=== PATIENT | male | born 1955 ===

== ENCOUNTER 2025-02-13 14:26 | Outpatient (REF) | payer MEDICARE, SELFPAY ==
--- OUTSIDE RECORDS SUMMARY | 2024-03-18 05:30 | XMS_ITS ---
Author Organization [facility] Address [address] [facility] [address] [place] [address] Care Team Providers Care Plug Stitcher Name Role Phone Lobo Mills MD Primary Care Provider Unavaila Sriram Garcia Unavailable [phone] Allergies Allergen (clinical drug ingredient) Drug/Non Drug [...] Active Encounters Encounter Location Date Provider Diagnosis [facility] [address] [place] [address] 03/18/2024 Sriram Shirley Plan Of Treatment Next Appt Details Provider Name:Sriram Shirley, 02/28/2025 10:00:00 AM, [address] [place] [address], [phone], Progress Notes * Richard FARIASOB:1955 (69 yo M)Acc No.[id number]:03/18/2024 Ostomy Follow-Up Visit Patient: Jose GASTELUM Provider: Raisa Shirley MD, MSc, CWSP :1955 A ge:69 Y S ex:Male Date:03/18/2024 Address:[address] [place], [place] [id number] Pcp:Lobo Mills MD Subjective: * Chief Complaints: [...] Electronic signature of Zulema Shirley MD on 02/13/2025 at 06:19 PM EDT Sign off status: Pending * Provider: Raisa Shriley MD, MSc, CWSP Date: 05/18/2023 Generated for Zoya melendez/Monika/Reva on: 06:19 PM EDT
--- OUTSIDE RECORDS SUMMARY | 2025-01-21 06:00 | XMS_ITS ---
Author Organization [facility] Address [address] [facility] [address] [place] [address] Care Team Providers Care Leather Stripping Machine Operator Name Role Phone Gene ROSAS, Lobo Primary Care Provider UnavailSriram Singh Unavailable [phone] REASON FOR VISIT 1 month f/u, hospitalized at [facility] Encounters Encounter Location Date Provider Diagnosis [facility] [address] [place] [address] 01/21/2025 Sriram Shirley Plan Of Treatment Next Appt Details Provider Name:Sriram Shirley, 02/28/2025 10:00:00 AM, [address] [place], [address], Progress Notes * Richard FARIASOB:1955 (69 yo M)Acc No.[id number]:01/21/2025 Ostomy Follow-Up Visit Patient: Coy CAITY Jose Provider: Raisa Shirley MD, MSc, CWSP :1955 A ge:69 Y S ex:Male Date:01/21/2025 Address: [address] [phone] Pcp:Lobo Mills MD Subjective: * Chief Complaints: * 1 . 1 month f/u, hospitalized at [facility]. * Medical History: Objective: * Vitals: Assessment: Plan: * Treatment: * Billing Information: * Visit Code: * Procedure Codes: * Electronic signature of Zulema Shirley MD on 02/13/2025 at 06:19 PM EDT Sign off status: Pending * Provider: Raisa Shirley MD, MSc, CWSP Date: 0 01/21/2025 Generated for Zoya melendez/Monika/Reva on: 1 06:19 PM EDT
--- OUTSIDE RECORDS SUMMARY | 2025-02-12 14:09 | XMS_ITS | Encounter Summary ---
Author Organization [facility] Address [address] [place] [address] Phone Care Team Providers Care Simulation Developer Name Role Phone Lobo Mills MD Primary Care Provider Referring, Not Required Unavailable Unavaila Sanchez Montanez MD Unavailable Amrita Soni MD Unavailable [phone] Encounter Details Date Type Department Care Team (Latest Contact Info) Description 02/12/2025 2:09 PM EDT - 02/12/2025 11:59 PM EDT Hospital Encounter Central Pathology, [facility] [place] [address] [place] [address] Discharge Disposition: Home or Self Care Social History Tobacco Use Types Packs/Day Years Used Date Smoking Tobacco: Never Assessed Education Answer Date Recorded Are you interested in more education? Not on princess e 01/31/2025 Are you concerned about learning? Not on file 01/31/2025 No 01/31/2025 No 01/31/2025 Digital Access Answer Date Recorded No 01/31/2025 No 01/31/2025 Reliable internet access at home? Not on file 01/31/2025 Device with a working camera? Not on file Sex and Gender Information Value Date Recorded Sex Assigned at Male 01/31/2025 11:31 AM EDT Legal Sex Male 11:30 AM EDT Gender Identity Male 01/31/2025 11:31 AM EDT Sexual Orientation Straight 01/31/2025 11 :31 AM EDT documented as of this encounter Plan of Treatment Upcoming Encounters Date Type Department Care Team (Latest Contact Info) Description 02/26/2025 12:15 PM EDT Administrative Encounter Central Registration, [facility] [address] [facility] [address] [place] [address] Amrita Soni MD [address] [place] [address] [address] [place] [address] [email or web address] 02/26/2025 1:00 PM EDT Office Visit [facility], [facility] [address] [address] Amrita Soni MD [address] [place] [address] [address] [place] [address] [email or web address] documented as of this encounter Visit Diagnoses Diagnosis Primary appendiceal adenocarcinoma Malignant neoplasm of appendix documented in this encounter Care Teams Simulation Developer Relationship Specialty Start Date End Date Lobo Mills MD [address] [place] [address] PCP - General Internal Medicine 01/31/25 Referring, Not Required Referring Physician 01/31/25 Sanchez Virgen MD [address] [place] [address] [email or web address] Medical Oncology 02/06/25 Amrita Soni MD [address] [place] [address] [address] [place] [address] [email or web address] Medical Oncology 02/06/25 documented as of this encounter Additional Source Comments The information contained in this document represents components of the legal health record. It is not the complete legal health record.[facility]
[2025-02-13 14:32] LABS: MANUAL DIFF FLAG NO
[2025-02-13 14:39] LABS: Hematocrit 26.9 % (42.0-52.0); Hemoglobin 9.1 g/dl (14.0-18.0); Imm Gran Abs Auto 0.06 X10*3/uL (0.00-0.03); Imm Gran Pct Auto 0.6 % (0.0-0.4); Lymphocytes Absolute Auto 0.5 X10*3/uL (1.2-4.9); Mean Corpuscular HGB Conc 33.8 g/dl (31.0-36.0); Mean Corpuscular Hemoglobin 31.7 pg (27.0-33.0); Mean Corpuscular Volume 93.7 fL (80.0-98.0); NRBC Abs Auto 0.000 X10*3/uL (0.0-0.012); NRBC Pct Auto 0.0 /100WBC (0.0-0.2); Platelet Count 408 X10*3/uL (160-400); Red Blood Count 2.87 X10*6/uL (4.60-5.80); White Blood Count 10.5 X10*3/uL (4.8-10.8)
[2025-02-13 15:25] LABS: Alanine Aminotransferase 17 U/L (0-40); Albumin Level 3.0 g/dL (3.5-5.0); Alkaline Phosphatase 82 U/L (39-117); Anion Gap 9 (12-20); Aspartate Amino Transferase 20 U/L (5-37); Blood Urea Nitrogen 42 mg/dL (9-16); Calcium 7.7 mg/dL (8.4-10.2); Carbon Dioxide 19 mmol/L (22-29); Chloride 119 mmol/L (96-108); Estimated Glomerular Filt Rate 58; Potassium 3.9 mmol/L (3.3-5.1); Sodium 143 mmol/L (135-145); Total Protein 4.7 g/dL (6.5-8.0)
--- OUTSIDE RECORDS SUMMARY | 2025-02-13 18:19 | XMS_ITS ---
Author Organization [facility] Care Team Providers Care Public Health Dentist Name Role Phone Liat Smith Unavailable Unavailable Joie Larkin Unavailable Unavailable Pema Whyte Unavailable Unavailable Marlene Dove Unavailable Unavailable Allergies and adverse reactions Code CodeSystem Substance Reaction Severity StartDate Concern Status Contrast Dye Unknown 06/20/2023 active 10776 RXNORM Iron Unknown 06/20/2023 active Zosyn Unknown 06/20/2023 active Care Team Name Role Address Phone Organization Dates Joie Larkin PCP [address], [place], [address], [place] (Office): [facility] 06/20/2023 - 06/28/2023 Liat Smith [address], [place], [address], [place] (Office): [facility] 06/20/2023 - 06/28/2023 Pema Whyte [address], [place], [address], [place] (Office): [facility] 06/20/2023 - 06/28/2023 Marlene Dove [address] [place] [address], [address], [place] (Office): [facility] 06/20/2023 - 06/28/2023 Immunizations Immunization Status Vaccine Details Vaccine Code CodeSystem Date Notes Influenza completed Influenza, split virus, trivalent, injectable, contains preservative 141 CVX created date: 06/20/2023 administere d date: 02/17/2023 Hepatitis B completed hepatitis B vaccine, adult dosage 43 CVX created date: 06/20/2023 administere d date: 05/23/2007 Pneumococcal Conjugate Vaccine (PCV13) completed pneumococcal conjugate vaccine, 13 valent 133 CVX created date: 06/20/2023 administere d date: 01/28/2014 Pneumococcal Polysaccharide Vaccine (PPSV23) completed pneumococcal polysaccharide vaccine, 23 valent 33 CVX created date: 06/20/2023 administere d date: 02/13/2020 TDAP( Tetanus/Diptheria/ Perutssis) completed tetanus toxoid, reduced diphtheria toxoid, and acellular pertussis vaccine, adsorbed 115 CVX created date: 06/20/2023 administere d date: 01/19/2016 SARS-COV-2 (COVID-19) completed SARS-COV-2 (COVID-19) vaccine, mRNA, spike protein, LNP, preservative free, 30 mcg/0.3mL dose Step 2 of Multi-step with next step required 208 CVX created date: 06/20/2023 administere d date: 09/08/2020 SARS-COV-2 (COVID-19) completed SARS-COV-2 (COVID-19) vaccine, mRNA, spike protein, LNP, preservative free, 30 mcg/0.3mL dose Step 1 of Multi-step with next step required 208 CVX created date: 06/20/2023 administere d date: 08/18/2020 Shingrix completed zoster vaccine recombinant 187 CVX created date: 06/20/2023 administere d date: 07/03/2021 SARS-COV-2 (COVID-19 BOOSTER) completed SARS-COV-2 (COVID-19) vaccine, mRNA, spike protein, LNP, preservative free, dary-sucrose, 30 mcg/0.3 mL dose 309 CVX created date: 06/20/2023 administere d date: 03/15/2022 SARS-COV-2 (COVID-19 BOOSTER) completed SARS-COV-2 (COVID-19) vaccine, mRNA, spike protein, LNP, preservative free, dary-sucrose, 30 mcg/0.3 mL dose 309 CVX created date: 06/20/2023 administere d date: 09/23/2021 SARS-COV-2 (COVID-19 BOOSTER) completed SARS-COV-2 (COVID-19) vaccine, mRNA, spike protein, LNP, preservative free, dary-sucrose, 30 mcg/0.3 mL dose 309 CVX created date: 06/20/2023 administere d date: 03/22/2021 SARS-COV-2 (COVID-19 BOOSTER) completed SARS-COV-2 (COVID-19) vaccine, mRNA, spike protein, LNP, preservative free, dary-sucrose, 30 mcg/0.3 mL dose 309 CVX created date: 06/20/2023 administere d date: 09/08/2020 Mental Status Section Date Assessment Total Score Description 06/28/2023 CAM 0 No delirium ind icated 06/25/2023 BIMS 14 cognitively int act CAM 0 No delirium ind icated PHQ-9 00 Insurance Providers Problems Problem # Description Date of onset Resolved Date Code CodeSystem Concern Status 1 ACUTE KIDNEY FAILURE, UNSPECIFIED 06/20/[address] active 2 BACTEREMIA 06/20/[address] active 3 CALCULUS OF KIDNEY 06/20/[address] active 4 ENCEPHALOPATHY, UNSPECIFIED 06/20/[address] active 5 HYPOTENSION, UNSPECIFIED 06/20/[address] active 6 MALIGNANT NEOPLASM OF PROSTATE 06/20/[address] active 7 OBSTRUCTIVE AND REFLUX UROPATHY, UNSPECIFIED 06/20/[address] active 8 RESPIRATORY FAILURE, UNSPECIFIED, UNSPECIFIED WHETHER WITH HYPOXIA OR HYPERCAPNIA 06/20/[address] active 9 SECONDARY MALIGNANT NEOPLASM OF RETROPERITONEUM AND PERITONEUM 06/20/19 C78.6 ICD-10-CM active 10 SEPSIS, UNSPECIFIED ORGANISM 06/20/[address] active 11 UNSPECIFIED HYDRONEPHROSIS 06/20/[address] active 12 URINARY TRACT INFECTION, SITE NOT SPECIFIED 06/20/[address] active 13 ALCOHOL ABUSE, UNCOMPLICATED 06/19/[address] active 14 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 06/19/[address] active 15 CHRONIC KIDNEY DISEASE, STAGE 3 UNSPECIFIED 06/19/[address] active 16 DIFFICULTY IN WALKING, NOT ELSEWHERE CLASSIFIED 06/19/[address] active 17 ESSENTIAL (PRIMARY) HYPERTENSION 06/19/[address] active 18 EXTENDED SPECTRUM BETA LACTAMASE (ESBL) RESISTANCE 06/19/[address] active 19 GASTRO-ESOPHAGEAL REFLUX DISEASE WITHOUT ESOPHAGITIS 06/19/[address] active 20 ILEOSTOMY STATUS 06/19/[address] active 21 MUSCLE WEAKNESS (GENERALIZED) 06/19/[address] active 22 OTHER ARTIFICIAL OPENINGS OF URINARY TRACT STATUS 06/19/[address] active 23 OTHER IDIOPATHIC PERIPHERAL AUTONOMIC NEUROPATHY 06/19/[address] active 24 POISONING BY UNSPECIFIED NARCOTICS, ACCIDENTAL (UNINTENTIONAL), SUBSEQUENT ENCOUNTER 06/19/[address] active 25 UNSPECIFIED ESCHERICHIA COLI [E. COLI] THE CAUSE OF DISEASES CLASSIFIED ELSEWHERE 06/19/[address] active 26 UNSTEADINESS ON FEET 06/19/[address] active Reason for Referral No Reasons for Referral Entered Social History Social History Observation Description Start Date End Date Code Code System Current Smoking Status Tobacco smoking consumption unknown 205322684 SNOMED CT Sex Assigned At Male 1955 15366-4 [facility] Gender Identity Sexual Orientation Vital Signs Code Code System Vitals Name Values and Units Timing Information 11458-2 LOINC Pain Level Value=2.0 06/28/2023 9279-1 LOINC Respiratory Rate Value=20.0 Units=/m in 06/28/2023 8462-4 LOINC Blood Pressure-Diastolic Value=74 Un its=mmHg 06/28/2023 8480-6 LOINC Blood Pressure-Systolic Snulz=273 Un its=mmHg 06/28/2023 8310-5 LOINC Body Temperature Value=97.7 Units= F 06/28/2023 8867-4 [facility] Heart rate Value=85.0 Units=/min 21817-4 [facility] O2 % BldC Oximetry Value=98.0 Units= % 06/28/2023 95618-6 [facility] Weight Jzrat=561.21 Units=Lbs 06/25/2023 8302-2 [facility] Height Value=64.9 Units=Inches 06/20/2023
--- OUTSIDE RECORDS SUMMARY | 2025-02-13 18:19 | XMS_ITS | Clinical Summary ---
Author Organization [facility] Address [address] [facility] [address] [place] [address] Phone Care Team Providers Care Veneer Manufacturer Name Role Phone Lobo Mills MD Primary Care Provider Referring, Not Required Unavailable Unavaila Sanchez Montanez MD Unavailable Amrita Soni MD Unavailable [phone] Encounters Date Type Department Care Team Description 02/12/2025 2:09 PM EDT - 02/12/2025 11:59 PM EDT Hospital Encounter Central Pathology, [address] [address] Discharge Disposition: Home or Self Care 02/06/2025 Orders Only [facility], [facility] [place] [address] [facility] [place] [address] Amrita Soni MD 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 Orders Only [facility], [facility] [place] [address] [facility] [place] [address] Neetu Garcia MD 02/04/2025 Orders Only [facility], [facility] [place] [address] [facility] [place] [address] Amrita Soni MD from Last 3 Months Social History Tobacco Use Types Packs/Day Years [...] Orientation Straight 01/31/2025 11 :31 AM EDT Plan of Treatment Upcoming Encounters Date Type Department Care Team (Latest Contact Info) Description 02/26/2025 12:15 PM EDT Administrative Encounter Central Registration, [facility] at [address] [address] Amrita Soni MD [address] [place] [address] [address] [place] [address] [email or web address] 02/26/2025 1:00 PM EDT Office Visit [facility], [facility] at [address] [address] Amrita Soni MD [address] [place] [address] [address] [place] [address] [email or web address] Health Maintenance Due Date Last Done Comments Adult Td,Tdap Booster 1955 DEPRESSION SCREENING 1969 SMOKING Hx and SMOKELESS TOBACCO SCREENING 1970 HEPATITIS C SCREENING 1975 COLOGUARD 2002 COLONOSCOPY 2002 COLORECTAL CANCER SCREENING 2002 FIT TEST 2002 FOBT 2002 SIGMOIDOSCOPY 2002 VIRTUAL COLONOSCOPY 2002 LIPID PANEL 02/11/2007 02/11/2002 PNEUMOCOCCAL VACCINES (50+ years) (2 of 2 - PCV) 02/12/2021 02/13/2020 ZOSTER VACCINES (2 of 2) 08/28/2021 07/03/2021 INFLUENZA VACCINE (#1) 2024 , 02/17/2023, 03/15/2022, Additional history exists COVID-19 VACCINE ( season) 2024 03/12/2024, 09/23/2021, 03/22/2021, Additional history exists RSV VACCINE (1 - 1-dose 75+ series) 2032 HEPATITIS A VACCINES Aged Out No long er eligible based on patient's age to complete this topic HIB VACCINES Aged Out No longer eligi ble based on patient's age to complete this topic MENINGOCOCCAL VACCINES (ACWY) Aged Out No longer eligible based on patient's age to complete this topic MENINGOCOCCAL VACCINES (B) Aged Out N o longer eligible based on patient's age to complete this topic Medical Devices Not on file Procedures Procedure Name Priority Date/Time Associated Diagnosis Comments OUTSIDE PROCEDURE 01/28/2025 OUTSIDE IMAGING 01/27/2025 OUTSIDE LAB 12/13/2024 from Last 3 Months Results * Outside Procedure (01/28/2025) us Scanning Interface Provider PROCEDURE/MINOR SURG ICAL PERFORMABLES Final Result * Outside Imaging Report Only (01/27/2025) us Scanning Interface Provider IMG XR CHEST Gabbie l Result * Outside Lab (12/13/2024) us Scanning Interface Provider LAB BLOOD ORDERABLES Final Result from Last 3 Months Insurance MEDICARE PART [place] MEDICARE PART A [place] [id number] MEDICARE PART A & B [facility] [place] [id number] MEDIC[place] [phone] Advance Directives For more information, please contact: [phone] (9AM - 5PM [place], Monday-Monday) Documents on File Type Date Recorded Patient Business Systems Analyst Expl anation Serious Illness Care 02/06/2025 6:00 PM Serious Illness Care 02/06/2025 6:00 PM Serious Illness Care 02/06/2025 6:00 PM Serious Illness Care 02/06/2025 6:00 PM Serious Illness Care 02/06/2025 6:00 PM Serious Illness Care 02/06/2025 3:04 PM Care Teams Veneer Manufacturer Relationship Specialty Start Date End Date Lobo Mills MD [address] [place] [address] PCP - General Internal Medicine 01/31/25 Referring, Not Required Referring Physician 01/31/25 Sanchez Virgen MD [address] [place] [address] [email or web address] Medical Oncology 02/06/25 Amrita Soni MD [address] [place] [address] [facility] [address] [place] [address] [email or web address] Medical Oncology 02/06/25 Additional Source Comments The information contained in this document represents components of the legal health record. It is not the complete legal health record.[facility]
--- OUTSIDE RECORDS SUMMARY | 2025-02-13 18:19 | XMS_ITS | Encounter Summary ---
Author Organization [facility] Address [address] [facility] [address] [place] [address] Phone Care Team Providers Care Ed Transporter Name Role Phone Lobo Mills MD Primary Care Provider Referring, Not Required Unavailable Unavaila Sanchez Montanez MD Unavailable Amrita Soni MD Unavailable [phone] Encounter Details Date Type Department Care Team (Late st Contact Info) Description 02/06/2025 Orders Only [facility], [facility] [place] [address] [facility] 10[address] [place] [address] Neetu Garcia MD [address] [facility] [place] [address] [email or web address] Social History Tobacco Use Types Packs/Day Years [...] 12:15 PM EDT Administrative Encounter Central Registration, [facility] [place] [address] [facility] [address] [place] [address] Amrita Soni MD [address] [place] [address] [address] [place] [address] [email or web address] 02/26/2025 1:00 PM EDT Office Visit [facility], [facility] [place] [address] [facility] [address] [place] [address] Amrita Soni MD [address] [place] [address] [address] [place] [address] [email or web address] documented as of this encounter Visit Diagnoses Not on filedocumented in this encounter Care Teams Ed Transporter Relationship Specialty Start Date End Date Lobo Mills MD [address] [place] [address] PCP - General Internal Medicine 01/31/25 Referring, Not Required Referring Physician 01/31/25 Sanchez Virgen MD [address] [place] [address] [email or web address] Medical Oncology 02/06/25 Amrita Soni MD [address] [place] [address] Center [address] [place] [address] [email or web address] Medical Oncology 02/06/25 documented as of this encounter Additional Source Comments The information contained in this document represents components of the legal health record. It is not the complete legal health record.[facility]
--- OUTSIDE RECORDS SUMMARY | 2025-02-13 18:19 | XMS_ITS | Encounter Summary ---
Author Organization [facility] Address [address] [facility] [address] [place] [address] Phone Care Team Providers Care It Applications Analyst Name Role Phone Lobo Milsl MD Primary Care Provider Referring, Not Required Unavailable Unavaila Sanchez Montanez MD Unavailable Amrita Soni MD Unavailable [phone] Encounter Details Date Type Department Care Team (Late st Contact Info) Description 02/04/2025 Orders Only [facility], [facility] [place] [address] [facility] 10[address] [place] [address] Amrita Soni MD [address] [facility] [address] [place] [address] [email or web address] Social History Tobacco Use Types Packs/Day Years [...] 12:15 PM EDT Administrative Encounter Central Registration, [facility] [address] [facility] [address] [place] [address] Amrita Soni MD [address] [place] [address] [address] [place] [address] [email or web address] 02/26/2025 1:00 PM EDT Office Visit [facility], [facility] [address] [facility] [address] [place] [address] Amrita Soni MD [address] [place] [address] [address] [place] [address] [email or web address] documented as of this encounter Visit Diagnoses Not on filedocumented in this encounter Care Teams It Applications Analyst Relationship Specialty Start Date End Date Lobo Mills MD [address] [place] [address] PCP - General Internal Medicine 01/31/25 Referring, Not Required Referring Physician 01/31/25 Sanchez Virgen MD [address] [place] [address] [email or web address] Medical Oncology 02/06/25 Amrita Soni MD [address] [facility] [address] [place] [address] [email or web address] Medical Oncology 02/06/25 documented as of this encounter Additional Source Comments The information contained in this document represents components of the legal health record. It is not the complete legal health record.[facility]
--- OUTSIDE RECORDS SUMMARY | 2025-02-13 18:19 | XMS_ITS | Patient Health Record ---
Author Organization [facility] Address [address] [facility] [address] [place] [address] Care Team Providers Care [place] Operator Name Role Phone Lobo Mills MD Primary Care Provider Sriram Aguirre Unavailable [phone] Allergies Allergen (clinical drug ingredient) Drug/Non Drug Allergy documented on EMR Reaction Allergy Type Onset Date Status ferrous sulfate Iron Unknown Drug Allergy A ctive piperacillin / tazobactam Zosyn Unknown Drug Allergy Active cefepime Cefepime Unknown Drug Allergy Active Iodinated contrast media (substance) Iodinated Diagnostic Agents Unknown Drug Allergy Active Reason For Referral No Information Medications Medication SIG (Take, Route, Frequency, Duration) Notes Start Date End Date Status Ondansetron 4 MG 1 tablet on the tongue and allow to dissolve Orally every 8 hours as needed; Duration: 30 day(s) Active Loperamide HCl 2 MG 1 capsule as needed Orally Four times a day Active oxyCODONE HCl 10 MG 1 tablet as needed Orally every 6 hrs Active Bicalutamide 50 MG 1 tablet Orally Once a day; Duration: 30 day(s) Active Pantoprazole Sodium 20 MG 1 tablet Orally Once a day; Duration: 30 day(s) Active Simethicone 80 MG 1 tablet after meals and at bedtime Orally Four times a day; Duration: 30 day(s) Not-Taking Baclofen 5 MG 1 tablet as needed Orally 4x/day; Duration: 30 day(s) Active Acetaminophen 500 MG 1 capsule as needed Orally every 6 hrs Active Multivitamin - 1 tablet Orally Once a day; Duration: 30 day(s) Not-Taking Colestipol HCl Activ e Mucinex 600 MG 2 tablets as needed Orally once daily For rectal mucus Not-Taking Diphenoxylate-Atropin e 2.5-0.025 MG 1 tablet as needed Orally Four times a day Active Aspir-Low 81 MG 1 tablet Orally Once a day; Duration: 30 day(s) Not-Taking Gabapentin 600 MG 2 tablet Orally three times a day; Duration: 30 day(s) Active Sodium Chloride 0.9 % as directed Intravenous Not-Taking Problems Problem Type SNOMED Code ICD Code Onset Dates Problem Status W/U Status Risk Notes Problem Malignant neoplasm of prostate (146988387) Malignant neoplasm of prostate (C61) Active confirmed Problem Malignant neoplasm of abdomen (000399785) 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) Active confirmed Problem 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 Problem Alcohol abuse (76823775) Alcohol abuse, uncomplicated (F10.10) Active confirmed Problem Chronic obstructive pulmonary disease (14884222) Chronic obstructive pulmonary disease, unspecified (J44.9) Active confirmed Problem Urinary tract obstruction (8720513) Obstructive and reflux uropathy, unspecified (N13.9) Active confirmed Problem Attention to ileostomy (368938238) Encounter for attention to ileostomy (Z43.2) Active confirmed Problem History of malignant neoplasm of colon (431175715) Personal history of other malignant neoplasm of large intestine (Z85.038) Active confirmed Problem History of malignant neoplasm of prostate (541419152) Personal history of malignant neoplasm of prostate (Z85.46) Active confirmed Problem History of malignant neoplasm (896917092) Personal history of malignant neoplasm of other organs and systems (Z85.89) Active confirmed Problem Spleen absent (761007099) 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 Problem Ileostomy present (043390817) Ileostomy status (Z93.2) Active confirmed Problem Chronic kidney disease stage 3 (disorder) (479391842) CKD (chronic kidney disease), stage III (N18.30) Active confirmed Vital Signs Heart Rate 68 /min 12/17/2024 Temperature 97.7 degrees Fahrenheit 12/17/2024 Respiratory Rate 20 /min 12/17/2024 Blood pressure diastolic 68 mm Hg 12/17/2024 Oximetry 98 % 12/17/2024 Height-cm 162.56 cm 12/17/2024 Weight-kg 53.52 kg 12/17/2024 Height 64 in 12/17/2024 Blood pressure systolic 98 mm Hg 12/17/2024 Weight 118 lbs 12/17/2024 BMI 20.25 kg/m2 12/17/2024 Encounters Encounter Location Date Provider Diagnosis [facility] [address] [facility] [address] [place] [id number] 11/19/2024 Sriram Shirley Malignant neoplasm o f abdomen C76.2 ; Chronic obstructive pulmonary disease, unspecified J44.9 ; Encounter for attention to ileostomy Z43.2 ; Personal history of other malignant neoplasm of large intestine Z85.038 ; Personal history of malignant neoplasm of prostate Z85.46 ; Ileostomy status Z93.2 ; Secondary malignant neoplasm of retroperitoneum and peritoneum C78.6 ; Alcohol abuse, uncomplicated F10.10 ; Obstructive and reflux uropathy, unspecified N13.9 and Personal history of malignant neoplasm of other organs and systems Z85.[address] [place] [phone] 12/17/2024 Sriram Shirley Malignant neoplasm o f abdomen C76.2 ; Chronic obstructive pulmonary disease, unspecified J44.9 ; Encounter for attention to ileostomy Z43.2 ; Personal history of other malignant neoplasm of large intestine Z85.038 ; Personal history of malignant neoplasm of prostate Z85.46 ; Ileostomy status Z93.2 ; Secondary malignant neoplasm of retroperitoneum and peritoneum C78.6 ; Alcohol abuse, uncomplicated F10.10 ; Obstructive and reflux uropathy, unspecified N13.9 and Personal history of malignant neoplasm of other organs and systems Z85.89 [facility] [address] [phone] 02/20/2024 rSiram Shirley [facility] [address] [address] 03/01/2024 Sriram Shirley Assessments Encounter Date Diagnosis (ICD Code) Assessment Notes Treatment Notes Treatment Clinical Notes Section Notes 11/19/2024 Malignant neoplasm of abdomen (ICD-10 - C76.2) 12/17/2024 Malignant neoplasm of abdomen (ICD-10 - C76.2) 12/17/2024 Chronic obstructive pulmonary disease, unspecified (ICD-10 - J44.9) 11/19/2024 Chronic obstructive pulmonary disease, unspecified (ICD-10 - J44.9) 11/19/2024 Encounter for attention to ileostomy (ICD-10 - Z43.2) 12/17/2024 Encounter for attention to ileostomy (ICD-10 - Z43.2) 12/17/2024 Personal history of other malignant neoplasm of large intestine (ICD-10 - Z85.038) 11/19/2024 Personal history of other malignant neoplasm of large intestine (ICD-10 - Z85.038) 11/19/2024 Personal history of malignant neoplasm of prostate (ICD-10 - Z85.46) 12/17/2024 Personal history of malignant neoplasm of prostate (ICD-10 - Z85.46) 11/19/2024 Ileostomy status (ICD-10 - Z93.2) 12/17/2024 Ileostomy status (ICD-10 - Z93.2) 11/19/2024 Secondary malignant neoplasm of retroperitoneum and peritoneum (ICD-10 - C78.6) 12/17/2024 Secondary malignant neoplasm of retroperitoneum and peritoneum (ICD-10 - C78.6) 12/17/2024 Alcohol abuse, uncomplicated (ICD-10 - F10.10) 11/19/2024 Alcohol abuse, uncomplicated (ICD-10 - F10.10) 11/19/2024 Obstructive and reflux uropathy, unspecified (ICD-10 - N13.9) 12/17/2024 Obstructive and reflux uropathy, unspecified (ICD-10 - N13.9) 12/17/2024 Personal history of malignant neoplasm of other organs and systems (ICD-10 - Z85.89) 11/19/2024 Personal history of malignant neoplasm of other organs and systems (ICD-10 - Z85.89) 11/19/2024 Gricelda Garcia presented to the office follow up ostomy visit for granuloma management. He has a permanent Ileostomy, due to personal history of appendix and peritoneal carcinomatosis. He reports he currently is utilizing stoma powder with skin barrier in the crusting procdure, Brava moldable barrier ring, 1 piece Coloplast Sensura Ventura convex appliance, and C shaped elastic barrier strips. Pt reports he had significant weight loss r/t reoccurrence of his cancer with multiple tumors in his abdomen.He had a recent hospitalization in early October 2024 for small bowel obstruction. He reports he has had issues with leakage due to the activity of stoma and abdominal contour changes. OMS eval complete: Stoma appears healthy, red, beefy, moist, remains with multiple granulomas present, periwound clean dry and intact. Treatment of silver nitrate was applied to 3 distinct areas with larger sized granulomas present. Recs to continue with crusting procedure prn , and current Coloplast convex 1 PC cut to fit 7/8 (22 mm) appliance, brava barrier ring and elastic barrier strips x2, followed by 2 prong appliance belt. Education provided regarding current recs, appliance removal, cleansing, and appliance application. Diet, contour changes, leakage management, and the possible use of an EZ-Vent clip for gas management. Pt verbalizes understanding of the education provided. All of Jose's questions and concerns were addressed. He was instructed to call with any further questions or concerns and follow up in 1-month for granuloma management at the [place] location. Fern Davis was available for any questions or concerns that I may have had, Nery Almendarez BSN OMS and Briseida Marino LPN OMS. Silver nitrate was applied to 3 distinct areas. Jose tolerated the procedure well. I, Sriram Shirley MD confirm that Nery Almendarez RN OMS, adheres to the guidelines of the established clinical protocols in the office. I confirm the above care provided was rendered under my general supervision as initially planned and subsequently discussed and supervised by me. 12/17/2024 Other Jose presented to the office follow up ostomy visit for granuloma management. He has a permanent Ileostomy, due to personal history of appendix and peritoneal carcinomatosis. He reports he currently is utilizing stoma powder with skin barrier in the crusting procdure, Brava moldable barrier ring, 1 piece Coloplast Sensura Ventura convex appliance, and C shaped elastic barrier strips. Pt reports he had significant weight loss r/t reoccurrence of his cancer with multiple tumors in his abdomen.He had a hospitalization in early October 2024 for small bowel obstruction. He reports he has had diarrhea with leakage due to the activity of stoma and abdominal contour changes. Follow-up ostomy assessment for ileostomy management. Pt reports he had significant weight loss r/t reoccurrence of his cancer with multiple tumors in his abdomen. He reports he has had issues with leakage due to the activity of stoma and contour changes.He also is having severe diarrhea in which he is having to get IV fluids for dehydration sometimes 2 times per week. OMS eval complete: Stoma appears healthy, red, beefy, moist, remains with multiple granulomas present, periwound clean dry and intact. Treatment of silver nitrate was applied to 3 distinct areas with larger sized granulomas present. Recs to continue with skin barrier and current Coloplast, convex,1 PC appliance, cut to fit 7/8 (22 mm) appliance, crusting method as needed, brava barrier ring and elastic barrier strips 1 x2, followed by 2 prong appliance belt. Jose education provided regarding current recs, appliance removal, cleansing, and appliance application. Diet, contour changes, leakage management. Pt verbalizes understanding of the education provided. Follow up scheduled in 1-month for granuloma management at the [place] location. All of Jose's questions and concerns were addressed. He was instructed to call with any further questions or concerns and follow up in 1-month for granuloma management at the [place] location. Fern Davis was available for any questions or concerns that I may have had, Nery Almendarez BSN OMS and Briseida Marino LPN OMS. Silver nitrate was applied to 3 distinct areas. Jose tolerated the procedure well. I, Sriram Shirley MD confirm that Nery Almendarez RN OMS, adheres to the guidelines of the established clinical protocols in the office. I confirm the above care provided was rendered under my general supervision as initially planned and subsequently discussed and supervised by me. Plan Of Treatment Next Appt Details Provider Name:Sriram Shirley, 02/28/2025 10:00:00 AM, [address] [place], [address], Insurance Providers Payer Name Payer Address Payer Phone Subscriber Number Group Number Insured Name Patient Relationship to Insured Coverage Start Date Coverage End Date Medicare [address] [place], [place] [id number] Jose Hirsch Self - patient is the insured [facility] (Medicaid) [address] [place], [place] [id number] [phone] [id number] Jose Hirsch Self - patient is the insured Medical (General) History Medical History History ICD Code 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 Right bundle branch block 426.4 Postprocedural hypertension I97.3 Hypertension I10 Osteoarthritis of knee, unsp ecified laterality, unspecified osteoarthritis type M17.9 Neuropathy G62.9 Chronic obstructive pulmonary disease, u nspecified J44.9 Personal history of malignant neoplasm o f prostate Z85.46 Malignant neoplasm of abdomen C76.2 Encounter for attention to ileostomy Z43 .2 Ileostomy status Z93.2 Personal history of other malignant neop lasm of large intestine Z85.038 Myalgia, other site M79.18 Nephrolithiasis N20.0 Obstructive and reflux uropathy, unspeci fied N13.9 Secondary malignant neoplasm of retroper itoneum and peritoneum C78.6 Acquired absence of spleen Z90.81 Personal history of malignant neoplasm o f other organs and systems Z85.89 Alcohol abuse, uncomplicated F10.10 SBO (small bowel obstruction) K56.609 Secondary malignant neoplasm of retroper itoneum and peritoneum C78.6 Malignant neoplasm of prostate C61 CKD (chronic kidney disease), stage III N18.30 Surgical History Surgery Date(Month/Year) EGD Debulking intraabdominal neoplasm appendectomy total colectomy, with Ileostomy creation Bilateral nephrostomy Splenectomy Cholecystectomy Eye lid surgery
--- OUTSIDE RECORDS SUMMARY | 2025-02-13 18:19 | XMS_ITS | Clinical Summary ---
Author Organization [facility] Address [address] [facility] [address] [place] [address] Care Team Providers Care Water Use Inspector Name Role Phone Lobo Mills MD Primary Care Provider [phone] Allergies Active Allergy Reactions Criticality Noted Date Comments Cefepime 08/10/2021 Iodinated Contrast Media 08/10/2021 Iron 08/10/2021 Medications baclofen (Lioresal) 5 mg tablet Take 5 mg by mouth in the morning, at noon, in the evening, and at bedtime. Active oxyCODONE (Roxicodone) 30 mg immediate release tablet Take 10 mg by mouth every 6 (six) hours if needed for pain score 7-10. Active bicalutamide (Casodex) 50 mg chemo tablet Take 50 mg by mouth in the morning Take at the same time every day. Active pantoprazole (ProtoNix) 40 mg EC tablet Take 40 mg by mouth 1 (one) time each day. Do not crush, chew, or split. Active gabapentin (Neurontin) 300 mg capsuleIndicati ons:Neuropathic pain Take 2 capsules (600 mg) by mouth in the morning, at noon, in the evening, and at bedtime. 240 capsule 11 08/12/2021 Active Active Problems Problem Noted Date Diagnosed Date Small bowel obstruction 08/10/2021 Social History Tobacco Use Types Packs/Day Years Used Date Smoking Tobacco: Never Smokeless Tobacco: Never Comments:denies smoking Alcohol Use Standard Drinks/Week Comments Not Currently 0 (1 standard drink = 0.6 oz pur e alcohol) pt. states its been years Sex and Gender Information Value Date Recorded Sex Assigned at Not on file Legal Sex Male 7:17 AM EST Gender Identity Not on file Sexual Orientation Not on file Last Filed Vital Signs Vital Sign Reading Time Taken Comments Blood Pressure 116/47 08/12/2021 1:05 PM EDT Pulse 57 08/12/2021 1:05 PM EDT Temperature 36.6 C (97.9 F) 08/12/2021 1:05 PM EDT Respiratory Rate 18 08/12/2021 1:05 PM EDT Oxygen Saturation 97% 08/12/2021 1:05 PM EDT Inhaled Oxygen Concentration - - Weight 75.9 kg (167 lb 5.3 oz) 08/11/2021 9:00 P M EDT Height 162.6 cm (5' 4 ) 09/18/2020 11:00 AM EDT Body Mass Index 28.72 09/18/2020 11:00 AM EDT Plan of Treatment Health Maintenance Due Date Last Done Comments CT Colonography 1957 Colonoscopy 1957 Colorectal Cancer Screening 1955 FIT-DNA 1957 FIT 1957 FOBT 1957 Lipid Panel 1957 Sigmoidoscopy 1955 Hepatitis B Vaccines (2 of 3 - 19+ 3-dose series) 06/20/2007 05/23/2007 Zoster Vaccines (2 of 2) 08/28/2021 07/03/2021 Depression Screening 05/01/2024 COVID-19 Vaccine (2024- season) 2024 09/23/2021, 03/22/2021, 09/08/2020, Additional history exists Influenza Vaccine (#1) 2024 , 02/17/2023, 03/15/2022, Additional history exists DTaP/Tdap/Td Vaccines (2 - Td or Tdap) 01/18/2026 01/19/2016, 05/23/2007 HIB Vaccines Aged Out 05/30/2007 No longer eligi ble based on patient's age to complete this topic Meningococcal Vaccine Aged Out 03/11/2013, 008 No longer eligible based on patient's age to complete this topic Pneumococcal Vaccine: 50+ Years Completed 02/13/2020, 01/28/2014, 01/11/2013, Additional history exists Pneumococcal Vaccine: Pediatrics (0 to 5 Years) and At-Risk Patients (6 to 49 Years) Discontinued 02/13/2020, 01/28/2014, 01/11/2013, Additional history exists HPV Vaccines Aged Out No longer eligi ble based on patient's age to complete this topic Hepatitis A Vaccines Aged Out No long er eligible based on patient's age to complete this topic IPV Vaccines Aged Out No longer eligi ble based on patient's age to complete this topic Meningococcal B Vaccine Aged Out No l onger eligible based on patient's age to complete this topic Rotavirus Vaccines Aged Out No longer eligible based on patient's age to complete this topic Insurance MEDICARE PART A AND B Advance Directives Documents on File Type Date Recorded 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 [employer] Expl anation Health Care Proxy 06/07/2019 9:42 PM Conver jigar - External Healthcare Pro[facility] DNR (Do Not Resuscitate)/DNI (Do Not Intubate) 06/07/2019 9:41 PM Conversion - DNR Ord er ([facility] DM) Health Care Proxy 05/27/2019 11:56 AM Conv ersion - External Healthcare Proxy ([facility]) * Full Code (Latest Code Status on File) Date Activated Date Inactivated Comments 08/10/2021 3:59 PM 08/12/2021 8:27 PM Care Teams Water Use Inspector Relationship Specialty Start Date End Date Lobo Mills MD [address] [place] [address] PCP - General 06/04/21
--- OUTSIDE RECORDS SUMMARY | 2025-02-13 18:19 | XMS_ITS | Clinical Summary ---
Author Organization [facility] Address [address] [address] Phone Care Team Providers Care Security Rep Name Role Phone Lobo Mills MD Primary Care Provider [phone] Allergies Active Allergy Reactions Criticality Noted Date Comments Cefepime 03/20/2024 Iron 07/11/2022 Piperacillin-Tazobactam In Dex 03/20 Medications acetaminophen (TYLENOL) 500 MG tablet Take by mouth every 6 (six) hours if needed for mild pain Active Baclofen 5 MG pack Take by mouth Active loperamide (IMODIUM) 2 MG capsule Take 2 mg by mouth 4 (four) times a day if needed for diarrhea Active Multiple Vitamins-Minera ls (multivitamin with minerals) tablet Take 1 tablet by mouth 1 (one) time each day Active oxyCODONE (ROXICODONE) 5 MG immediate release tablet Take 5 mg by mouth every 4 (four) hours if needed for moderate pain Active pantoprazole (PROTONIX) 40 MG EC tablet Take 40 mg by mouth 1 (one) time each day before breakfast Do not crush, chew, or split. Active simethicone (MYLICON) 80 MG chewable tablet Chew 80 mg every 6 (six) hours if needed for flatulence Active sodium chloride (OCEAN) 0.65 % nasal spray Administer 1 spray into each nostril if needed for congestion Active tamsulosin (FLOMAX) 0.4 MG 24 hr capsule Take 0.4 mg by mouth 1 (one) time each day Active diphenoxylate-a tropine (LOMOTIL) 2.5-0.025 MG per tablet Take 1 tablet by mouth 4 (four) times a day if needed for diarrhea Active bicalutamide (CASODEX) 50 MG chemo tablet Take 50 mg by mouth 1 (one) time each day Take at the same time . Take with or without food. Active gabapentin (NEURONTIN) 400 MG capsule Take 400 mg by mouth in the morning and 400 mg at noon and 400 mg in the evening and 400 mg before bedtime. Active OxyCONTIN 20 MG 12 hr abuse-deterrent tablet Take 20 mg by mouth every 12 (twelve) hours Active colestipol (COLESTID) 1 g tablet Take 1 g by mouth in the morning and 1 g in the evening. Active Active Problems Problem Noted Date Diagnosed Date Chronic metabolic acidosis 01/29/2025 Anemia in chronic kidney disease 10/14/2024 Hypotension 07/12/2023 Acute encephalopathy, not otherwise specified Bacteremia 07/12/2023 Obstructive uropathy 07/12/2023 Accidental overdose of opiate 07/12/2023 Carcinomatosis of peritoneal cavity 07/12/2023 Carcinoma of prostate 07/12/2023 Respiratory failure 07/12/2023 Sepsis 07/12/2023 Urinary tract infection 07/12/2023 Stage 3 chronic kidney disease 07/11/2022 Proteinuria 07/11/2022 Nephrolithiasis Acute nontraumatic kidney injury Encounters Date Type Department Care Team Description 01/14/2025 10:30 AM EDT Office Visit [facility] [address] [facility] [address] [place] [address] Briseida Clarke ARNP Stage 3a chronic kidney disease (HCC) (Primary Dx); Anemia in chronic kidney disease; Chronic metabolic acidosis 12/30/2024 Orders Only [facility] [address] [place] [address] [address] [place] [address] Briseida Clarke ARNP Acute nontraumatic kidney injury, not otherwise specified (HCC); Stage 3a chronic kidney disease (HCC); Anemia in chronic kidney disease from Last 3 Months Family History Medical History Relation Comments Cancer Father Relation Status Comments Father Social History Tobacco Use Types Packs/Day Years Used Date Smoking Tobacco: Never Smokeless Tobacco: Never Tobacco Cessation:Counseling Given: No Alcohol Use Standard Drinks/Week Comments Not Currently 0 (1 standard drink = 0.6 oz pur e alcohol) Sex and Gender Information Value Date Recorded Sex Assigned at Not on file Legal Sex Male 1:27 PM EST Gender Identity Not on file Sexual Orientation Not on file Last Filed Vital Signs Vital Sign Reading Time Taken Comments Blood Pressure 110/78 01/14/2025 10:58 AM EDT Pulse 65 01/14/2025 10:58 AM EDT Temperature 36.6 C (97.9 F) 07/20/2018 12:00 PM EDT Respiratory Rate 12 07/20/2018 12:00 PM EDT Oxygen Saturation 100% 01/14/2025 10:58 AM EDT Inhaled Oxygen Concentration - - Weight 56.3 kg (124 lb 3.2 oz) 01/14/2025 10:58 AM EDT Height 162.6 cm (5' 4 ) 07/20/2018 12:00 PM EDT Body Mass Index 21.32 07/20/2018 12:00 PM EDT Plan of Treatment Upcoming Encounters Date Type Department Care Team (Late st Contact Info) Description 04/18/2025 11:15 AM EST Office Visit [facility] [address] [phone] Mike Andres MD [address] [address] Health Maintenance Due Date Last Done Comments Colorectal Cancer Screening: Annual FOBT 2006 Colorectal Cancer Screening: Colonoscopy 2006 Colorectal Cancer Screening: Sigmoidoscopy 2006 Influenza Vaccine (#1) 2024 2, 03/22/2021, 02/13/2020, Additional history exists Pneumococcal Vaccine: 50+ Years (4 of 4 - PCV20 or PCV21) 02/12/2025 02/13/2020, 01/28/2014, 01/11/2013, Additional history exists Hepatitis B Vaccine Aged Out 05/23/2007, 8 No longer eligible based on patient's age to complete this topic Pneumococcal Vaccine: Peds (0 to 5 Years) and At-Risk Patients (6 to 49 Years) Discontinued 02/13/2020, 01/28/2014, 01/11/2013, Additional history exists Procedures Procedure Name Priority Date/Time Associated Diagnosis Comments PTH, INTACT Routine 01/14/2025 12:32 PM EDT FERRITIN Routine 01/14/2025 12:32 PM EDT VITAMIN D 25 HYDROXY Routine 01/14/2025 12:32 PM EDT URINE ALBUMIN / CREATININE RATIO Routine 01/14/2025 12:32 PM EDT PROTEIN / CREATININE RATIO, URINE Routine 01/14/2025 12:32 PM EDT IMMUNOFIXATION ELECTROPHORESIS Routine 01/14/2025 12:32 PM EDT IRON PANEL (FE, TIBC, TSAT) Routine 01/14/2025 12:32 PM EDT CBC Routine 01/14/2025 12:32 PM EDT RENAL FUNCTION PANEL Routine 01/14/2025 12:32 PM EDT URINALYSIS Routine 01/14/2025 12:32 PM EDT from Last 3 Months Results * (ABNORMAL) Iron Panel (Fe, TIBC, TSAT) (01/14/2025 12:32 PM EDT) UIBC 188 111 - 343 ug/dL [facility] TIBC 220(L) 250 - 450 ug/dL [facility] Iron 32(L) 38 - 169 ug/dL [facility] Iron Saturation (TSat) 15 15 - 55 % [facility] 01/14/2025 12:3 2 PM EDT 01/14/2025 us Briseida [facility] LAB BLOOD ORDERABLES Final Result [facility] [address] [place] [address] * Vitamin D 25 Hydroxy (01/14/2025 12:32 PM EDT) [facility] Vitamin D, 25-OH, Total 42.1 30.0 - 100.0 ng/mL [facility] Comment: Vitamin D deficiency has been defined by the [place] of Medicine and an Endocrine Society practice guideline as a level of serum 25-OH vitamin D less than 20 ng/mL (1,2). The Endocrine Society went on to further define vitamin D insufficiency as a level between 21 and 29 ng/mL (2). 1. IOM ([place] of Medicine). 2010. Dietary reference intakes for calcium and D. [place]: The National Academies Press. 2. Red MF, Aimee WRIGHT, Greyson GUZMÁN, et al. Evaluation, treatment, and prevention of vitamin D deficiency: an Endocrine Society clinical practice guideline. JCEM. 2010; 96(7):1911-30. 01/14/2025 12:3 2 PM EDT 01/14/2025 Briseida Clarke [facility] LAB BLOOD ORDERABLES Final Result [facility] [address] [place] [address] * (ABNORMAL) CBC (01/14/2025 12:32 PM EDT) [facility] WBC 6.9 3.4 - 10.8 x10E3/uL [facility] RBC 3.00(L) 4.14 - 5.80 x10E6/uL [facility] Hemoglobin 9.7(L) 13.0 - 17.7 g/dL [facility] Hematocrit 29.3(L) 37.5 - 51.0 % [facility] MCV 98(H) 79 - 97 fL [facility] MCH 32.3 26.6 - 33.0 pg [facility] MCHC 33.1 31.5 - 35.7 g/dL [facility] RDW 13.8 11.6 - 15.4 % [facility] Platelets 336 150 - 450 x10E3/uL [facility] 01/14/2025 12:3 2 PM EDT 01/14/2025 Briseida [facility] LAB BLOOD ORDERABLES Final Result Performing Organization Address City/[facility]/ZIP Co de Phone Number [facility] [address] [place] [address] * Immunofixation electrophoresis (01/14/2025 12:32 PM EDT) IgG 908 603 - 1,613 mg/dL [facility] IgA 123 61 - 437 mg/dL [facility] IgM 48 20 - 172 mg/dL [facility] Immunofixation Result, Serum Comment [facility] Comment: The immunofixation pattern appears unremarkable. Evidence of monoclonal protein is not apparent. 01/14/2025 12:3 2 PM EDT 01/14/2025 Briseida [facility] LAB BLOOD ORDERABLES Final Result Performing Organization Address City/[facility]/ZIP Co de Phone Number [facility] [address] [place] [address] * PTH, Intact (01/14/2025 12:32 PM EDT) PTH 37 15 - 65 pg/mL [facility] 01/14/2025 12:3 2 PM EDT 01/14/2025 [facility] LAB BLOOD ORDERABLES Final Result Performing Organization Address City/[facility]/ZIP Co de Phone Number [facility] [address] [place] [address] * Ferritin (01/14/2025 12:32 PM EDT) Pathologist [facility] Ferritin 325 30 - 400 ng/mL [facility] 01/14/2025 12:3 2 PM EDT 01/14/2025 Briseida [facility] LAB BLOOD ORDERABLES Final Result Performing Organization Address [facility] de Phone Number [facility] [address] [place] [address] * (ABNORMAL) Renal Function Panel (01/14/2025 12:32 PM EDT) Pathologist [facility] Glucose 91 70 - 99 mg/dL [facility] BUN 23 8 - 27 mg/dL [facility] Creatinine 1.55(H) 0.76 - 1.27 mg/dL [facility] eGFR CKD-EPI CR 2020 49(L) >59 mL/min/1.7 3 [facility] BUN/Creatinine Ratio 15 10 - 24 [facility] Sodium 141 134 - 144 mmol/L [facility] Potassium 4.6 3.5 - 5.2 mmol/L [facility] Chloride 109(H) 96 - 106 mmol/L [facility] Bicarbonate (CO2) 17(L) 20 - 29 mmol/L [facility] Calcium 8.6 8.6 - 10.2 mg/dL [facility] Albumin 3.9 3.9 - 4.9 g/dL [facility] Phosphorus 3.1 2.8 - 4.1 mg/dL [facility] 01/14/2025 12:3 2 PM EDT 01/14/2025 Briseida [facility]CONP LAB BLOOD ORDERABLES Final Result [facility] [address] [place] [address] from Last 3 Months Insurance Medicare Medicaid [place] Care Teams Security Rep Relationship Specialty Start Date End Date Lobo Mills MD [address] [place] PCP - General 03/05/19
== END 2025-02-13 14:27 | disposition home or self-care (01) ==
LOC: HO.HVNA 14:26
PROVIDERS: PCP Internal Medicine; Visit Provider Internal Medicine Medical Oncology
DX: C78.6 Secondary malignant neoplasm of retroperitoneum and peritoneum (principal)
CPT/HCPCS: 36415; 80053; 85025

== ENCOUNTER 2025-02-20 14:18 | Outpatient (REF) | payer MEDICARE, SELFPAY ==
--- OUTSIDE RECORDS SUMMARY | 2024-03-18 05:30 | XMS_ITS ---
Author Organization [facility] Address [address] [facility] [address] [place] [address] Care Team Providers Care Market Development Analyst Name Role Phone Lobo Mills MD Primary Care Provider Unavaila Sriram Garcia Unavailable [phone] Allergies Allergen (clinical drug ingredient) Drug/Non Drug [...] Active Encounters Encounter Location Date Provider Diagnosis [facility] [address] [place] [address] 03/18/2024 Sriram Shirley Plan Of Treatment Next Appt Details Provider Name:Sriram Shirlye, 03/21/2025 10:00:00 AM, [address] [place] [address], [phone], Progress Notes * Richard FARIASOB:1955 (69 yo M)Acc No.[id number]:03/18/2024 Ostomy Follow-Up Visit Patient: Jose GASTELUM Provider: Raisa Shirley MD, MSc, CWSP :1955 A ge:69 Y S ex:Male Date:03/18/2024 Address:[address] [place], [place] [phone] Pcp:Lobo Mills MD Subjective: * Chief Complaints: [...] Electronic signature of Zulema Shirley MD on 02/20/2025 at 06:12 PM EDT Sign off status: Pending * Provider: Raisa Shirley MD, MSc, CWSP Date: 05/18/2023 Generated for Zoya melendez/Monika/Reva on: 06:12 PM EDT
--- OUTSIDE RECORDS SUMMARY | 2025-01-21 06:00 | XMS_ITS ---
Author Organization [facility] Address [address] [facility] [address] [place] [address] Care Team Providers Care Php Developer Name Role Phone Gene ROSAS, Lobo Primary Care Provider UnavailSriram Singh Unavailable [phone] REASON FOR VISIT 1 month f/u, hospitalized at [facility] Encounters Encounter Location Date Provider Diagnosis [facility] [address] [place] [address] 01/21/2025 Sriram Shirley Plan Of Treatment Next Appt Details Provider Name:Sriram Shirley, 03/21/2025 10:00:00 AM, [address] [place], [address], Progress Notes * Richard FARIASOB:1955 (69 yo M)Acc No.[id number]:01/21/2025 Ostomy Follow-Up Visit Patient: Coy CAITY Jose Provider: Raisa Shirley MD, MSc, CWSP :1955 A ge:69 Y S ex:Male Date:01/21/2025 Address: [address] [phone] Pcp:Lobo Mills MD Subjective: * Chief Complaints: * 1 . 1 month f/u, hospitalized at [facility]. * Medical History: Objective: * Vitals: Assessment: Plan: * Treatment: * Billing Information: * Visit Code: * Procedure Codes: * Electronic signature of Zulema Shirley MD on 02/20/2025 at 06:09 PM EDT Sign off status: Pending * Provider: Raisa Shirley MD, MSc, CWSP Date: 0 01/21/2025 Generated for Zoya melendez/Monika/Reva on: 1 06:09 PM EDT
[2025-02-20 14:28] LABS: MANUAL DIFF FLAG NO
[2025-02-20 14:41] LABS: White Blood Count 10.4 X10*3/uL (4.8-10.8)
[2025-02-20 14:42] LABS: Hematocrit 23.7 % (42.0-52.0); Hemoglobin 8.0 g/dl (14.0-18.0); Imm Gran Abs Auto 0.06 X10*3/uL (0.00-0.03); Imm Gran Pct Auto 0.6 % (0.0-0.4); Lymphocytes Absolute Auto 1.3 X10*3/uL (1.2-4.9); Mean Corpuscular HGB Conc 33.8 g/dl (31.0-36.0); Mean Corpuscular Hemoglobin 32.1 pg (27.0-33.0); Mean Corpuscular Volume 95.2 fL (80.0-98.0); NRBC Abs Auto 0.000 X10*3/uL (0.0-0.012); NRBC Pct Auto 0.0 /100WBC (0.0-0.2); Platelet Count 369 X10*3/uL (160-400); Red Blood Count 2.49 X10*6/uL (4.60-5.80)
[2025-02-20 15:13] LABS: Alanine Aminotransferase 10 U/L (0-40); Albumin Level 3.1 g/dL (3.5-5.0); Alkaline Phosphatase 54 U/L (39-117); Anion Gap 9 (12-20); Aspartate Amino Transferase 17 U/L (5-37); Blood Urea Nitrogen 21 mg/dL (9-16); Calcium 7.5 mg/dL (8.4-10.2); Carbon Dioxide 18 mmol/L (22-29); Chloride 121 mmol/L (96-108); Estimated Glomerular Filt Rate > 60; Potassium 3.2 mmol/L (3.3-5.1); Sodium 145 mmol/L (135-145); Total Protein 4.9 g/dL (6.5-8.0)
--- OUTSIDE RECORDS SUMMARY | 2025-02-20 18:09 | XMS_ITS ---
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 Generalized abdominal pain 01/27/2025 Moderate malnutrition ([facility] V24) 01/24/2025 Acute pancreatitis 01/20/2025 Small bowel obstruction ([facility] V24, [facility] V2 8) 12/26/2024 Bowel obstruction ([facility] V24, [facility] V28) 03/2025 Acquired ptosis of eyelid 02/06/2024 Anemia 02/06/2024 Bundle branch block, right 02/06/2024 Chronic neck pain 02/06/2024 COVID-19 02/06/2024 Elevated PSA 02/06/2024 GERD (gastroesophageal reflux disease) HTN (hypertension) 02/06/2024 Nephrolithiasis 02/06/2024 Obstructive lung disease (ge neralized) ([facility] V24, [facility] V28) 02/06/2024 Peripheral neuropathy 02/06/2024 Prediabetes 02/06/2024 Prostate cancer ([facility] V24, [facility] V28) 02/05 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 Past Treatment and Therapy Plans No past plan information found. Lifetime Dose Tracking * Chemical Lifetime Dose Automatic Entry Manual Entr y Fluoro Time 1.7 minutes 0 minutes 1.7 minutes Air Kerma 13 mGy 0 mGy 13 mGy
--- OUTSIDE RECORDS SUMMARY | 2025-02-20 18:09 | XMS_ITS | Patient Health Record ---
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) 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 Problem Alcohol abuse (73431475) Alcohol abuse, uncomplicated (F10.10) Active confirmed Problem Chronic obstructive pulmonary disease (90154661) Chronic obstructive pulmonary disease, unspecified (J44.9) Active confirmed Problem Urinary tract obstruction (8341326) Obstructive and reflux uropathy, unspecified (N13.9) Active confirmed Problem Attention to ileostomy (815379231) Encounter for attention to ileostomy (Z43.2) Active confirmed Problem History of malignant neoplasm of colon (399319361) Personal history of other malignant neoplasm of large intestine (Z85.038) Active confirmed Problem History of malignant neoplasm of prostate (412849433) Personal history of malignant neoplasm of prostate (Z85.46) Active confirmed Problem History of malignant neoplasm (748923204) Personal history of malignant neoplasm of other organs and systems (Z85.89) Active confirmed Problem 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 Problem Ileostomy present (742742833) Ileostomy status (Z93.2) Active confirmed Problem Chronic kidney disease stage 3 (disorder) (019700238) CKD (chronic kidney disease), stage III (N18.30) [...] 12/17/2024 Encounters Encounter Location Date Provider Diagnosis [facility] [address] [facility] [address] [place] [phone] 11/19/2024 Sriram Shirley Malignant neoplasm o f [...] neoplasm of other organs and systems Z85.89 [facility] [address] [facility] [address] [place] [address] 12/17/2024 Sriram Shirley Malignant neoplasm o f [...] neoplasm of other organs and systems Z85.89 [facility] [address] [address] 03/01/2024 Sriram Shirley Assessments Encounter Date Diagnosis [...] moldable barrier ring, 1 piece [employer] Sensura [place] convex appliance, and C shaped elastic barrier [...] in 1-month for granuloma management at the [place] location. Fern Davis was available for any [...] moldable barrier ring, 1 piece [employer] Sensura [place] convex appliance, and C shaped elastic barrier [...] in 1-month for granuloma management at the [place] location. All of Jose's questions and concerns were addressed. He was instructed to call with any further questions or concerns and follow up in 1-month for granuloma management at the [place] location. Fern Davis was available for any [...] Details Provider Name:Sriram Shirley, 03/21/2025 10:00:00 AM, [address] [place] [address], [phone], Insurance Providers Payer Name Payer Address Payer Phone Subscriber Number Group Number Insured Name Patient Relationship to Insured Coverage Start Date Coverage End Date Medicare [address] [place], [place] [id number] Jose Hirsch Self - [facility] the [facility] [address] [place], [place] [id number] Jose Hirsch Self - patient is the [...]
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
--- OUTSIDE RECORDS SUMMARY | 2025-02-20 18:09 | XMS_ITS | Clinical Summary ---
Author Organization [facility] Address [address] [address] Phone Care Team Providers Care Senior Water Resources Engineer Name Role Phone Lobo Mills MD Primary Care Provider Allergies Active Allergy Reactions Criticality Noted Date [...] Office Visit [facility] [address] [facility] [address] [place] [address] Briseida Clarke ARNP Stage 3a chronic kidney disease (HCC) (Primary Dx); Anemia in chronic kidney disease; Chronic metabolic acidosis 12/30/2024 Orders Only [facility] [address] [place] [address] [address] [place] [address] Briseida Clarke ARNP Acute nontraumatic kidney injury, [...] Office Visit [facility] [address] [phone] Mike Andres MD [address] [address] Health Maintenance Due Date Last Done Comments [...] UIBC 188 111 - 343 ug/dL [facility] TIBC 220(L) 250 - 450 ug/dL [facility] Iron 32(L) 38 - 169 ug/dL [facility] Iron Saturation (TSat) 15 15 - 55 % [facility] 01/14/2025 12:3 2 PM EDT 01/14/2025 us Briseida [facility] LAB BLOOD ORDERABLES Final Result [facility] [address] [place] [address] * Vitamin D 25 Hydroxy (01/14/2025 12:32 PM EDT) [facility] Vitamin D, 25-OH, Total 42.1 30.0 - 100.0 ng/mL [facility] Comment: Vitamin D deficiency has been defined by the [place] of Medicine and an Endocrine Society practice guideline as a level of serum 25-OH vitamin D less than 20 ng/mL (1,2). The Endocrine Society went on to further define vitamin D insufficiency as a level between 21 and 29 ng/mL (2). 1. IOM ([place] of Medicine). 2010. Dietary reference intakes for calcium and D. [place]: The National Academies Press. 2. Red MF, Aimee WRIGHT, Greyson GUZMÁN, et al. Evaluation, treatment, and prevention of vitamin D deficiency: an Endocrine Society clinical practice guideline. JCEM. 2010; 96(7):1911-30. 01/14/2025 12:3 2 PM EDT 01/14/2025 Briseida Clarke [facility] LAB BLOOD ORDERABLES Final Result [facility] [address] [place] [address] * (ABNORMAL) CBC (01/14/2025 12:32 PM EDT) [facility] WBC 6.9 3.4 - 10.8 x10E3/uL [facility] RBC 3.00(L) 4.14 - 5.80 x10E6/uL [facility] Hemoglobin 9.7(L) 13.0 - 17.7 g/dL [facility] Hematocrit 29.3(L) 37.5 - 51.0 % [facility] MCV 98(H) 79 - 97 fL [facility] MCH 32.3 26.6 - 33.0 pg [facility] MCHC 33.1 31.5 - 35.7 g/dL [facility] RDW 13.8 11.6 - 15.4 % [facility] Platelets 336 150 - 450 x10E3/uL [facility] 01/14/2025 12:3 2 PM EDT 01/14/2025 Briseida [facility] LAB BLOOD ORDERABLES Final Result Performing Organization Address City/[facility]/ZIP Co de Phone Number [facility] [address] [place] [address] * Immunofixation electrophoresis (01/14/2025 12:32 PM EDT) IgG 908 603 - 1,613 mg/dL [facility] IgA 123 61 - 437 mg/dL [facility] IgM 48 20 - 172 mg/dL [facility] Immunofixation Result, Serum Comment [facility] Comment: The immunofixation pattern appears unremarkable. Evidence of monoclonal protein is not apparent. 01/14/2025 12:3 2 PM EDT 01/14/2025 Briseida [facility] LAB BLOOD ORDERABLES Final Result Performing Organization Address City/[facility]/ZIP Co de Phone Number [facility] [address] [place] [address] * PTH, Intact (01/14/2025 12:32 PM EDT) PTH 37 15 - 65 pg/mL [facility] 01/14/2025 12:3 2 PM EDT 01/14/2025 [facility] LAB BLOOD ORDERABLES Final Result Performing Organization Address City/[facility]/ZIP Co de Phone Number [facility] [address] [place] [address] * Ferritin (01/14/2025 12:32 PM EDT) Pathologist [facility] Ferritin 325 30 - 400 ng/mL [facility] 01/14/2025 12:3 2 PM EDT 01/14/2025 Briseida [facility] LAB BLOOD ORDERABLES Final Result Performing Organization Address [facility] de Phone Number [facility] [address] [place] [address] * (ABNORMAL) Renal Function Panel (01/14/2025 12:32 PM EDT) Pathologist [facility] Glucose 91 70 - 99 mg/dL [facility] BUN 23 8 - 27 mg/dL [facility] Creatinine 1.55(H) 0.76 - 1.27 mg/dL [facility] eGFR CKD-EPI CR 2020 49(L) >59 mL/min/1.7 3 [facility] BUN/Creatinine Ratio 15 10 - 24 [facility] Sodium 141 134 - 144 mmol/L [facility] Potassium 4.6 3.5 - 5.2 mmol/L [facility] Chloride 109(H) 96 - 106 mmol/L [facility] Bicarbonate (CO2) 17(L) 20 - 29 mmol/L [facility] Calcium 8.6 8.6 - 10.2 mg/dL [facility] Albumin 3.9 3.9 - 4.9 g/dL [facility] Phosphorus 3.1 2.8 - 4.1 mg/dL [facility] 01/14/2025 12:3 2 PM EDT 01/14/2025 Briseida ALARCONP LAB BLOOD ORDERABLES Final Result [facility] [address] [place] [address] from Last 3 Months Insurance Medicare Medicaid [place] Medicare Medicaid [place] Care Teams Senior Water Resources Engineer Relationship Specialty Start Date End Date Lobo Mills MD [address] [place] PCP - General 03/05/19
--- OUTSIDE RECORDS SUMMARY | 2025-02-20 18:09 | XMS_ITS | Encounter Summary ---
Author Organization [facility] Address [address] [facility] [address] [place] [address] Phone Care Team Providers Care Automatic Corn Grinder Operator Name Role Phone Lobo Mills MD Primary Care Provider [phone] Referring, Not Required Unavailable Unavaila Sanchez Montanez MD Unavailable Amrita Soni MD Unavailable [phone] Encounter Details Date Type Department Care Team (Late st Contact Info) Description 02/18/2025 Ancillary Orders DF IMG OUTSIDE IMG [address] [place] [address] Amrita Soni MD 450 [facility] Cancer [facility] [address] [place] [address] [email or web address] Social History Tobacco Use Types Packs/Day [...] 12:15 PM EDT Administrative Encounter Central Registration, [facility] 300 [facility] [address] [place] [address] Amrita Soni MD 450 [facility] [address] [place] [address] [email or web address] 02/26/2025 1:00 PM EDT Office Visit [facility], [facility] 300 [facility] [address] [place] [address] Amrita Soni MD 450 [facility] [address] [place] [address] [email or web address] documented as of this encounter Results * XR Abdomen Outside (No Interpretation) (12/26/2024 12:00 AM EDT) Other Narrative JON - 02/18/2025 9:04 AM EDT This study is for PACS storage only and not for interpretation. us Amrita Soni MD IMG OUTSIDE IMAGING W/O UT INTERPRETATION Final Result [facility] documented in this encounter Visit Diagnoses Not on filedocumented in this encounter Care Teams Automatic Corn Grinder Operator Relationship Specialty Start Date End Date Lobo Mills MD [address] [place] [address] PCP - General Internal Medicine 01/31/25 Referring, Not Required Referring Physician 01/31/25 Sanchez Virgen MD [address] [place] [address] [email or web address] Medical Oncology 02/06/25 Amrita Soni MD [address] [place] [address] Cancer [facility] [address] [place] [address] [email or web address] Medical Oncology 02/06/25 documented as of this encounter Additional Source Comments The information contained in this document represents components of the legal health record. It is not the complete legal health record.[facility]
--- OUTSIDE RECORDS SUMMARY | 2025-02-20 18:09 | XMS_ITS | Encounter Summary ---
Author Organization [facility] Address [address] [facility] [address] [place] [address] Phone Care Team Providers Care Supervisor Lathing Name Role Phone Lobo Mills MD Primary Care Provider Referring, Not Required Unavailable Unavaila Sanchez Montanez MD Unavailable Amrita Soni MD Unavailable [phone] Encounter Details Date Type Department Care Team (Late st Contact Info) Description 02/04/2025 Orders Only [facility], [facility] [place] 450 [facility], 10th [place] [address] Amrita Soni MD 450 [facility] Cancer [facility] [address] [place] [address] [email or web address] Social History Tobacco Use Types Packs/Day Years [...] 12:15 PM EDT Administrative Encounter Central Registration, [facility] 300 [facility] [address]rd [place] [address] Amrita Soni MD [address] [place] [address] [address] [place] [address] [email or web address] 02/26/2025 1:00 PM EDT Office Visit [facility], [facility] 300 [facility] [address] [place] [address] Amrita Soni MD [address] [place] [address] [address] [place] [address] [email or web address] documented as of this encounter Visit Diagnoses Not on filedocumented in this encounter Care Teams Supervisor Lathing Relationship Specialty Start Date End Date Lobo Mills MD [address] [place] [address] PCP - General Internal Medicine 01/31/25 Referring, Not Required Referring Physician 01/31/25 Sanchez Virgen MD [address] [place] [address] [email or web address] Medical Oncology 02/06/25 Amrita Soni MD 450 [facility] Cancer [facility] [address] [place] [address] [email or web address] Medical Oncology 02/06/25 documented as of this encounter Additional Source Comments The information contained in this document represents components of the legal health record. It is not the complete legal health record.[facility]
--- OUTSIDE RECORDS SUMMARY | 2025-02-20 18:09 | XMS_ITS | Encounter Summary ---
Author Organization [facility] Address [address] [facility] [address] [place] [address] Phone Care Team Providers Care Dust Puller Name Role Phone Lobo Mills MD Primary Care Provider Referring, Not Required Unavailable Unavaila Sanchez Montanez MD Unavailable Amrita Soni MD Unavailable [phone] Encounter Details Date Type Department Care Team (Late st Contact Info) Description 02/06/2025 Orders Only [facility], [facility] [place] [address] [facility], 10th [place] [address] Neetu Garcia MD 450 [facility] [place] [address] [email or web address] Social History Tobacco Use Types Packs/Day Years [...] 12:15 PM EDT Administrative Encounter Central Registration, [facility] 300 [facility] [address] [place] [address] Amrita Soni MD [address] [place] [address] [address] [place] [address] [email or web address] 02/26/2025 1:00 PM EDT Office Visit [facility], [facility] 300 [facility] [address] [place] [address] Amrita Soni MD [address] [place] [address] [address] [place] [address] [email or web address] documented as of this encounter Visit Diagnoses Not on filedocumented in this encounter Care Teams Dust Puller Relationship Specialty Start Date End Date Lobo Mills MD [address] [place] [address] PCP - General Internal Medicine 01/31/25 Referring, Not Required Referring Physician 01/31/25 Sanchez Virgen MD [address] [place] [address] [email or web address] rg Medical Oncology 02/06/25 Amrita Soni MD [address] [place] [address] Center [address] [place] [address] [email or web address] Medical Oncology 02/06/25 documented as of this encounter Additional Source Comments The information contained in this document represents components of the legal health record. It is not the complete legal health record.[facility]
--- OUTSIDE RECORDS SUMMARY | 2025-02-20 18:09 | XMS_ITS | Clinical Summary ---
Author Organization [facility] Address [address] [facility] [address] [place] [address] Care Team Providers Care Wafer Batter Mixer Name Role Phone Lobo Mills MD Primary Care Provider [phone] Allergies Active Allergy Reactions Criticality Noted Date [...] Documents on File Type Date Recorded Patient Light Industrial Supervisor Expl anation Health Care Proxy 06/07/2019 9:42 PM Conver jigar - External Healthcare [facility] DNR (Do Not Resuscitate)/DNI (Do Not Intubate) 06/07/2019 9:41 PM Conversion - DNR Ord er ([facility] Mitzi DM) Health Care Proxy 05/27/2019 11:56 AM Conv ersion - External Healthcare Proxy ([facility] * Full Code (Latest Code Status on File) Date Activated Date Inactivated Comments 08/10/2021 3:59 PM 08/12/2021 8:27 PM Care Teams Wafer Batter Mixer Relationship Specialty Start Date End Date Lobo Mills MD [address] [place] [address] PCP - General 06/04/21
--- OUTSIDE RECORDS SUMMARY | 2025-02-20 18:09 | XMS_ITS | Encounter Summary ---
Author Organization [facility] Address [address] [facility] [address] [place] [address] Phone Care Team Providers Care Game Designer Name Role Phone Lobo Mills MD Primary Care Provider Referring, Not Required Unavailable Unavaila Sanchez Montanez MD Unavailable Amrita Soni MD Unavailable [phone] Encounter Details Date Type Department Care Team (Late st Contact Info) Description 02/18/2025 Ancillary Orders DF IMG OUTSIDE IMG 450 [place] [address] Amrita Soni MD 450 [facility] Cancer [facility] [address] [place] [address] [email or web address] Social History Tobacco Use Types Packs/Day [...] 12:15 PM EDT Administrative Encounter Central Registration, [facility] 300 [facility] 3rd [place] [address] Amrita Soni MD 450 [facility] [address] [place] [address] [email or web address] 02/26/2025 1:00 PM EDT Office Visit [facility], [facility] 300 [facility] [address]th [place] [address] Amrita Soni MD 450 [facility] [address] [place] [address] [email or web address] documented as of this encounter Results * XR Abdomen Outside (No Interpretation) (11/08/2024 12:00 AM EDT) Other Narrative JON - 02/18/2025 9:07 AM EDT This study is for PACS storage only and not for interpretation. us Amrita Soni MD IMG OUTSIDE IMAGING W/O UT INTERPRETATION Final Result [facility] documented in this encounter Visit Diagnoses Not on filedocumented in this encounter Care Teams Game Designer Relationship Specialty Start Date End Date Lobo Mills MD [address] [place] [address] PCP - General Internal Medicine 01/31/25 Referring, Not Required Referring Physician 01/31/25 Sanchez Virgen MD [address] [place] [address] [email or web address] rg Medical Oncology 02/06/25 Amrita Soni MD [address] [place] [address] Cancer [facility] [address] [place] [address] [email or web address] Medical Oncology 02/06/25 documented as of this encounter Additional Source Comments The information contained in this document represents components of the legal health record. It is not the complete legal health record.[facility]
--- OUTSIDE RECORDS SUMMARY | 2025-02-20 18:09 | XMS_ITS | Encounter Summary ---
Author Organization [facility] Address [address] [facility] [address] [place] [address] Phone Care Team Providers Care Lab Clerk Name Role Phone Lobo Mills MD Primary Care Provider [phone] Referring, Not Required Unavailable Unavaila Sanchez Montanez MD Unavailable Amrita Soni MD Unavailable [phone] Encounter Details Date Type Department Care Team (Late st Contact Info) Description 02/18/2025 Ancillary Orders DF IMG OUTSIDE IMG 450 [place] [address] Amrita Soni MD 450 [facility] Cancer [facility] [address] [place] [address] [email or web address] Social History Tobacco Use Types Packs/Day [...] 12:15 PM EDT Administrative Encounter Central Registration, [facility] 300 [facility] [address]rd [place] [address] Amrita Soni MD 450 [facility] [address] [place] [address] [email or web address] 02/26/2025 1:00 PM EDT Office Visit [facility], [facility] 300 [facility] [address] [place] [address] Amrita Soni MD 450 [facility] [address] [place] [address] [email or web address] documented as of this encounter Results * XR Chest Outside (No Interpretation) (01/27/2025 12:00 AM EDT) Other Narrative JON - 02/18/2025 8:59 AM EDT This study is for PACS storage only and not for interpretation. us Amrita Soni MD IMG OUTSIDE IMAGING W/O UT INTERPRETATION Final Result [facility] documented in this encounter Visit Diagnoses Not on filedocumented in this encounter Care Teams Lab Clerk Relationship Specialty Start Date End Date Lobo Mills MD [address] [place] [address] PCP - General Internal Medicine 01/31/25 Referring, Not Required Referring Physician 01/31/25 Sanchez Virgen MD [address] [place] [address] [email or web address] Medical Oncology 02/06/25 Amrita Soni MD [address] [place] [address] Cancer [facility] [address] [place] [address] [email or web address] Medical Oncology 02/06/25 documented as of this encounter Additional Source Comments The information contained in this document represents components of the legal health record. It is not the complete legal health record.[facility]
--- OUTSIDE RECORDS SUMMARY | 2025-02-20 18:09 | XMS_ITS | Encounter Summary ---
Author Organization [facility] Address [address] [facility] [address] [place] [address] Phone Care Team Providers Care Senior Lead Software Engineer Name Role Phone Lobo Mills MD Primary Care Provider Referring, Not Required Unavailable Unavaila Sanchez Montanez MD Unavailable Amrita Soni MD Unavailable [phone] Encounter Details Date Type Department Care Team (Late st Contact Info) Description 02/18/2025 Ancillary Orders DF IMG OUTSIDE IMG 450 [place] [address] Amrita Soni MD 450 [facility] Cancer [facility] [address] [place] [address] [email or web address] Social History Tobacco Use Types Packs/Day Years [...] 12:15 PM EDT Administrative Encounter Central Registration, [facility] 300 [facility] [address] [place] [address] Amrita Soni MD 450 [facility] [address] [place] [address] [email or web address] 02/26/2025 1:00 PM EDT Office Visit [facility], [facility] 300 [facility] [address] [place] [address] Amrita Soni MD 450 [facility] [address] [place] [address] [email or web address] documented as of this encounter Results * CT Abdomen/Pelvis Outside (No Interpretation) (01/26/2025 12:00 AM EDT) Other Narrative [facility] - 02/18/2025 9:00 AM EDT This study is for PACS storage only and not for interpretation. us Amrita Soni MD IMG OUTSIDE IMAGING W/O UT INTERPRETATION Final Result [facility] documented in this encounter Visit Diagnoses Not on filedocumented in this encounter Care Teams Senior Lead Software Engineer Relationship Specialty Start Date End Date Lobo Mills MD [address] [place] [address] PCP - General Internal Medicine 01/31/25 Referring, Not Required Referring Physician 01/31/25 Sanchez Virgen MD [address] [place] [address] [email or web address] Medical Oncology 02/06/25 Amrita Soni MD [address] [place] [address] Cancer [facility] [address] [place] [address] [email or web address] Medical Oncology 02/06/25 documented as of this encounter Additional Source Comments The information contained in this document represents components of the legal health record. It is not the complete legal health record.[facility]
--- OUTSIDE RECORDS SUMMARY | 2025-02-20 18:09 | XMS_ITS | Encounter Summary ---
Author Organization [facility] Address [address] [facility] [address] [place] [phone] Phone Care Team Providers Care Scheduling Analyst Name Role Phone Lobo Mills MD Primary Care Provider Referring, Not Required Unavailable Unavaila Sanchez Montanez MD Unavailable Amrita Soni MD Unavailable [phone] Encounter Details Date Type Department Care Team (Late st Contact Info) Description 02/18/2025 Ancillary Orders DF IMG OUTSIDE IMG [address] [place] [address] Amrita Soni MD [address] [facility] [address] [facility] [address] [place] [address] [email or web address] Social History Tobacco Use Types Packs/Day Years [...] 12:15 PM EDT Administrative Encounter Central Registration, [facility] [address] [facility] [address] [place] [address] Amrita Soni MD [address] [facility] [address] [place] [address] [email or web address] 02/26/2025 1:00 PM EDT Office Visit [facility], [facility] [address] [facility] [address] [place] [address] Amrita Soni MD [address] [facility] [address] [place] [address] [email or web address] documented as of this encounter Results * CT Abdomen/Pelvis Outside (No Interpretation) (12/26/2024 12:05 AM EDT) Other Narrative PERCIPIO_DFCI - 02/18/2025 9:05 AM EDT This study is for PACS storage only and not for interpretation. us Amrita Soni MD IMG OUTSIDE IMAGING W/O UT INTERPRETATION Final Result PERC[facility]IO[facility]DFCI documented in this encounter Visit Diagnoses Not on filedocumented in this encounter Care Teams Scheduling Analyst Relationship Specialty Start Date End Date Lobo Mills MD [address] [place] [id number] PCP - General Internal Medicine 01/31/25 Referring, Not Required Referring Physician 01/31/25 Sanchez Virgen MD [address] [place] [phone] [email or web address] Medical Oncology 02/06/25 Amrita Soni MD [address] [place] [address] [facility] [address] [place] [address] [email or web address] Medical Oncology 02/06/25 documented as of this encounter Additional Source Comments The information contained in this document represents components of the legal health record. It is not the complete legal health record.[facility]
--- OUTSIDE RECORDS SUMMARY | 2025-02-20 18:09 | XMS_ITS | Encounter Summary ---
Author Organization [facility] Address [address] [place] [address] Care Team Providers Care Innersole Fitter Name Role Phone Lobo Mills MD Primary Care Provider [phone] Encounter Details Date Type Department Care Team (Late st Contact Info) Description 10/24/2024 Lab Requisition [facility] - Main Lab [address] [facility] [place] [address] Rich Cintron PA [address] [address] Calculus of kidney Social History Tobacco Use Types Packs/Day Years Used Date Smoking Tobacco: Never Assessed Sex and Gender Information Value Date Recorded Sex Assigned at Male 02/07/2025 7:39 AM EDT Legal Sex Male 8:01 AM EST Gender Identity Male 02/07/2025 7:39 AM EDT Sexual Orientation Straight 02/07/2025 7: 39 AM EDT documented as of this encounter Plan of Treatment Not on file documented as of this encounter Procedures Procedure Name Priority Date/Time Associated Diagnosis Comments COMPLETE BLOOD COUNT Routine 10/24/2024 11:48 AM EDT Calculus of kidney documented in this encounter Results * (ABNORMAL) Complete blood count (10/24/2024 11:48 AM EDT) [facility] WBC 9.1 4.8 - 10.8 K/mcL LAB HEMETOLOGY METHOD 10/24/2024 3:24 PM EDT [facility] RBC 3.30(L) 4.50 - 5.50 M/mcL LAB HEMETOLOGY METHOD 10/24/2024 3:24 PM EDT [facility] Hemoglobin 10.3(L) 13.5 - 17.5 g/dL LAB HEMETOLOGY METHOD 10/24/2024 3:24 PM [facility] Hematocrit 31.2(L) 42.0 - 54.0 % LAB HEMETOLOGY [facility] MCV 96.0 79.0 - 98.0 FL LAB HEMETOLOGY METHOD [facility]24 [facility] MCH 31.7 27.0 - 32.0 pcg LAB HEMETOLOGY METHOD 10/24/2024 3:24 PM [facility] MCHC 33.0 32.0 - 37.0 g/dL LAB HEMETOLOGY METHOD 10/24/2024 3:24 PM [facility] RDW 15.8(H) 11.0 - 15.0 % LAB HEMETOLOGY METHOD 10/24/2024 3:24 PM EDT [facility] Platelets 464(H) 130 - 400 K/mcL LAB HEMETOLOGY METHOD [facility] MPV 10.6 7.0 - 11.0 FL LAB HEMETOLOGY METHOD 10/24/2024 3:24 PM [facility] NRBC 0.0 <1.0 % LAB HEMETOLOGY METHOD [facility]/24[facility]24 [facility] NRBC Absolute 0.00 <0.10 K/mcL LAB HEMETOLOGY METHOD 10/24/2024 3:24 PM EDT [facility] Blood Venous blood specimen / Unknown 10/24/2024 11:48 AM EDT 10/24/2024 2:28 PM EDT us Rich ALMARAZ LAB BLOOD ORDERABLES Final Resul t [facility] [address] [place] [address], documented in this encounter Visit Diagnoses Diagnosis Calculus of kidney documented in this encounter Care Teams Innersole Fitter Relationship Specialty Start Date End Date Lobo Mills MD [address] [place], [place] PCP - General 12/14/23 documented as of this encounter
--- OUTSIDE RECORDS SUMMARY | 2025-02-20 18:09 | XMS_ITS | Data Portability ---
Author Organization [facility]FIN[facility] [address] Address [address] [place] [address] Assessment No assessment recorded. Plan of Treatment Reminders Order Date Submit Date Provider Last Modified By Organization Details Last Modified Time Details Appointments None recorded. Lab None recorded. Referral None recorded. Procedures None recorded. Surgeries None recorded. Imaging None recorded. Medication Orders cephalexin 500 mg capsule 2022 [address] [id number], [address] [place], [place], [id number], 12:02:04 Patient TargetsNo targets recorded. Patient Instructions Encounter Date Encounter Id Patient Instructions Last Modified By Organization Details Last Modified Time 11/21/2022 [id number] Cellulitis is a skin infection caused by bacteria, most often strep or staph. It often occurs after a break in the skin from a scrape, cut, bite, or puncture, or after a rash. Cellulitis may be treated without doing tests to find out what caused it. But your doctor may do tests, if needed, to look for a specific bacteria, like methicillin-resist ant Staphylococcus aureus (MRSA). The doctor has checked you carefully, but problems can develop later. If you notice any problems or new symptoms, get medical treatment right away. How can you care for yourself at home? Take your antibiotics as directed. Do not stop taking them just because you feel better. You need to take the full course of antibiotics. Prop up the infected area on pillows to reduce pain and swelling. Try to keep the area above the level of your heart as often as you can. If your doctor told you how to care for your infection, follow your doctor's instructions. If you did not get instructions, follow this general advice: Wash the area with clean water 2 times a day. Don't use hydrogen peroxide or alcohol, which can slow healing. You may cover the area with a thin layer of petroleum jelly, such as Vaseline, and a non-stick bandage. Apply more petroleum jelly and replace the bandage as needed. Be safe with medicines. Take pain medicines exactly as directed. If the doctor gave you a prescription medicine for pain, take it as prescribed. If you are not taking a prescription pain medicine, ask your doctor if you can take an [id number] medicine. Not available 11/21/2022 12:00:53 Reason for Referral None Reported. 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 Procedures Surgical History Date Name Laterality Status Provider Name and Address Organization Details Recorded Time 3 Wound Dressing completed Neal Trejo [facility] [address] [facility] [place], [address], [place] - [facility] 11/21/2022 12:01:52 3 Wound Care UC completed Neal Trejo NP [address] [place], [address], [place] - [facility] 11/21/2022 12:01:24 Appendectomy completed GENEVA JESUS PA - [facility] 11/21/2022 11:28:37 Imaging Results None recorded. Procedure Notes None recorded. Medical Equipment None Reported. Allergies Allergen ID Allergen Name Allergen Category Reaction Reaction Severity Criticality Documentation Date Start Date Code Code System Note Provider Name and Address Organization Details Recorded Time 954136 Iodinated contrast media (substanc e) medicatio n other Not available Not available 11/21/2022 56583 2003 SNOMED feel s like I'm on fire RUFINA Nino - [facility] 3 11:25:49 Medications Name Sig Start Date Stop Date Status Note LastModified by Organization Details LastModified Time bicalutamide 50 mg tablet TAKE 1 TABLET BY MOUTH EVERY DAY active Not Available Not Available No t Available gabapentin 600 mg tablet TAKE 1 TABLET (600 MG) BY ORAL ROUTE 3 TIMES PER DAY active Not Available Not Available No t Available loperamide 2 mg capsule TAKE 1 CAPSULE BY MOUTH EVERY 6 HOURS FOR 10 DAYS NEEDED FOR LOOSE STOOLS active Not Available Not Available No t Available cetirizine 10 mg tablet TAKE 1 TABLET BY MOUTH 12 HOURS BEFORE AND 2 HOURS BEFORE SCAN DIRECTED active Not Available Not Available Not Available ofloxacin 0.3 % eye drops INSTILL 1 DROP IN LEFT EYE FOUR TIMES DAILY active Not Available Not Available No t Available ketorolac 0.5 % eye drops INSTILL 1 DROP IN LEFT EYE FOUR TIMES DAILY active Not Available Not Available No t Available prednisolone acetate 1 % eye drops,suspen jigar SHAKE LIQUID AND INSTILL 1 DROP IN LEFT EYE FOUR TIMES DAILY active Not Available Not Available No t Available cephalexin 500 mg capsule TAKE 1 CAPSULE BY MOUTH EVERY 8 HOURS WITH MEALS FOR 7 DAYS active Not Available Not Available N ot Available pantoprazole 40 mg tablet,delay ed release TAKE 1 TABLET BY MOUTH DAILY active Not Available Not Available Not Available nitrofuranto in macrocrystal 100 mg capsule TAKE 1 CAPSULE BY MOUTH TWICE DAILY FOR 4 DAYS CONTRAINDIC ATED WHEN CRCL. LESS THAN 30 ML / MINUTES active Not Available Not Available No t Available oxybutynin chloride ER 5 mg tablet,exten ded release 24 hr TAKE 1 TABLET BY MOUTH DAILY active Not Available Not Available Not Available gabapentin 300 mg capsule TAKE 2 CAPSULES BY MOUTH FOUR TIMES DAILY active Not Available Not Available Not Available methylpredni solone 16 mg tablet TAKE 2 TABLETS BY MOUTH 12 HOURS AND 2 HOURS BEFORE SCAN DIRECTED active Not Available Not Available Not Available ondansetron 4 mg disintegrati ng tablet DISSOLVE 1 TABLET ON THE TONGUE EVERY 6 HOURS FOR 14 DAYS NEEDED FOR NAUSEA OR VOMITING active Not Available Not Available No t Available oxycodone 5 mg tablet TAKE 1 TABLET BY MOUTH EVERY 8 HOURS FOR 4 DAYS NEEDED FOR SEVERE PAIN active Not Available Not Available Not Available ertapenem 1 gram solution for injection active Not Available Not Available No t Available baclofen active Not Available Not Avai lable Not Available oxycodone 10 mg tablet TAKE 1 TABLET (10 MG) BY ORAL ROUTE EVERY 4-6 HOURS active Not Available Not Available No t Available baclofen 5 mg tablet TAKE 1 TABLET BY MOUTH FOUR TIMES DAILY active Not Available Not Available Not Available aspirin 81 mg capsule TAKE 1 CAPSULE (81 MG) BY ORAL ROUTE ONCE DAILY active Not Available Not Available No t Available Vitals Date Recorded Body height Body mass index (BMI) Body weight Pain severity - 0-10 verbal numeric rating [Score] - Reported Respiratory rate Oxygen saturation Oxygen saturation in Arterial blood by Pulse oximetry Heart rate Body temperature Systolic And Diastolic Provider Name and Address Organization Details Last Updated DateTime 162.56 cm 27.3 kg/m2 76147.1 9 g 5 17 /min 98 % 98 % 96 /min 98.5 [degF] 129/94 mm[Hg] GENEVA ALMARAZ [employer] 11:29:31 Social History Question Answer Notes LastModified by [email or web address] Details LastModified Time Tobacco Smoking Status Never Smoker GENEVA schmitz Krikle 11/21/2022 11:27:59 Have You Recently Traveled Abroad? No Information not available 11/21/2022 Sex: Unknown Functional Status Question Answer Note LastModified by [email or web address] Details LastModified Time Do you use any illicit or recreational drugs? No [email or web address] Information not available 11/21/2022 Do you or have you ever used any other forms of tobacco or nicotine? No [email or web address] Information not available 11/21/2022 What is your level of alcohol consumption? Occasional [email or web address] Information not available 11/21/2022 Mental Status None recorded. Family History Relationship Description Onset Age of this Age Resolved Age Notes LastModified by Organization Details LastModified Time Father No current problems or disability [email or web address] Not available 11/21 11:27:52 Mother No current problems or disability [email or web address] Not available 11/21 11:27:52 Medical History No medical history recorded. Past Encounters Encounter ID Performer Location Encounter Start Date Encounter Closed Date Diagnosis/Indication Diagnosis SNOMED-CT Code Diagnosis ICD10 Code Diagnosis IMO Codes Diagnosis Note [id number] [address] [place] [address] 06/18/2017 13:20:47 06/18/2017 14:49:02 [id number] Neal Trejo NP [address] [place] [address] 11/21/2022 11:08:48 11/21/2022 12:06:21 Cellulitis of toe of left foot 5593487253 4280361 L03.032 Health Concerns Section Related Observation LastModified by Organization Detai ls LastModified Time None Recorded Concern Status LastModified by Organization Details LastModified Time None Recorded Advance Directives Directive None Recorded Payers Insurance Date Sequence Insurance Name Policy Number Policy Snyder Covered Member ID Snyder Member ID Guarantor Name 11/21/2022 1 [place]: [employer] Jose Garcia Teal [id number] Jose Teal 06/07/2023 2 [place] Jose Teal [id number] Jose Teal 11/21/2022 [place] - SPECIALITY CLAIMS ([facility] A) Jose C Teal [id number] Jose Teal Notes Date Note Type Note Provider Name and Address Organization Details Recorded Time 11/21/2022 text/html ToesReported by PatientHPIFor associated symptoms, patient reportsswelling,redness , anddrainagebut reportsno weakness,no numbness,no tingling,no warmth,no ecchymosis,no catching/locking,no popping/clicking,no buckling,no grinding,no instability,no fever, andno chills. For source of patient information, patient reportsinformation obtained from patientandpatient arrived at urgent care ambulatory(got blister left middle toe .thinks it might be friction blister.). For location, patient reportsleft,anterior,enriquez perficial, anddorsal. For quality, patient reportsaching,superfici al,constant, andworsening. For severity, patient reportsmild. For duration, patient reports2 days. For timing, patient reportsacute. For context, patient reportsatraumatic. For alleviating factors, patient reportsnothing helps. For aggravating factors, patient reportscannot identify. For previous surgery, patient reportsnone. For prior imaging, patient reportsnone. For previous injections, patient reportsnone. For previous pt, patient reportsnone. Neal Trejo NP [address] [place], [address], [place] - [facility] 11/21/2022 12:02:23
--- OUTSIDE RECORDS SUMMARY | 2025-02-20 18:09 | XMS_ITS | Clinical Summary ---
Author Organization [facility] Address [address] [place] [address] Phone Care Team Providers Care Barrel Finisher Name Role Phone Lobo Mills MD Primary Care Provider [phone] Allergies Active Allergy Reactions Criticality Noted Date Comments Cefepime 02/06/2024 Macular rash Iodinated Contrast Media 02/06/2024 Iron 02/06/2024 Piperacillin-Tazobactam 02/06/2024 Medications gabapentin (NEURONTIN) 300 mg capsule Take 1 capsule (300 mg total) by mouth 4 (four) times a day. Active naloxone (NARCAN) 4 mg/0.1 mL nasal spray by Nasal route. Active tamsulosin (FLOMAX) 0.4 mg 24 hr capsule Take 1 capsule (0.4 mg total) by mouth 1 (one) time each day. Active ondansetron (ZOFRAN) 8 mg tablet Take 1 tablet (8 mg total) by mouth every 8 (eight) hours if needed for nausea. Active acetaminophen (TYLENOL) 500 mg tablet Take 1 tablet (500 mg total) by mouth every 6 hours as needed for mild pain. Active simethicone (MYLICON,GAS-X) 180 mg capsule Take 1 capsule (180 mg total) by mouth every 6 (six) hours if needed for flatulence. Active pantoprazole (PROTONIX) 40 mg EC tablet Take 1 tablet (40 mg total) by mouth 2 (two) times a day. 120 each 01/25/20 25 Active OxyCONTIN 20 mg 12 hr abuse-deterrent tablet Take 1 tablet (20 mg total) by mouth at bedtime. Discontinued(St op Taking at Discharge) baclofen (LIORESAL) 5 mg tablet Take 1 tablet (5 mg total) by mouth 4 (four) times a day. Discontinued(St op Taking at Discharge) bicalutamide (CASODEX) 50 mg tablet Take 1 tablet (50 mg total) by mouth 1 (one) time each day 08/09/19 Discontinued(St op Taking at Discharge) diphenoxylate-at ropine (LOMOTIL) 2.5-0.025 mg per tablet Take 1 tablet by mouth 4 (four) times a day if needed for diarrhea. 08/04/19 Discontinued(St op Taking at Discharge) pantoprazole (PROTONIX) 40 mg EC tablet Take 1 tablet (40 mg total) by mouth 1 (one) time each day before breakfast. 02/01/20 24 Discontinued loperamide (IMODIUM) 2 mg capsule Take 1 capsule (2 mg total) by mouth 4 (four) times a day if needed for diarrhea. Discontinued(St op Taking at Discharge) colestipoL (COLESTID) 1 gram tablet Take 1 tablet (1 g total) by mouth 2 (two) times a day. 09/25/19 Discontinued(St op Taking at Discharge) oxyCODONE (ROXICODONE) 10 mg immediate release tablet Take 1 tablet (10 mg total) by mouth every 4 (four) hours if needed for severe pain. Discontinued(St op Taking at Discharge) fentaNYL (DURAGESIC) 25 mcg/hrIndication s:Pseudomyxoma peritonei (CMS/HCC V24, CMS/HCC V28) Place 1 patch on the skin every 3rd (third) day for 7 days. Max Daily Amount: 1 patch 3 patch 10/02/20 25 10/09/2 025 morphine 100 mg/5 mL (20 mg/mL) concentrated solutionIndicati ons: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, [facility] V28) Take 0.5 mL (10 mg total) by mouth every 4 (four) hours if needed for severe pain for up to 7 days. Max Daily Amount: 60 mg 20 mL 01/31/20 25 025 predniSONE (DELTASONE) 20 mg tablet Take 2 tablets (40 mg total) by mouth 1 (one) time each day for 5 days. See instruction s. 10 tablet 02/08/20 025 Active Problems Problem Noted Date Diagnosed Date Primary chronic pseudo-obstruction of small inte lisette 01/27/2025 Generalized abdominal pain 01/27/2025 Moderate malnutrition ([facility] V24) 01/24/2025 Acute pancreatitis 01/20/2025 Small bowel obstruction ([facility] V24, [facility] V2 8) 12/26/2024 Bowel obstruction ([facility] V24, [facility] V28) 03/2025 Acquired ptosis of eyelid 02/06/2024 Anemia 02/06/2024 Bundle branch block, right 02/06/2024 Chronic neck pain 02/06/2024 COVID-19 02/06/2024 Elevated PSA 02/06/2024 GERD (gastroesophageal reflux disease) HTN (hypertension) 02/06/2024 Nephrolithiasis 02/06/2024 Obstructive lung disease (ge neralized) ([facility] V24, [facility] V28) 02/06/2024 Peripheral neuropathy 02/06/2024 Prediabetes 02/06/2024 Prostate cancer ([facility] V24, [facility] V28) 02/05 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, [facility]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 Psoriasis of scalp 02/06/2024 Stage 3 chronic kidney disease ([facility] V24, [facility] V28) 02/06/2024 Encounters Date Type Department Care Team Description 02/07/2025 6:12 AM EDT - 02/07/2025 10:14 AM EDT Emergency [facility] [address] [place] [phone] Arthralgia of left hand (Primary Dx); Lead-induced acute gout of left hand, initial encounter Discharge Disposition: Home or Self Care 01/26/2025 9:17 PM EDT - 01/30/2025 5:00 PM EDT Hospital Encounter [facility] [address] [place] [phone] Shmuel Garber MD Jones, Christopher, MD Alam, Aroosa, MD Generalized abdominal pain (Primary Dx); Small bowel obstruction (CMS/HCC V24, CMS/HCC V28); Pseudomyxoma peritonei (CMS/HCC V24, CMS/HCC V28) Discharge Disposition: [place] [facility] [place] 01/20/2025 5:46 PM EDT - 01/24/2025 3:25 PM EDT Hospital Encounter [facility] [address] [place] [phone] Sachin Murrieta MD Jones, Christopher, MD Santoyo-Pacheco, Omar D, MD Intestinal obstruction, unspecified cause, unspecified whether partial or complete (CMS/HCC V24, CMS/HCC V28) (Primary Dx); Acute pancreatitis, unspecified complication status, unspecified pancreatitis type Discharge Disposition: Home or Self Care 12/26/2024 1:38 AM EDT - 12/27/2024 5:54 PM EDT Hospital Encounter [facility] [address] [place] [phone] Oh Khanna MD Muhoozi, Bannet, MD Flores, Carlos M, MD Mohani, Priya, MD Generalized abdominal pain (Primary Dx) Discharge Disposition: Home or Self Care from Last 3 Months Surgical History Surgery Date Site/Laterality Comments APPENDECTOMY CHOLECYSTECTOMY SPLENECTOMY, TOTAL OMENTECTOMY Medical History Medical History Date Comments Prostate cancer (CMS/HCC V24, CMS/HCC V28) Small bowel obstruction (CMS/HCC V24, CMS/HCC V2 8) Appendix carcinoma (CMS/HCC V24, CMS/HCC V28) Benign prostatic hyperplasia Chronic kidney disease (CKD) , stage III (moderate) (CMS/HCC V24, CMS/HCC V28) Family History Medical History Relation Name Comments Cancer Father Relation Name Status Comments Father Social History Tobacco Use Types Packs/Day Years Used Date Smoking Tobacco: Never Smokeless Tobacco: Never Alcohol Use Standard Drinks/Week Comments Not Currently 0 (1 standard drink = 0.6 oz pur e alcohol) Food Risk Answer Date Recorded Within the past 12 months we worried whether our food would run out before we got money to buy more. Never true 01/28/2025 Within the past 12 months th e food we bought just didn't last and we didn't have money to get more. Never true 01/28/2025 Interpersonal Safety Answer Date Record ed Physical Abuse Unrecognized value 01/27/2025 Verbal Abuse Unrecognized value 01/27/2025 Sex and Gender Information Value Date Recorded Sex Assigned at Male 02/07/2025 7:39 AM EDT Legal Sex Male 8:01 AM EST Gender Identity Male 02/07/2025 7:39 AM EDT Sexual Orientation Straight 02/07/2025 7: 39 AM EDT Obstetrics History Last Filed Vital Signs Vital Sign Reading Time Taken Comments Blood Pressure 132/75 02/07/2025 10:12 AM EDT Pulse 87 02/07/2025 10:12 AM EDT Temperature 37.4 C (99.3 F) 02/07/2025 10:12 AM EDT Respiratory Rate 17 02/07/2025 10:12 AM EDT Oxygen Saturation 100% 02/07/2025 10:12 AM EDT Inhaled Oxygen Concentration - - Weight 54.4 kg (120 lb) 02/07/2025 6:26 AM EDT Height 162.6 cm (5' 4 ) 02/07/2025 6:26 AM EDT Body Mass Index 20.6 02/07/2025 6:26 AM EDT Plan of Treatment Health Maintenance Due Date Last Done Comments Colorectal Cancer Screening: Colonoscopy 1957 Meningococcal B Vaccine (1 of 4 - Increased Risk) 1967 Hepatitis A Vaccines (1 of 2 - Risk 2-dose series) 1976 RSV Immunization Adult Patients (1 - Risk 50-74 years 1-dose series) 2007 Hepatitis B Vaccines (2 of 3 - 19+ 3-dose series) 06/20/2007 05/23/2007 Meningococcal ACWY Vaccine (3 - Risk 2-dose series) 03/11/2018 03/11/2013, 05/25/2007 Zoster Vaccines (2 of 2) 08/28/2021 07/03/2021 Cholesterol Screening (Lipid Panel) 04/03/2022 02/11/2002 Hepatitis C Screening 04/03/2022 Medicare Annual Wellness Visit 04/03/2022 Depression Screening 05/01/2024 COVID-19 Vaccine (7 - Pfizer risk season) 2024 03/12/2024, 03/15/2022, 09/23/2021, Additional history exists Influenza Vaccine (#1) 2024 , 02/17/2023, 03/15/2022, Additional history exists Pneumococcal Vaccine: 50+ Years (4 of 4 - PCV20 or PCV21) 02/12/2025 02/13/2020, 01/28/2014, 01/11/2013, Additional history exists DTaP,Tdap,and Td Vaccines (3 - Td or Tdap) 01/18/2026 01/19/2016, 05/23/2007 Social Influencers of Health Screening 01/28/2026 01/28/2025 Falls Risk Assessment 01/30/2026 01/30/2025 Hypertension/CHF/CAD Annual BMP Blood Test 01/30/2026 01/30/2025, 01/29/2025, 01/28/2025, Additional history exists HIB Vaccines Completed 05/30/2007 HPV Vaccines Aged Out No longer eligi ble based on patient's age to complete this topic IPV Vaccines Aged Out No longer eligi ble based on patient's age to complete this topic MMR Vaccines Aged Out No longer eligi ble based on patient's age to complete this topic RSV Immunization Patients Under 20 months Aged Out No longer eligible based on patient's age to complete this topic Varicella Vaccines Aged Out No longer eligible based on patient's age to complete this topic Procedures Procedure Name Priority Date/Time Associated Diagnosis Comments XR HAND 3+ VIEWS LEFT STAT 02/07/2025 7:58 AM EDT CBC WITH AUTO DIFFERENTIAL Routine 01/30/2025 5:43 AM EDT PHOSPHORUS Routine 01/30/2025 5:43 AM EDT CBC AND DIFFERENTIAL Routine 01/30/2025 5:43 AM EDT MAGNESIUM Timed 01/30/2025 5:43 AM EDT COMPREHENSIVE METABOLIC PANEL Timed 01/30/2025 5:43 AM EDT CBC WITH AUTO DIFFERENTIAL Routine 01/29/2025 5:59 AM EDT PHOSPHORUS Routine 01/29/2025 5:59 AM EDT CBC AND DIFFERENTIAL Routine 01/29/2025 5:59 AM EDT MAGNESIUM Timed 01/29/2025 5:59 AM EDT COMPREHENSIVE METABOLIC PANEL Timed 01/29/2025 5:59 AM EDT IR INSERT GASTRO TUBE PERC W FLUORO Routine 01/28/2025 5:20 PM EDT CBC WITH AUTO DIFFERENTIAL Routine 01/28/2025 5:57 AM EDT PHOSPHORUS Routine 01/28/2025 5:57 AM EDT CBC AND DIFFERENTIAL Routine 01/28/2025 5:57 AM EDT MAGNESIUM Timed 01/28/2025 5:57 AM EDT COMPREHENSIVE METABOLIC PANEL Timed 01/28/2025 5:57 AM EDT CBC WITH AUTO DIFFERENTIAL Routine 01/27/2025 6:03 AM EDT CBC AND DIFFERENTIAL Routine 01/27/2025 6:03 AM EDT BASIC METABOLIC PANEL Routine 01/27/2025 6:03 AM EDT XR CHEST 1 VIEW Routine 01/27/2025 2:[address] ABDOMEN PELVIS WO CONTRAST STAT 01/26/2025 11:30 PM EDT MANUAL DIFFERENTIAL - SYSMEX WAM STAT 01/26/2025 10:40 PM EDT CBC WITH AUTO DIFFERENTIAL STAT 01/26/2025 10:40 PM EDT CBC AND DIFFERENTIAL STAT 01/26/2025 10:40 PM EDT COMPREHENSIVE METABOLIC PANEL STAT 01/26/2025 10:40 PM EDT LACTATE, WITH REFLEX STAT 01/26/2025 10:40 PM EDT CBC WITH AUTO DIFFERENTIAL Routine 01/24/2025 5:51 AM EDT PHOSPHORUS Routine 01/24/2025 5:51 AM EDT MAGNESIUM Routine 01/24/2025 5:51 AM EDT CBC AND DIFFERENTIAL Routine 01/24/2025 5:51 AM EDT BASIC METABOLIC PANEL Routine 01/24/2025 5:51 AM EDT MANUAL DIFFERENTIAL - SYSMEX WAM Routine 01/23/2025 6:52 AM EDT CBC WITH AUTO DIFFERENTIAL Routine 01/23/2025 6:52 AM EDT PHOSPHORUS Routine 01/23/2025 6:52 AM EDT MAGNESIUM Routine 01/23/2025 6:52 AM EDT CBC AND DIFFERENTIAL Routine 01/23/2025 6:52 AM EDT BASIC METABOLIC PANEL Routine 01/23/2025 6:52 AM EDT TYPE AND SCREEN Routine 01/22/2025 7:56 PM EDT HEMOGLOBIN AND HEMATOCRIT STAT 01/22/2025 7:56 PM EDT XR ABDOMEN 1 VIEW STAT 01/22/2025 9:3 5 AM EDT CBC WITH AUTO DIFFERENTIAL Routine 01/22/2025 6:02 AM EDT PHOSPHORUS Routine 01/22/2025 6:02 AM EDT MAGNESIUM Routine 01/22/2025 6:02 AM EDT CBC AND DIFFERENTIAL Routine 01/22/2025 6:02 AM EDT BASIC METABOLIC PANEL Routine 01/22/2025 6:02 AM EDT LIPASE Add-On 01/21/2025 5:50 AM EDT CBC WITH AUTO DIFFERENTIAL Routine 01/21/2025 5:50 AM EDT CBC AND DIFFERENTIAL Routine 01/21/2025 5:50 AM EDT BASIC METABOLIC PANEL Routine 01/21/2025 5:50 AM EDT CBC WITH AUTO DIFFERENTIAL STAT 01/20/2025 10:08 PM EDT CBC AND DIFFERENTIAL STAT 01/20/2025 10:[address] ABDOMEN PELVIS WO CONTRAST STAT 01/20/2025 7:55 PM EDT LACTATE DEHYDROGENASE Add-On 01/20/2025 7:11 PM EDT TRIGLYCERIDES STAT Add-on 01/20/2025 7:11 PM EDT LIPASE STAT 01/20/2025 7:11 PM EDT COMPREHENSIVE METABOLIC PANEL STAT 01/20/2025 7:11 PM EDT LACTATE STAT 01/20/2025 7:11 PM EDT ECG ANNOTATED 12/30/2024 CBC WITH AUTO DIFFERENTIAL Routine 12/27/2024 5:08 AM EDT CBC AND DIFFERENTIAL Routine 12/27/2024 5:08 AM EDT MAGNESIUM Routine 12/27/2024 5:08 AM EDT BASIC METABOLIC PANEL Routine 12/27/2024 5:08 AM EDT MAGNESIUM Routine 12/26/2024 10:09 PM EDT BASIC METABOLIC PANEL Routine 12/26/2024 10:09 PM EDT XR ABDOMEN 1 VIEW STAT 12/26/2024 10: [address] ABDOMEN PELVIS WO CONTRAST STAT 12/26/2024 8:11 AM EDT ECG 12-LEAD Routine 12/26/2024 3:22 AM EDT CBC WITH AUTO DIFFERENTIAL STAT 12/26/2024 2:40 AM EDT COMPREHENSIVE METABOLIC PANEL STAT 12/26/2024 2:40 AM EDT LACTATE, WITH REFLEX STAT 12/26/2024 2:40 AM EDT LIPASE STAT 12/26/2024 2:40 AM EDT MAGNESIUM STAT 12/26/2024 2:40 AM EDT ACTIVATED PARTIAL THROMBOPLASTIN TIME STAT 12/26/2024 2:40 AM EDT PROTHROMBIN TIME WITH INR STAT 12/26/2024 2:40 AM EDT CBC AND DIFFERENTIAL STAT 12/26/2024 2:40 AM EDT ECG 12-LEAD STAT 12/26/2024 2:12 AM EDT LIPID PANEL Routine 02/11/2002 from Last 3 Months or Most Recently Relevant to Health Maintenance Results * XR Hand 3+ Views Left (02/07/2025 7:58 AM EDT) Anatomical Region Laterality Modality Upper Extremities, Hand [facility] 02/07/2025 9:28 AM EDT Impressions 02/07/2025 9:29 AM EDT No acute findings. Degenerative changes as detailed above. -------- FINAL REPORT -------- Dictated By: Pratik Christian Dictated Date: 02/07/2025 09:28 ET Assigned Physician: Pratik Christian Reviewed and Electronically Signed By: Pratik Christian Signed Date: 02/07/2025 09:29 ET Workstation ID: [id number] Transcribed By: Self Edit Transcribed Date: 02/07/2025 09:28 ET Narrative 02/07/2025 9:29 AM EDT PROCEDURE: Radiographs of the left hand. HISTORY: pain 1st digit no trauma. COMPARISON: None. FINDINGS: 4 views of the left hand. Bones appear diffusely demineralized. There are severe degenerative changes of the 1st carpometacarpal joint and mild degenerative changes of the triscaphe joint. No fracture or malalignment. No soft tissue abnormality. Procedure Note Pratik Christian MD - 02/07/2025 PROCEDURE: Radiographs of the left hand. HISTORY: pain 1st digit no trauma. COMPARISON: None. FINDINGS: 4 views of the left hand. Bones appear diffusely demineralized. Thereare severe degenerative changes of the 1st carpometacarpal joint and milddegenerative changes of the triscaphe joint. No fracture or malalignment.No soft tissue abnormality. IMPRESSION: No acute findings. Degenerative changes as detailed above. -------- FINAL REPORT -------- Dictated By: Pratik Christian Dictated Date: 02/07/2025 09:28 ET Assigned Physician: Pratik Christian Reviewed and Electronically Signed By: Pratik Christian Signed Date: 02/07/2025 09:29 ET Workstation ID: [id number] Transcribed By: Self Edit Transcribed Date: 02/07/2025 09:28 ET Briseida ALMARAZ IMG XR PROCEDURES Final Result * (ABNORMAL) CBC auto differential (01/30/2025 5:43 AM EDT) Only the most recent of12 resultswithin the time period is included. WBC 8.6 4.8 - 10.8 K/mcL LAB HEMETOLOGY METHOD 01/30/2025 7:04 AM [facility] RBC 2.90(L) 4.50 - 5.50 M/mcL LAB HEMETOLOGY METHOD 01/30/2025 7:04 AM [facility] Hemoglobin 9.2(L) 13.5 - 17.5 g/dL LAB HEMETOLOGY METHOD 01/30/2025 7:04 AM [facility] Hematocrit 27.2(L) 42.0 - 54.0 % LAB HEMETOLOGY METHOD 01/30/2025 7:04 AM [facility] MCV 93.5 79.0 - 98.0 FL LAB HEMETOLOGY METHOD 01/30/2025 7:04 AM [facility] MCH 31.6 27.0 - 32.0 pcg LAB HEMETOLOGY METHOD 01/30/2025 7:04 AM [facility] MCHC 33.8 32.0 - 37.0 g/dL LAB HEMETOLOGY METHOD 01/30/2025 7:04 AM [facility] RDW 14.3 11.0 - 15.0 % LAB HEMETOLOGY METHOD 01/30/2025 7:04 AM [facility] Platelets 288 130 - 400 K/mcL LAB HEMETOLOGY METHOD 01/30/2025 7:04 AM [facility] MPV 10.8 7.0 - 11.0 FL LAB HEMETOLOGY METHOD 01/30/2025 7:04 AM [facility] NRBC 0.0 <1.0 % LAB HEMETOLOGY METHOD 01/30/2025 7:04 AM [facility] NRBC Absolute 0.00 <0.10 K/mcL LAB HEMETOLOGY METHOD 01/30/2025 7:04 AM [facility] Neutrophils Relative 63.3 % LAB HEMETOLOGY METHOD 01/30/2025 7:04 AM [facility] Comment:This is an appended report. These results have been appended to a previously preliminary verified report. Lymphocytes Relative 17.0 % LAB HEMETOLOGY METHOD 01/30/2025 7:04 AM [facility] Comment:This is an appended report. These results have been appended to a previously preliminary verified report. Monocytes Relative 19.4 % LAB HEMETOLOGY METHOD 01/30/2025 7:04 AM [facility] Comment:This is an appended report. These results have been appended to a previously preliminary verified report. Eosinophils Relative 0.1 % LAB HEMETOLOGY METHOD 01/30/2025 7:04 AM [facility] Comment:This is an appended report. These results have been appended to a previously preliminary verified report. Basophils Relative 0.1 % LAB HEMETOLOGY METHOD 01/30/2025 7:04 AM [facility] Comment:This is an appended report. These results have been appended to a previously preliminary verified report. Immature Granulocytes Relative 0.1 % LAB HEMETOLOGY METHOD 01/30/2025 7:04 AM [facility] Comment:This is an appended report. These results have been appended to a previously preliminary verified report. Neutrophils Absolute 5.46 1.50 - 7.00 K/mcL LAB HEMETOLOGY METHOD 01/30/2025 7:04 AM [facility] Comment:This is an appended report. These results have been appended to a previously preliminary verified report. Lymphocytes Absolute 1.47 1.00 - 5.00 K/mcL LAB HEMETOLOGY METHOD 01/30/2025 7:04 AM [facility] Comment:This is an appended report. These results have been appended to a previously preliminary verified report. Monocytes Absolute 1.68(H) 0.20 - 1.00 K/mcL LAB HEMETOLOGY METHOD 01/30/2025 7:04 AM [facility] Comment:This is an appended report. These results have been appended to a previously preliminary verified report. Eosinophils Absolute 0.01 0.00 - 0.50 K/mcL LAB HEMETOLOGY METHOD 01/30/2025 7:04 AM [facility] Comment:This is an appended report. These results have been appended to a previously preliminary verified report. Basophils Absolute 0.01 0.00 - 0.20 K/mcL LAB HEMETOLOGY METHOD 01/30/2025 7:04 AM [facility] Comment:This is an appended report. These results have been appended to a previously preliminary verified report. Immature Granulocytes Absolute 0.01 0.00 - 0.03 K/mcL LAB HEMETOLOGY METHOD 01/30/2025 7:04 AM [facility] Comment:This is an appended report. These results have been appended to a previously preliminary verified report. Blood Venous blood specimen / Unknown Venipuncture / Unknown 01/30/2025 5:43 AM EDT 01/30/2025 6:19 AM EDT us Yazmin Holleyner PA LAB BLOOD ORDERABLES Final Result Performing Organization Address [facility] Co de Phone Number [facility] [address] [place] [address], [place] [phone] * Phosphorus (01/30/2025 5:43 AM EDT) Only the most recent of6 resultswithin the time period is included. Phosphorus 2.9 2.5 - 4.5 mg/dL LAB CHEMISTRY METHOD 01/30/2025 7:03 AM EDT [facility] Blood Venous blood specimen / Unknown Venipuncture / Unknown 01/30/2025 5:43 AM EDT 01/30/2025 6:19 AM EDT [facility] BLOOD ORDERABLES Final Result Performing Organization Address [facility] de Phone Number [facility] [address] [place] [address], [place] [phone] * Magnesium (01/30/2025 5:43 AM EDT) Only the most recent of9 resultswithin the time period is included. Magnesium 2.0 1.9 - 2.6 mg/dL LAB CHEMISTRY METHOD 01/30/2025 7:03 AM EDT [facility] Blood Venous blood specimen / Unknown Venipuncture / Unknown 01/30/2025 5:43 AM EDT 01/30/2025 6:19 AM EDT Yazmin A Kishanner CO LAB BLOOD ORDERABLES Final Result Performing Organization Address [facility] Co de Phone Number [facility] [address] [place] [address], [place] [phone] * (ABNORMAL) Comprehensive metabolic panel (01/30/2025 5:43 AM EDT) Only the most recent of6 resultswithin the time period is included. Sodium 135 133 - 145 mmol/L LAB CHEMISTRY METHOD 01/30/2025 7:03 AM [facility] Potassium 4.1 3.5 - 5.5 mmol/L LAB CHEMISTRY METHOD 01/30/2025 7:03 AM [facility] Chloride 99 96 - 110 mmol/L LAB CHEMISTRY METHOD 01/30/2025 7:03 AM [facility] CO2 30 21 - 32 mmol/L LAB CHEMISTRY METHOD 01/30/2025 7:03 AM [facility] Anion Gap 6 3 - 11 LAB CHEMISTRY METHOD 01/30/2025 7:03 AM [facility] Glucose 112(H) 70 - 100 mg/dL LAB CHEMISTRY METHOD 01/30/2025 7:03 AM [facility] BUN 26(H) 5 - 25 mg/dL LAB CHEMISTRY METHOD 01/30/2025 7:03 AM [facility] Creatinine 1.20 0.70 - 1.30 mg/dL LAB CHEMISTRY METHOD 01/30/2025 7:03 AM [facility] eGFR 66 >=60 mL/min/1. 73m2 LAB CHEMISTRY METHOD 01/30/2025 7:03 AM [facility] Comment:Calculation based on the Chronic Kidney Disease Epidemiology Collaboration (CKD-EPI) equation refit without adjustment for race. BUN/Creatinine Ratio 21.7 LAB CHEMISTRY METHOD 01/30/2025 7:03 AM [facility] Calcium 8.4(L) 8.5 - 10.5 mg/dL LAB CHEMISTRY METHOD 01/30/2025 7:03 AM [facility] AST (SGOT) 10 10 - 42 unit/L LAB CHEMISTRY METHOD 01/30/2025 7:03 AM [facility] ALT (SGPT) 24 10 - 60 unit/L LAB CHEMISTRY METHOD 01/30/2025 7:03 AM EDT [facility] Alkaline Phosphatase 149(H) 42 - 121 unit/L LAB CHEMISTRY METHOD 01/30/2025 7:03 AM EDT [facility] Total Protein 4.9(L) 6.0 - 8.0 g/dL LAB CHEMISTRY METHOD 01/30/2025 7:03 AM EDT [facility] Albumin 2.9(L) 3.2 - 5.0 g/dL LAB CHEMISTRY METHOD 01/30/2025 7:03 AM EDT [facility] Total Bilirubin 0.8 0.0 - 1.4 mg/dL LAB CHEMISTRY METHOD 01/30/2025 7:03 AM EDT [facility] Blood Venous blood specimen / Unknown Venipuncture / Unknown 01/30/2025 5:43 AM EDT 01/30/2025 6:19 AM EDT aYzmin ALMARAZ LAB BLOOD ORDERABLES Final Result [facility] [address] [place] [address], * IR Insert Gastro Tube Perc w Fluoro (01/28/2025 5:20 PM EDT) Anatomical Region Laterality Modality Body N/A Interventional R adiology 01/28/2025 5:16 PM EDT Narrative 01/28/2025 5:19 PM EDT History: Patient with inability to tolerate oral feeds Procedure performed: Ultrasound and fluoroscopic guided placement of a gastrostomy tube. Physician: Teo Styles MD Anesthesia: IV moderate sedation with intravenous Fentanyl and Versed was administered under my direct supervision with continuous physiologic monitoring for a total of 30 minutes. Local anesthesia was used with 1% Lidocaine and 0.5% Bupivicaine at the planned locations for the T tacks as well as the tube itself. Specimen: None Tube: 16-Swedish gastrostomy Estimated blood loss: Minimal Consultations: None Procedure in detail: Informed and written consent was obtained. Using ultrasound, the margins of the liver were marked on the patient's skin. We decided to place the tube laterally in the left abdomen because there is a mass in the anterior abdomen at the typical location where a gastric tube was placed, but we felt there was a safe window laterally. We extensively studied the abdomen with ultrasound and used a combination of ultrasound and fluoroscopic guidance for optimal tube location. We angled the c arm in a craniocaudal direction so that the anchors and the needle access for the gastrostomy tube itself could be advanced from a caudal to cranial direction in order to make placement safer. The patient was positioned supine on the angiography table. The abdomen was prepped and draped. The location for the two T-Tacks flanking the planned location of the gastrostomy tube was marked on the skin. 1% Lidocaine and 0.5% Bupivicaine was administered to the skin and subcutaneous tissues as well as the deep soft tissues at the location for the two T-Tacks as well as between the two T-Tacks at the planned location for the gastrostomy tube. With a number 11 blade, three small incisions were made in the skin corresponding to the location of the two T-Tacks and a third incision that was slightly larger at the planned location for the gastrostomy tube itself between the two T-Tacks. Under fluoroscopy at the outer two incisions, T-tacks were advanced directly into the stomach with a contrast injection performed into the stomach confirming the location. The T-tacks were fired into the lumen of the stomach and contrast was injected through the needle as it was withdrawn to ensure that we had not transgressed bowel otherwise. The T-tacks were secured at the abdomen with hemostats. A 19-gauge needle was advanced through the incision between the two T-Tacks directly into the stomach with contrast injected through the needle lumen to confirm our location within the stomach. An Amplatz wire was then advanced through the 19-gauge needle, which was removed. A progressive peel-away sheath was advanced over the wire through which we placed [id number] gastrostomy tube. The peel-away sheath was removed. 5 mL of sterile water was injected into the balloon and the wire was removed from the gastrostomy tube. The gastrostomy tube was secured after we first secured the two T-Tacks with their discs. Contrast was injected through the new gastrostomy tube confirming proper location of the tube within the stomach. We then flushed the gastrostomy tube lumen with saline. Summary: Successful ultrasound and fluoroscopic guided placement of a gastrostomy tube as described. The placement is more lateral than typical because there is a mass in the anterior abdomen midline that interfered with the standard location for gastrostomy tube, but we felt there was a safe window for percutaneous access laterally based upon his preprocedure CT. -------- FINAL REPORT -------- Dictated By: Nils Styles Dictated Date: 01/28/2025 17:16 ET Assigned Physician: Nils Styles Reviewed and Electronically Signed By: Nils Styles Signed Date: 01/28/2025 17:19 ET Workstation ID: [id number] Transcribed By: Self Edit Transcribed Date: 01/28/2025 17:16 ET Procedure Note Nils Styles MD - 01/28/2025 History: Patient with inability to tolerate oral feeds Procedure performed: Ultrasound and fluoroscopic guided placement of agastrostomy tube. Physician: Teo Styles MD Anesthesia: IV moderate sedation with intravenous Fentanyl and Versed wasadministered under my direct supervision with continuous physiologicmonitoring for a total of 30 minutes. Local anesthesia was used with 1%Lidocaine and 0.5% Bupivicaine at the planned locations for the T tacks aswell as the tube itself. Specimen: None Tube: 16-Swedish gastrostomy Estimated blood loss: Minimal Consultations: None Procedure in detail: Informed and written consent was obtained. Usingultrasound, the margins of the liver were marked on the patient's skin.We decided to place the tube laterally in the left abdomen because thereis a mass in the anterior abdomen at the typical location where a gastrictube was placed, but we felt there was a safe window laterally. Weextensively studied the abdomen with ultrasound and used a combination ofultrasound and fluoroscopic guidance for optimal tube location. We angledthe c arm in a craniocaudal direction so that the anchors and the needleaccess for the gastrostomy tube itself could be advanced from a caudal tocranial direction in order to make placement safer. The patient waspositioned supine on the angiography table. The abdomen was prepped and draped. The location for the two T-Tacksflanking the planned location of the gastrostomy tube was marked on theskin. 1% Lidocaine and 0.5% Bupivicaine was administered to the skin andsubcutaneous tissues as well as the deep soft tissues at the location forthe two T-Tacks as well as between the two T- Tacks at the planned locationfor the gastrostomy tube. With a number 11 blade, three small incisionswere made in the skin corresponding to the location of the two T-Tacks rosa third incision that was slightly larger at the planned location for thegastrostomy tube itself between the two T-Tacks. Under fluoroscopy at the outer two incisions, T-tacks were advanceddirectly into the stomach with a contrast injection performed into thestomach confirming the location. The T-tacks were fired into the lumen ofthe stomach and contrast was injected through the needle as it waswithdrawn to ensure that we had not transgressed bowel otherwise. TheT-tacks were secured at the abdomen with hemostats. A 19-gauge needle was advanced through the incision between the twoT-Tacks directly into the stomach with contrast injected through theneedle lumen to confirm our location within the stomach. An Amplatz wirewas then advanced through the 19- gauge needle, which was removed. A progressive peel-away sheath was advanced over the wire through which weplaced [id number] gastrostomy tube. The peel-away sheath was removed.5 mL of sterile water was injected into the balloon and the wire wasremoved from the gastrostomy tube. The gastrostomy tube was secured afterwe first secured the two T-Tacks with their discs. Contrast was injectedthrough the new gastrostomy tube confirming proper location of the tubewithin the stomach. We then flushed the gastrostomy tube lumen withsaline. Summary: Successful ultrasound and fluoroscopic guided placement of agastrostomy tube as described. The placement is more lateral than typicalbecause there is a mass in the anterior abdomen midline that interferedwith the standard location for gastrostomy tube, but we felt there was asafe window for percutaneous access laterally based upon his preprocedureCT. -------- FINAL REPORT -------- Dictated By: Nils Styles Dictated Date: 01/28/2025 17:16 ET Assigned Physician: Nils Styles Reviewed and Electronically Signed By: Nils Styles Signed Date: 01/28/2025 17:19 ET Workstation ID: [id number] Transcribed By: Self Edit Transcribed Date: 01/28/2025 17:16 ET us Patricia ALMARAZ IMG IR PROCEDURES Final Result * (ABNORMAL) Basic metabolic panel (01/27/2025 6:03 AM EDT) Only the most recent of7 resultswithin the time period is included. Sodium 138 133 - 145 mmol/L LAB CHEMISTRY METHOD 01/27/2025 6:55 AM [facility] Potassium 3.8 3.5 - 5.5 mmol/L LAB CHEMISTRY METHOD 01/27/2025 6:55 AM [facility] Chloride 103 96 - 110 mmol/L LAB CHEMISTRY METHOD 01/27/2025 6:55 AM [facility] CO2 33(H) 21 - 32 mmol/L LAB CHEMISTRY METHOD 01/27/2025 6:55 AM [facility] Anion Gap 2(L) 3 - 11 LAB CHEMISTRY METHOD 01/27/2025 6:55 AM [facility] Glucose 122(H) 70 - 100 mg/dL LAB CHEMISTRY METHOD 01/27/2025 6:55 AM [facility] BUN 21 5 - 25 mg/dL LAB CHEMISTRY METHOD 01/27/2025 6:55 AM [facility] Creatinine 1.18 0.70 - 1.30 mg/dL LAB CHEMISTRY METHOD 01/27/2025 6:55 AM [facility] eGFR 68 >=60 mL/min/1. 73m2 LAB CHEMISTRY METHOD 01/27/2025 6:55 AM [facility] Comment:Calculation based on the Chronic Kidney Disease Epidemiology Collaboration (CKD-EPI) equation refit without adjustment for race. BUN/Creatinine Ratio 17.8 LAB CHEMISTRY METHOD 01/27/2025 6:55 AM EDT [facility] Calcium 8.3(L) 8.5 - 10.5 mg/dL LAB CHEMISTRY METHOD 01/27/2025 6:55 AM EDT [facility] Blood Venous blood specimen / Unknown Venipuncture / Unknown 01/27/2025 6:03 AM EDT 01/27/2025 6:08 AM EDT us Rubén Majano MD LAB BLOOD ORDERABLES Final Result [facility] [address] [place] [address], * XR Chest 1 View (01/27/2025 2:35 AM EDT) Anatomical Region Laterality Modality Body Radiographic Carolina ging 01/27/2025 8:24 AM EDT Impressions 01/27/2025 8:25 AM EDT FINDINGS/IMPRESSION: Right chest wall Port-A-Cath terminates in the right atrium. Enteric tube terminates within the stomach on the final image. Small bilateral pleural effusions with adjacent atelectasis. No pneumothorax. Cardiac silhouette is normal in size. Degenerative changes seen throughout the bones. -------- FINAL REPORT -------- Dictated By: RODNEY CHENG Dictated Date: 01/27/2025 08:24 ET Assigned Physician: RODNEY CHENG Reviewed and Electronically Signed By: RODNEY CHENG Signed Date: 01/27/2025 08:25 ET Workstation ID: [id number] Transcribed By: Self Edit Transcribed Date: 01/27/2025 08:24 ET Narrative 01/27/2025 8:25 AM EDT XR CHEST 1 VIEW INDICATION: Nasogastric tube placement TECHNIQUE: XR CHEST 1 VIEW COMPARISON: No priors available. Procedure Note Rodney Cheng MD - 01/27/2025 XR CHEST 1 VIEW INDICATION: Nasogastric tube placement TECHNIQUE: XR CHEST 1 VIEW COMPARISON: No priors available. IMPRESSION: FINDINGS/IMPRESSION: Right chest wall Port-A-Cath terminates in the rightatrium. Enteric tube terminates within the stomach on the final image.Small bilateral pleural effusions with adjacent atelectasis. Nopneumothorax. Cardiac silhouette is normal in size. Degenerative changesseen throughout the bones. -------- FINAL REPORT -------- Dictated By: RODNEY CHENG Dictated Date: 01/27/2025 08:24 ET Assigned Physician: RODNEY CHENG Reviewed and Electronically Signed By: RODNEY CHENG Signed Date: 01/27/2025 08:25 ET Workstation ID: [id number] Transcribed By: Self Edit Transcribed Date: 01/27/2025 08:24 ET us Rubén Majano MD IMG XR PROCEDURES Final Res ult * CT Abdomen Pelvis wo Contrast (01/26/2025 11:30 PM EDT) Only the most recent of3 resultswithin the time period is included. Anatomical Region Laterality Modality Body Computed Tomogra phy 01/27/2025 12:0 1 AM EDT Addenda Addendum by Kimani Riddle MD on 01/27/2025 12:09 AM EDT ADDENDUM: This report was discussed with SHMUEL GARBER on Jan 27, 2025 00:08:00 EDT. This document has been electronically signed by: Cristal Rick on 01/27/2025 00:09:12 Impressions 01/27/2025 12:01 AM EDT 1. Limited examination related to diffuse edema/generalized 3rd spacing of fluid and the lack of IV contrast. There is dilation of small-bowel loops of the mid to upper abdomen, measuring up to 6.8 cm in maximum diameter at the duodenal sweep to the right of the midline, suggesting a small bowel obstruction. 2. Multi-cystic area redemonstrated along the anterior margin of the distal stomach with scattered superimposed calcification, possibly consistent with a mass. There is also asymmetric enlargement of the left anterior abdominal wall soft tissues which is nonspecific. An underlying tumor in this region is not excluded. 3. Borderline bladder wall thickening. This is nonspecific. If there is clinical concern for mild cystitis, recommend correlation with urinalysis results for further evaluation. 4. Nonvisualization of the gallbladder. The structures of the hepatic hilum are poorly visualized/evaluated on this examination. 5. Mild, patchy bibasilar airspace opacities which may represent sequela of pneumonia. There are minimal bilateral pleural effusions. Stable nonspecific right epicardial calcifications. This document has been electronically signed by: Kimani Riddle MD on 01/27/2025 00:01:46 Narrative 01/27/2025 12:01 AM EDT INDICATION: Bowel obstruction suspected CT abdomen and pelvis without contrast Comparison: CT - CT ABD PEL WO CONTRAST - 01/20/25 19:54 EDT Findings: Edema identified throughout the body wall soft tissues as well as throughout the intra-abdominal and intrapelvic compartments, limiting this examination. Mild, patchy bibasilar airspace opacities are present with minimal bilateral pleural effusions, slightly larger on the left. Minimal pericardial effusion present. Nonspecific calcifications are identified at the right epicardium. Grossly stable appearance of the hepatic hilum with ill-defined low-attenuation in this region. The gallbladder is not clearly visualized on this exam. Slightly increased low attenuation identified near the portal triads which may represent mild intrahepatic biliary dilation or periportal edema. Evaluation is limited without IV contrast. A normal spleen is not identified. The pancreas is poorly visualized/evaluated on this exam. The right adrenal gland is unremarkable in appearance. Minimal nonspecific nodularity of the left adrenal gland present.. Nonobstructing left renal calculus present. No hydronephrosis. There appears to be a multi-cystic area along the anterior margin of the distal stomach with scattered superimposed calcification, possibly consistent with a mass. A similar finding was present on the prior exam. There is dilation of small-bowel loops at the mid to upper abdomen, measuring up to 6.8 cm in maximum diameter at what appears to be the duodenal sweep to the right of the midline. There is irregularity of the left anterior abdominal wall soft tissues. Ostomy in place at the right anterior abdominal wall. No free intraperitoneal air appreciated. Scattered calcifications are identified within the prostate gland. Small, fat containing left inguinal hernia. The bladder may be displaced anteriorly. There is borderline bladder wall thickening. Nonvisualization of the appendix. No acute fracture visualized. Multilevel degenerative disc disease/vacuum disc phenomenon present at the thoracolumbar spine. There is grade 1 retrolisthesis of L2 on L3, of L3 on L4, and also of L4 on L5. Procedure Note Kimani Riddle MD - 01/27/2025 INDICATION: Bowel obstruction suspected CT abdomen and pelvis without contrast Comparison: CT - CT ABD PEL WO CONTRAST - 01/20/25 19:54 EDT Findings: Edema identified throughout the body wall soft tissues as well as throughout the intra-abdominal and intrapelvic compartments, limitingthis examination. Mild, patchy bibasilar airspace opacities are present with minimal bilateral pleural effusions, slightly larger on the left.Minimal pericardial effusion present. Nonspecific calcifications are identifiedat the right epicardium. Grossly stable appearance of the hepatic hilum with ill-defined low-attenuation in this region. The gallbladder is not clearlyvisualized on this exam. Slightly increased low attenuation identified near the portal triads which may represent mild intrahepatic biliary dilation or periportal edema. Evaluation is limited without IV contrast. A normal spleen is not identified. The pancreas is poorly visualized/evaluated on this exam. The right adrenal gland is unremarkable in appearance.Minimal nonspecific nodularity of the left adrenal gland present..Nonobstructing left renal calculus present. No hydronephrosis. There appears to be a multi-cystic area along the anterior margin of the distal stomach with scattered superimposed calcification, possibly consistent with a mass. A similar finding was present on the prior exam. There is dilation of small-bowel loops at the mid to upper abdomen, measuring up to 6.8 cm in maximum diameter at what appears to be the duodenal sweep to the right of the midline. There is irregularity of the left anterior abdominal wall soft tissues. Ostomy in place at the right anterior abdominal wall. No free intraperitoneal air appreciated. Scattered calcifications are identified within the prostate gland.Small, fat containing left inguinal hernia. The bladder may be displaced anteriorly. There is borderline bladder wall thickening.Nonvisualization of the appendix. No acute fracture visualized. Multilevel degenerative discdisease/vacuum disc phenomenon present at the thoracolumbar spine. There is grade 1 retrolisthesis of L2 on L3, of L3 on L4, and also of L4 on L5. IMPRESSION: 1. Limited examination related to diffuse edema/generalized 3rd spacingof fluid and the lack of IV contrast. There is dilation of small-bowelloops of the mid to upper abdomen, measuring up to 6.8 cm in maximum diameterat the duodenal sweep to the right of the midline, suggesting a small bowel obstruction. 2. Multi-cystic area redemonstrated along the anterior margin of the distal stomach with scattered superimposed calcification, possibly consistent with a mass. There is also asymmetric enlargement of the left anterior abdominal wall soft tissues which is nonspecific. An underlying tumor in this region is not excluded. 3. Borderline bladder wall thickening. This is nonspecific. If there is clinical concern for mild cystitis, recommend correlation withurinalysis results for further evaluation. 4. Nonvisualization of the gallbladder. The structures of the hepatic hilum are poorly visualized/evaluated on this examination. 5. Mild, patchy bibasilar airspace opacities which may represent sequela of pneumonia. There are minimal bilateral pleural effusions. Stable nonspecific right epicardial calcifications. This document has been electronically signed by: Kimani Riddle MD on 01/27/2025 00:01:46 Shmuel Garber MD IMG CT PROCEDURES Edited Result - Final * Lactate, with Reflex (01/26/2025 10:40 PM EDT) Only the most recent of2 resultswithin the time period is included. [facility] LACTIC ACID 1.2 0.4 - 2.0 mmol/L LAB CHEMISTRY METHOD 01/26/2025 11:15 PM EDT [facility] Blood Venous blood specimen / Unknown Venipuncture / Unknown 01/26/2025 10:40 PM EDT 01/26/2025 10:44 PM EDT Shmuel Garber MD LAB BLOOD ORDERABLES Gabbie l Result [facility] [address] [place] [address], [place] [phone] * (ABNORMAL) Manual differential (01/26/2025 10:40 PM EDT) Only the most recent of2 resultswithin the time period is included. Pathologist [facility] Neutrophils % 77.0 % LAB HEMETOLOGY METHOD 01/26/2025 11:27 PM [facility] Bands % 4.0 % LAB HEMETOLOGY METHOD 01/26/2025 11:27 PM [facility] Lymphocytes % 10.0 % LAB HEMETOLOGY METHOD 01/26/2025 11:27 PM [facility] Monocytes % 9.0 % LAB HEMETOLOGY METHOD 01/26/2025 11:27 PM [facility] Eosinophils % 1.0 % LAB HEMETOLOGY METHOD 01/26/2025 11:27 PM [facility] Basophils % 0.0 % LAB HEMETOLOGY METHOD 01/26/2025 11:27 PM [facility] Neutrophils Absolute Manual 8.47(H) 1.50 - 7.00 K/mcL LAB HEMETOLOGY METHOD 01/26/2025 11:27 PM [facility] Bands Absolute Manual 0.44(H) 0.00 - 0.00 K/mcL LAB HEMETOLOGY METHOD 01/26/2025 11:27 PM [facility] Lymphocytes Absolute 1.10 1.00 - 5.00 K/mcL LAB HEMETOLOGY METHOD 01/26/2025 11:27 PM [facility] Monocytes Absolute Manual 0.99 0.20 - 1.00 K/mcL LAB HEMETOLOGY METHOD 01/26/2025 11:27 PM [facility] Eosinophils Absolute Manual 0.11 0.00 - 0.50 K/mcL LAB HEMETOLOGY METHOD 01/26/2025 11:27 PM [facility] Basophils Absolute Manual 0.00 0.00 - 0.20 K/mcL LAB HEMETOLOGY METHOD 01/26/2025 11:27 PM [facility] Rbc Morphology Present( A) Consistent with indices, Normal for [place] LAB HEMETOLOGY METHOD 01/26/2025 11:27 PM EDT [facility] Comment:RBC: Morphology agre es with CBC Platelet Morphology - [facility] See Note(A) Normal LAB HEMETOLOGY METHOD 01/26/2025 11:27 PM EDT [facility] Comment:PLT: Normal Target Cells Present 5 - 10%(A) (none) LAB HEMETOLOGY METHOD 01/26/2025 11:27 PM EDT [facility] Blood Venous blood specimen / Unknown Venipuncture / Unknown 01/26/2025 10:40 PM EDT 01/26/2025 10:46 PM EDT Shmuel Garber MD LAB BLOOD ORDERABLES Gabbie l Result Performing Organization Address [facility]/ZIP Co de Phone Number [facility] [address] [place] [address], * (ABNORMAL) Hemoglobin and hematocrit (01/22/2025 7:56 PM EDT) Hemoglobin 10.4(L) 13.5 - 17.5 g/dL LAB HEMETOLOGY METHOD 01/22/2025 8:44 PM EDT [facility] Hematocrit 30.8(L) 42.0 - 54.0 % LAB HEMETOLOGY METHOD 01/22/2025 8:44 PM EDT [facility] Blood Venous blood specimen / Unknown Venipuncture / Unknown 01/22/2025 7:56 PM EDT 01/22/2025 8:26 PM EDT Ryan Otto MD LAB BLOOD ORDERABLES F inal Result [facility] [address] [place] [address], [place] [phone] * Type and screen (01/22/2025 7:56 PM EDT) ABO Group O 01/22/2025 9:37 PM EDT [facility] Rh Type Negative 01/22/2025 9:37 PM EDT [facility] Antibody Screen Negative 01/22/2025 9:37 PM EDT [facility] Blood Venous blood specimen / Unknown Venipuncture / Unknown 01/22/2025 7:56 PM EDT 01/22/2025 8:26 PM EDT Ryan Otto MD LAB BLOOD BANK TEST OR DERABLES Final Result [facility] [address] [place] [address], [place] [phone] * XR Abdomen 1 View (01/22/2025 9:35 AM EDT) Only the most recent of2 resultswithin the time period is included. Anatomical Region Laterality Modality Body Radiographic Carolina ging 01/22/2025 10:1 0 AM EDT Impressions 01/22/2025 10:11 AM EDT Tip of gastric tube within the upper abdomen to left of midline. -------- FINAL REPORT -------- Dictated By: Vince Gonzalez Dictated Date: 01/22/2025 10:10 ET Assigned Physician: Vince Gonzalez Reviewed and Electronically Signed By: Vince Gonzalez Signed Date: 01/22/2025 10:11 ET Workstation ID: [id number] Transcribed By: Self Edit Transcribed Date: 01/22/2025 10:10 ET Narrative 01/22/2025 10:11 AM EDT INDICATION: NG/OG tube placement. FINDINGS: Single view of the upper abdomen obtained portably. Compared to multiple prior studies most recent from December 26, 2024. NG/OG tube: Tube within the gastric lumen with the tip located upper abdomen just to left of midline at T11-T12 level. Side port located in the region of the distal esophagus. Recommend advancing tube 4 cm more optimal positioning of the side port. Procedure Note Vince Gonzalez MD - 01/22/2025 INDICATION: NG/OG tube placement. FINDINGS: Single view of the upper abdomen obtained portably. Compared tomultiple prior studies most recent from December 26, 2024. NG/OG tube: Tube within the gastric lumen with the tip located upperabdomen just to left of midline at T11-T12 level. Side port located in theregion of the distal esophagus. Recommend advancing tube 4 cm more optimalpositioning of the side port. IMPRESSION: Tip of gastric tube within the upper abdomen to left of midline. -------- FINAL REPORT -------- Dictated By: Vince Gonzalez Dictated Date: 01/22/2025 10:10 ET Assigned Physician: Vince Gonzalez Reviewed and Electronically Signed By: Vince Gonzalez Signed Date: 01/22/2025 10:11 ET Workstation ID: [id number] Transcribed By: Self Edit Transcribed Date: 01/22/2025 10:10 ET Cheri ALMARAZ IMG XR PROCEDURES Final Resu lt * (ABNORMAL) Lipase (01/21/2025 5:50 AM EDT) Only the most recent of3 resultswithin the time period is included. Lipase 262(H) 13 - 75 unit/L LAB CHEMISTRY METHOD 01/21/2025 10:09 AM EDT [facility] Blood Venous blood specimen / Unknown Venipuncture / Unknown 01/21/2025 5:50 AM EDT 01/21/2025 6:20 AM EDT Ryan Otto MD LAB BLOOD ORDERABLES F inal Result [facility] [address] [place] [address], [place] [phone] * Triglycerides (01/20/2025 7:11 PM EDT) Triglycerides 74 0 - 150 mg/dL LAB CHEMISTRY METHOD 01/20/2025 10:28 PM EDT [facility] Blood Venous blood specimen / Unknown Venipuncture / Unknown 01/20/2025 7:11 PM EDT 01/20/2025 7:17 PM EDT Rubén Majano MD LAB BLOOD ORDERABLES Final Result Performing Organization Address [facility]/ZIP Co de Phone Number [facility] [address] [place] [address], [place] [phone] * Lactate dehydrogenase (01/20/2025 7:11 PM EDT) [facility] LDH 207 120 - 246 unit/L LAB CHEMISTRY METHOD 01/20/2025 10:28 PM EDT [facility] Blood Venous blood specimen / Unknown Venipuncture / Unknown 01/20/2025 7:11 PM EDT 01/20/2025 7:17 PM EDT us Rubén Majano MD LAB BLOOD ORDERABLES Final Result Performing Organization Address [facility] Co de Phone Number [facility] [address] [place] [address], [place] [phone] * Lactate (01/20/2025 7:11 PM EDT) [facility] Lactate 1.2 0.4 - 2.0 mmol/L LAB CHEMISTRY METHOD 01/20/2025 7:54 PM EDT [facility] Blood Venous blood specimen / Unknown Venipuncture / Unknown 01/20/2025 7:11 PM EDT 01/20/2025 7:18 PM EDT us Sachin Murrieta MD LAB BLOOD ORDERABLES Fin al Result Performing Organization Address City/[facility]/ZIP Co de Phone Number [facility] [address] [place] [address], [place] [phone] * ECG-Annotated (12/30/2024) Provider Onbase MD ECG ORDERABLES Final Result * ECG 12 lead (12/26/2024 3:22 AM EDT) Only the most recent of2 resultswithin the time period is included. Ventricular Rate ECG 57 BPM GEMUSE Atrial Rate 57 BPM GEMUSE P-R Interval 142 ms GEMUSE QRS Duration 122 ms GEMUSE Q-T Interval 452 ms GEMUSE QTc 439 ms GEMUSE P Wave [place] 18 degrees GEMUSE R [place] 19 degrees GEMUSE T [place] 18 degrees GEMUSE ECG Interpretation Sinus bradycardia Right bundle branch block Abnormal ECG When compared with ECG of 26-DEC-2024 02:12, (unconfirmed) No significant change was found Confirmed by Olu MEEK YUFENG ([id number]) on 12/26/2024 8:18:56 PM GEMUSE 12/26/2024 3:22 AM EDT 12/26/2024 8:18 PM EDT Ladonna Galan SENIOR PHP SOFTWARE DEVELOPER ECG ORDERABLES Final Res ult GEMUSE * APTT (12/26/2024 2:40 AM EDT) aPTT 31.4 24.1 - 39.3 sec LAB COAGULATION METHOD 12/26/2024 3:12 AM EDT [facility] Blood Venous blood specimen / Unknown Venipuncture / Unknown 12/26/2024 2:40 AM EDT 12/26/2024 2:58 AM EDT Oh Khanna MD LAB BLOOD ORDERABLES Final R esult [facility] [address] [place] [address], [place] [phone] * (ABNORMAL) Protime-INR (12/26/2024 2:40 AM EDT) Protime 14.3(H) 10.6 - 13.9 sec LAB COAGULATION METHOD 12/26/2024 3:12 AM EDT [facility] INR 1.1 LAB COAGULATION METHOD 12/26/2024 3:12 AM EDT [facility] Blood Venous blood specimen / Unknown Venipuncture / Unknown 12/26/2024 2:40 AM EDT 12/26/2024 2:58 AM EDT Oh Khanna MD LAB BLOOD ORDERABLES Final R esult [facility] [address] [place] [address], * (ABNORMAL) Lipid panel (02/11/2002) [facility] LDL/HDL Ratio 4 1 - 5 Triglycerides 353(A) 10 - 160 mg/dL Cholesterol 163 10 - 240 mg/dL HDL 38 32 - 96 mg/dL LDL Cholesterol 54(A) 62 - 185 mg/dL Blood Venous blood specimen / Unknown Historical Provider LAB BLOOD ORDERABLES Gabbie l Result from Last 3 Months or Most Recently Relevant to Health Maintenance Insurance MEDICARE [place]ICA[place] - [place] Advance Directives Documents on File Type Date Recorded 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 Do not modify or discontinue any currently active code status orders. * No CPR/Do Not Intubate Date Activated Date Inactivated Comments 01/21/2025 5:34 AM 01/24/2025 5:[address] atus was ascertained in the following way: Code status discussion: discussion with patient To update the patient's code status, place a code status order. Do not modify or discontinue any currently active code status orders. * Full Code - Default Date Activated Date Inactivated Comments 01/20/2025 10:28 PM 01/21/2025 5:34 AM This is ord er is used when code status has not been discussed with the patient, or code status is otherwise unknown/unconfirmed To update the patient's code status, place a code status order. Do not modify or discontinue any currently active code status orders. * No CPR/Do Not Intubate Date Activated Date Inactivated Comments 12/26/2024 9:47 AM 12/27/2024 7:[address] atus was ascertained in the following way: Code status discussion: discussion with patient To update the patient's code status, place a code status order. Do not modify or discontinue any currently active code status orders. * No CPR/Do Not Intubate Date Activated Date Inactivated Comments 11/08/2024 5:46 PM 11/09/2024 2:[address] atus was ascertained in the following way: Code status discussion: discussion with patient To update the patient's code status, place a code status order. Do not modify or discontinue any currently active code status orders. Healthcare Agents on File Name Relationship Healthcare Agent [facility] p Communication [facility] Health Care Agent Nelida Minor Friend 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
--- OUTSIDE RECORDS SUMMARY | 2025-02-20 18:10 | XMS_ITS | Data Portability ---
Author Organization [place] [facility] Address [address] [place] [address] Care Team Providers Care Veterans Services Specialist Name Role Phone ARIES ROJAS Primary Care Provider [phone] [facility] OTHER Assessment Encounter Date Assessment Date Assessment LastModified by Organization Details LastModified Time 07/30/2018 07/30/2018 Overview/History : Pt is a 63yo M with PMH sig for Prostate and Appendix Ca. Pt just started a new round of chemo on Monday that last 36hours, he was sent home from the hospital with a pump. It was d/c on Monday. Pt took his post chemo decadron as ordered, last dose was on Monday. Pt states that he hasn't been eating or drink much d/t the pain. Pt states that his ileostomy is putting out liquid stool, he states he has taken the loperimide today without effect. Pt denies any change in the volume output of his nephrostomy tubes over the weekend. Pt denies GUZMÁN, lightheadedness, or dizziness. He states he did feel whoozy when he got up early to empty his ostomy bags in the toilet. Exam: Pt is A/Ox3, non-toxic appearing, VS pos for mild hypotension and tachycardia, pt is afebrile. Resp reg and unlabored on RA, lungs CTA bilat. HRR. Abd is soft, non-tender, non-distended, +BSx4. BMP shows mod dehydration with BUN of 46 DDx considered, but not limited to: Dehydration: likely given BUN and recent chemo with increase liquid stool output Uncontrol abd pain r/t ca: likely given pt has not been taking his oxycodone d/t misunderstanding of cause of his duodenal ulcer. Work up/Results: BUN: 46 Plan/Discussion: The details of this patient case and the plan of care were discussed with the Virtual Physician telephone clerk telegraph office for [facility], Dr. Horn. After discussion with Dr. Horn pt given 2L IVF d/t mod dehydration with BUN of 46. Pt given 4mg of IV decadron to help with abd pain as well. Discussed with pt that diclofanac was the most likely cause for his duodenal ulcer and pt did verbalize that they had still told him to take the oxycodone for pain he was just nervous. Pt took a dose of oral oxycodone during visit. pt states pain became more of a dull ach during visit and was becoming more bearable. Pt states the fluids help and he felt better from them as well. Pt advised that if pain returned and/or became severe to report to the ER for pain control at that time. Pt's BP improved after 2L of IVF. Time On Scene with Patient: 01:52:17 baldo Not available 07/30/2018 17:56:08 09/25/2021 09/25/2021 Overview/History : 66 YO M known to but new to provider He is being seen today for some redness around his ileostomy bag This started about 2 days ago, it is red, warm and itchy Of note he was seen in the ED 3 days ago because he was having issues putting on his ostomy bag and he required trained help . He reports he was there for a long time, he was eventually seen by ostomy nurse, and his bag was changed. 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 He only has a couple more remaining currently however. They did place new adhesive around his bag the other night when he left the ED (which he does admit he left AMA by the way as he reports many of the nurses and doctors were clueless when it came to his bag .) The redness didn't start until after that adhesive was on. Addn he denies any open wounds, no fever, chills, changes to his bowels, he has no pain, no weakness, no lethargy. No other reported concerns or sxs today. Exam: Vitals: VSS and afebrile, mild tachypnea but pt was just ambulating around home prior to visit and is very clearly not SOB or in resp distress during encounter Constitutional: 66 yo Well developed, well nourished, pleasant patient in no apparent distress. He is ambulating well around his home. He is sitting upright comfortably. He is nontoxic appearing. Eyes: No swelling, no discharge, sclera / conjunctiva clear ENT: no nasal discharge, no erythema/ exudate noted in oropharynx, moist mucous membranes CV: RRR, 2+ radial pulses bilaterally, no edema Pulm: Speaks in full sentences, no increased work of breathing. GI: IleOstomy bag w/ usual stool output, some small amt of soft brown stool is noted w/o blood or mucous, abd is Soft, non-tender to palpation. No masses, normal bowel sounds. MS: Self ambulatory patient, moves all limbs without deficit, no evidence of trauma Neuro: No focal deficits, A&O x4, gait is not ataxic Skin: Small amt of redness surrounding his ostomy bag, it does seem slightly warmer than other skin. No open areas noted. Of note deferred taking off patient ostomy bag during exam to visualize further d/t patient only having small amount of bags remaining and he has some coming in from asbestos cement sheet supervisor but we are in the middle of a long holiday weekend and I do not want patient to need to return to the ED for further bag changes if her is to run out of supplies. Psych: Calm, cooperative, non-manic. Pleasant. DDx considered, but not limited to: cellulitis - there is redness and warmth surrounding his ostomy bag, d/t will tx presumed cellulitis allergic dermatitis -this could be the cause of his redness as he may be allergic to the new adhesive they put around his ostomy bag when leaving the ED the other evening as redness started after this, it is itchy and benadryl is helping w/ the itching somewhat. He is to d those adhesives but will still tx for presumed cellulitis as it is warm to palpation it seems sepsis - VSS, afebrile, nontoxic, he is not septic Work up/Results: N/a Plan/Discussion: Cellulitis: -Tx for probable cellulitis given warmth and redness -I circled the erythema wiht a skin marker and dated it. Pt to f/u if redness spreads -Discussed w Dr Brian VD if there are any extra considerations for tx celulitis near ostomy bag and he states that doxycycline is his go to, it is usually mine as well for soft tissue infx so will tx w/ 10 days of doxy. First dose is given on scene, obs for 15 min afterward displays no evidence of rxn. -Educated to take w/ food and probiotic to avoid stomach upset zarina given GI hx - Of note deferred taking off patient ostomy bag during exam to visualize further d/t patient only having small amount of bags remaining and he has some coming in from asbestos cement sheet supervisor but we are in the middle of a long holiday weekend and I do not want patient to need to return to the ED for further bag changes if her is to run out of supplies. He rrpots there rare NO OPEN WOUNDS, EXUDATES, BLEEDING, OR OTHER ILEOSTOMY CONCERNS AT THIS TIME. HE WANTS TO KEEP SUPPLIES AND HE WILL F/U IF ANY FURTHER CONCERNS. He is educated at length that if his redness worsens and spreads or if her develops fever he will likely need ER for iV abx, he has needed them in remote past so he understands this and agrees that he will seek emergent care w/ the above -F/u emergency for spreading redness, fever, abd pain, ileostomy concerns, cp, sob, weakness, lethargy Pt is on agreement and verbalizes understanding with the above plans at this time. Pt has no other questions or concerns at this time. All questiosn are answered to the best of my ability. Pt thanks us for our visit today. In order to obtain further information and compare any laboratory results/values, I have accessed old patient records. This information was pertinent in my medical decision making today. [email or web address] Not available 09/25/2021 13:40:07 Plan of Treatment Reminders Order Date Submit Date Provider Last Modified By Organization Details Last Modified Time Details Appointments None recorded. Lab BMP + ionized calcium, serum or plasma 2018 019 baldo [facility], [address] [place] [address], [id number], 9 15:07:42 Referral None recorded. Procedures None recorded. Surgeries None recorded. Imaging None recorded. Medication Orders doxycycli ne hyclate 100 mg capsule 2021 022 [email or web address] Not available 12:59:39 doxycycli ne hyclate 100 mg capsule 2021 022 crumplik Not available 12:59:29 sodium chloride 0.9 % intraveno us solution 2018 019 [email or web address] Not available 12:44:28 dexametha sone sodium phosphate 10 mg/mL injection solution 2018 019 crumplik Not available 12:42:41 Patient TargetsNo targets recorded. Patient Instructions Encounter Date Encounter Id Patient Instructions Last Modified By Organization Details Last Modified Time 07/30/2018 [id number] Acute Nausea and Vomiting/Diarrhea BASIC INFORMATION Acute nausea and vomiting often start suddenly, worsen quickly, and last a few hours to 24 hours. Nausea and vomiting most often occur together, although they can occur alone. Cases of acute nausea and vomiting are often from gastrointestinal viruses such as norovirus, rotavirus and influenza. Less often it can be caused by toxins released from food that g oes bad as well as some types of bacteria and parasites. Diarrhea can also occur. Your nurse practitioner will conduct a careful history to help determine if you have one of the more serious causes. The cause of your nausea and vomiting may be unknown. INSTRUCTIONS Medicines: 1) Anti-nausea: You may have been given a prescription for an anti nausea medicine such as Zofran, Phenergan or Compazine. These can be used every 6-8 hours to help prevent nausea and vomiting. They can make you sleepy, so do not drive after taking them. Be sure to read all of the drug information from the pharmacy. 2) Tylenol: Low grade fever is common with acute nausea and vomiting. You may use Tylenol, per the recommended dosing on the label, to help control fever. If you have liver disease, do not use Tylenol. Ask your BUSINESS BANKING REPRESENTATIVE how to address fever if you are concerned about Tylenol use. 3) Anti-diarrheal medicines: These are available [id number], but in some cases are not recommended and can even worsen some cases of intestinal problems. Ask your BUSINESS BANKING REPRESENTATIVE if you should use them. In children under 12, the only anti-diarrheal that should be considered is Kaopectate. Diet: 1) For the next 12-24 hours, take clear liquids only. No dairy and no caffeinated beverages. After you have not vomited for a complete hour (either with or without the help of the anti-nausea medicine), begin by taking one tablespoon of clear liquid every 15 minutes for one hour. If you are able to tolerate this, you may increase the amount to 2 tablespoons every hour for the next 2 hours. 2) Clear liquids such as gatorade, pedialyte or broth are recommended because of the electrolytes and sugars that will help replenish the losses from vomiting and diarrhea. 3) If you are able to tolerate clear liquids as instructed above, you may begin to take a bland diet. Plain pasta/noodles or toast are suggestions. If you have had diarrhea, bananas, rice and applesauce are suggested as these can help make the stools more solid. Avoid greasy, fatty or fried foods FOLLOW UP You should make an appointment to see your primary care provider within 24 hours or sooner for worsening condition as described below. If you do not have a primary care doctor, you should follow up with one of the PCP suggestions from [facility]. SEEK CARE IMMEDIATELY IF: 1) You are still unable to tolerate any oral intake after 24 hours 2) You have blood in your vomit or stool 3) You develop severe abdominal pain that does not go away after an episode of vomiting or diarrhea 4) You have severe dizziness, heart palpitations or are passing out 5) You develop severe muscle cramps or weakness 6) You have not made urine in over 24 hours If you develop any new or worsening symptoms and need after hours care, please go to nearest ER and/or call 911. If you have additional concerns or develop a change in your condition between 8am-10pm, please call [facility] at [phone] to help navigate your care. Thank you for your visit with [facility] today. You were seen today for abdominal pain, nausea, vomiting and/or diarrhea. Medications may have been administered and lab tests may have been performed. At this time, we do not see evidence of a serious surgical or infectious cause of your symptoms. However, lab tests and an evaluation cannot always exclude appendicitis or other serious causes of abdominal pain. Please see a medical professional in 12-24 hours to be re-examined. Seek immediate medical attention for increased pain, vomiting or fever. If you develop any new or worsening symptoms and need after hours care, please go to nearest ER and/or call 911. If you have additional concerns or develop a change in your condition between 8am-10pm, please call [facility] at [phone] to help navigate your care. baldo Not available 07/30/2018 14:04:47 Reason for Referral None Reported. Results Created Date Observation Date Name Description Value Unit Range Abnormal Flag Note LastModifiedBy Organization Detail LastModifiedTime 07/31/19 19 07/30/2018 BMP + ioniz ed calci um, serum or plasm a Na 139 mmol/ L 136-14 5 Not Available [facility] [address] [place], [address], 07/30/2018 14:04:49 07/31/19 19 07/30/2018 BMP + ioniz ed calci um, serum or plasm a K 4.3 mmol/ L 3.5-5. 1 Not Available [facility] [address] [place], [address], 07/30/2018 14:04:49 07/31/1907/30/2018 BMP + ioniz ed calci um, serum or plasm a cL 109 mmol/ L 96-111 Not Available [facility] [address] [place], [address], 07/30/2018 14:04:49 07/31/1907/30/2018 BMP + ioniz ed calci um, serum or plasm a ica 1.20 mmol/ L 1.1-1. 4 Not Available [facility] [address] [place], [address], 07/30/2018 14:04:49 07/31/19 19 07/30/2018 BMP + ioniz ed calci um, serum or plasm a TCO2 19 mmol/ L 20-30 Not Available [facility] [address] [place], [address], 07/30/2018 14:04:49 07/31/19 07/30/2018 BMP + ioniz ed calci um, serum or plasm a glu 144 mg/dL 70-115 Not Available [facility] [address] [place], [address], 07/30/2018 14:04:49 07/31/19 19 07/30/2018 BMP + ioniz ed calci um, serum or plasm a BUN 46 mg/dL 6-24 Not Available [facility] [address] [place], [address], 07/30/2018 14:04:49 07/31/19 19 07/30/2018 BMP + ioniz ed calci um, serum or plasm a crea 1.3 mg/dL .65-1. 36 Not Available [facility] [address] [place], [address], 07/30/2018 14:04:49 07/31/1907/30/2018 BMP + ioniz ed calci um, serum or plasm a HCT 43 %_pcv 40.6-5 0.3 Not Available [facility] [address] [place], [address], 07/30/2018 14:04:49 07/31/1907/30/2018 BMP + ioniz ed calci um, serum or plasm a Hb 14.6 g/dL 13.9-1 7.4 Not Available [facility] [address] [place], [address], 07/30/2018 14:04:49 07/31/1907/30/2018 BMP + ioniz ed calci um, serum or plasm a angap 16 mmol/ L 6-18 Not Available [facility] [address] [place], [address], 07/30/2018 14:04:49 Result Notes None recorded. 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 Procedures Surgical History Date Name Laterality Status Provider Name and Address Organization Details Recorded Time 9 IV Start Procedure - DH completed DEBBI THOMSON NP [address], [place], [address], [place] [facility] 07/30/2018 15:49:59 Imaging Results None recorded. Procedure Notes None recorded. Medical Equipment None Reported. Allergies Allergen ID Allergen Name Allergen Category Reaction Reaction Severity Criticality Documentation Date Start Date Code Code System Note Provider Name and Address Organization Details Recorded Time 500776 cefepime medicatio n Not available Not available Not available 09/25/2021 08863 RxNorm RUFINA Duffy [address], [place], [address], [place] [facility] 2 12:56:11 [id number] Iodinated contrast media (substanc e) medicatio n Not available Not available Not available 09/25/2021 58713 2004 SNOMED RUFINA Duffy [address], [place], [address], [place] [facility] 2 12:56:18 30802 acetamino phen / oxycodone medicatio n Not available Not available Not available 07/30/2018 00768 3 RxNorm DEBBI THOMSON NP [address], [place], [address], [place] [facility] 9 13:57:00 Medications Name Sig Start Date Stop Date Status Note LastModified by Organization Details LastModified Time bicalutamid e 50 mg tablet TAKE 1 TABLET BY MOUTH DAILY DIRECTED active Not Available Not Available No t Available doxycycline hyclate 100 mg capsule TAKE 1 CAPSULE BY MOUTH TWICE DAILY FOR 10 DAYS DIRECTED active Not Available Not Available No t Available loperamide 2 mg capsule TAKE 1 CAPSULE BY MOUTH EVERY 6 HOURS FOR 10 DAYS NEEDED FOR LOOSE STOOLS active Not Available Not Available No t Available azithromyci n 250 mg tablet TAKE 1 TABLET BY MOUTH EVERY DAY FOR 27 DAYS 09/25 completed Not Available Not Available Not Available prochlorper azine maleate 5 mg tablet TAKE 1 TABLET BY MOUTH TWO TIMES A DAY NEEDED FOR NAUSEA AND VOMITING 09/25 completed Not Available Not Available Not Available ondansetron HCl 8 mg tablet 09/25 completed Not Available Not Available Not Available ondansetron HCl 4 mg tablet TAKE 1 TABLET BY MOUTH EVERY 8 HOURS NEEDED FOR NAUSEA OR VOMITING 09/25 completed Not Available Not Available Not Available prednisone 20 mg tablet TAKE 3 TABLETS BY MOUTH EVERY DAY 09/25 completed Not Available Not Available Not Available prochlorper azine maleate 10 mg tablet 09/25 completed Not Available Not Available Not Available triamcinolo ne acetonide 0.1 % topical cream 07/30 completed Not Available Not Available Not Available tamsulosin 0.4 mg capsule 09/25 completed Not Available Not Available Not Available baclofen 10 mg tablet TAKE 1/2 TABLET BY MOUTH FOUR TIMES DAILY 09/25 completed Not Available Not Available Not Available cephalexin 500 mg capsule 09/25 completed Not Available Not Available Not Available pantoprazol e 40 mg tablet,prakash yed release TAKE 1 TABLET BY MOUTH DAILY active Not Available Not Available No t Available nitrofurant oin macrocrysta l 100 mg capsule TAKE 1 CAPSULE BY MOUTH THREE TIMES DAILY FOR 5 DAYS 09/25 completed Not Available Not Available Not Available dexamethaso ne 4 mg tablet 07/30 completed Not Available Not Available Not Available diclofenac potassium 50 mg tablet 07/30 completed Not Available Not Available Not Available gabapentin 300 mg capsule TAKE 2 CAPSULES BY MOUTH THREE TIMES DAILY active Not Available Not Available No t Available diclofenac sodium 50 mg tablet,prakash yed release 07/30 completed Not Available Not Available Not Available furosemide 20 mg tablet TAKE 1 TABLET BY MOUTH EVERY 48 HOURS 09/25 completed Not Available Not Available Not Available sodium chloride 0.9 % intravenous solution 2 L administe red on scene. Time administe red:1415 09/25 completed Not Available Not Available Not Available metoprolol succinate ER 25 mg tablet,exte nded release 24 hr TAKE 1 TABLET BY MOUTH DAILY 09/25 completed Not Available Not Available Not Available doxycycline hyclate 20 mg tablet 07/30 completed Not Available Not Available Not Available ondansetron 4 mg disintegrat ing tablet 07/30 completed Not Available Not Available Not Available dexamethaso ne sodium phosphate 10 mg/mL injection solution 4 mg IV administe red on scene. Time administe red: 1420 09/25 completed Not Available Not Available Not Available losartan 100 mg tablet 09/25 completed Not Available Not Available Not Available betamethaso ne dipropionat e 0.05 % lotion APPLY TO AFFECTED AREAS TWICE DAILY FOR PSORIASIS 09/25 completed Not Available Not Available Not Available naproxen 500 mg tablet 07/30 completed Not Available Not Available Not Available atovaquone 750 mg/5 mL oral suspension TAKE 5 ML BY MOUTH TWO TIMES A DAY WITH MEALS FOR 27 DAYS 09/25 completed Not Available Not Available Not Available amoxicillin 875 mg-potassiu m clavulanate 125 mg tablet 09/25 completed Not Available Not Available Not Available Ventolin HFA 90 mcg/actuati on aerosol inhaler 07/30 completed Not Available Not Available Not Available simethicone 80 mg chewable tablet CHEW AND SWALLOW ONE TABLET BY MOUTH FOUR TIMES DAILY NEEDED FOR GAS active Not Available Not Available No t Available oxycodone 5 mg tablet TAKE 2 TABLETS BY MOUTH THREE TIMES DAILY FOR 21 DAYS NEEDED FOR PAIN REPLACES 10 MG DUE TO BACK ORDER 09/25 completed Not Available Not Available Not Available nitrofurant oin monohydrate /macrocryst als 100 mg capsule TAKE 1 CAPSULE BY MOUTH TWICE DAILY 09/25 completed Not Available Not Available Not Available losartan 100 mg-hydrochl orothiazide 12.5 mg tablet 07/30 completed Not Available Not Available Not Available aspirin active Not Available Not Avail able Not Available oxycodone 10 mg tablet TAKE 1 TABLET BY MOUTH EVERY 6 HOURS FOR 21 DAYS NEEDED FOR PAIN active Not Available Not Available No t Available Voltaren 1 % topical gel 07/30 completed Not Available Not Available Not Available baclofen 5 mg tablet TAKE 1 TABLET BY MOUTH FOUR TIMES DAILY active Not Available Not Available No t Available Vitals Date Recorded Respiratory rate Body temperature Oxygen saturation Oxygen saturation in Arterial blood by Pulse oximetry Heart rate Systolic And Diastolic Provider Name and Address Organization Details Last Updated DateTime 9 18 /min 98.7 [degF] 95 % 95 % 108 /min 108/54 mm[Hg] Not Available [facility] 9 14:03:10 Date Recorded Respiratory rate Body temperature Heart rate Oxygen saturation Oxygen saturation in Arterial blood by Pulse oximetry Systolic And Diastolic Provider Name and Address Organization Details Last Updated DateTime 2 22 /min 98.9 [degF] 96 /min 97 % 97 % 138/76 mm[Hg] Not Available [facility] 2 12:38:31 Social History Question Answer Notes LastModified by Organizat ion Details LastModified Time Tobacco Smoking Status Never Smoker DEBBI THOMSON, LUIS ALBERTO [address], [place], [address], [place] [facility] 07/30/2018 14:02:24 Do You Have An Advance Directive? Yes Information not available 07/30/2018 What Is Your Code Status? Full Code Information not available 07/30/2018 Drugs Abused None Information not available 07/30/2018 How Many Days In The Past Year Have You Had A Heavy Drinking Consumption (4+ Female, 5+ Male)? 0 Information not available 07/30/2018 Within The Past 12 Months, Has It Happened That The Food You Bought Just Didn't Last And You Didn't Have Money To Get More. Normal Information not available 07/30/2018 Within The Past 12 Months, Have You Worried That Your Food Would Run Out Before You Got Money To Buy More. Yes Information not available 07/30/2018 Fall Risk: Do You Feel Unsteady When Standing Or Walking? Yes Information not available 07/30/2018 Marital Status Single Informatio n not available 07/30/2018 What Was The Date Of Your Most Recent Tobacco Screening? 07/30/2018 Information not available 11/22/2018 Has Tobacco Cessation Counseling Been Provided? No Information not available 07/30/2018 Sex: Unknown Functional Status None recorded. Mental Status None recorded. Family History Relationship Description Onset Age of this Age Resolved Age Notes LastModified by Organization Details LastModified Time Mother Dementia [email or web address] Not availab le 07/30/2018 14:02:17 Medical History Condition Response Cancer Y COPD Y Hypertension Y Past Encounters Encounter ID Performer Location Encounter Start Date Encounter Closed Date Diagnosis/Indication Diagnosis SNOMED-CT Code Diagnosis ICD10 Code Diagnosis IMO Codes Diagnosis Note [id number] DEBBI THOMSONLUIS ALBERTO [facility] [address] [place] [address] 07/30/2018 13:54:27 08/01/2018 15:30:31 Diarrhea [id number] R19.7 [id number] RUFINA Walter [facility] [address] [place] [address] 09/25/2021 11:33:30 09/30/2021 09:40:37 Cellulitis 842823467 L03.90 Health Concerns Section Related Observation LastModified by Organization Detai ls LastModified Time None Recorded Concern Status LastModified by Organization Details LastModified Time None Recorded Advance Directives Directive Y: Payers Insurance Date Sequence Insurance Name Policy Number Policy Snyder Covered Member ID Snyder Member ID Guarantor Name 10/01/2021 2 [place] [facility] Jose Hirsch [id number] Jose Hirsch 07/30/2018 1 *SELF PAY* Jose Hirsch [id number] Jose Hirsch 07/30/2018 1 MEDICARE B-[place]: [facility] Jose Hirsch [id number] Jose Hirsch 09/25/2021 1 [place]: [employer] Jose Hirsch [id number] Jose Hirsch Notes Date Note Type Note Provider Name and Address Organization Details Recorded Time 07/30/2018 text/html Reports loose stool from his ileostomy, reports gas pain that is moving around. Pt had first round of chemo on monday and was sent home with a pump for 2 days and it stopped on monday. Pt has had nephrostomy tubes were just replaced, pt states that the nephrostomy tubes are working well and putting out urine, no decrease in volume from the nephrostomy tubes over the weekend. Stopped decadron on sat after chemo finished. Hasn't been eating over the weekend, reports feeling more tired and weak. States that he just doesn't have an appetite and the abd pain is preventing him from wanting to eat. Pt states that abd pain is coming every 20-30min and lasts about 15 min. States that apap took the edge off. He had been on oxycodone but he states he's afraid to take it because he was on that and diclofenac and got a bleeding ulcer. DEBBI THOMSON, LUIS ALBERTO [address], [place], [address], [place] [facility] 07/30/2018 17:56:13 09/25/2021 text/html 66 YO M known to but new to providerHe is being seen today for some redness around his ileostomy bagThis started about 2 days ago, it is red, warm and itchyOf note he was seen in the ED 3 days ago because he was having issues putting on his ostomy bag and he required trained help . He reports he was there for a long time, he was eventually seen by ostomy nurse, and his bag was changed. 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 He only has a couple more remaining currently however. They did place new adhesive around his bag the other night when he left the ED (which he does admit he left AMA by the way as he reports many of the nurses and doctors were clueless when it came to his bag .)The redness didn't start until after that adhesive was on.Addn he denies any open wounds, no fever, chills, changes to his bowels, he has no pain, no weakness, no lethargy. No other reported concerns or sxs today. RUFINA Graham [address], [place], [address], [place] [facility] 09/25/2021 13:40:14
--- OUTSIDE RECORDS SUMMARY | 2025-02-20 18:10 | XMS_ITS | Encounter Summary ---
Author Organization [facility] Address [address] [facility] [address] [place] [address] Phone Care Team Providers Care Medical Assistant Dermatology Name Role Phone Lobo Mills MD Primary Care Provider [phone] Referring, Not Required Unavailable Unavaila Sanchez Montanez MD Unavailable Amrita Soni MD Unavailable [phone] Encounter Details Date Type Department Care Team (Late st Contact Info) Description 02/18/2025 Ancillary Orders DF IMG OUTSIDE IMG [address] [place] [address] Amrita Soni MD 450 [facility] Cancer [facility] [address] [place] [address] [email or web address] Social History Tobacco Use Types Packs/Day [...] 12:15 PM EDT Administrative Encounter Central Registration, [facility] 300 [facility] [address] [place] [address] Amrita Soni MD 450 [facility] [address] [place] [address] [email or web address] 02/26/2025 1:00 PM EDT Office Visit [facility], [facility] 300 [facility] [address] [place] [address] Amrita Soni MD 450 [facility] [address] [place] [address] [email or web address] documented as of this encounter Results * XR Abdomen Outside (No Interpretation) (01/22/2025 12:00 AM EDT) Other Narrative JON - 02/18/2025 9:00 AM EDT This study is for PACS storage only and not for interpretation. us Amrita Soni MD IMG OUTSIDE IMAGING W/O UT INTERPRETATION Final Result [facility] documented in this encounter Visit Diagnoses Not on filedocumented in this encounter Care Teams Medical Assistant Dermatology Relationship Specialty Start Date End Date Lobo Mills MD [address] [place] [address] PCP - General Internal Medicine 01/31/25 Referring, Not Required Referring Physician 01/31/25 Sanchez Virgen MD [address] [place] [address] [email or web address] Medical Oncology 02/06/25 Amrita Soni MD [address] [place] [address] Cancer [facility] [address] [place] [address] [email or web address] Medical Oncology 02/06/25 documented as of this encounter Additional Source Comments The information contained in this document represents components of the legal health record. It is not the complete legal health record.[facility]
--- OUTSIDE RECORDS SUMMARY | 2025-02-20 18:10 | XMS_ITS | Encounter Summary ---
Author Organization [facility] Address [address] [facility] [address] [place] [address] Phone Care Team Providers Care Senior Regulatory Affairs Specialist Name Role Phone Lobo Mills MD Primary Care Provider [phone] Referring, Not Required Unavailable Unavaila Sanchez Montanez MD Unavailable Amrita Soni MD Unavailable [phone] Encounter Details Date Type Department Care Team (Late st Contact Info) Description 02/18/2025 Ancillary Orders DF IMG OUTSIDE IMG [address] [place] [address] Amrita Soni MD 450 [facility] Cancer [facility] [address] [place] [address] [email or web address] Social History Tobacco Use Types [...] 12:15 PM EDT Administrative Encounter Central Registration, [facility] 300 [facility] [address] [place] [address] Amrita Soni MD 450 [facility] [address] [place] [address] [email or web address] 02/26/2025 1:00 PM EDT Office Visit [facility] for [facility] Oncology, [facility] 300 [facility] [address] [place] [address] Amrita Soni MD 450 [facility] [address] [place] [address] [email or web address] documented as of this encounter Results * CT Abdomen/Pelvis Outside (No Interpretation) (01/20/2025 12:00 AM EDT) Other Narrative PERCIPIO_DFCI - 02/18/2025 9:01 AM EDT This study is for PACS storage only and not for interpretation. us Amrita Soni MD IMG OUTSIDE IMAGING W/O UT INTERPRETATION Final Result [facility]IPIO[facility] documented in this encounter Visit Diagnoses Not on filedocumented in this encounter Care Teams Senior Regulatory Affairs Specialist Relationship Specialty Start Date End Date Lobo Mills MD [address] [place] [address] PCP - General Internal Medicine 01/31/25 Referring, Not Required Referring Physician 01/31/25 Sanchez Virgen MD [address] [place] [address] [email or web address] Medical Oncology 02/06/25 Amrita Soni MD [address] [place] [address] Cancer [facility] [address] [place] [address] [email or web address] Medical Oncology 02/06/25 documented as of this encounter Additional Source Comments The information contained in this document represents components of the legal health record. It is not the complete legal health record.[facility]
--- OUTSIDE RECORDS SUMMARY | 2025-02-20 18:10 | XMS_ITS | Encounter Summary ---
Author Organization [facility] Address [address] [facility] [address] [place] [address] Phone Care Team Providers Care Steel Wool Machine Operator Name Role Phone Lobo Mills MD Primary Care Provider Referring, Not Required Unavailable Unavaila Sanchez Montanez MD Unavailable Amrita Soni MD Unavailable [phone] Encounter Details Date Type Department Care Team (Late st Contact Info) Description 02/18/2025 Ancillary Orders DF IMG OUTSIDE IMG 450 [place] [address] Amrita Soni MD 450 [facility] Cancer [facility] [address] [place] [address] [email or web address] Social History Tobacco Use Types Packs/Day [...] 12:15 PM EDT Administrative Encounter Central Registration, [facility] 300 [facility] [address] [place] [address] Amrita Soni MD 450 [facility] [address] [place] [address] [email or web address] 02/26/2025 1:00 PM EDT Office Visit [facility] for Gastrointestinal Oncology, [facility] 300 [facility] [address] [place] [address] Amrita Soni MD 450 [facility] [address] [place] [address] [email or web address] documented as of this encounter Results * XR Abdomen Outside (No Interpretation) (11/08/2024 12:05 AM EDT) Other Narrative JON - 02/18/2025 9:07 AM EDT This study is for PACS storage only and not for interpretation. us Amrita Soni MD IMG OUTSIDE IMAGING W/O UT INTERPRETATION Final Result [facility]NAVI_[facility] documented in this encounter Visit Diagnoses Not on filedocumented in this encounter Care Teams Steel Wool Machine Operator Relationship Specialty Start Date End Date Lobo Mills MD [address] [place] [address] PCP - General Internal Medicine 01/31/25 Referring, Not Required Referring Physician 01/31/25 Sanchez Virgen MD [address] [place] [address] [email or web address] Medical Oncology 02/06/25 Amrita Soni MD [address] [place] [address] Cancer [facility] [address] [place] [address] [email or web address] Medical Oncology 02/06/25 documented as of this encounter Additional Source Comments The information contained in this document represents components of the legal health record. It is not the complete legal health record.[facility]
--- OUTSIDE RECORDS SUMMARY | 2025-02-20 18:10 | XMS_ITS | Encounter Summary ---
Author Organization [facility] Address [address] [facility] [address] [place] [address] Phone Care Team Providers Care Sap Data Analyst Name Role Phone Lobo Mills MD Primary Care Provider Referring, Not Required Unavailable Unavaila Sanchez Montanez MD Unavailable Amrita Soni MD Unavailable [phone] Encounter Details Date Type Department Care Team (Late st Contact Info) Description 02/18/2025 Ancillary Orders DF IMG OUTSIDE IMG 450 [place] [address] Amrita Soni MD 450 [facility] Cancer [facility] [address] [place] [address] [email or web address] Social History Tobacco Use Types Packs/Day [...] 12:15 PM EDT Administrative Encounter Central Registration, [facility] [address] [facility] [address] [place] [address] Amrita Soni MD 450 [facility] [address] [place] [address] [email or web address] 02/26/2025 1:00 PM EDT Office Visit Center for Gastrointestinal Oncology, [facility] [address] [facility] [address] [place] [address] Amrita Soni MD 450 [facility] [address] [place] [address] [email or web address] documented as of this encounter Results * CT Abdomen/Pelvis Outside (No Interpretation) (11/08/2024 12:10 AM EDT) Other Narrative PERCIPIO_DFCI - 02/18/2025 9:07 AM EDT This study is for PACS storage only and not for interpretation. us Amrita Soni MD IMG OUTSIDE IMAGING W/O UT INTERPRETATION Final Result PER[facility]IPIO_DFC[facility] documented in this encounter Visit Diagnoses Not on filedocumented in this encounter Care Teams Sap Data Analyst Relationship Specialty Start Date End Date Lobo Mills MD [address] [place] [address] PCP - General Internal Medicine 01/31/25 Referring, Not Required Referring Physician 01/31/25 Sanchez Virgen MD [address] [place] [address] [email or web address] Medical Oncology 02/06/25 Amrita Soni MD [address] [place] [address] Cancer [facility] [address] [place] [address] [email or web address] Medical Oncology 02/06/25 documented as of this encounter Additional Source Comments The information contained in this document represents components of the legal health record. It is not the complete legal health record.[facility]
--- OUTSIDE RECORDS SUMMARY | 2025-02-20 18:12 | XMS_ITS | Encounter Summary ---
Author Organization [facility] Address [address] [facility] [address] [place] [address] Phone Care Team Providers Care Check Clerk Name Role Phone Lobo Mills MD Primary Care Provider Referring, Not Required Unavailable Unavaila Sanchez Montanez MD Unavailable Amrita Soni MD Unavailable [phone] Encounter Details Date Type Department Care Team (Late st Contact Info) Description 02/18/2025 Ancillary Orders DF IMG OUTSIDE IMG 450 [place] [address] Amrita Soni MD 450 [facility] Cancer [facility] [address] [place] [address] [email or web address] Social History Tobacco Use Types Packs/Day [...] 12:15 PM EDT Administrative Encounter Central Registration, [facility] 300 [facility] [address] [place] [address] Amrita Soni MD 450 [facility] [address] [place] [address] [email or web address] 02/26/2025 1:00 PM EDT Office Visit [facility] for Gastrointestinal [facility]cology, [facility] 300 [facility] [address] [place] [address] Amrita Soni MD 450 [facility] [address] [place] [address] [email or web address] documented as of this encounter Results * FL Abdomen Outside (No Interpretation) (01/28/2025 12:00 AM EDT) Other Narrative JON - 02/18/2025 8:58 AM EDT This study is for PACS storage only and not for interpretation. us Amrita Soni MD IMG OUTSIDE IMAGING W/O UT INTERPRETATION Final Result [facility] documented in this encounter Visit Diagnoses Not on filedocumented in this encounter Care Teams Check Clerk Relationship Specialty Start Date End Date Lobo Mills MD [address] [place] [address] PCP - General Internal Medicine 01/31/25 Referring, Not Required Referring Physician 01/31/25 Sanchez Virgen MD [address] [place] [address] [email or web address] Medical Oncology 02/06/25 Amrita Soni MD [address] [place] [address] Cancer [facility] [address] [place] [address] [email or web address] Medical Oncology 02/06/25 documented as of this encounter Additional Source Comments The information contained in this document represents components of the legal health record. It is not the complete legal health record.[facility]
== END 2025-02-20 14:19 | disposition home or self-care (01) ==
LOC: HO.HVNA 14:18
PROVIDERS: Visit Provider Internal Medicine Medical Oncology
DX: G89.3 Neoplasm related pain (acute) (chronic) (principal); N17.9 Acute kidney failure, unspecified
CPT/HCPCS: 36415; 80053; 85025

== ENCOUNTER 2025-02-24 18:44 | Outpatient (REF) | payer MEDICARE, SELFPAY ==
--- OUTSIDE RECORDS SUMMARY | 2024-03-18 05:30 | XMS_ITS ---
Author Organization [facility] Address [address] [facility] [address] [place] [address] Care Team Providers Care Die Casting Machine Maintainer Name Role Phone Lobo Mills MD Primary Care Provider Unavaila Sriram Garcia Unavailable [phone] Allergies Allergen (clinical drug ingredient) Drug/Non Drug [...] Active Encounters Encounter Location Date Provider Diagnosis [facility] [address] [place] [address] 03/18/2024 Sriram Shirley Plan Of Treatment Next Appt Details Provider Name:Sriram Shirley, 03/21/2025 10:00:00 AM, [address] [place] [address], [phone], Progress Notes * Richard FARIASOB:1955 (69 yo M)Acc No.[id number]:03/18/2024 Ostomy Follow-Up Visit Patient: Jose GASTELUM Provider: Raisa Shirley MD, MSc, CWSP :1955 A ge:69 Y S ex:Male Date:03/18/2024 Address:[address] [place], [place] [id number] Pcp:Lobo Milsl MD Subjective: * Chief Complaints: * 1 [...] Electronic signature of Zulema Shirley MD on 02/24/2025 at 07:32 PM EDT Sign off status: Pending * Provider: Raisa Shirley MD, MSc, CWSP Date: 05/18/2023 Generated for Zoya melendez/Monika/Reva on: 07:32 PM EDT
--- OUTSIDE RECORDS SUMMARY | 2025-01-21 06:00 | XMS_ITS ---
Author Organization [facility] Address [address] [facility] [address] [place] [address] Care Team Providers Care Paint Technician Name Role Phone Gene ROSAS, Lobo Primary Care Provider UnavailSriram Singh Unavailable [phone] REASON FOR VISIT 1 month f/u, hospitalized at [facility] Encounters Encounter Location Date Provider Diagnosis [facility] [address] [place] [address] 01/21/2025 Sriram Shirley Plan Of Treatment Next Appt Details Provider Name:Sriram Shirley, 03/21/2025 10:00:00 AM, [address] [place], [address], Progress Notes * Richard FARIASOB:1955 (69 yo M)Acc No.[id number]:01/21/2025 Ostomy Follow-Up Visit Patient: Coy CAITY Jose Provider: Raisa Shirley MD, MSc, CWSP :1955 A ge:69 Y S ex:Male Date:01/21/2025 Address: [address] [phone] Pcp:Lobo Mills MD Subjective: * Chief Complaints: * 1 . 1 month f/u, hospitalized at [facility]. * Medical History: Objective: * Vitals: Assessment: Plan: * Treatment: * Billing Information: * Visit Code: * Procedure Codes: * Electronic signature of Zulema Shirley MD on 02/24/2025 at 11:56 AM EDT Sign off status: Pending * Provider: Raisa Shirley MD, MSc, CWSP Date: 0 01/21/2025 Generated for Zoya melendez/Monika/Reva on: 1 11:56 AM EDT
[2025-02-24 19:15] LABS: MANUAL DIFF FLAG NO
[2025-02-24 19:17] LABS: Hematocrit 25.7 % (42.0-52.0); Hemoglobin 8.5 g/dl (14.0-18.0); Imm Gran Abs Auto 0.05 X10*3/uL (0.00-0.03); Imm Gran Pct Auto 0.4 % (0.0-0.4); Lymphocytes Absolute Auto 1.8 X10*3/uL (1.2-4.9); Mean Corpuscular HGB Conc 33.1 g/dl (31.0-36.0); Mean Corpuscular Hemoglobin 31.8 pg (27.0-33.0); Mean Corpuscular Volume 96.3 fL (80.0-98.0); NRBC Abs Auto 0.000 X10*3/uL (0.0-0.012); NRBC Pct Auto 0.0 /100WBC (0.0-0.2); Platelet Count 342 X10*3/uL (160-400); Red Blood Count 2.67 X10*6/uL (4.60-5.80); White Blood Count 12.4 X10*3/uL (4.8-10.8)
--- OUTSIDE RECORDS SUMMARY | 2025-02-24 19:32 | XMS_ITS | Encounter Summary ---
Author Organization [facility] Address [address] [place] [address] Care Team Providers Care Spray Machine Loader Name Role Phone Lobo Mills MD Primary Care Provider [phone] Encounter Details Date Type Department Care Team (Late st Contact Info) Description 10/24/2024 Lab Requisition [facility] - Main Lab 299 [facility] [place] [address] Rich Cintron PA [address] [phone] Calculus of kidney Social History [...] Complete blood count (10/24/2024 11:48 AM EDT) [facility] WBC 9.1 4.8 - 10.8 K/mcL LAB HEMETOLOGY METHOD 10/24/2024 3:24 PM EDT [facility] RBC 3.30(L) 4.50 - 5.50 M/mcL LAB HEMETOLOGY METHOD 10/24/2024 3:24 PM EDT [facility] Hemoglobin 10.3(L) 13.5 - 17.5 g/dL LAB HEMETOLOGY METHOD 10/24/2024 3:24 PM [facility] Hematocrit 31.2(L) 42.0 - 54.0 % LAB HEMETOLOGY METHOD 10/24[facility]2024 [facility] MCV 96.0 79.0 - 98.0 FL LAB HEMETOLOGY METHOD 10/24/2024 3[facility] MCH 31.7 27.0 - 32.0 pcg LAB HEMETOLOGY METHOD 10/24/2024 3:24 PM [facility] MCHC 33.0 32.0 - 37.0 g/dL LAB HEMETOLOGY METHOD 10/24/2024 3:24 PM [facility] RDW 15.8(H) 11.0 - 15.0 % LAB HEMETOLOGY METHOD 10/24/2024 3:24 PM EDT [facility] Platelets 464(H) 130 - 400 K/mcL LAB HEMETOLOGY METHOD 10/24/2024 3:[facility] MPV 10.6 7.0 - 11.0 FL LAB HEMETOLOGY METHOD 10/24/2024 3:24 PM [facility] NRBC 0.0 <1.0 % LAB HEMETOLOGY METHOD 10/24/2024 3:[facility] NRBC Absolute 0.00 <0.10 K/mcL LAB HEMETOLOGY METHOD 10/24/2024 3:24 PM EDT [facility] Blood Venous blood specimen / Unknown 10/24/2024 11:48 AM EDT 10/24/2024 2:28 PM EDT us Rich ALMARAZ LAB BLOOD ORDERABLES Final Resul t [facility] [address] [place] [address], documented in this encounter Visit Diagnoses Diagnosis Calculus of kidney documented in this encounter Care Teams Spray Machine Loader Relationship Specialty Start Date End Date Lobo Mills MD [address] [place], [place] PCP - General 12/14/23 documented as of this encounter
--- OUTSIDE RECORDS SUMMARY | 2025-02-24 19:32 | XMS_ITS | Clinical Summary ---
Author Organization [facility] Address [address] [address] Phone Care Team Providers Care Gas Line Repairer Name Role Phone Lobo Mills MD Primary Care Provider [phone] Allergies Active Allergy Reactions Criticality Noted Date [...] Office Visit [facility] [address] [facility] [address] [place] [address] Briseida Clarke ARNP Stage 3a chronic kidney disease (HCC) (Primary Dx); Anemia in chronic kidney disease; Chronic metabolic acidosis 12/30/2024 Orders Only [facility] [address] [place] [address] [address] [place] [address] Briseida Clarke ARNP Acute nontraumatic kidney injury, [...] Office Visit [facility] [address] [phone] Mike Andres MD [address] [address] Health Maintenance Due Date Last Done Comments [...] UIBC 188 111 - 343 ug/dL [facility] TIBC 220(L) 250 - 450 ug/dL [facility] Iron 32(L) 38 - 169 ug/dL [facility] Iron Saturation (TSat) 15 15 - 55 % [facility] 01/14/2025 12:3 2 PM EDT 01/14/2025 us Briseida ALARCONP LAB BLOOD ORDERABLES Final Result [facility] [address] [place] [address] * Vitamin D 25 Hydroxy (01/14/2025 12:32 PM EDT) [facility] Vitamin D, 25-OH, Total 42.1 30.0 - 100.0 ng/mL [facility] Comment: Vitamin D deficiency has been defined by the [place] of Medicine and an Endocrine Society practice guideline as a level of serum 25-OH vitamin D less than 20 ng/mL (1,2). The Endocrine Society went on to further define vitamin D insufficiency as a level between 21 and 29 ng/mL (2). 1. IOM ([place] of Medicine). 2010. Dietary reference intakes for calcium and D. [place]: The National Academies Press. 2. Red MF, Aimee WRIGHT, Greyson GUZMÁN, et al. Evaluation, treatment, and prevention of vitamin D deficiency: an Endocrine Society clinical practice guideline. JCEM. 2010; 96(7):1911-30. 01/14/2025 12:3 2 PM EDT 01/14/2025 Briseida Clarke [facility] LAB BLOOD ORDERABLES Final Result [facility] [address] [place] [address] * (ABNORMAL) CBC (01/14/2025 12:32 PM EDT) [facility] WBC 6.9 3.4 - 10.8 x10E3/uL [facility] RBC 3.00(L) 4.14 - 5.80 x10E6/uL [facility] Hemoglobin 9.7(L) 13.0 - 17.7 g/dL [facility] Hematocrit 29.3(L) 37.5 - 51.0 % [facility] MCV 98(H) 79 - 97 fL [facility] MCH 32.3 26.6 - 33.0 pg [facility] MCHC 33.1 31.5 - 35.7 g/dL [facility] RDW 13.8 11.6 - 15.4 % [facility] Platelets 336 150 - 450 x10E3/uL [facility] 01/14/2025 12:3 2 PM EDT 01/14/2025 Briseida [facility] LAB BLOOD ORDERABLES Final Result Performing Organization Address City/[facility]/ZIP Co de Phone Number [facility] [address] [place] [address] * Immunofixation electrophoresis (01/14/2025 12:32 PM EDT) IgG 908 603 - 1,613 mg/dL [facility] IgA 123 61 - 437 mg/dL [facility] IgM 48 20 - 172 mg/dL [facility] Immunofixation Result, Serum Comment [facility] Comment: The immunofixation pattern appears unremarkable. Evidence of monoclonal protein is not apparent. 01/14/2025 12:3 2 PM EDT 01/14/2025 Briseida [facility] LAB BLOOD ORDERABLES Final Result Performing Organization Address City/[facility]/ZIP Co de Phone Number [facility] [address] [place] [address] * PTH, Intact (01/14/2025 12:32 PM EDT) PTH 37 15 - 65 pg/mL [facility] 01/14/2025 12:3 2 PM EDT 01/14/2025 [facility] LAB BLOOD ORDERABLES Final Result Performing Organization Address City/[facility]/ZIP Co de Phone Number [facility] [address] [place] [address] * Ferritin (01/14/2025 12:32 PM EDT) Pathologist [facility] Ferritin 325 30 - 400 ng/mL [facility] 01/14/2025 12:3 2 PM EDT 01/14/2025 Briseida [facility] LAB BLOOD ORDERABLES Final Result Performing Organization Address [facility] de Phone Number [facility] [address] [place] [address] * (ABNORMAL) Renal Function Panel (01/14/2025 12:32 PM EDT) Pathologist [facility] Glucose 91 70 - 99 mg/dL [facility] BUN 23 8 - 27 mg/dL [facility] Creatinine 1.55(H) 0.76 - 1.27 mg/dL [facility] eGFR CKD-EPI CR 2020 49(L) >59 mL/min/1.7 3 [facility] BUN/Creatinine Ratio 15 10 - 24 [facility] Sodium 141 134 - 144 mmol/L [facility] Potassium 4.6 3.5 - 5.2 mmol/L [facility] Chloride 109(H) 96 - 106 mmol/L [facility] Bicarbonate (CO2) 17(L) 20 - 29 mmol/L [facility] Calcium 8.6 8.6 - 10.2 mg/dL [facility] Albumin 3.9 3.9 - 4.9 g/dL [facility] Phosphorus 3.1 2.8 - 4.1 mg/dL [facility] 01/14/2025 12:3 2 PM EDT 01/14/2025 Briseida ALARCONP LAB BLOOD ORDERABLES Final Result [facility] [address] [place] [address] from Last 3 Months Insurance Medicare Medicaid [place] Medicare Medicaid [place] Care Teams Gas Line Repairer Relationship Specialty Start Date End Date Lobo Mills MD [address] [place] PCP - General 03/05/19
--- OUTSIDE RECORDS SUMMARY | 2025-02-24 19:32 | XMS_ITS | Clinical Summary ---
Author Organization [address] [facility] Address [address] [place] [address] Phone Care Team Providers Care Early Childhood Coordinator Name Role Phone Lobo Mills MD Primary Care Provider [phone] Allergies Active Allergy Reactions Criticality Noted Date [...] 2 (two) times a day. 120 each 5 03/25/20 Active OxyCONTIN 20 mg 12 hr abuse-deterrent tablet Take 1 tablet (20 mg total) by mouth at bedtime. 01/31/20 Discontinue d(Stop Taking at Discharge) baclofen (LIORESAL) 5 mg tablet Take 1 tablet (5 mg total) by mouth 4 (four) times a day. 01/31/20 Discontinue d(Stop Taking at Discharge) bicalutamide (CASODEX) 50 mg tablet Take 1 tablet (50 mg total) by mouth 1 (one) time each day 3 01/31/20 Discontinue d(Stop Taking at Discharge) diphenoxylate-at ropine (LOMOTIL) 2.5-0.025 mg per tablet Take 1 tablet by mouth 4 (four) times a day if needed for diarrhea. 5 01/31/20 Discontinue d(Stop Taking at Discharge) loperamide (IMODIUM) 2 mg capsule Take 1 capsule (2 mg total) by mouth 4 (four) times a day if needed for diarrhea. 01/31/20 Discontinue d(Stop Taking at Discharge) colestipoL (COLESTID) 1 gram tablet Take 1 tablet (1 g total) by mouth 2 (two) times a day. 5 01/31/20 Discontinue d(Stop Taking at Discharge) oxyCODONE (ROXICODONE) 10 mg immediate release tablet Take 1 tablet (10 mg total) by mouth every 4 (four) hours if needed for severe pain. 01/31/20 Discontinue d(Stop Taking at Discharge) fentaNYL (DURAGESIC) 25 mcg/hrIndication s:Pseudomyxoma peritonei (CMS/[facility] V24, CMS/[facility] V28) Place 1 patch on the skin every 3rd (third) day for 7 days. Max Daily Amount: 1 patch 3 patch 5 02/07/20 morphine 100 mg/5 mL (20 mg/mL) concentrated solutionIndicati ons:Pseudomyxoma peritonei (CMS/HCC V24, CMS/HCC V28) Take 0.5 mL (10 mg total) by mouth every 4 (four) hours if needed for severe pain for up to 7 days. Max Daily Amount: 60 mg 20 mL 02/07/20 predniSONE (DELTASONE) 20 mg tablet Take 2 tablets (40 mg total) by mouth 1 (one) time each day for 5 days. See instruction s. 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/2025 Generalized abdominal pain 01/27/2025 Moderate malnutrition ([facility] V24) 01/24/2025 Acute pancreatitis 01/20/2025 Small bowel obstruction ([facility] V24, [facility] V2 8) 12/26/2024 Bowel obstruction ([facility] V24, [facility] V28) 03/2025 Acquired ptosis of eyelid 02/06/2024 Anemia 02/06/2024 Bundle branch block, right 02/06/2024 Chronic neck pain 02/06/2024 COVID-19 02/06/2024 Elevated PSA 02/06/2024 GERD (gastroesophageal reflux disease) HTN (hypertension) 02/06/2024 Nephrolithiasis 02/06/2024 Obstructive lung disease (ge neralized) ([facility] V24, [facility] V28) 02/06/2024 Peripheral neuropathy 02/06/2024 Prediabetes 02/06/2024 Prostate cancer ([facility] V24, [facility] V28) 02/05 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, [facility]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 Psoriasis of scalp 02/06/2024 Stage 3 chronic kidney disease ([facility] V24, [facility] V28) 02/06/2024 Encounters Date Type Department Care Team Description 02/07/2025 6:12 AM EDT - 02/07/2025 10:14 AM EDT Emergency [facility] Emergency [address] [place] [address] Arthralgia of left hand (Primary Dx); Lead-induced acute gout of left hand, initial encounter Discharge Disposition: Home or Self Care 01/26/2025 9:17 PM EDT - 01/30/2025 5:00 PM EDT Hospital Encounter [facility]rology Unit [address] [place] [phone] Shmuel Garber MD Jones, Christopher, MD Alam, Aroosa, MD Generalized abdominal pain (Primary Dx); Small bowel obstruction (CMS/HCC V24, CMS/HCC V28); Pseudomyxoma peritonei (CMS/HCC V24, CMS/HCC V28) Discharge Disposition: Home-Health Care [facility] 01/20/2025 5:46 PM EDT - 01/24/2025 3:25 PM EDT Hospital Encounter [facility] Surgical Unit [address] [place] [phone] Sachin Murrieta MD Jones, Christopher, MD Santoyo-Pacheco, Omar D, MD Intestinal obstruction, unspecified cause, unspecified whether partial or complete (CMS/HCC V24, CMS/HCC V28) (Primary Dx); Acute pancreatitis, unspecified complication status, unspecified pancreatitis type Discharge Disposition: Home or Self Care 12/26/2024 1:38 AM EDT - 12/27/2024 5:54 PM EDT Hospital Encounter [facility] [address] [place] [phone] Oh Khanna MD Muhoozi, Bannet, MD Flores, [...] Laterality Modality Upper Extremities, Hand Left [facility] 02/07/2025 9:28 AM EDT Impressions 02/07/2025 9:29 AM EDT No acute findings. Degenerative changes as detailed above. -------- FINAL REPORT -------- Dictated By: Pratik Christian Dictated Date: 02/07/2025 09:28 ET Assigned Physician: Pratik Christian Reviewed and Electronically Signed By: Pratik Christian Signed Date: 02/07/2025 09:29 ET Workstation ID: [id number] Transcribed By: Self Edit Transcribed Date: 02/07/2025 [...] Signed Date: 02/07/2025 09:29 ET Workstation ID: [id number] Transcribed By: Self Edit Transcribed Date: 02/07/2025 09:28 ET Briseida ALMARAZ IMG XR PROCEDURES Final Result * (ABNORMAL) CBC auto differential (01/30/2025 5:43 AM EDT) Only the most recent of12 resultswithin the time period is included. Pathologist [facility] WBC 8.6 4.8 - 10.8 K/mcL LAB HEMETOLOGY METHOD 01/30/2025 7:04 AM [facility] RBC 2.90(L) 4.50 - 5.50 M/mcL LAB HEMETOLOGY METHOD 01/30/2025 7:04 AM [facility] Hemoglobin 9.2(L) 13.5 - 17.5 g/dL LAB HEMETOLOGY METHOD 01/30/2025 7:04 AM [facility] Hematocrit 27.2(L) 42.0 - 54.0 % LAB HEMETOLOGY METHOD 01/30/2025 7:04 AM [facility] MCV 93.5 79.0 - 98.0 FL LAB HEMETOLOGY METHOD [facility] 7[facility] MCH 31.6 27.0 - 32.0 pcg LAB HEMETOLOGY METHOD 01/30/2025 7:04 AM [facility] MCHC 33.8 32.0 - 37.0 g/dL LAB HEMETOLOGY METHOD 01/30/2025 7:04 AM [facility] RDW 14.3 11.0 - 15.0 % LAB HEMETOLOGY METHOD 01/30/2025 7:04 AM [facility] Platelets 288 130 - 400 K/mcL LAB HEMETOLOGY METHOD 01/30/2025 7:04 AM [facility] MPV 10.8 7.0 - 11.0 FL LAB HEMETOLOGY METHOD 01/30/2025 7:04 AM [facility] NRBC 0.0 <1.0 % LAB HEMETOLOGY METHOD 01/30/2025 7:04 AM [facility] NRBC Absolute 0.00 <0.10 K/mcL LAB HEMETOLOGY METHOD 01/30/2025 7:04 AM [facility] Neutrophils Relative 63.3 % LAB HEMETOLOGY METHOD 01/30/2025 7:04 AM [facility] Comment:This is an appended report. These results have been appended to a previously preliminary verified report. Lymphocytes Relative 17.0 % LAB HEMETOLOGY METHOD 01/30/2025 7:04 AM [facility] Comment:This is an appended report. These results have been appended to a previously preliminary verified report. Monocytes Relative 19.4 % LAB HEMETOLOGY METHOD 01/30/2025 7:04 AM [facility] Comment:This is an appended report. These results have been appended to a previously preliminary verified report. Eosinophils Relative 0.1 % LAB HEMETOLOGY METHOD 01/30/2025 7:04 AM [facility] Comment:This is an appended report. These results have been appended to a previously preliminary verified report. Basophils Relative 0.1 % LAB HEMETOLOGY METHOD 01/30/2025 7:04 AM [facility] Comment:This is an appended report. These results have been appended to a previously preliminary verified report. Immature Granulocytes Relative 0.1 % LAB HEMETOLOGY METHOD 01/30/2025 7:04 AM [facility] Comment:This is an appended report. These results have been appended to a previously preliminary verified report. Neutrophils Absolute 5.46 1.50 - 7.00 K/mcL LAB HEMETOLOGY METHOD 01/30/2025 7:04 AM EDT [facility] Comment:This is an appended report. These results have been appended to a previously preliminary verified report. Lymphocytes Absolute 1.47 1.00 - 5.00 K/mcL LAB HEMETOLOGY METHOD 01/30/2025 7:04 AM EDT [facility] Comment:This is an appended report. These results have been appended to a previously preliminary verified report. Monocytes Absolute 1.68(H) 0.20 - 1.00 K/mcL LAB HEMETOLOGY METHOD 01/30/2025 7:04 AM EDT [facility] Comment:This is an appended report. These results have been appended to a previously preliminary verified report. Eosinophils Absolute 0.01 0.00 - 0.50 K/mcL LAB HEMETOLOGY METHOD 01/30/2025 7:04 AM EDT [facility] Comment:This is an appended report. These results have been appended to a previously preliminary verified report. Basophils Absolute 0.01 0.00 - 0.20 K/mcL LAB HEMETOLOGY METHOD 01/30/2025 7:04 AM EDT [facility] Comment:This is an appended report. These results have been appended to a previously preliminary verified report. Immature Granulocytes Absolute 0.01 0.00 - 0.03 K/mcL LAB HEMETOLOGY METHOD 01/30/2025 7:04 AM EDT [facility] Comment:This is an appended report. These results have been appended to a previously preliminary verified report. Blood Venous blood specimen / Unknown Venipuncture / Unknown 01/30/2025 5:43 AM EDT 01/30/2025 6:19 AM EDT us Yazmin ALMARAZ LAB BLOOD ORDERABLES Final Result [facility] [address] [place] [address], [place] [phone] * Phosphorus (01/30/2025 5:43 AM EDT) Only the most recent of6 resultswithin the time period is included. Phosphorus 2.9 2.5 - 4.5 mg/dL LAB CHEMISTRY METHOD 01/30/2025 7:03 AM EDT [facility] Blood Venous blood specimen / Unknown Venipuncture / Unknown 01/30/2025 5:43 AM EDT 01/30/2025 6:19 AM EDT Yazmin Degroot MT LAB BLOOD ORDERABLES Final Result Performing Organization Address [facility] Co de Phone Number [facility] [address] [place] [address], [place] [phone] * Magnesium (01/30/2025 5:43 AM EDT) Only the most recent of9 resultswithin the time period is included. Magnesium 2.0 1.9 - 2.6 mg/dL LAB CHEMISTRY METHOD 01/30/2025 7:03 AM EDT [facility] Blood Venous blood specimen / Unknown Venipuncture / Unknown 01/30/2025 5:43 AM EDT 01/30/2025 6:19 AM EDT Yazmin Degroot MT LAB BLOOD ORDERABLES Final Result Performing Organization Address City/[facility]/ZIP Co de Phone Number [facility] [address] [place] [address], [place] [phone] * (ABNORMAL) Comprehensive metabolic panel (01/30/2025 5:43 AM EDT) Only the most recent of6 resultswithin the time period is included. Sodium 135 133 - 145 mmol/L LAB CHEMISTRY METHOD 01/30/2025 7:03 AM EDT [facility] Potassium 4.1 3.5 - 5.5 mmol/L LAB CHEMISTRY METHOD 01/30/2025 7:03 AM [facility] Chloride 99 96 - 110 mmol/L LAB CHEMISTRY METHOD 01/30/2025 7:03 AM [facility] CO2 30 21 - 32 mmol/L LAB CHEMISTRY METHOD 01/30/2025 7:03 AM [facility] Anion Gap 6 3 - 11 LAB CHEMISTRY METHOD 01/30/2025 7:03 AM [facility] Glucose 112(H) 70 - 100 mg/dL LAB CHEMISTRY METHOD 01/30/2025 7:03 AM [facility] BUN 26(H) 5 - 25 mg/dL LAB CHEMISTRY METHOD 01/30/2025 7:03 AM [facility] Creatinine 1.20 0.70 - 1.30 mg/dL LAB CHEMISTRY METHOD 01/30/2025 7:03 AM [facility] eGFR 66 >=60 mL/min/1. 73m2 LAB CHEMISTRY METHOD 01/30/2025 7:03 AM [facility] Comment:Calculation based on the Chronic Kidney Disease Epidemiology Collaboration (CKD-EPI) equation refit without adjustment for race. BUN/Creatinine Ratio 21.7 LAB CHEMISTRY METHOD 01/30/2025 7:03 AM [facility] Calcium 8.4(L) 8.5 - 10.5 mg/dL LAB CHEMISTRY METHOD 01/30/2025 7:03 AM [facility] AST (SGOT) 10 10 - 42 unit/L LAB CHEMISTRY METHOD 01/30/2025 7:03 AM [facility] ALT (SGPT) 24 10 - 60 unit/L LAB CHEMISTRY METHOD 01/30/2025 7:03 AM [facility] Alkaline Phosphatase 149(H) 42 - 121 unit/L LAB CHEMISTRY METHOD 01/30/2025 7:03 AM EDT [facility] Total Protein 4.9(L) 6.0 - 8.0 g/dL LAB CHEMISTRY METHOD 01/30/2025 7:03 AM EDT [facility] Albumin 2.9(L) 3.2 - 5.0 g/dL LAB CHEMISTRY METHOD 01/30/2025 7:03 AM EDT [facility] Total Bilirubin 0.8 0.0 - 1.4 mg/dL LAB CHEMISTRY METHOD 01/30/2025 7:03 AM EDT [facility] Blood Venous blood specimen / Unknown Venipuncture / Unknown 01/30/2025 5:43 AM EDT 01/30/2025 6:19 AM EDT us Yazmin ALMARAZ LAB BLOOD ORDERABLES Final Result [facility] [address] [place] [address], * IR Insert Gastro Tube Perc w [...] as the tube itself. Specimen: None Tube: 16-[place] gastrostomy Estimated blood loss: Minimal Consultations: None [...] over the wire through which we placed [id number] gastrostomy tube. The peel-away sheath was removed. [...] Signed Date: 01/28/2025 17:19 ET Workstation ID: [id number] Transcribed By: Self Edit Transcribed Date: 01/28/2025 [...] as the tube itself. Specimen: None Tube: 16-[place] gastrostomy Estimated blood loss: Minimal Consultations: None [...] advanced over the wire through which weplaced [id number] gastrostomy tube. The peel-away sheath was removed.5 [...] Signed Date: 01/28/2025 17:19 ET Workstation ID: [id number] Transcribed By: Self Edit Transcribed Date: 01/28/2025 17:16 ET us Patricia ALMARAZ IMG IR PROCEDURES Final Result * (ABNORMAL) Basic metabolic panel (01/27/2025 6:03 AM EDT) Only the most recent of7 resultswithin the time period is included. Sodium 138 133 - 145 mmol/L LAB CHEMISTRY METHOD 01/27/2025 6:55 AM [facility] Potassium 3.8 3.5 - 5.5 mmol/L LAB CHEMISTRY METHOD 01/27/2025 6:55 AM [facility] Chloride 103 96 - 110 mmol/L LAB CHEMISTRY METHOD 01/27/2025 6:55 AM [facility] CO2 33(H) 21 - 32 mmol/L LAB CHEMISTRY METHOD 01/27/2025 6:55 AM [facility] Anion Gap 2(L) 3 - 11 LAB CHEMISTRY METHOD 01/27/2025 6:55 AM [facility] Glucose 122(H) 70 - 100 mg/dL LAB CHEMISTRY METHOD 01/27/2025 6:55 AM [facility] BUN 21 5 - 25 mg/dL LAB CHEMISTRY METHOD 01/27/2025 6:55 AM [facility] Creatinine 1.18 0.70 - 1.30 mg/dL LAB CHEMISTRY METHOD 01/27/2025 6:55 AM [facility] eGFR 68 >=60 mL/min/1. 73m2 LAB CHEMISTRY METHOD 01/27/2025 6:55 AM [facility] Comment:Calculation based on the Chronic Kidney Disease Epidemiology Collaboration (CKD-EPI) equation refit without adjustment for race. BUN/Creatinine Ratio 17.8 LAB CHEMISTRY METHOD 01/27/2025 6:55 AM [facility] Calcium 8.3(L) 8.5 - 10.5 mg/dL LAB CHEMISTRY METHOD 01/27/2025 6:55 AM EDT [facility] Blood Venous blood specimen / Unknown Venipuncture / Unknown 01/27/2025 6:03 AM EDT 01/27/2025 6:08 AM EDT Rubén Majano MD LAB BLOOD ORDERABLES Final Result [facility] [address] [place] [address], [place] [phone] * XR Chest 1 View (01/27/2025 2:35 [...] Signed Date: 01/27/2025 08:25 ET Workstation ID: [id number] Transcribed By: Self Edit Transcribed Date: 01/27/2025 [...] Signed Date: 01/27/2025 08:25 ET Workstation ID: [id number] Transcribed By: Self Edit Transcribed Date: 01/27/2025 [...] of2 resultswithin the time period is included. [facility] LACTIC ACID 1.2 0.4 - 2.0 mmol/L LAB CHEMISTRY METHOD 01/26/2025 11:15 PM EDT [facility] Blood Venous blood specimen / Unknown Venipuncture / Unknown 01/26/2025 10:40 PM EDT 01/26/2025 10:44 PM EDT Shmuel Garber MD LAB BLOOD ORDERABLES Gabbie l Result [facility] [address] [place] [address], [place] [phone] * (ABNORMAL) Manual differential (01/26/2025 10:40 PM EDT) Only the most recent of2 resultswithin the time period is included. Pathologist [facility] Neutrophils % 77.0 % LAB HEMETOLOGY METHOD 01/26/2025 11:27 PM EDT [facility] Bands % 4.0 % LAB HEMETOLOGY METHOD 01/26/2025 11:27 PM [facility] Lymphocytes % 10.0 % LAB HEMETOLOGY METHOD 01/26/2025 11:27 PM [facility] Monocytes % 9.0 % LAB HEMETOLOGY METHOD 01/26/2025 11:27 PM [facility] Eosinophils % 1.0 % LAB HEMETOLOGY METHOD 01/26/2025 11:27 PM [facility] Basophils % 0.0 % LAB HEMETOLOGY METHOD 01/26/2025 11:27 PM [facility] Neutrophils Absolute Manual 8.47(H) 1.50 - 7.00 K/mcL LAB HEMETOLOGY METHOD 01/26/2025 11:27 PM [facility] Bands Absolute Manual 0.44(H) 0.00 - 0.00 K/mcL LAB HEMETOLOGY METHOD 01/26/2025 11:27 PM [facility] Lymphocytes Absolute 1.10 1.00 - 5.00 K/mcL LAB HEMETOLOGY METHOD 01/26/2025 11:27 PM [facility] Monocytes Absolute Manual 0.99 0.20 - 1.00 K/mcL LAB HEMETOLOGY METHOD 01/26/2025 11:27 PM [facility] Eosinophils Absolute Manual 0.11 0.00 - 0.50 K/mcL LAB HEMETOLOGY METHOD 01/26/2025 11:27 PM [facility] Basophils Absolute Manual 0.00 0.00 - 0.20 K/mcL LAB HEMETOLOGY METHOD 01/26/2025 11:27 PM [facility] Rbc Morphology Present( A) Consistent with indices, Normal for [place] LAB HEMETOLOGY METHOD 01/26/2025 11:27 PM [facility] Comment:RBC: Morphology agre es with CBC Platelet Morphology - WAM See Note(A) Normal LAB HEMETOLOGY METHOD 01/26/2025 11:27 PM EDT [facility] Comment:PLT: Normal Target Cells Present 5 - 10%(A) (none) LAB HEMETOLOGY METHOD 01/26/2025 11:27 PM EDT [facility] Blood Venous blood specimen / Unknown Venipuncture / Unknown 01/26/2025 10:40 PM EDT 01/26/2025 10:46 PM EDT Shmuel Garber MD LAB BLOOD ORDERABLES Gabbie l Result [facility] [address] [place] [address], [place] [phone] * (ABNORMAL) Hemoglobin and hematocrit (01/22/2025 7:56 PM EDT) Hemoglobin 10.4(L) 13.5 - 17.5 g/dL LAB HEMETOLOGY METHOD 01/22/2025 8:44 PM EDT [facility] Hematocrit 30.8(L) 42.0 - 54.0 % LAB HEMETOLOGY METHOD 01/22/2025 8:44 PM EDT [facility] Blood Venous blood specimen / Unknown Venipuncture / Unknown 01/22/2025 7:56 PM EDT 01/22/2025 8:26 PM EDT Ryan Otto MD LAB BLOOD ORDERABLES F inal Result [facility] [address] [place] [address], [place] [phone] * Type and screen (01/22/2025 7:56 PM EDT) ABO Group O 01/22/2025 9:37 PM EDT [facility] Rh Type Negative 01/22/2025 9:37 PM EDT [facility] Antibody Screen Negative 01/22/2025 9:37 PM EDT [facility] Blood Venous blood specimen / Unknown Venipuncture / Unknown 01/22/2025 7:56 PM EDT 01/22/2025 8:26 PM EDT Ryan Otto MD LAB BLOOD BANK TEST OR DERABLES Final Result [facility] [address] [place] [address], * XR Abdomen 1 View (01/22/2025 9:35 AM EDT) Only the most recent of2 resultswithin the time period is included. Anatomical Region Laterality Modality Body Radiographic Caorlina ging 01/22/2025 10:1 0 AM EDT Impressions 01/22/2025 10:11 AM EDT Tip of gastric tube within the upper abdomen to left of midline. -------- FINAL REPORT -------- Dictated By: Vince Gonzalez Dictated Date: 01/22/2025 10:10 ET Assigned Physician: Vince Gonzalez Reviewed and Electronically Signed By: Vince Gonzalez Signed Date: 01/22/2025 10:11 ET Workstation ID: [id number] Transcribed By: Self Edit Transcribed Date: 01/22/2025 [...] Signed Date: 01/22/2025 10:11 ET Workstation ID: [id number] Transcribed By: Self Edit Transcribed Date: 01/22/2025 10:10 ET Cheri ALMARAZ IMG XR PROCEDURES Final Resu lt * (ABNORMAL) Lipase (01/21/2025 5:50 AM EDT) Only the most recent of3 resultswithin the time period is included. [facility] Lipase 262(H) 13 - 75 unit/L LAB CHEMISTRY METHOD 01/21/2025 10:09 AM EDT [facility] Blood Venous blood specimen / Unknown Venipuncture / Unknown 01/21/2025 5:50 AM EDT 01/21/2025 6:20 AM EDT us Ryan Otto MD LAB BLOOD ORDERABLES F inal Result [facility] [address] [place] [address], [place] [phone] * Triglycerides (01/20/2025 7:11 PM EDT) [facility] Triglycerides 74 0 - 150 mg/dL LAB CHEMISTRY METHOD 01/20/2025 10:28 PM EDT [facility] Blood Venous blood specimen / Unknown Venipuncture / Unknown 01/20/2025 7:11 PM EDT 01/20/2025 7:17 PM EDT Rubén Majano MD LAB BLOOD ORDERABLES Final Result Performing Organization Address [facility]/ZIP Co de Phone Number [facility] [address] [place] [address], [place] [phone] * Lactate dehydrogenase (01/20/2025 7:11 PM EDT) LDH 207 120 - 246 unit/L LAB CHEMISTRY METHOD 01/20/2025 10:28 PM EDT [facility] Blood Venous blood specimen / Unknown Venipuncture / Unknown 01/20/2025 7:11 PM EDT 01/20/2025 7:17 PM EDT Rubén Majano MD LAB BLOOD ORDERABLES Final Result Performing Organization Address [facility] Co de Phone Number [facility] [address] [place] [address], [place] [phone] * Lactate (01/20/2025 7:11 PM EDT) Lactate 1.2 0.4 - 2.0 mmol/L LAB CHEMISTRY METHOD 01/20/2025 7:54 PM EDT [facility] Blood Venous blood specimen / Unknown Venipuncture / Unknown 01/20/2025 7:11 PM EDT 01/20/2025 7:18 PM EDT Sachin Murrieta MD LAB BLOOD ORDERABLES Fin al Result Performing Organization Address City/[facility]/ZIP Co de Phone Number [facility] [address] [place] [address], [place] [phone] * ECG-Annotated (12/30/2024) us Provider Onbase MD ECG ORDERABLES Final Result * ECG 12 lead (12/26/2024 3:22 AM EDT) Only the most recent of2 resultswithin the time period is included. [facility] Ventricular Rate ECG 57 BPM GEMUSE Atrial Rate 57 BPM GEMUSE P-R Interval 142 ms GEMUSE QRS Duration 122 ms GEMUSE Q-T Interval 452 ms GEMUSE QTc 439 ms GEMUSE P Wave [place] 18 degrees GEMUSE R [place] 19 degrees GEMUSE T [place] 18 degrees GEMUSE ECG Interpretation Sinus bradycardia Right bundle branch block Abnormal ECG When compared with ECG of 26-DEC-2024 02:12, (unconfirmed) No significant change was found Confirmed by Olu MEEK YUFENG ([id number]) on 12/26/2024 8:18:56 PM GEMUSE 12/26/2024 3:22 AM EDT 12/26/2024 8:18 PM EDT Ladonna Galan [employer]ENT[employer]IC ECG ORDERABLES Final Res ult GEMUSE * APTT (12/26/2024 2:40 AM EDT) [facility] aPTT 31.4 24.1 - 39.3 sec LAB COAGULATION METHOD 12/26/2024 3:12 AM EDT [facility] Blood Venous blood specimen / Unknown Venipuncture / Unknown 12/26/2024 2:40 AM EDT 12/26/2024 2:58 AM EDT Oh Khanna MD LAB BLOOD ORDERABLES Final R esult [facility] [address] [place] [address], [place] [phone] * (ABNORMAL) Protime-INR (12/26/2024 2:40 AM EDT) [facility] Protime 14.3(H) 10.6 - 13.9 sec LAB COAGULATION METHOD 12/26/2024 3:12 AM EDT [facility] INR 1.1 LAB COAGULATION METHOD 12/26/2024 3:12 AM EDT [facility] Blood Venous blood specimen / Unknown Venipuncture / Unknown 12/26/2024 2:40 AM EDT 12/26/2024 2:58 AM EDT Oh Khanna MD LAB BLOOD ORDERABLES Final R esult [facility] [address] [place] [address], * (ABNORMAL) Lipid panel (02/11/2002) [facility] LDL/HDL Ratio 4 1 - 5 Triglycerides 353(A) 10 - 160 mg/dL Cholesterol 163 10 - 240 mg/dL HDL 38 32 - 96 mg/dL LDL Cholesterol 54(A) 62 - 185 mg/dL Blood Venous blood specimen / Unknown Myrna Provider LAB BLOOD ORDERABLES Gabbie l Result from Last 3 Months or Most Recently Relevant to Health Maintenance Insurance MEDICARE [place]ICA[place] - [place] Advance Directives Documents on File Type Date Recorded Patient Managing Attorney Expl anation Advance Directives and Living Will 01/29/2025 10:45 AM [facility] Advance Directives and Living Will 01/28/2025 3:23 PM Nelida Moreira Health Care Proxy Advance Directives and [...] Agents on File Name Relationship Healthcare Agent [facility] Communication [facility] Health Care Agent Nelida Minor Friend [facility] Health Care Agent Care Teams Early Childhood Coordinator Relationship Specialty Start Date End Date Lobo Mills MD [address] [place] PCP - General 12/14/23
--- OUTSIDE RECORDS SUMMARY | 2025-02-24 19:32 | XMS_ITS | Encounter Summary ---
Author Organization [facility] Address [address] [facility] [address] [place] [address] Phone Care Team Providers Care Humanities Division Chair Name Role Phone Lobo Mills MD Primary Care Provider Referring, Not Required Unavailable Unavaila Sanchez Montanez MD Unavailable Amrita Soni MD Unavailable [phone] Encounter Details Date Type Department Care Team (Late st Contact Info) Description 02/04/2025 Orders Only [facility], [facility] [place] [address] [facility], 10th [place] [address] Amrita Soni MD [address] [facility] [address] [place] [address] [email or web address] Social History Tobacco Use Types [...] 12:15 PM EDT Administrative Encounter Central Registration, [facility] [address] [facility] [address] [place] [address] Amrita Soni MD [address] [place] [address] [address] [place] [address] [email or web address] 02/26/2025 1:00 PM EDT Office Visit [facility], [facility] [address] [facility] [address] [place] [address] Amrita Soni MD [address] [place] [address] [address] [place] [address] [email or web address] documented as of this encounter Visit Diagnoses Not on filedocumented in this encounter Care Teams Humanities Division Chair Relationship Specialty Start Date End Date Lobo Mills MD [address] [place] [address] PCP - General Internal Medicine 01/31/25 Referring, Not Required Referring Physician 01/31/25 Sanchez Virgen MD [address] [place] [address] [email or web address] Medical Oncology 02/06/25 Amrita Soni MD [address] [facility] [address] [place] [address] [email or web address] Medical Oncology 02/06/25 documented as of this encounter Additional Source Comments The information contained in this document represents components of the legal health record. It is not the complete legal health record.[facility]
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
--- OUTSIDE RECORDS SUMMARY | 2025-02-24 19:32 | XMS_ITS | Patient Health Record ---
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) Active confirmed Problem Secondary malignant neoplasm of retroperitoneum and peritoneum (991929678) 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 Problem Alcohol abuse (80462149) Alcohol abuse, uncomplicated (F10.10) Active confirmed Problem Chronic obstructive pulmonary disease (11454713) Chronic obstructive pulmonary disease, unspecified (J44.9) Active confirmed Problem Urinary tract obstruction (4198221) Obstructive and reflux uropathy, unspecified (N13.9) Active confirmed Problem Attention to ileostomy (659591792) Encounter for attention to ileostomy (Z43.2) Active confirmed Problem History of malignant neoplasm of colon (173884962) Personal history of other malignant neoplasm of large intestine (Z85.038) Active confirmed Problem History of malignant neoplasm of prostate (828149777) Personal history of malignant neoplasm of prostate (Z85.46) Active confirmed Problem History of malignant neoplasm (047411931) Personal history of malignant neoplasm of other organs and systems (Z85.89) Active confirmed Problem Spleen absent (827390072) 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 Problem Ileostomy present (118677535) Ileostomy status (Z93.2) Active confirmed Problem Chronic kidney disease stage 3 (disorder) (358840773) CKD (chronic kidney disease), stage III (N18.30) [...] 12/17/2024 Encounters Encounter Location Date Provider Diagnosis [facility] [address] [facility] [address] [place] [id number] 11/19/2024 Sriram Shirley Malignant neoplasm o f [...] neoplasm of other organs and systems Z85.89 [facility] [address] [facility] [address] [place] [phone] 12/17/2024 Sriram Shirley Malignant neoplasm o f [...] neoplasm of other organs and systems Z85.89 [facility] [address] [address] 03/01/2024 Sriram Shirley Assessments Encounter Date Diagnosis [...] in 1-month for granuloma management at the [place] location. Fern Davis was available for any [...] moldable barrier ring, 1 piece [employer] [place] convex appliance, and C shaped elastic barrier [...] in 1-month for granuloma management at the [place] location. All of Jose's questions and concerns were addressed. He was instructed to call with any further questions or concerns and follow up in 1-month for granuloma management at the [place] location. Fern Davis was available for any [...] Details Provider Name:Sriram Shirley, 03/21/2025 10:00:00 AM, [address] [place] [address], [phone], Insurance Providers Payer Name Payer Address Payer Phone Subscriber Number Group Number Insured Name Patient Relationship to Insured Coverage Start Date Coverage End Date Medicare [address] [place], [place] [id number] Jose Hirsch Self - patient is the insured [facility] (Medicaid) [address] [place], [place] [id number] Jose Hirsch Self - patient is the [...]
--- OUTSIDE RECORDS SUMMARY | 2025-02-24 19:32 | XMS_ITS | Encounter Summary ---
Author Organization [facility] Address [address] [facility] [address] [place] [address] Phone Care Team Providers Care Contract Loader Name Role Phone Lobo Mills MD Primary Care Provider [phone] Referring, Not Required Unavailable Unavaila Sanchez Montanez MD Unavailable Amrita Soni MD Unavailable [phone] Encounter Details Date Type Department Care Team (Late st Contact Info) Description 02/06/2025 Orders Only [facility], [facility] [place] [address] [facility], 10th [place] [address] Neetu Garcia MD [address] [facility] [place] [address] [email or web address] Social History Tobacco Use Types [...] 12:15 PM EDT Administrative Encounter Central Registration, [facility] [address] [facility] 3rd [place] [address] Amrita Soni MD [address] [place] [address] [address] [place] [address] [email or web address] 02/26/2025 1:00 PM EDT Office Visit [facility], [facility] [address] [facility] [address] [place] [address] Amrita Soni MD [address] [place] [address] [address] [place] [address] [email or web address] documented as of this encounter Visit Diagnoses Not on filedocumented in this encounter Care Teams Contract Loader Relationship Specialty Start Date End Date Lobo Mills MD [address] [place] [address] PCP - General Internal Medicine 01/31/25 Referring, Not Required Referring Physician 01/31/25 Sanchez Virgen MD [address] [place] [address] [email or web address] Medical Oncology 02/06/25 Amrita Soni MD [address] [place] [address] [address] [place] [address] [email or web address] Medical Oncology 02/06/25 documented as of this encounter Additional Source Comments The information contained in this document represents components of the legal health record. It is not the complete legal health record.[facility]
--- OUTSIDE RECORDS SUMMARY | 2025-02-24 19:32 | XMS_ITS ---
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/2025 Generalized abdominal pain 01/27/2025 Moderate malnutrition ([facility] V24) 01/24/2025 Acute pancreatitis 01/20/2025 Small bowel obstruction ([facility] V24, [facility] V2 8) 12/26/2024 Bowel obstruction ([facility] V24, [facility] V28) 03/2025 Acquired ptosis of eyelid 02/06/2024 Anemia 02/06/2024 Bundle branch block, right 02/06/2024 Chronic neck pain 02/06/2024 COVID-19 02/06/2024 Elevated PSA 02/06/2024 GERD (gastroesophageal reflux disease) HTN (hypertension) 02/06/2024 Nephrolithiasis 02/06/2024 Obstructive lung disease (ge neralized) ([facility] V24, [facility] V28) 02/06/2024 Peripheral neuropathy 02/06/2024 Prediabetes 02/06/2024 Prostate cancer ([facility] V24, [facility] V28) 02/05 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 Past Treatment and Therapy Plans No past plan information found. Lifetime Dose Tracking * Chemical Lifetime Dose Automatic Entry Manual Entr y Fluoro Time 1.7 minutes 0 minutes 1.7 minutes Air Kerma 13 mGy 0 mGy 13 mGy
--- OUTSIDE RECORDS SUMMARY | 2025-02-24 19:32 | XMS_ITS | Clinical Summary ---
Author Organization [facility] Address [address] [facility] [address] [place] [address] Care Team Providers Care Mash Filter Cloth Changer Name Role Phone Lobo Mills MD Primary Care Provider [phone] Allergies Active Allergy Reactions Criticality Noted Date [...] Documents on File Type Date Recorded Patient Drain Tiler Expl anation Health Care Proxy 06/07/2019 9:42 PM Conver jigar - [facility] DNR (Do Not Resuscitate)/DNI (Do Not Intubate) 06/07/2019 9:41 PM Conversion - DNR Ord er ([facility] Mitzi DM) Health Care Proxy 05/27/2019 11:56 AM Conv ersion - External Healthcare Proxy ([facility]) * Full Code (Latest Code Status on File) Date Activated Date Inactivated Comments 08/10/2021 3:59 PM 08/12/2021 8:27 PM Care Teams Mash Filter Cloth Changer Relationship Specialty Start Date End Date Lobo Mills MD [address] [place] [address] PCP - General 06/04/21
--- OUTSIDE RECORDS SUMMARY | 2025-02-24 19:33 | XMS_ITS | Clinical Summary ---
Author Organization [facility] Address [address] [facility] [address] [place] [address] Phone Care Team Providers Care Senior Buyer Name Role Phone Lobo Mills MD Primary Care Provider Referring, Not Required Unavailable Unavaila Sanchez Montanez MD Unavailable Amrita Soni MD Unavailable Encounters Date Type Department Care Team Description 02/18/2025 Ancillary Orders DF IMG OUTSIDE IMG [address] [place] [address] Amriat Soni MD 02/18/2025 Ancillary Orders DF IMG OUTSIDE IMG [address] [place] [address] Amrita Soni MD 02/18/2025 Ancillary Orders DF IMG OUTSIDE IMG [address] [place] [address] Amrita Soni MD 02/18/2025 Ancillary Orders DF IMG OUTSIDE IMG [address] [place] [address] Amrita Soni MD 02/18/2025 Ancillary Orders DF IMG OUTSIDE IMG [address] [place] [address] Amrita Soni MD 02/18/2025 Ancillary Orders DF IMG OUTSIDE IMG [address] [place] [address] Amrita Soni MD 02/18/2025 Ancillary Orders DF IMG OUTSIDE IMG [address] [place] [address] Amrita Soni MD 02/18/2025 Ancillary Orders DF IMG OUTSIDE IMG [address] [place] [address] Amrita Soni MD 02/18/2025 Ancillary Orders DF IMG OUTSIDE IMG [address] [place] [address] Amrita Soni MD 02/18/2025 Ancillary Orders DF IMG OUTSIDE IMG [address] [place] [address] Amrita Soni MD 02/12/2025 2:09 PM EDT - 02/12/2025 11:59 PM EDT Hospital Encounter [facility], [address] [address] Discharge Disposition: Home or Self Care 02/06/2025 Orders Only [facility], [address] [place] [address] Amrita Soni MD 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 Orders Only [facility], [address] [place] [address] Neetu Garcia MD 02/04/2025 Orders Only [facility], [address] [place] [address] Amrita Soni MD 01/28/2025 Ancillary Procedure DF IMG OUTSIDE IMG [address] [place] [address] Amrita Soni MD 01/27/2025 Ancillary Procedure DF IMG OUTSIDE IMG [address] [place] [address] Amrita Soni MD 01/26/2025 Ancillary Procedure DF IMG OUTSIDE IMG [address] [place] [address] Amrita Soni MD 01/22/2025 Ancillary Procedure DF IMG OUTSIDE IMG [address] [place] [address] Amrita Soni MD 01/20/2025 Ancillary Procedure DF IMG OUTSIDE IMG [address] [place] [address] Amrita Soni MD 12/26/2024 12:05 AM EDT Ancillary Procedure DF IMG OUTSIDE G [address] [place] [address] Amrita Soni MD 12/26/2024 Ancillary Procedure DF IMG OUTSIDE IMG [address] [place] [address] Amrita Soni MD from Last 3 Months Social History Tobacco Use Types Packs/Day Years Used Date Smoking Tobacco: Never Assessed Child or Family Care Answer Date Record ed Do you have problems with on e of the following making it difficult for you to work, study, or receive health care? No 02/20/2025 Education Answer Date Recorded Are you interested in more education? Not on princess e 01/31/2025 Are you concerned about learning? Not on file 01/31/2025 No 01/31/2025 No 01/31/2025 Food Answer Date Recorded Within the past 6 months we worried whether our food would run out before we got money to buy more. Never True 02/20/2025 Food didn't last Not on file 02/20/2025 Residential Stability Answer Date Recor ded What is your housing situation today? I am stayi ng with others 02/20/2025 How many times have you move d in the past 12 months? One time 02/20/2025 Paying for Meds Answer Date Recorded Do you have trouble paying for medicines? No 02/20/2025 Paying Utility Bills Answer Date Record ed Do you have trouble paying your heating or elect ricity bill? Yes 02/20/2025 Transportation Answer Date Recorded Has the lack of transportati on kept you from medical appointments or from getting medications? No 02/20/2025 Digital Access Answer Date Recorded No 01/31/2025 [...] 12:15 PM EDT Administrative Encounter Central Registration, [facility] at [address] [address] Amrita Soni MD [address] [place] [address] [address] [place] [address] [email or web address] 02/26/2025 1:00 PM EDT Office Visit [facility], [facility] at [address] [address] Amrita Soni MD [address] [place] [address] [address] [place] [address] [email or web address] Health Maintenance Due Date Last [...] 03/15/2022, Additional history exists COVID-19 VACCINE ( - season) 2024 03/12/2024, 09/23/2021, 03/22/2021, Additional history [...] Procedure Name Priority Date/Time Associated Diagnosis Comments FL ABDOMEN OUTSIDE (NO INTERPRETATION) Routine 01/28/2025 12:00 AM EDT OUTSIDE PROCEDURE 01/28/2025 XR CHEST OUTSIDE (NO INTERPRETATION) Routine 01/27/2025 12:00 AM EDT OUTSIDE IMAGING 01/27/2025 CT ABDOMEN/PELVIS OUTSIDE (NO INTERPRETATION) Routine 01/26/2025 12:00 AM EDT XR ABDOMEN OUTSIDE (NO INTERPRETATION) Routine 01/22/2025 12:[address] ABDOMEN/PELVIS OUTSIDE (NO INTERPRETATION) Routine 01/20/2025 12:[address] ABDOMEN/PELVIS OUTSIDE (NO INTERPRETATION) Routine 12/26/2024 12:05 AM EDT XR ABDOMEN OUTSIDE (NO INTERPRETATION) Routine 12/26/2024 12:00 AM EDT OUTSIDE LAB 12/13/2024 from Last 3 Months Results * Outside Procedure (01/28/2025) us Scanning Interface Provider PROCEDURE/MINOR SURG ICAL PERFORMABLES Final Result * FL Abdomen Outside (No Interpretation) (01/28/2025 12:00 AM EDT) Other Narrative PERCIPIO_BWH - 02/18/2025 8:58 AM EDT This study is for PACS storage only and not for interpretation. us Amrita Soni MD IMG OUTSIDE IMAGING W/O UT INTERPRETATION Final Result Performing Organization Address [facility] Co de Phone Number [email or web address] * Outside Imaging Report Only (01/27/2025) us Scanning Interface Provider IMG XR CHEST Gabbie l Result * XR Chest Outside (No Interpretation) (01/27/2025 12:00 AM EDT) Other Narrative PERCIPIO_BW - 02/18/2025 8:59 AM EDT This study is for PACS storage only and not for interpretation. us Amrita Soni MD IMG OUTSIDE IMAGING W/O UT INTERPRETATION Final Result Performing Organization Address [facility] Co de Phone Number [email or web address] * CT Abdomen/Pelvis Outside (No Interpretation) (01/26/2025 12:00 AM EDT) Other Narrative PERCIPIO_DFCI - 02/18/2025 9:00 AM EDT This study is for PACS storage only and not for interpretation. us Amrita Soni MD IMG OUTSIDE IMAGING W/O UT INTERPRETATION Final Result Performing Organization Address City/[facility] Co de Phone Number [email or web address] * XR Abdomen Outside (No Interpretation) (01/22/2025 12:00 AM EDT) Other Narrative PERCIPIO_BWH - 02/18/2025 9:00 AM EDT This study is for PACS storage only and not for interpretation. us Amrita Soni MD IMG OUTSIDE IMAGING W/O UT INTERPRETATION Final Result Performing Organization Address [facility] de Phone Number [email or web address] * CT Abdomen/Pelvis Outside (No Interpretation) (01/20/2025 12:00 AM EDT) Other Narrative PERCIPIO_DFCI - 02/18/2025 9:01 AM EDT This study is for PACS storage only and not for interpretation. us Amrita Soni MD IMG OUTSIDE IMAGING W/O UT INTERPRETATION Final Result Performing Organization Address [facility] de Phone Number [email or web address] * CT Abdomen/Pelvis Outside (No Interpretation) (12/26/2024 12:05 AM EDT) Other Narrative PERCIPIO_DFCI - 02/18/2025 9:05 AM EDT This study is for PACS storage only and not for interpretation. us Amrita Soni MD IMG OUTSIDE IMAGING W/O UT INTERPRETATION Final Result Performing Organization Address [facility] de Phone Number [email or web address] * XR Abdomen Outside (No Interpretation) (12/26/2024 12:00 AM EDT) Other Narrative PERCJETT_BWH - 02/18/2025 9:04 AM EDT This study is for PACS storage only and not for interpretation. us Amrita Soni MD IMG OUTSIDE IMAGING W/O UT INTERPRETATION Final Result Performing Organization Address [facility] de Phone Number PERCJETT_BWH * Outside Lab (12/13/2024) us Scanning Interface Provider LAB BLOOD ORDERABLES Final Result from Last 3 Mon[place] [address] MEDICARE [place] MEDICARE PART A & B MEDICARE PART A & B Member Subscriber Plan / Payer (Ef fective 2009-) Name:Jose Hirsch Member ID:[id number] Relation to Subscriber:Self Name:Jose Hirsch Subscriber ID:[id number] Payer ID:[id number] Group ID:Not on file Type:Medicare Address: link bird [employer] [address] B HEALTH Advance Directives For more information, please contact: [phone] (9AM - 5PM [place]/[facility], Monday-Monday) Documents on File Type Date Recorded Patient Design Supervisor Expl anation Serious Illness Care 02/06/2025 6:00 PM Serious Illness Care 02/06/2025 6:00 PM Serious Illness Care 02/06/2025 6:00 PM Serious Illness Care 02/06/2025 6:00 PM Serious Illness Care 02/06/2025 6:00 PM Serious Illness Care 02/06/2025 3:04 PM Care Teams Senior Buyer Relationship Specialty Start Date End Date Lobo Mills MD [address] [place] [id number] PCP - General Internal Medicine 01/31/25 Referring, Not Required Referring Physician 01/31/25 Sanchez Virgen MD [address] [place] [id number] [email or web address] 02/06/25 Amrita Soni MD [address] [place] [address] Cancer [facility] [address] [place] [address] [email or web address] Medical Oncology 02/06/25 Additional Source Comments The information contained in this document represents components of the legal health record. It is not the complete legal health record.[facility]
[2025-02-24 19:39] LABS: Alanine Aminotransferase < 6 U/L (0-40); Albumin Level 3.2 g/dL (3.5-5.0); Alkaline Phosphatase 59 U/L (39-117); Anion Gap 11 (12-20); Aspartate Amino Transferase 15 U/L (5-37); Blood Urea Nitrogen 19 mg/dL (9-16); Calcium 7.6 mg/dL (8.4-10.2); Carbon Dioxide 18 mmol/L (22-29); Chloride 118 mmol/L (96-108); Estimated Glomerular Filt Rate > 60; Potassium 3.6 mmol/L (3.3-5.1); Sodium 143 mmol/L (135-145); Total Protein 5.2 g/dL (6.5-8.0)
== END 2025-02-24 18:45 | disposition home or self-care (01) ==
LOC: HO.HVNA 18:44
PROVIDERS: Visit Provider Internal Medicine Medical Oncology
DX: N17.9 Acute kidney failure, unspecified (principal); Z90.49 Acquired absence of other specified parts of digestive tract
CPT/HCPCS: 36415; 80053; 85025

== ENCOUNTER 2025-03-03 14:03 | Outpatient (REF) | payer MEDICARE, SELFPAY ==
[2025-03-03 14:08] LABS: MANUAL DIFF FLAG NO
[2025-03-03 14:13] LABS: Hematocrit 25.7 % (42.0-52.0); Hemoglobin 8.4 g/dl (14.0-18.0); Imm Gran Abs Auto 0.03 X10*3/uL (0.00-0.03); Imm Gran Pct Auto 0.4 % (0.0-0.4); Lymphocytes Absolute Auto 2.1 X10*3/uL (1.2-4.9); Mean Corpuscular HGB Conc 32.7 g/dl (31.0-36.0); Mean Corpuscular Hemoglobin 31.6 pg (27.0-33.0); Mean Corpuscular Volume 96.6 fL (80.0-98.0); NRBC Abs Auto 0.000 X10*3/uL (0.0-0.012); NRBC Pct Auto 0.0 /100WBC (0.0-0.2); Platelet Count 459 X10*3/uL (160-400); Red Blood Count 2.66 X10*6/uL (4.60-5.80); White Blood Count 7.2 X10*3/uL (4.8-10.8)
[2025-03-03 14:46] LABS: Alanine Aminotransferase 11 U/L (0-40); Albumin Level 3.7 g/dL (3.5-5.0); Alkaline Phosphatase 88 U/L (39-117); Anion Gap 10 (12-20); Aspartate Amino Transferase 17 U/L (5-37); Blood Urea Nitrogen 19 mg/dL (9-16); Calcium 8.6 mg/dL (8.4-10.2); Carbon Dioxide 22 mmol/L (22-29); Chloride 112 mmol/L (96-108); Estimated Glomerular Filt Rate 56; Potassium 4.2 mmol/L (3.3-5.1); Sodium 140 mmol/L (135-145); Total Protein 5.9 g/dL (6.5-8.0)
== END 2025-03-03 14:04 | disposition home or self-care (01) ==
LOC: HO.HVNA 14:03
PROVIDERS: Visit Provider Internal Medicine Medical Oncology
DX: N17.9 Acute kidney failure, unspecified (principal); Z90.49 Acquired absence of other specified parts of digestive tract
CPT/HCPCS: 36415; 80053; 85025

== ENCOUNTER 2025-03-10 14:36 | Outpatient (REF) | payer MEDICARE, SELFPAY ==
--- OUTSIDE RECORDS SUMMARY | 2025-03-06 10:00 | XMS_ITS | Encounter Summary ---
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 * Consultation (Routine) - Closed Specialty Diagnoses / Procedures Referred By Louise mujica Referred To Contact Orthopaedic Surgery Diagnoses Arthralgia of left hand Briseida Patel PA [address] [place] [address] Phone: tel: fax: Lori Walters PA [address] [address] Phone: tel: fax: Referral ID Status Reason Start Date Expiration Date V isits Requested Visits Authorized [id number] Closed Specialty Services Required 02/07/2025 02/07/2026 1 1 Encounter Details Date Type Department Care Team (Late st Contact Info) Description 03/06/2025 10:00 AM EST Consult Orthopedic Surgery - [place] [address] [address] Lori Walters PA [address] [address] CMC arthritis (Primary Dx) Social History Tobacco Use Types Packs/Day Years [...] AM EDT documented as of this encounter Functional Status * Are you deaf or do you have serious difficulty hearing? Answer Date of Assessment Author No 01/20/2025 10:27 PM CHELET Phoenix Saunders RN * Are you blind or do you have serious difficulty seeing, even when wearing glasses? Answer Date of Assessment Author No 01/20/2025 10:27 PM Phoenix Arreola RN * Do you have serious difficulty walking or climbing stairs? Answer Date of Assessment Author No 01/20/2025 10:27 PM Phoenix Arreola RN * Do you have serious difficulty dressing or bathing? Answer Date of Assessment Author No 01/20/2025 10:27 PM Phoenix Arreola RN * Because of a physical, mental, or emotional condition, do you have serious difficulty doing errandsalone such as visiting the doctor? Answer Date of Assessment Author No 01/20/2025 10:27 PM Phoenix Arreola RN documented as of this encounter Mental Status * Because of a physical, mental, or emotional condition, do you have serious difficulty concentrating, remembering, or making decisions? (5 years old or older) Answer Entry Date Author No 01/20/2025 10:27 PM Phoenix Arreola RN documented in this encounter Progress Notes * RUFINA Streeter - 03/06/2025 10:00 AM EST Referring MD:Briseida Patel, * Mr. Hirsch is a 69 y.o. 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 HPI: 69-year-old [id number] male chief complaint of left thumb pain on and off for many years but worsened significantly about 4 weeks ago. He had increasing severe left thumb pain over the basaljoint. He went to the [facility] ER on February 07. This note was reviewed. He was given prednisone and the pain has settled down. Prior to this he would occasionally take Tylenol or ibuprofen. No bracing,cortisone injections or surgery for the left hand. Occasional numbness tingling. He is on gabapentin. No diabetes. PAST MEDICAL HISTORY: Medical History[1] PAST SURGICAL HISTORY: Surgical History[2] ACTIVE PROBLEMS LIST: Problem List[3] ACTIVE MEDICATIONS: Medications Taking[4] ALLERGIES: Current Allergies[5] PHYSICAL EXAM: Visit Vitals Smoking Status Never APPEARANCE: Alert and in no acute distress EXTREMITIES: Left thumb positive shoulder sign. Mild pain to palpation over left thumb basal joint mildly positive grind test. Left thumb FPL EPL intact. Moderate laxity to MP joint with varus and valgus stress. He can make a full fist with hypothenar, thenar interosseous musculature intact. 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 CMC arthritis The details of the visit were reviewed with the patient. Pertinent history, and objective findings were reviewed, along with the diagnoses: Left thumb basal joint arthritis. Discussed with patient treatment options. Discussed Tylenol, NSAIDs, Voltaren gel, bracing, cortisone injection and lastly surgery. Symptoms have settled down therefore going to hold off on cortisone injection currently. He was provided with a left thumb CMC brace. He will call for an appointment if symptoms were to worsen. Jose Hirsch acknowledges understanding of the above plan and agrees to follow recommendations and/or take medications as prescribed. RUFINA Streeter cc: Briseida Patel, * [1] Past Medical History: Diagnosis Date Appendix carcinoma (CMS/HCC V24, CMS/HCC V28) Benign prostatic hyperplasia Chronic kidney disease (CKD), stage III (moderate) (CMS/HCC V24, CMS/HCC V28) Prostate cancer (CMS/HCC V24, CMS/HCC V28) Small bowel obstruction (CMS/HCC V24, CMS/HCC V28) [2] Past Surgical History: Procedure Laterality Date APPENDECTOMY CHOLECYSTECTOMY OMENTECTOMY SPLENECTOMY, TOTAL [3] Patient Active Problem List Diagnosis Acquired ptosis of eyelid Anemia Bundle branch block, right Chronic neck pain COVID-19 Elevated PSA GERD (gastroesophageal reflux disease) HTN (hypertension) Nephrolithiasis Obstructive lung disease (generalized) (CMS/HCC V24, CMS/HCC V28) Peripheral neuropathy Prediabetes Prostate cancer (CMS/HCC V24, CMS/HCC V28) Pseudomyxoma peritonei (CMS/HCC V24, CMS/HCC V28) Psoriasis of scalp Stage 3 chronic kidney disease (CMS/HCC V24, CMS/HCC V28) Bowel obstruction (CMS/HCC V24, CMS/HCC V28) Small bowel obstruction (CMS/HCC V24, CMS/HCC V28) Acute pancreatitis Moderate malnutrition (CMS/HCC V24) Primary chronic pseudo-obstruction of small intestine Generalized abdominal pain [4] No outpatient medications have been marked as taking for the 03/06/25 encounter (Consult) with RUFINA Streeter. [5] Allergies Allergen Reactions Cefepime Macular rash Iodinated Contrast Media Iron Piperacillin-Tazobactam documented in this encounter Plan of Treatment Not on file documented as of this encounter Visit Diagnoses Diagnosis CMC arthritis- Primary documented in this encounter Orders Outpatient Referral Count Last Ordered Date Fir st Ordered Date AMB REFERRAL TO HAND SURGERY 1 03/06/2025 documented in this encounter Care Teams Registered Client Associate Relationship Specialty Start Date End Date Lobo Mills MD [address] [place] [address] PCP - General 12/14/23 documented as of this encounter
[2025-03-10 14:58] LABS: Hematocrit 27.3 % (42.0-52.0); Hemoglobin 8.9 g/dl (14.0-18.0); Imm Gran Abs Auto 0.06 X10*3/uL (0.00-0.03); Imm Gran Pct Auto 0.6 % (0.0-0.4); Lymphocytes Absolute Auto 2.7 X10*3/uL (1.2-4.9); MANUAL DIFF FLAG SCAN; Mean Corpuscular HGB Conc 32.6 g/dl (31.0-36.0); Mean Corpuscular Hemoglobin 31.4 pg (27.0-33.0); Mean Corpuscular Volume 96.5 fL (80.0-98.0); NRBC Abs Auto 0.000 X10*3/uL (0.0-0.012); NRBC Pct Auto 0.0 /100WBC (0.0-0.2); Platelet Count 569 X10*3/uL (160-400); Red Blood Count 2.83 X10*6/uL (4.60-5.80); SCAN SMEAR FLAG 1; White Blood Count 10.9 X10*3/uL (4.8-10.8)
[2025-03-10 16:26] LABS: Alanine Aminotransferase < 6 U/L (0-40); Albumin Level 3.6 g/dL (3.5-5.0); Alkaline Phosphatase 69 U/L (39-117); Anion Gap 11 (12-20); Aspartate Amino Transferase 15 U/L (5-37); Blood Urea Nitrogen 27 mg/dL (9-16); Calcium 8.7 mg/dL (8.4-10.2); Carbon Dioxide 21 mmol/L (22-29); Chloride 113 mmol/L (96-108); Estimated Glomerular Filt Rate 54; Potassium 4.4 mmol/L (3.3-5.1); Sodium 141 mmol/L (135-145); Total Protein 5.9 g/dL (6.5-8.0)
--- OUTSIDE RECORDS SUMMARY | 2025-03-10 16:56 | XMS_ITS | Clinical Summary ---
Author Organization [facility] Address [address] [address] Phone Care Team Providers Care Dental Biller Name Role Phone Lobo Mills MD Primary Care Provider [phone] Allergies Active Allergy Reactions Criticality Noted Date [...] Office Visit [facility] [address] [facility] [address] [place] [address] Briseida Clarke ARNP Stage 3a chronic kidney disease (HCC) (Primary Dx); Anemia in chronic kidney disease; Chronic metabolic acidosis 12/30/2024 Orders Only [facility] [address] [place] [address] [address] [place] [address] Briseida Clarke ARNP Acute nontraumatic kidney injury, [...] Office Visit [facility] [address] [id number] Mike Andres MD [address] [phone] Health Maintenance Due Date Last Done Comments [...] UIBC 188 111 - 343 ug/dL [facility] TIBC 220(L) 250 - 450 ug/dL [facility] Iron 32(L) 38 - 169 ug/dL [facility] Iron Saturation (TSat) 15 15 - 55 % [facility] 01/14/2025 12:3 2 PM EDT 01/14/2025 us Briseida [facility] LAB BLOOD ORDERABLES Final Result [facility] [address] [place] [address] * Vitamin D 25 Hydroxy (01/14/2025 12:32 PM EDT) [facility] Vitamin D, 25-OH, Total 42.1 30.0 - 100.0 ng/mL [facility] Comment: Vitamin D deficiency has been defined by the [place] of Medicine and an Endocrine Society practice guideline as a level of serum 25-OH vitamin D less than 20 ng/mL (1,2). The Endocrine Society went on to further define vitamin D insufficiency as a level between 21 and 29 ng/mL (2). 1. IOM ([place] of Medicine). 2010. Dietary reference intakes for calcium and D. [place]: The National Academies Press. 2. Red MF, Aimee WRIGHT, Greyson GUZMÁN, et al. Evaluation, treatment, and prevention of vitamin D deficiency: an Endocrine Society clinical practice guideline. JCEM. 2010; 96(7):1911-30. 01/14/2025 12:3 2 PM EDT 01/14/2025 Briseida Clarke [facility] LAB BLOOD ORDERABLES Final Result [facility] [address] [place] [address] * (ABNORMAL) CBC (01/14/2025 12:32 PM EDT) [facility] WBC 6.9 3.4 - 10.8 x10E3/uL [facility] RBC 3.00(L) 4.14 - 5.80 x10E6/uL [facility] Hemoglobin 9.7(L) 13.0 - 17.7 g/dL [facility] Hematocrit 29.3(L) 37.5 - 51.0 % [facility] MCV 98(H) 79 - 97 fL [facility] MCH 32.3 26.6 - 33.0 pg [facility] MCHC 33.1 31.5 - 35.7 g/dL [facility] RDW 13.8 11.6 - 15.4 % [facility] Platelets 336 150 - 450 x10E3/uL [facility] 01/14/2025 12:3 2 PM EDT 01/14/2025 Briseida [facility] LAB BLOOD ORDERABLES Final Result Performing Organization Address City/[facility]/ZIP Co de Phone Number [facility] [address] [place] [address] * Immunofixation electrophoresis (01/14/2025 12:32 PM EDT) IgG 908 603 - 1,613 mg/dL [facility] IgA 123 61 - 437 mg/dL [facility] IgM 48 20 - 172 mg/dL [facility] Immunofixation Result, Serum Comment [facility] Comment: The immunofixation pattern appears unremarkable. Evidence of monoclonal protein is not apparent. 01/14/2025 12:3 2 PM EDT 01/14/2025 Briseida [facility] LAB BLOOD ORDERABLES Final Result Performing Organization Address City/[facility]/ZIP Co de Phone Number [facility] [address] [place] [address] * PTH, Intact (01/14/2025 12:32 PM EDT) PTH 37 15 - 65 pg/mL [facility] 01/14/2025 12:3 2 PM EDT 01/14/2025 [facility] LAB BLOOD ORDERABLES Final Result Performing Organization Address City/[facility]/ZIP Co de Phone Number [facility] [address] [place] [address] * Ferritin (01/14/2025 12:32 PM EDT) Pathologist [facility] Ferritin 325 30 - 400 ng/mL [facility] 01/14/2025 12:3 2 PM EDT 01/14/2025 Briseida [facility] LAB BLOOD ORDERABLES Final Result Performing Organization Address [facility] de Phone Number [facility] [address] [place] [address] * (ABNORMAL) Renal Function Panel (01/14/2025 12:32 PM EDT) Pathologist [facility] Glucose 91 70 - 99 mg/dL [facility] BUN 23 8 - 27 mg/dL [facility] Creatinine 1.55(H) 0.76 - 1.27 mg/dL [facility] eGFR CKD-EPI CR 2020 49(L) >59 mL/min/1.7 3 [facility] BUN/Creatinine Ratio 15 10 - 24 [facility] Sodium 141 134 - 144 mmol/L [facility] Potassium 4.6 3.5 - 5.2 mmol/L [facility] Chloride 109(H) 96 - 106 mmol/L [facility] Bicarbonate (CO2) 17(L) 20 - 29 mmol/L [facility] Calcium 8.6 8.6 - 10.2 mg/dL [facility] Albumin 3.9 3.9 - 4.9 g/dL [facility] Phosphorus 3.1 2.8 - 4.1 mg/dL [facility] 01/14/2025 12:3 2 PM EDT 01/14/2025 Briseida [facility] LAB BLOOD ORDERABLES Final Result [facility] [address] [place] [address] from Last 3 Months Insurance Medicare Medicaid [place] Medicare Medicaid [place] Care Teams Dental Biller Relationship Specialty Start Date End Date Lobo Mills MD [address] [place] PCP - General 03/05/19
--- OUTSIDE RECORDS SUMMARY | 2025-03-10 16:56 | XMS_ITS | Clinical Summary ---
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 Health Care Proxy 06/07/2019 9:42 PM Conver jigar [facility] D[facility] (Do Not Resuscitate)/DNI (Do Not Intubate) 06/07/2019 9:41 PM Conversion - DNR Ord er ([facility] Mitzi DM) Health Care Proxy 05/27/2019 11:56 AM Conv ersion - [facility] * Full Code (Latest Code Status on File) Date Activated Date Inactivated Comments 08/10/2021 3:59 PM 08/12/2021 8:27 PM Care Teams Hansard Reporter Relationship Specialty Start Date End Date Lobo Mills MD [address] [place] [address] PCP - General 06/04/21
--- OUTSIDE RECORDS SUMMARY | 2025-03-10 16:56 | XMS_ITS ---
Author Organization [address] [facility] Address [address] [place] [address] Phone Care Team Providers Care Jewel Staker Name Role Phone Lobo Mills MD Primary Care Provider [phone] Active Problems Problem Noted Date Diagnosed Date Primary chronic pseudo-obstruction of small inte lisette 01/27/2025 Generalized abdominal pain 01/27/2025 Moderate malnutrition ([facility] V24) 01/24/2025 Acute pancreatitis 01/20/2025 Small bowel obstruction ([facility] V24, [facility] V2 8) 12/26/2024 Bowel obstruction ([facility] V24, [facility] V28) 03/2025 Acquired ptosis of eyelid 02/06/2024 Anemia 02/06/2024 Bundle branch block, right 02/06/2024 Chronic neck pain 02/06/2024 COVID-19 02/06/2024 Elevated PSA 02/06/2024 GERD (gastroesophageal reflux disease) HTN (hypertension) 02/06/2024 Nephrolithiasis 02/06/2024 Obstructive lung disease (ge neralized) ([facility] V24, [facility] V28) 02/06/2024 Peripheral neuropathy 02/06/2024 Prediabetes 02/06/2024 Prostate cancer ([facility] V24, [facility] V28) 02/05 Pseudomyxoma peritonei ([facility] V24, [facility]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 Psoriasis of scalp 02/06/2024 Stage 3 chronic kidney disease ([facility] V24, [facility] V28) 02/06/2024 Current Treatment and Therapy Plans No current plan information found. Past Treatment and Therapy Plans No past plan information found. Lifetime Dose Tracking * Chemical Lifetime Dose Automatic Entry Manual Entr y Fluoro Time 1.7 minutes 0 minutes 1.7 minutes Air Kerma 13 mGy 0 mGy 13 mGy
--- OUTSIDE RECORDS SUMMARY | 2025-03-10 16:56 | XMS_ITS | Clinical Summary ---
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 Active naloxone (NARCAN) 4 mg/0.1 mL nasal spray by Nasal route. Acti ve tamsulosin (FLOMAX) 0.4 mg 24 hr capsule [...] times a day. 120 each 5 03/25/20 25 Active furosemide (LASIX) 20 mg tablet Take 1 tablet (20 mg total) by mouth 2 (two) times a day for 5 days. 10 each 5 Active predniSONE (DELTASONE) 20 mg tablet Take 2 tablets (40 mg total) by mouth 1 (one) time each day for 5 days. See instructions. 10 tablet 5 02/13/20 25 potassium chloride (KLOR-CON M20) 20 mEq CR tablet Take 1 tablet (20 mEq total) by mouth 2 (two) times a day for 5 days. Tablet may be swallowed whole (do not crush/chew/suck on) OR broken in half and each half swallowed separately OR dissolved (whole tablet) in ~4 ounces of water (allow ~2 minutes to dissolve, stir well and administer immediately). 10 each 5 03/04/20 25 Active Problems Problem Noted Date Diagnosed Date Primary chronic pseudo-obstruction of small inte lisette 01/27/2025 Generalized abdominal pain 01/27/2025 Moderate malnutrition ([facility] V24) 01/24/2025 Acute pancreatitis 01/20/2025 Small bowel obstruction ([facility] V24, [facility] V2 8) 12/26/2024 Bowel obstruction ([facility] V24, [facility] V28) 03/2025 Acquired ptosis of eyelid 02/06/2024 Anemia 02/06/2024 Bundle branch block, right 02/06/2024 Chronic neck pain 02/06/2024 COVID-19 02/06/2024 Elevated PSA 02/06/2024 GERD (gastroesophageal reflux disease) HTN (hypertension) 02/06/2024 Nephrolithiasis 02/06/2024 Obstructive lung disease (ge neralized) ([facility] V24, [facility] V28) 02/06/2024 Peripheral neuropathy 02/06/2024 Prediabetes 02/06/2024 Prostate cancer ([facility] V24, [facility] V28) 02/05 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, [facility]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 Psoriasis of scalp 02/06/2024 Stage 3 chronic kidney disease ([facility] V24, [facility] V28) 02/06/2024 Encounters Date Type Department Care Team Description 03/06/2025 10:00 AM EST Consult Orthopedic Surgery - [facility] [address] [facility] [address] [place] [phone] Lori Walters PA [facility] arthritis (Primary Dx) 02/27/2025 12:00 PM EDT - 02/27/2025 4:36 PM EDT Emergency [facility] Emergency [address] [place] [phone] Alexander Collins MD Edema leg (Primary Dx); Anemia, unspecified type; Hypoalbuminemia Discharge Disposition: Home or Self Care 02/07/2025 6:12 AM EDT - 02/07/2025 10:14 AM EDT Emergency [facility] Emergency [address] [place] [phone] Arthralgia of left hand (Primary Dx); Lead-induced acute gout of left hand, initial encounter Discharge Disposition: Home or Self Care 01/26/2025 9:17 PM EDT - 01/30/2025 5:00 PM EDT Hospital Encounter [facility] Urology Unit [address] [place] [phone] Shmuel Garber MD Jones, Christopher, MD Alam, Aroosa, MD Generalized abdominal pain (Primary Dx); Small bowel obstruction ([facility] V24, [facility] V28); 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, [facility] V28) Discharge Disposition: Home-Health Care [facility] 01/20/2025 5:46 PM EDT - 01/24/2025 3:25 PM EDT Hospital Encounter [facility] Medical Surgical Unit [address] [place] [phone] Sachin Murrieta MD Jones, Christopher, MD Santoyo-Pacheco, Omar D, MD Intestinal obstruction, unspecified cause, unspecified whether partial or complete ([facility] V24, [facility] V28) (Primary Dx); Acute pancreatitis, unspecified complication status, unspecified pancreatitis type Discharge Disposition: Home or Self Care 12/26/2024 1:38 AM EDT - 12/27/2024 5:54 PM EDT Hospital Encounter [facility] Urology Unit [address] [place] [phone] Oh Khanna MD Muhoozi, Bannet, MD Flores, Carlos M, MD Mohani, Priya, MD Generalized abdominal pain (Primary Dx) Discharge Disposition: Home or Self Care from Last 3 Months Surgical History Surgery Date Site/Laterality Comments APPENDECTOMY CHOLECYSTECTOMY SPLENECTOMY, TOTAL OMENTECTOMY Medical History Medical History Date Comments Prostate cancer ([facility] V24, [facility] V28) Small bowel obstruction ([facility] V24, [facility] V2 8) 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, [facility] V28) Benign prostatic hyperplasia Chronic kidney disease (CKD) , stage III (moderate) ([facility] V24, [facility] V28) Family History Medical History Relation Name [...] Sign Reading Time Taken Comments Blood Pressure 116/79 02/27/2025 2:48 PM EDT Pulse 70 02/27/2025 2:48 PM EDT Temperature 36.8 C (98.3 F) 02/27/2025 2:48 PM EDT Respiratory Rate 15 02/27/2025 2:48 PM EDT Oxygen Saturation 100% 02/27/2025 2:48 PM EDT Inhaled Oxygen Concentration - - Weight 59.9 kg (132 lb) 02/27/2025 11:41 AM EDT Height 154.9 cm (5' 1 ) 02/27/2025 11:41 AM EDT Body Mass Index 24.94 02/27/2025 11:41 AM EDT Plan of Treatment Health Maintenance [...] 05/01/2024 COVID-19 Vaccine (7 - Pfizer risk 2023- season) 2024 03/12/2024, 03/15/2022, 09/23/2021, Additional history [...] 01/30/2026 01/30/2025 Hypertension/CHF/CAD Annual BMP Blood Test 02/27/2026 02/27/2025, 01/30/2025, 01/29/2025, Additional history exists HIB Vaccines Completed 05/30/2007 [...] Procedure Name Priority Date/Time Associated Diagnosis Comments TYPE AND SCREEN STAT 02/27/2025 1:57 PM EDT CBC WITH AUTO DIFFERENTIAL STAT 02/27/2025 1:57 PM EDT B-TYPE NATRIURETIC PEPTIDE STAT 02/27/2025 1:57 PM EDT CBC AND DIFFERENTIAL STAT 02/27/2025 1:57 PM EDT COMPREHENSIVE METABOLIC PANEL STAT 02/27/2025 1:57 PM EDT XR CHEST 2 VIEWS STAT 02/27/2025 12:5 4 PM EDT VAS US DUPLEX LOWER EXT VENOUS BILAT Routine 02/27/2025 12:37 PM EDT Edema leg XR HAND 3+ VIEWS LEFT STAT 02/07/2025 [...] Recently Relevant to Health Maintenance Results * (ABNORMAL) CBC auto differential (02/27/2025 1:57 PM EDT) Only the most recent of13 resultswithin the time period is included. [facility] WBC 8.8 4.8 - 10.8 K/mcL LAB HEMETOLOGY METHOD 02/27/2025 2:22 PM EDT [facility] RBC 2.50(L) 4.50 - 5.50 M/mcL LAB HEMETOLOGY METHOD 02/27/2025 2:22 PM EDT [facility] Hemoglobin 7.9(L) 13.5 - 17.5 g/dL LAB HEMETOLOGY METHOD 02/27/2025 2:22 PM EDT [facility] Hematocrit 23.8(L) 42.0 - 54.0 % LAB HEMETOLOGY METHOD 02/27/2025 2:22 PM EDT [facility] MCV 95.2 79.0 - 98.0 FL LAB HEMETOLOGY METHOD 02/27/2025 2:22 PM EDT [facility] MCH 31.6 27.0 - 32.0 pcg LAB HEMETOLOGY METHOD 02/27/2025 2:22 PM EDT [facility] MCHC 33.2 32.0 - 37.0 g/dL LAB HEMETOLOGY METHOD 02/27/2025 2:22 PM EDT [facility] RDW 16.2(H) 11.0 - 15.0 % LAB HEMETOLOGY METHOD 02/27/2025 2:22 PM EDT [facility] Platelets 334 130 - 400 K/mcL LAB HEMETOLOGY METHOD 02/27/2025 2:22 PM EDT [facility] MPV 9.3 7.0 - 11.0 FL LAB HEMETOLOGY METHOD 02/27/2025 2:22 PM EDT [facility] NRBC 0.0 <1.0 % LAB HEMETOLOGY METHOD 02/27/2025 2:22 PM [facility] NRBC Absolute 0.00 <0.10 K/mcL LAB HEMETOLOGY METHOD 02/27/2025 2:22 PM [facility] Neutrophils Relative 65.8 % LAB HEMETOLOGY METHOD 02/27/2025 2:22 PM [facility] Lymphocytes Relative 21.3 % LAB HEMETOLOGY METHOD 02/27/2025 2:22 PM [facility] Monocytes Relative 10.0 % LAB HEMETOLOGY METHOD 02/27/2025 2:22 PM [facility] Eosinophils Relative 1.7 % LAB HEMETOLOGY METHOD 02/27/2025 2:22 PM [facility] Basophils Relative 0.7 % LAB HEMETOLOGY METHOD 02/27/2025 2:22 PM [facility] Immature Granulocytes Relative 0.5 % LAB HEMETOLOGY METHOD 02/27/2025 2:22 PM [facility] Neutrophils Absolute 5.81 1.50 - 7.00 K/mcL LAB HEMETOLOGY METHOD 02/27/2025 2:22 PM T [facility] Lymphocytes Absolute 1.88 1.00 - 5.00 K/mcL LAB HEMETOLOGY METHOD 02/27/2025 2:22 PM [facility] Monocytes Absolute 0.88 0.20 - 1.00 K/mcL LAB HEMETOLOGY METHOD 02/27/2025 2:22 PM [facility] Eosinophils Absolute 0.15 0.00 - 0.50 K/mcL LAB HEMETOLOGY METHOD 02/27/2025 2:22 PM EDT [facility] Basophils Absolute 0.06 0.00 - 0.20 K/[facility] LAB HEMETOLOGY METHOD 02/27/2025 2:22 PM EDT [facility] Immature Granulocytes Absolute 0.04(H) 0.00 - 0.03 K/[facility] LAB HEMETOLOGY METHOD 02/27/2025 2:22 PM EDT [facility] Blood Venous blood specimen / Unknown Venipuncture / Unknown 02/27/2025 1:57 PM EDT 02/27/2025 2:12 PM EDT Alexander Collins MD LAB BLOOD ORDERABLES Final Result Performing Organization Address [facility] Co de Phone Number [facility] [address] [place] [address], [place] [phone] * Type and screen (02/27/2025 1:57 PM EDT) Only the most recent of2 resultswithin the time period is included. ABO Group O 02/27/2025 3:07 PM EDT [facility] Rh Type Negative 02/27/2025 3:07 PM EDT [facility] Antibody Screen Negative 02/27/2025 3:07 PM EDT [facility] Blood Venous blood specimen / Unknown Venipuncture / Unknown 02/27/2025 1:57 PM EDT 02/27/2025 2:12 PM EDT Alexander Collins MD LAB BLOOD BANK TEST ORDERAB LES Final Result Performing Organization Address [facility]/ZIP Co de Phone Number [facility] [address] [place] [address], [place] [phone] * (ABNORMAL) B-type natriuretic peptide (02/27/2025 1:57 PM EDT) BNP 315(H) <=100 pcg/mL LAB CHEMISTRY METHOD 02/27/2025 2:51 PM EDT [facility] Blood Venous blood specimen / Unknown Venipuncture / Unknown 02/27/2025 1:57 PM EDT 02/27/2025 2:12 PM EDT us Alexander Collins MD LAB BLOOD ORDERABLES Final Result [facility] [address] [place] [address], [place] [phone] * (ABNORMAL) Comprehensive Metabolic Panel (CMP) (02/27/2025 1:57 PM EDT) Only the most recent of7 resultswithin the time period is included. Sodium 142 133 - 145 mmol/L LAB CHEMISTRY METHOD 02/27/2025 2:49 PM [facility] Potassium 4.1 3.5 - 5.5 mmol/L LAB CHEMISTRY METHOD 02/27/2025 2:49 PM [facility] Chloride 115(H) 96 - 110 mmol/L LAB CHEMISTRY METHOD 02/27/2025 2:49 PM [facility] CO2 22 21 - 32 mmol/L LAB CHEMISTRY METHOD 02/27/2025 2:49 PM [facility] Anion Gap 5 3 - 11 LAB CHEMISTRY METHOD 02/27/2025 2:49 PM [facility] Glucose 112(H) 70 - 100 mg/dL LAB CHEMISTRY METHOD 02/27/2025 2:49 PM [facility] BUN 22 5 - 25 mg/dL LAB CHEMISTRY METHOD 02/27/2025 2:49 PM [facility] Creatinine 1.19 0.70 - 1.30 mg/dL LAB CHEMISTRY METHOD 02/27/2025 2:49 PM [facility] eGFR 67 >=60 mL/min/1. 73m2 LAB CHEMISTRY METHOD 02/27/2025 2:49 PM EDT [facility] Comment:Calculation based on the Chronic Kidney Disease Epidemiology Collaboration (CKD-EPI) equation refit without adjustment for race. BUN/Creatinine Ratio 18.5 LAB CHEMISTRY METHOD 02/27/2025 2:49 PM EDT [facility] Calcium 8.2(L) 8.5 - 10.5 mg/dL LAB CHEMISTRY METHOD 02/27/2025 2:49 PM EDT [facility] AST (SGOT) 9(L) 10 - 42 unit/L LAB CHEMISTRY METHOD 02/27/2025 2:49 PM [facility] ALT (SGPT) 14 10 - 60 unit/L LAB CHEMISTRY METHOD [facility] Alkaline Phosphatase 58 42 - 121 unit/L LAB CHEMISTRY METHOD 02/27/2025 2:49 PM EDT [facility] Total Protein 4.9(L) 6.0 - 8.0 g/dL LAB CHEMISTRY METHOD 02/27/2025 2:49 PM EDT [facility] Albumin 2.7(L) 3.2 - 5.0 g/dL LAB CHEMISTRY METHOD 02/27/2025 2:[facility] Total Bilirubin 0.3 0.0 - 1.4 mg/dL LAB CHEMISTRY METHOD 02/27/2025 2:49 PM EDT [facility] Blood Venous blood specimen / Unknown Venipuncture / Unknown 02/27/2025 1:57 PM EDT 02/27/2025 2:12 PM EDT us Alexander Collins MD LAB BLOOD ORDERABLES Final Result [facility] [address] [place] [address], * XR Chest 2 Views (02/27/2025 12:54 PM EDT) Anatomical Region Laterality Modality Body Radiographic Carolina ging 02/27/2025 1:20 PM EDT Impressions 02/27/2025 1:22 PM EDT FINDINGS/IMPRESSION: Hypoventilatory examination. Crowding of bronchovascular structures at the lung bases. Tortuous aorta. No consolidation or effusion. Right chest wall port. Degenerative osseous changes. -------- FINAL REPORT -------- Dictated By: Loretta Ponce Dictated Date: 02/27/2025 13:20 ET Assigned Physician: Loretta Ponce Reviewed and Electronically Signed By: Loretta Ponce Signed Date: 02/27/2025 13:22 ET Workstation ID: [id number] Transcribed By: Self Edit Transcribed Date: 02/27/2025 13:20 ET Narrative 02/27/2025 1:22 PM EDT XR CHEST 2 VIEWS INDICATION: general weakness TECHNIQUE: XR CHEST 2 VIEWS COMPARISON: None Procedure Note Loretta Ponce MD - 02/27/2025 XR CHEST 2 VIEWS INDICATION: general weakness TECHNIQUE: XR CHEST 2 VIEWS COMPARISON: None IMPRESSION: FINDINGS/IMPRESSION: Hypoventilatory examination. Crowding ofbronchovascular structures at the lung bases. Tortuous aorta. Noconsolidation or effusion. Right chest wall port. Degenerative osseouschanges. -------- FINAL REPORT -------- Dictated By: Loretta Ponce Dictated Date: 02/27/2025 13:20 ET Assigned Physician: Loretta Ponce Reviewed and Electronically Signed By: Loretta Ponce Signed Date: 02/27/2025 13:22 ET Workstation ID: [id number] Transcribed By: Self Edit Transcribed Date: 02/27/2025 13:20 ET us Alexander Collins MD IMG XR PROCEDURES Final Res ult * Vascular US duplex lower extremity venous bilateral (02/27/2025 12:37 PM EDT) Anatomical Region Laterality Modality Vascular, Abdomen Ultrasound 02/27/2025 12:4 3 PM EDT Impressions 02/27/2025 12:44 PM EDT NO RIGHT OR LEFT LOWER EXTREMITY DEEP VENOUS THROMBOSIS. -------- FINAL REPORT -------- Dictated By: Loretta Ponce Dictated Date: 02/27/2025 12:43 ET Assigned Physician: Loretta Ponce Reviewed and Electronically Signed By: Loretta Ponce Signed Date: 02/27/2025 12:44 ET Workstation ID: [id number] Transcribed By: Self Edit Transcribed Date: 02/27/2025 12:43 ET Narrative 02/27/2025 12:44 PM EDT PROCEDURE: VAS US DUPLEX LOWER EXT VENOUS BILAT INDICATION: edema TECHNIQUE: 2-D and color Doppler imaging of the lower extremity venous vasculature with compression and augmentation maneuvers. COMPARISON: No priors available. FINDINGS: RIGHT: There is normal flow, compression, and augmentation from the common femoral through the popliteal vein. Visualized calf veins unremarkable. Right popliteal fossa cyst measuring 6.5 cm. LEFT: There is normal flow, compression, and augmentation from the common femoral through the popliteal vein. Visualized calf veins unremarkable. Procedure Note Loertta Ponce MD - 02/27/2025 PROCEDURE: VAS US DUPLEX LOWER EXT VENOUS BILAT INDICATION: edema TECHNIQUE: 2-D and color Doppler imaging of the lower extremity venousvasculature with compression and augmentation maneuvers. COMPARISON: No priors available. FINDINGS: RIGHT: There is normal flow, compression, and augmentation from the commonfemoral through the popliteal vein. Visualized calf veins unremarkable.Right popliteal fossa cyst measuring 6.5 cm. LEFT: There is normal flow, compression, and augmentation from the commonfemoral through the popliteal vein. Visualized calf veins unremarkable. IMPRESSION: NO RIGHT OR LEFT LOWER EXTREMITY DEEP VENOUS THROMBOSIS. -------- FINAL REPORT -------- Dictated By: Loretta Ponce Dictated Date: 02/27/2025 12:43 ET Assigned Physician: Loretta Ponce Reviewed and Electronically Signed By: Loretta Ponce Signed Date: 02/27/2025 12:44 ET Workstation ID: [id number] Transcribed By: Self Edit Transcribed Date: 02/27/2025 12:43 ET us Alexander Collins MD CV VASCULAR PROCEDURES Gabbie l Result * XR Hand 3+ Views Left (02/07/2025 7:58 AM EDT) Anatomical Region Laterality Modality Upper Extremities, Hand Left Radiogra [facility] 02/07/2025 9:28 AM EDT Impressions 02/07/2025 9:29 AM EDT No acute findings. Degenerative changes as detailed above. -------- FINAL REPORT -------- Dictated By: Pratik Christian Dictated Date: 02/07/2025 09:28 ET Assigned Physician: Pratik Christian Reviewed and Electronically Signed By: Pratik Christian Signed Date: 02/07/2025 09:29 ET Workstation ID: [id number] Transcribed By: Self Edit Transcribed Date: 02/07/2025 [...] Signed Date: 02/07/2025 09:29 ET Workstation ID: [id number] Transcribed By: Self Edit Transcribed Date: 02/07/2025 09:28 ET Briseida ALMARAZ IMG XR PROCEDURES Final Result * Phosphorus (01/30/2025 5:43 AM EDT) Only the most recent of6 resultswithin the time period is included. Phosphorus 2.9 2.5 - 4.5 mg/dL LAB CHEMISTRY METHOD 01/30/2025 7:03 AM EDT [facility] Blood Venous blood specimen / Unknown Venipuncture / Unknown 01/30/2025 5:43 AM EDT 01/30/2025 6:19 AM EDT Yazmin ALMARAZ LAB BLOOD ORDERABLES Final Result Performing Organization Address [facility] de Phone Number [facility] [address] [place] [address], [place] [phone] * Magnesium (01/30/2025 5:43 AM EDT) Only the most recent of9 resultswithin the time period is included. Magnesium 2.0 1.9 - 2.6 mg/dL LAB CHEMISTRY METHOD 01/30/2025 7:03 AM EDT [facility] Blood Venous blood specimen / Unknown Venipuncture / Unknown 01/30/2025 5:43 AM EDT 01/30/2025 6:19 AM EDT Yazmin ALMARAZ LAB BLOOD ORDERABLES Final Result Performing Organization Address [facility]/ZIP Ut de Phone Number [facility] [address] [place] [address], [place] [phone] * IR Insert Gastro Tube Perc w [...] as the tube itself. Specimen: None Tube: 16-Turkish gastrostomy Estimated blood loss: Minimal Consultations: None [...] over the wire through which we placed [id number]-Jojhhe gastrostomy tube. The peel-away sheath was removed. [...] Signed Date: 01/28/2025 17:19 ET Workstation ID: [id number] Transcribed By: Self Edit Transcribed Date: 01/28/2025 [...] as the tube itself. Specimen: None Tube: 16-Turkish gastrostomy Estimated blood loss: Minimal Consultations: None [...] advanced over the wire through which weplaced [id number]-Bpihty gastrostomy tube. The peel-away sheath was removed.5 [...] Signed Date: 01/28/2025 17:19 ET Workstation ID: [id number] Transcribed By: Self Edit Transcribed Date: 01/28/2025 17:16 ET us Patricia ALMARAZ IMG IR PROCEDURES Final Result * (ABNORMAL) Basic metabolic panel (01/27/2025 6:03 AM EDT) Only the most recent of7 resultswithin the time period is included. Sodium 138 133 - 145 mmol/L LAB CHEMISTRY METHOD 01/27/2025 6:55 AM [facility] Potassium 3.8 3.5 - 5.5 mmol/L LAB CHEMISTRY METHOD 01/27/2025 6:55 AM [facility] Chloride 103 96 - 110 mmol/L LAB CHEMISTRY METHOD 01/27/2025 6:55 AM [facility] CO2 33(H) 21 - 32 mmol/L LAB CHEMISTRY METHOD 01/27/2025 6:55 AM [facility] Anion Gap 2(L) 3 - 11 LAB CHEMISTRY METHOD 01/27/2025 6:55 AM [facility] Glucose 122(H) 70 - 100 mg/dL LAB CHEMISTRY METHOD 01/27/2025 6:55 AM [facility] BUN 21 5 - 25 mg/dL LAB CHEMISTRY METHOD 01/27/2025 6:55 AM EDT [facility] Creatinine 1.18 0.70 - 1.30 mg/dL LAB CHEMISTRY METHOD 01/27/2025 6:55 AM EDT [facility] eGFR 68 >=60 mL/min/1. 73m2 LAB CHEMISTRY METHOD 01/27/2025 6:55 AM EDT [facility] Comment:Calculation based on the Chronic Kidney Disease Epidemiology Collaboration (CKD-EPI) equation refit without adjustment for race. BUN/Creatinine Ratio 17.8 LAB CHEMISTRY METHOD 01/27/2025 6:55 AM EDT [facility] Calcium 8.3(L) 8.5 - 10.5 mg/dL LAB CHEMISTRY METHOD 01/27/2025 6:55 AM EDT [facility] Blood Venous blood specimen / Unknown Venipuncture / Unknown 01/27/2025 6:03 AM EDT 01/27/2025 6:08 AM EDT us Rubén Majano MD LAB BLOOD ORDERABLES Final Result [facility] [address] [place] [address], * XR Chest 1 View (01/27/2025 2:35 [...] Signed Date: 01/27/2025 08:25 ET Workstation ID: [id number] Transcribed By: Self Edit Transcribed Date: 01/27/2025 [...] Signed Date: 01/27/2025 08:25 ET Workstation ID: [id number] Transcribed By: Self Edit Transcribed Date: 01/27/2025 [...] MD on 01/27/2025 00:01:46 Shmuel Garber MD IM CT PROCEDURES Edited Result - Final * Lactate, with Reflex (01/26/2025 10:40 PM EDT) Only the most recent of2 resultswithin the time period is included. LACTIC ACID 1.2 0.4 - 2.0 mmol/L LAB CHEMISTRY METHOD 01/26/2025 11:15 PM EDT [facility] Blood Venous blood specimen / Unknown Venipuncture / Unknown 01/26/2025 10:40 PM EDT 01/26/2025 10:44 PM EDT us Shmuel Garber MD LAB BLOOD ORDERABLES Gabbie mike Result [facility] [address] [place] [address], * (ABNORMAL) Manual differential (01/26/2025 10:40 PM EDT) Only the most recent of2 resultswithin the time period is included. Neutrophils % 77.0 % LAB HEMETOLOGY METHOD 01/26/2025 11:27 PM EDT [facility] Bands % 4.0 % LAB HEMETOLOGY METHOD 01/26/2025 11:27 PM EDT [facility] Lymphocytes % 10.0 % LAB HEMETOLOGY METHOD 01/26/2025 11:27 PM EDT [facility] Monocytes % 9.0 % LAB HEMETOLOGY METHOD 01/26/2025 11:27 PM EDT [facility] Eosinophils % 1.0 % LAB HEMETOLOGY METHOD 01/26/2025 11:27 PM EDT [facility] Basophils % 0.0 % LAB HEMETOLOGY METHOD 01/26/2025 11:27 PM EDT [facility] Neutrophils Absolute Manual 8.47(H) 1.50 - 7.00 K/mcL LAB HEMETOLOGY METHOD 01/26/2025 11:27 PM EDT [facility] Bands Absolute Manual 0.44(H) 0.00 - 0.00 K/mcL LAB HEMETOLOGY METHOD 01/26/2025 11:27 PM EDT [facility] Lymphocytes Absolute 1.10 1.00 - 5.00 K/mcL LAB HEMETOLOGY METHOD 01/26/2025 11:27 PM EDT [facility] Monocytes Absolute Manual 0.99 0.20 - 1.00 K/mcL LAB HEMETOLOGY METHOD 01/26/2025 11:27 PM EDT [facility] Eosinophils Absolute Manual 0.11 0.00 - 0.50 K/mcL LAB HEMETOLOGY METHOD 01/26/2025 11:27 PM EDT [facility] Basophils Absolute Manual 0.00 0.00 - 0.20 K/mcL LAB HEMETOLOGY METHOD 01/26/2025 11:27 PM EDT [facility] Rbc Morphology Present( A) Consistent with indices, Normal for [place] LAB HEMETOLOGY METHOD 01/26/2025 11:27 PM EDT [facility] Comment:RBC: Morphology agre es with CBC Platelet Morphology - WAM See Note(A) Normal LAB HEMETOLOGY METHOD 01/26/2025 11:27 PM EDT [facility] Comment:PLT: Normal Target Cells Present 5 - 10%(A) (none) LAB HEMETOLOGY METHOD 01/26/2025 11:27 PM EDT [facility] Blood Venous blood specimen / Unknown Venipuncture / Unknown 01/26/2025 10:40 PM EDT 01/26/2025 10:46 PM EDT Shmuel Garber MD LAB BLOOD ORDERABLES Gabbie l Result [facility] [address] [place] [address], * (ABNORMAL) Hemoglobin and hematocrit (01/22/2025 7:56 PM EDT) Hemoglobin 10.4(L) 13.5 - 17.5 g/dL LAB HEMETOLOGY METHOD 01/22/2025 8:44 PM EDT [facility] Hematocrit 30.8(L) 42.0 - 54.0 % LAB HEMETOLOGY METHOD 01/22/2025 8:44 PM EDT [facility] Blood Venous blood specimen / Unknown Venipuncture / Unknown 01/22/2025 7:56 PM EDT 01/22/2025 8:26 PM EDT us Ryan Otto MD LAB BLOOD ORDERABLES F inal Result [facility] [address] [place] [address], [place] [phone] * XR Abdomen 1 View (01/22/2025 9:35 [...] Signed Date: 01/22/2025 10:11 ET Workstation ID: [id number] Transcribed By: Self Edit Transcribed Date: 01/22/2025 [...] Signed Date: 01/22/2025 10:11 ET Workstation ID: [id number] Transcribed By: Self Edit Transcribed Date: 01/22/2025 10:10 ET Cheri ALMARAZ IMG XR PROCEDURES Final Resu lt * (ABNORMAL) Lipase (01/21/2025 5:50 AM EDT) Only the most recent of3 resultswithin the time period is included. Lipase 262(H) 13 - 75 unit/L LAB CHEMISTRY METHOD 01/21/2025 10:09 AM EDT [facility] Blood Venous blood specimen / Unknown Venipuncture / Unknown 01/21/2025 5:50 AM EDT 01/21/2025 6:20 AM EDT Ryan Otto MD LAB BLOOD ORDERABLES F inal Result [facility] [address] [place] [address], [place] [phone] * Triglycerides (01/20/2025 7:11 PM EDT) Triglycerides 74 0 - 150 mg/dL LAB CHEMISTRY METHOD 01/20/2025 10:28 PM EDT [facility] Blood Venous blood specimen / Unknown Venipuncture / Unknown 01/20/2025 7:11 PM EDT 01/20/2025 7:17 PM EDT Rubén Majano MD LAB BLOOD ORDERABLES Final Result Performing Organization Address [facility] de Phone Number [facility] [address] [place] [address], * Lactate dehydrogenase (01/20/2025 7:11 PM EDT) [facility] LDH 207 120 - 246 unit/L LAB CHEMISTRY METHOD 01/20/2025 10:28 PM EDT [facility] Blood Venous blood specimen / Unknown Venipuncture / Unknown 01/20/2025 7:11 PM EDT 01/20/2025 7:17 PM EDT Rubén Majano MD LAB BLOOD ORDERABLES Final Result Performing Organization Address [facility] de Phone Number [facility] [address] [place] [address], * Lactate (01/20/2025 7:11 PM EDT) [facility] Lactate 1.2 0.4 - 2.0 mmol/L LAB CHEMISTRY METHOD 01/20/2025 7:54 PM EDT [facility] Blood Venous blood specimen / Unknown Venipuncture / Unknown 01/20/2025 7:11 PM EDT 01/20/2025 7:18 PM EDT Sachin Murrieta MD LAB BLOOD ORDERABLES Fin al Result Performing Organization Address [facility] Co de Phone Number [facility] [address] [place] [address], [place] [phone] * ECG-Annotated (12/30/2024) Provider Onbase ECG ORDERABLES Final Result * ECG 12 lead (12/26/2024 3:22 AM EDT) Only the most recent of2 resultswithin the time period is included. [facility] Ventricular Rate ECG 57 BPM GEMUSE Atrial Rate 57 BPM GEMUSE P-R Interval 142 ms GEMUSE QRS Duration 122 ms GEMUSE Q-T Interval 452 ms GEMUSE QTc 439 ms GEMUSE P Wave [place] 18 degrees GEMUSE R [place] 19 degrees GEMUSE T [place] 18 degrees GEMUSE ECG Interpretation Sinus bradycardia Right bundle branch block Abnormal ECG When compared with ECG of 26-DEC-2024 02:12, (unconfirmed) No significant change was found Confirmed by Olu MEEK YUFENG ([id number]) on 12/26/2024 8:18:56 PM GEMUSE 12/26/2024 3:22 AM EDT 12/26/2024 8:18 PM EDT Ladonna Galan VIDEO TECHNICIAN ECG ORDERABLES Final Res ult Performing Organization Address City/[facility]/ZIP Co de Phone Number GEMUSE * APTT (12/26/2024 2:40 AM EDT) aPTT 31.4 24.1 - 39.3 sec LAB COAGULATION METHOD 12/26/2024 3:12 AM EDT [facility] Blood Venous blood specimen / Unknown Venipuncture / Unknown 12/26/2024 2:40 AM EDT 12/26/2024 2:58 AM EDT us Oh Khanna MD LAB BLOOD ORDERABLES Final R esult Performing Organization Address City/[facility]/ZIP Co de Phone Number [facility] [address] [place] [address], [place] [phone] * (ABNORMAL) Protime-INR (12/26/2024 2:40 AM EDT) Protime 14.3(H) 10.6 - 13.9 sec LAB COAGULATION METHOD 12/26/2024 3:12 AM EDT [facility] INR 1.1 LAB COAGULATION METHOD 12/26/2024 3:12 AM EDT [facility] Blood Venous blood specimen / Unknown Venipuncture / Unknown 12/26/2024 2:40 AM EDT 12/26/2024 2:58 AM EDT Oh Khanna MD LAB BLOOD ORDERABLES Final R esult [facility] [address] [place] [address], [place] [phone] * (ABNORMAL) Lipid panel (02/11/2002) LDL/HDL Ratio 4 1 - 5 Triglycerides [...] Documents on File Type Date Recorded 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
--- OUTSIDE RECORDS SUMMARY | 2025-03-10 16:56 | XMS_ITS | Encounter Summary ---
Author Organization [facility] Address [address] [place] [address] Care Team Providers Care Gravel Inspector Name Role Phone Lobo Mills MD Primary Care Provider [phone] Encounter Details Date Type Department Care Team (Late st Contact Info) Description 10/24/2024 Lab Requisition [facility] - Main Lab [address] [facility] [place] [address] Rich Cintron PA [address] [address] Calculus of kidney Social History [...] Complete blood count (10/24/2024 11:48 AM EDT) [facility] WBC 9.1 4.8 - 10.8 K/mcL LAB HEMETOLOGY METHOD 10/24/2024 3:24 PM EDT [facility] RBC 3.30(L) 4.50 - 5.50 M/mcL LAB HEMETOLOGY METHOD 10/24/2024 3:24 PM EDT [facility] Hemoglobin 10.3(L) 13.5 - 17.5 g/dL LAB HEMETOLOGY METHOD 10/24/2024 3:24 PM [facility] Hematocrit 31.2(L) 42.0 - 54.0 % LAB HEMETOLOGY METHOD 10/24[facility]2024 [facility] MCV 96.0 79.0 - 98.0 FL LAB HEMETOLOGY METHOD 10/24/2024 3:[facility] MCH 31.7 27.0 - 32.0 pcg LAB HEMETOLOGY METHOD 10/24/2024 3:24 PM [facility] MCHC 33.0 32.0 - 37.0 g/dL LAB HEMETOLOGY METHOD 10/24/2024 3:24 PM [facility] RDW 15.8(H) 11.0 - 15.0 % LAB HEMETOLOGY METHOD 10/24/2024 3:24 PM EDT [facility] Platelets 464(H) 130 - 400 K/mcL LAB HEMETOLOGY METHOD 10/24/2024 3:[facility] MPV 10.6 7.0 - 11.0 FL LAB HEMETOLOGY METHOD 10/24/2024 3:24 PM [facility] NRBC 0.0 <1.0 % LAB HEMETOLOGY METHOD 10/24/2024 3:24 [facility] NRBC Absolute 0.00 <0.10 K/mcL LAB HEMETOLOGY METHOD 10/24/2024 3:24 PM EDT [facility] Blood Venous blood specimen / Unknown 10/24/2024 11:48 AM EDT 10/24/2024 2:28 PM EDT us Rich ALMARAZ LAB BLOOD ORDERABLES Final Resul t [facility] [address] [place] [address], documented in this encounter Visit Diagnoses Diagnosis Calculus of kidney documented in this encounter Care Teams Gravel Inspector Relationship Specialty Start Date End Date Lobo Mills MD [address] [place], [place] PCP - General 12/14/23 documented as of this encounter
== END 2025-03-10 14:37 | disposition home or self-care (01) ==
LOC: HO.HVNA 14:36
PROVIDERS: Visit Provider Internal Medicine Medical Oncology
DX: N17.9 Acute kidney failure, unspecified (principal); Z90.410 Acquired total absence of pancreas
CPT/HCPCS: 36415; 80053; 85025

== ENCOUNTER 2025-03-17 14:19 | Outpatient (REF) | payer MEDICARE, SELFPAY ==
[2025-03-17 14:23] LABS: MANUAL DIFF FLAG NO
[2025-03-17 14:28] LABS: Hematocrit 25.9 % (42.0-52.0); Hemoglobin 8.4 g/dl (14.0-18.0); Imm Gran Abs Auto 0.04 X10*3/uL (0.00-0.03); Imm Gran Pct Auto 0.4 % (0.0-0.4); Lymphocytes Absolute Auto 1.4 X10*3/uL (1.2-4.9); Mean Corpuscular HGB Conc 32.4 g/dl (31.0-36.0); Mean Corpuscular Hemoglobin 31.6 pg (27.0-33.0); Mean Corpuscular Volume 97.4 fL (80.0-98.0); NRBC Abs Auto 0.000 X10*3/uL (0.0-0.012); NRBC Pct Auto 0.0 /100WBC (0.0-0.2); Platelet Count 398 X10*3/uL (160-400); Red Blood Count 2.66 X10*6/uL (4.60-5.80); White Blood Count 10.1 X10*3/uL (4.8-10.8)
[2025-03-17 14:42] LABS: Alanine Aminotransferase < 6 U/L (0-40); Albumin Level 3.6 g/dL (3.5-5.0); Alkaline Phosphatase 56 U/L (39-117); Anion Gap 9 (12-20); Aspartate Amino Transferase 14 U/L (5-37); Blood Urea Nitrogen 29 mg/dL (9-16); Calcium 8.8 mg/dL (8.4-10.2); Carbon Dioxide 22 mmol/L (22-29); Chloride 112 mmol/L (96-108); Estimated Glomerular Filt Rate 50; Potassium 4.1 mmol/L (3.3-5.1); Sodium 139 mmol/L (135-145); Total Protein 5.8 g/dL (6.5-8.0)
--- OUTSIDE RECORDS SUMMARY | 2025-03-18 04:15 | XMS_ITS ---
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 Generalized abdominal pain 01/27/2025 Moderate malnutrition ([facility] V24) 01/24/2025 Acute pancreatitis 01/20/2025 Small bowel obstruction ([facility] V24, [facility] V2 8) 12/26/2024 Bowel obstruction ([facility] V24, [facility] V28) 03/2025 Acquired ptosis of eyelid 02/06/2024 Anemia 02/06/2024 Bundle branch block, right 02/06/2024 Chronic neck pain 02/06/2024 COVID-19 02/06/2024 Elevated PSA 02/06/2024 GERD (gastroesophageal reflux disease) HTN (hypertension) 02/06/2024 Nephrolithiasis 02/06/2024 Obstructive lung disease (ge neralized) ([facility] V24, [facility] V28) 02/06/2024 Peripheral neuropathy 02/06/2024 Prediabetes 02/06/2024 Prostate cancer ([facility] V24, [facility] V28) 02/05 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 Past Treatment and Therapy Plans No past plan information found. Lifetime Dose Tracking * Chemical Lifetime Dose Automatic Entry Manual Entr y Fluoro Time 1.7 minutes 0 minutes 1.7 minutes Air Kerma 13 mGy 0 mGy 13 mGy
--- OUTSIDE RECORDS SUMMARY | 2025-03-18 04:15 | XMS_ITS | Clinical Summary ---
Author Organization [facility] Address [address] [address] Phone Care Team Providers Care Admissions Manager Rn Name Role Phone Lobo Mills MD Primary Care Provider [phone] Allergies Active Allergy Reactions Criticality Noted Date [...] Office Visit [facility] [address] [facility] [address] [place] [address] Briseida Clarke ARNP Stage 3a chronic kidney disease (HCC) (Primary Dx); Anemia in chronic kidney disease; Chronic metabolic acidosis 12/30/2024 Orders Only [facility] [address] [place] [address] [address] [place] [address] Briseida Clarke ARNP Acute nontraumatic kidney injury, [...] Office Visit [facility] [address] [phone] Mike Andres MD [address] [address] Health Maintenance Due Date Last Done Comments [...] UIBC 188 111 - 343 ug/dL [facility] TIBC 220(L) 250 - 450 ug/dL [facility] Iron 32(L) 38 - 169 ug/dL [facility] Iron Saturation (TSat) 15 15 - 55 % [facility] 01/14/2025 12:3 2 PM EDT 01/14/2025 us Briseida ALARCONP LAB BLOOD ORDERABLES Final Result [facility] [address] [place] [address] * Vitamin D 25 Hydroxy (01/14/2025 12:32 PM EDT) [facility] Vitamin D, 25-OH, Total 42.1 30.0 - 100.0 ng/mL [facility] Comment: Vitamin D deficiency has been defined by the [place] of Medicine and an Endocrine Society practice guideline as a level of serum 25-OH vitamin D less than 20 ng/mL (1,2). The Endocrine Society went on to further define vitamin D insufficiency as a level between 21 and 29 ng/mL (2). 1. IOM ([place] of Medicine). 2010. Dietary reference intakes for calcium and D. [place]: The National Academies Press. 2. Red MF, Aimee WRIGHT, Greyson GUZMÁN, et al. Evaluation, treatment, and prevention of vitamin D deficiency: an Endocrine Society clinical practice guideline. JCEM. 2010; 96(7):1911-30. 01/14/2025 12:3 2 PM EDT 01/14/2025 Briseida Clarke [facility] LAB BLOOD ORDERABLES Final Result [facility] [address] [place] [address] * (ABNORMAL) CBC (01/14/2025 12:32 PM EDT) [facility] WBC 6.9 3.4 - 10.8 x10E3/uL [facility] RBC 3.00(L) 4.14 - 5.80 x10E6/uL [facility] Hemoglobin 9.7(L) 13.0 - 17.7 g/dL [facility] Hematocrit 29.3(L) 37.5 - 51.0 % [facility] MCV 98(H) 79 - 97 fL [facility] MCH 32.3 26.6 - 33.0 pg [facility] MCHC 33.1 31.5 - 35.7 g/dL [facility] RDW 13.8 11.6 - 15.4 % [facility] Platelets 336 150 - 450 x10E3/uL [facility] 01/14/2025 12:3 2 PM EDT 01/14/2025 [facility] LAB BLOOD ORDERABLES Final Result Performing Organization Address City/[facility]/ZIP Co de Phone Number [facility] [address] [place] [address] * Immunofixation electrophoresis (01/14/2025 12:32 PM EDT) IgG 908 603 - 1,613 mg/dL [facility] IgA 123 61 - 437 mg/dL [facility] IgM 48 20 - 172 mg/dL [facility] Immunofixation Result, Serum Comment [facility] Comment: The immunofixation pattern appears unremarkable. Evidence of monoclonal protein is not apparent. 01/14/2025 12:3 2 PM EDT 01/14/2025 [facility] LAB BLOOD ORDERABLES Final Result Performing Organization Address City/[facility]/ZIP Co de Phone Number [facility] [address] [place] [address] * PTH, Intact (01/14/2025 12:32 PM EDT) PTH 37 15 - 65 pg/mL [facility] 01/14/2025 12:3 2 PM EDT 01/14/2025 [facility] LAB BLOOD ORDERABLES Final Result Performing Organization Address City/[facility]/ZIP Co de Phone Number [facility] [address] [place] [address] * Ferritin (01/14/2025 12:32 PM EDT) Pathologist [facility] Ferritin 325 30 - 400 ng/mL [facility] 01/14/2025 12:3 2 PM EDT 01/14/2025 Briseida [facility] LAB BLOOD ORDERABLES Final Result Performing Organization Address [facility] de Phone Number [facility] [address] [place] [address] * (ABNORMAL) Renal Function Panel (01/14/2025 12:32 PM EDT) Pathologist [facility] Glucose 91 70 - 99 mg/dL [facility] BUN 23 8 - 27 mg/dL [facility] Creatinine 1.55(H) 0.76 - 1.27 mg/dL [facility] eGFR CKD-EPI CR 2020 49(L) >59 mL/min/1.7 3 [facility] BUN/Creatinine Ratio 15 10 - 24 [facility] Sodium 141 134 - 144 mmol/L [facility] Potassium 4.6 3.5 - 5.2 mmol/L [facility] Chloride 109(H) 96 - 106 mmol/L [facility] Bicarbonate (CO2) 17(L) 20 - 29 mmol/L [facility] Calcium 8.6 8.6 - 10.2 mg/dL [facility] Albumin 3.9 3.9 - 4.9 g/dL [facility] Phosphorus 3.1 2.8 - 4.1 mg/dL [facility] 01/14/2025 12:3 2 PM EDT 01/14/2025 Briseida ALARCONP LAB BLOOD ORDERABLES Final Result [facility] [address] [place] [address] from Last 3 Months Insurance Medicare Medicaid [place] Medicare Medicaid [place] Care Teams Admissions Manager Rn Relationship Specialty Start Date End Date Lobo Mills MD [address] [place] PCP - General 03/05/19
--- OUTSIDE RECORDS SUMMARY | 2025-03-18 04:15 | XMS_ITS | Clinical Summary ---
Author Organization [facility] Address [address] [facility] [address] [place] [address] Care Team Providers Care Truck Switcher Name Role Phone Lobo Mills MD Primary Care Provider [phone] Allergies Active Allergy Reactions Criticality Noted Date [...] Documents on File Type Date Recorded Patient Pooling Operator Expl anation Health Care Proxy 06/07/2019 9:42 PM Conver jigar - [facility] DNR (Do Not Resuscitate)/DNI (Do Not Intubate) 06/07/2019 9:41 PM Conversion - DNR Ord er ([facility] Mitzi DM) Health Care Proxy 05/27/2019 11:56 AM Conv ersion - External Healthcare Proxy [facility] * Full Code (Latest Code Status on File) Date Activated Date Inactivated Comments 08/10/2021 3:59 PM 08/12/2021 8:27 PM Care Teams Truck Switcher Relationship Specialty Start Date End Date Lobo Mills MD [address] [place] [address] PCP - General 06/04/21
--- OUTSIDE RECORDS SUMMARY | 2025-03-18 04:16 | XMS_ITS | Clinical Summary ---
Author Organization [address] [facility] Address [address] [place] [address] Phone Care Team Providers Care Drilling And Production Superintendent Name Role Phone Lobo Mills MD Primary Care Provider [phone] Allergies Active Allergy Reactions Criticality Noted Date [...] for 5 days. 10 each 5 Active potassium chloride (KLOR-CON M20) 20 mEq CR [...] 01/27/2025 Generalized abdominal pain 01/27/2025 Moderate malnutrition ([facility] V24) 01/24/2025 Acute pancreatitis 01/20/2025 Small bowel obstruction ([facility] V24, [facility] V2 8) 12/26/2024 Bowel obstruction ([facility] V24, [facility] V28) 03/2025 Acquired ptosis of eyelid 02/06/2024 Anemia 02/06/2024 Bundle branch block, right 02/06/2024 Chronic neck pain 02/06/2024 COVID-19 02/06/2024 Elevated PSA 02/06/2024 GERD (gastroesophageal reflux disease) HTN (hypertension) 02/06/2024 Nephrolithiasis 02/06/2024 Obstructive lung disease (ge neralized) ([facility] V24, [facility] V28) 02/06/2024 Peripheral neuropathy 02/06/2024 Prediabetes 02/06/2024 Prostate cancer ([facility] V24, [facility] V28) 02/05 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, [facility]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 [address] [place] [phone] Alexander Collins MD Edema leg (Primary Dx); Anemia, unspecified type; Hypoalbuminemia Discharge Disposition: Home or Self Care 02/07/2025 6:12 AM EDT - 02/07/2025 10:[address] [facility] Emergency [address] [place] [address] [phone] Arthralgia of left hand (Primary Dx); Lead-induced acute gout of left hand, initial encounter Discharge Disposition: Home or Self Care 01/26/2025 9:17 PM EDT - 01/30/2025 5:00 PM EDT Hospital Encounter [facility] Urology Unit [address] [place] [phone] Shmuel Garber MD Jones, Christopher, MD Alam, Aroosa, MD Generalized abdominal pain (Primary Dx); Small bowel obstruction (CMS/HCC V24, [facility] V28); Pseudomyxoma peritonei (CMS/HCC V24, [facility] V28) Discharge Disposition: Home-Health [place] [facility] 01/20/2025 5:46 PM EDT - 01/24/2025 3:25 PM EDT Hospital Encounter [facility] Medical Surgical Unit [address] [place] [address] [phone] Sachin Murrieta MD Jones, Christopher, MD Santoyo-Pacheco, Omar D, MD Intestinal obstruction, unspecified cause, unspecified whether partial or complete (CMS/HCC V24, [facility] V28) (Primary Dx); Acute pancreatitis, unspecified complication status, unspecified pancreatitis type Discharge Disposition: Home or Self Care 12/26/2024 1:38 AM EDT - 12/27/2024 5:54 PM EDT Hospital Encounter [facility] [address] [place] [phone] Oh Khanna MD Muhoozi, Bannet, MD Flores, Carlos M, MD Mohani, Priya, MD Generalized abdominal pain (Primary Dx) Discharge Disposition: Home or Self Care from Last 3 Months Surgical History Surgery Date Site/Laterality Comments APPENDECTOMY CHOLECYSTECTOMY SPLENECTOMY, TOTAL OMENTECTOMY Medical History Medical History Date Comments Prostate cancer ([facility] V24, [facility] V28) Small bowel obstruction ([facility] V24, [facility] V2 8) 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 WBC 8.8 4.8 - 10.8 K/mcL LAB HEMETOLOGY METHOD 02/27/2025 2:22 PM EDT [facility] RBC 2.50(L) 4.50 - 5.50 M/mcL LAB HEMETOLOGY METHOD 02/27/2025 2:22 PM EDT [facility] Hemoglobin 7.9(L) 13.5 - 17.5 g/dL LAB HEMETOLOGY METHOD 02/27/2025 2:22 PM [facility] Hematocrit 23.8(L) 42.0 - 54.0 % LAB HEMETOLOGY METHOD 02/27/2025 2:[facility] MCV 95.2 79.0 - 98.0 FL LAB HEMETOLOGY METHOD 02/27/2025 2:22 [facility] MCH 31.6 27.0 - 32.0 pcg LAB HEMETOLOGY METHOD 02/27/2025 2:22 PM [facility] MCHC 33.2 32.0 - 37.0 g/dL LAB HEMETOLOGY METHOD 02/27/2025 2:22 PM [facility] RDW 16.2(H) 11.0 - 15.0 % LAB HEMETOLOGY METHOD 02/27/2025 2:22 PM [facility] Platelets 334 130 - 400 K/mcL LAB HEMETOLOGY METHOD 02/27/2025 2:22 PM [facility] MPV 9.3 7.0 - 11.0 FL LAB HEMETOLOGY METHOD 02/27/2025 2:22 PM [facility] NRBC 0.0 <1.0 % LAB HEMETOLOGY METHOD 02/27/2025 2:22 PM T [facility] NRBC Absolute 0.00 <0.10 K/mcL LAB HEMETOLOGY METHOD 02/27/2025 2:22 PM [facility] Neutrophils Relative 65.8 % LAB HEMETOLOGY METHOD 02/27/2025 2:22 PM [facility] Lymphocytes Relative 21.3 % LAB HEMETOLOGY METHOD 02/27/2025 2:22 PM [facility] Monocytes Relative 10.0 % LAB HEMETOLOGY METHOD 02/27/2025 2:22 PM T [facility] Eosinophils Relative 1.7 % LAB HEMETOLOGY METHOD 02/27/2025 2:22 PM [facility] Basophils Relative 0.7 % LAB HEMETOLOGY METHOD 02/27/2025 2:22 PM [facility] Immature Granulocytes Relative 0.5 % LAB HEMETOLOGY METHOD 02/27/2025 2:22 PM [facility] Neutrophils Absolute 5.81 1.50 - 7.00 K/mcL LAB HEMETOLOGY METHOD 02/27/2025 2:22 PM [facility] Lymphocytes Absolute 1.88 1.00 - 5.00 K/mcL LAB HEMETOLOGY METHOD 02/27/2025 2:22 PM [facility] Monocytes Absolute 0.88 0.20 - 1.00 K/mcL LAB HEMETOLOGY METHOD 02/27/2025 2:22 PM [facility] Eosinophils Absolute 0.15 0.00 - 0.50 K/mcL LAB HEMETOLOGY METHOD 02/27/2025 2:22 PM [facility] Basophils Absolute 0.06 0.00 - 0.20 K/mcL LAB HEMETOLOGY METHOD 02/27/2025 2:22 PM [facility] Immature Granulocytes Absolute 0.04(H) 0.00 - 0.03 K/mcL LAB HEMETOLOGY METHOD 02/27/2025 2:22 PM EDT [facility] Blood Venous blood specimen / Unknown Venipuncture / Unknown 02/27/2025 1:57 PM EDT 02/27/2025 2:12 PM EDT Alexander Collins MD LAB BLOOD ORDERABLES Final Result Performing Organization Address [facility]/ZIP Co de Phone Number [facility] [address] [place] [address], [place] [phone] * Type and screen (02/27/2025 1:57 PM EDT) Only the most recent of2 resultswithin the time period is included. ABO Group O 02/27/2025 3:07 PM EDT [facility] Rh Type Negative 02/27/2025 3:07 PM EDT [facility] Antibody Screen Negative 02/27/2025 3:07 PM EDT [facility] Blood Venous blood specimen / Unknown Venipuncture / Unknown 02/27/2025 1:57 PM EDT 02/27/2025 2:12 PM EDT Alexander Collins MD LAB BLOOD BANK TEST ORDERAB LES Final Result Performing Organization Address City/[facility]/ZIP Co de Phone Number [facility] [address] [place] [address], [place] [phone] * (ABNORMAL) B-type natriuretic peptide (02/27/2025 1:57 PM EDT) BNP 315(H) <=100 pcg/mL LAB CHEMISTRY METHOD 02/27/2025 2:51 PM EDT [facility] Blood Venous blood specimen / Unknown Venipuncture / Unknown 02/27/2025 1:57 PM EDT 02/27/2025 2:12 PM EDT us Alexander Collins MD LAB BLOOD ORDERABLES Final Result [facility] [address] [place] [address], [place] [phone] * (ABNORMAL) Comprehensive Metabolic Panel (CMP) (02/27/2025 1:57 PM EDT) Only the most recent of7 resultswithin the time period is included. Sodium 142 133 - 145 mmol/L LAB CHEMISTRY METHOD 02/27/2025 2:49 PM [facility] Potassium 4.1 3.5 - 5.5 mmol/L LAB CHEMISTRY METHOD 02/27/2025 2:49 PM [facility] Chloride 115(H) 96 - 110 mmol/L LAB CHEMISTRY METHOD 02/27/2025 2:49 PM [facility] CO2 22 21 - 32 mmol/L LAB CHEMISTRY METHOD 02/27/2025 2:49 PM [facility] Anion Gap 5 3 - 11 LAB CHEMISTRY METHOD 02/27/2025 2:49 PM [facility] Glucose 112(H) 70 - 100 mg/dL LAB CHEMISTRY METHOD 02/27/2025 2:49 PM [facility] BUN 22 5 - 25 mg/dL LAB CHEMISTRY METHOD 02/27/2025 2:49 PM [facility] Creatinine 1.19 0.70 - 1.30 mg/dL LAB CHEMISTRY METHOD 02/27/2025 2:49 PM [facility] eGFR 67 >=60 mL/min/1. 73m2 LAB CHEMISTRY METHOD 02/27/2025 2:49 PM T [facility] Comment:Calculation based on the Chronic Kidney Disease Epidemiology Collaboration (CKD-EPI) equation refit without adjustment for race. BUN/Creatinine Ratio 18.5 LAB CHEMISTRY METHOD 02/27/2025 2:49 PM EDT [facility] Calcium 8.2(L) 8.5 - 10.5 mg/dL LAB CHEMISTRY METHOD 02/27/2025 2:49 PM EDT [facility] AST (SGOT) 9(L) 10 - 42 unit/L LAB CHEMISTRY METHOD 02/27/2025 2:49 PM EDT [facility] ALT (SGPT) 14 10 - 60 unit/L LAB CHEMISTRY METHOD 02/27/2025 2:49 PM EDT [facility] Alkaline Phosphatase 58 42 - 121 unit/L LAB CHEMISTRY METHOD 02/27/2025 2:49 PM EDT [facility] Total Protein 4.9(L) 6.0 - 8.0 g/dL LAB CHEMISTRY METHOD 02/27/2025 2:49 PM EDT [facility] Albumin 2.7(L) 3.2 - 5.0 g/dL LAB CHEMISTRY METHOD 02/27/2025 2:49 PM EDT [facility] Total Bilirubin 0.3 0.0 - 1.4 mg/dL LAB CHEMISTRY METHOD 02/27/2025 2:49 PM EDT [facility] Blood Venous blood specimen / Unknown Venipuncture / Unknown 02/27/2025 1:57 PM EDT 02/27/2025 2:12 PM EDT us Alexander Collins MD LAB BLOOD ORDERABLES Final Result [facility] [address] [place] [address], * XR Chest 2 Views (02/27/2025 12:54 [...] Signed Date: 02/27/2025 13:22 ET Workstation ID: [id number] Transcribed By: Self Edit Transcribed Date: 02/27/2025 [...] Signed Date: 02/27/2025 13:22 ET Workstation ID: [id number] Transcribed By: Self Edit Transcribed Date: 02/27/2025 [...] Signed Date: 02/27/2025 12:44 ET Workstation ID: [id number] Transcribed By: Self Edit Transcribed Date: 02/27/2025 [...] vein. Visualized calf veins unremarkable. Procedure Note Loretta Ponce MD - 02/27/2025 PROCEDURE: VAS US [...] Signed Date: 02/27/2025 12:44 ET Workstation ID: [id number] Transcribed By: Self Edit Transcribed Date: 02/27/2025 12:43 ET us Alexander Collins MD CV VASCULAR PROCEDURES Gabbie l Result * XR Hand 3+ Views Left (02/07/2025 7:58 AM EDT) Anatomical Region Laterality Modality Upper Extremities, Hand Left Radiogra phic Imaging 02/07/2025 9:28 AM EDT Impressions 02/07/2025 9:29 AM EDT No acute findings. Degenerative changes as detailed above. -------- FINAL REPORT -------- Dictated By: Pratik Christian Dictated Date: 02/07/2025 09:28 ET Assigned Physician: Pratik Christian Reviewed and Electronically Signed By: Pratik Christian Signed Date: 02/07/2025 09:29 ET Workstation ID: [id number] Transcribed By: Self Edit Transcribed Date: 02/07/2025 [...] Signed Date: 02/07/2025 09:29 ET Workstation ID: [id number] Transcribed By: Self Edit Transcribed Date: 02/07/2025 09:28 ET Briseida ALMARAZ IMG XR PROCEDURES Final Result * Phosphorus (01/30/2025 5:43 AM EDT) Only the most recent of6 resultswithin the time period is included. Phosphorus 2.9 2.5 - 4.5 mg/dL LAB CHEMISTRY METHOD 01/30/2025 7:03 AM EDT [facility] Blood Venous blood specimen / Unknown Venipuncture / Unknown 01/30/2025 5:43 AM EDT 01/30/2025 6:19 AM EDT [facility] B[facility]OD ORDERABLES Final Result Performing Organization Address [facility] Co de Phone Number [facility] [address] [place] [address], [place] [phone] * Magnesium (01/30/2025 5:43 AM EDT) Only the most recent of9 resultswithin the time period is included. Magnesium 2.0 1.9 - 2.6 mg/dL LAB CHEMISTRY METHOD 01/30/2025 7:03 AM EDT [facility] Blood Venous blood specimen / Unknown Venipuncture / Unknown 01/30/2025 5:43 AM EDT 01/30/2025 6:19 AM EDT Yazmin Degroot [facility] BLOOD ORDERABLES Final Result Performing Organization Address [facility] de Phone Number [facility] [address] [place] [address], [place] [phone] * IR Insert Gastro Tube Perc w [...] as the tube itself. Specimen: None Tube: 16-Zambian gastrostomy Estimated blood loss: Minimal Consultations: None [...] over the wire through which we placed [id number] gastrostomy tube. The peel-away sheath was removed. [...] Signed Date: 01/28/2025 17:19 ET Workstation ID: [id number] Transcribed By: Self Edit Transcribed Date: 01/28/2025 [...] as the tube itself. Specimen: None Tube: 16-[place]ian gastrostomy Estimated blood loss: Minimal Consultations: None [...] advanced over the wire through which weplaced [id number] gastrostomy tube. The peel-away sheath was removed.5 [...] Signed Date: 01/28/2025 17:19 ET Workstation ID: [id number] Transcribed By: Self Edit Transcribed Date: 01/28/2025 17:16 ET us Patricia ALMARAZ IMG IR PROCEDURES Final Result * (ABNORMAL) Basic metabolic panel (01/27/2025 6:03 AM EDT) Only the most recent of7 resultswithin the time period is included. Sodium 138 133 - 145 mmol/L LAB CHEMISTRY METHOD 01/27/2025 6:55 AM [facility] Potassium 3.8 3.5 - 5.5 mmol/L LAB CHEMISTRY METHOD 01/27/2025 6:55 AM [facility] Chloride 103 96 - 110 mmol/L LAB CHEMISTRY METHOD 01/27/2025 6:55 AM [facility] CO2 33(H) 21 - 32 mmol/L LAB CHEMISTRY METHOD 01/27/2025 6:55 AM [facility] Anion Gap 2(L) 3 - 11 LAB CHEMISTRY METHOD 01/27/2025 6:55 AM [facility] Glucose 122(H) 70 - 100 mg/dL LAB CHEMISTRY METHOD 01/27/2025 6:55 AM [facility] BUN 21 5 - 25 mg/dL LAB CHEMISTRY METHOD 01/27/2025 6:55 AM [facility] Creatinine 1.18 0.70 - 1.30 mg/dL LAB CHEMISTRY METHOD 01/27/2025 6:55 AM EDT [facility] eGFR 68 >=60 mL/min/1. 73m2 LAB CHEMISTRY METHOD 01/27/2025 6:55 AM EDT [facility] Comment:Calculation based on the Chronic Kidney Disease Epidemiology Collaboration (CKD-EPI) equation refit without adjustment for race. BUN/Creatinine Ratio 17.8 LAB CHEMISTRY METHOD 01/27/2025 6:55 AM EDT [facility] Calcium 8.3(L) 8.5 - 10.5 mg/dL LAB CHEMISTRY METHOD 01/27/2025 6:55 AM EDT [facility] Blood Venous blood specimen / Unknown Venipuncture / Unknown 01/27/2025 6:03 AM EDT 01/27/2025 6:08 AM EDT us Rubén Majano MD LAB BLOOD ORDERABLES Final Result [facility] [address] [place] [address], * XR Chest 1 View (01/27/2025 2:35 [...] Signed Date: 01/27/2025 08:25 ET Workstation ID: [id number] Transcribed By: Self Edit Transcribed Date: 01/27/2025 [...] Signed Date: 01/27/2025 08:25 ET Workstation ID: [id number] Transcribed By: Self Edit Transcribed Date: 01/27/2025 [...] LAB CHEMISTRY METHOD 01/26/2025 11:15 PM EDT [facility] Blood Venous blood specimen / Unknown Venipuncture / Unknown 01/26/2025 10:40 PM EDT 01/26/2025 10:44 PM EDT Shmuel Garber MD LAB BLOOD ORDERABLES Gabbie l Result [facility] [address] [place] [address], [place] [phone] * (ABNORMAL) Manual differential (01/26/2025 10:40 PM EDT) Only the most recent of2 resultswithin the time period is included. Neutrophils % 77.0 % LAB HEMETOLOGY METHOD 01/26/2025 11:27 PM EDT [facility] Bands % 4.0 % LAB HEMETOLOGY METHOD 01/26/2025 11:27 PM EDT [facility] Lymphocytes % 10.0 % LAB HEMETOLOGY METHOD 01/26/2025 11:27 PM EDT [facility] Monocytes % 9.0 % LAB HEMETOLOGY METHOD 01/26/2025 11:[facility] Eosinophils % 1.0 % LAB HEMETOLOGY METHOD 01/26/2025 11:27 PM EDT [facility] Basophils % 0.0 % LAB HEMETOLOGY METHOD 01/26/2025 11:27 PM EDT [facility] Neutrophils Absolute Manual 8.47(H) 1.50 - 7.00 K/mcL LAB HEMETOLOGY METHOD 01/26/2025 11:27 PM [facility] Bands Absolute Manual 0.44(H) 0.00 - 0.00 K/mcL LAB HEMETOLOGY METHOD 01/26/2025 11:27 PM EDT [facility] Lymphocytes Absolute 1.10 1.00 - 5.00 K/mcL LAB HEMETOLOGY METHOD 01/26/2025 11:27 PM [facility] Monocytes Absolute Manual 0.99 0.20 - 1.00 K/mcL LAB HEMETOLOGY METHOD 01/26/2025 11:27 PM [facility] Eosinophils Absolute Manual 0.11 0.00 - 0.50 K/mcL LAB HEMETOLOGY METHOD 01/26/2025 11:27 PM [facility] Basophils Absolute Manual 0.00 0.00 - 0.20 K/mcL LAB HEMETOLOGY METHOD 01/26/2025 11:27 PM EDT [facility] Rbc Morphology Present( A) Consistent with indices, Normal for LAB HEMETOLOGY METHOD 01/26/2025 11:27 PM EDT [facility] Comment:RBC: Morphology agre es with CBC Platelet Morphology - WAM See Note(A) Normal LAB HEMETOLOGY METHOD 01/26/2025 11:27 PM EDT [facility] Comment:PLT: Normal Target Cells Present 5 - 10%(A) (none) LAB HEMETOLOGY METHOD 01/26/2025 11:27 PM EDT [facility] Blood Venous blood specimen / Unknown Venipuncture / Unknown 01/26/2025 10:40 PM EDT 01/26/2025 10:46 PM EDT Shmuel Garber MD LAB BLOOD ORDERABLES Gabbie l Result [facility] [address] [place] [address], [place] [phone] * (ABNORMAL) Hemoglobin and hematocrit (01/22/2025 7:56 PM EDT) Hemoglobin 10.4(L) 13.5 - 17.5 g/dL LAB HEMETOLOGY METHOD 01/22/2025 8:44 PM EDT [facility] Hematocrit 30.8(L) 42.0 - 54.0 % LAB HEMETOLOGY METHOD 01/22/2025 8:44 PM EDT [facility] Blood Venous blood specimen / Unknown Venipuncture / Unknown 01/22/2025 7:56 PM EDT 01/22/2025 8:26 PM EDT Ryan Otto MD LAB BLOOD ORDERABLES F inal Result [facility] [address] [place] [address], * XR Abdomen 1 View (01/22/2025 9:35 [...] Signed Date: 01/22/2025 10:11 ET Workstation ID: [id number] Transcribed By: Self Edit Transcribed Date: 01/22/2025 [...] Signed Date: 01/22/2025 10:11 ET Workstation ID: [id number] Transcribed By: Self Edit Transcribed Date: 01/22/2025 10:10 ET Cheri ALMARAZ IMG XR PROCEDURES Final Resu lt * (ABNORMAL) Lipase (01/21/2025 5:50 AM EDT) Only the most recent of3 resultswithin the time period is included. Pathologist [facility] Lipase 262(H) 13 - 75 unit/L LAB CHEMISTRY METHOD 01/21/2025 10:09 AM EDT [facility] Blood Venous blood specimen / Unknown Venipuncture / Unknown 01/21/2025 5:50 AM EDT 01/21/2025 6:20 AM EDT Ryan Otto MD LAB BLOOD ORDERABLES F inal Result Performing Organization Address City/[facility]/ZIP Co de Phone Number [facility] [address] [place] [address], [place] [phone] * Triglycerides (01/20/2025 7:11 PM EDT) Pathologist [facility] Triglycerides 74 0 - 150 mg/dL LAB CHEMISTRY METHOD 01/20/2025 10:28 PM EDT [facility] Blood Venous blood specimen / Unknown Venipuncture / Unknown 01/20/2025 7:11 PM EDT 01/20/2025 7:17 PM EDT Rubén Majano MD LAB BLOOD ORDERABLES Final Result Performing Organization Address City/[facility]/ZIP Co de Phone Number [facility] [address] [place] [address], [place] [phone] * Lactate dehydrogenase (01/20/2025 7:11 PM EDT) [facility] LDH 207 120 - 246 unit/L LAB CHEMISTRY METHOD 01/20/2025 10:28 PM EDT [facility] Blood Venous blood specimen / Unknown Venipuncture / Unknown 01/20/2025 7:11 PM EDT 01/20/2025 7:17 PM EDT Rubén Majano MD LAB BLOOD ORDERABLES Final Result Performing Organization Address City/[facility]/ZIP Co de Phone Number [facility] [address] [place] [address], * Lactate (01/20/2025 7:11 PM EDT) [facility] Lactate 1.2 0.4 - 2.0 mmol/L LAB CHEMISTRY METHOD 01/20/2025 7:54 PM EDT [facility] Blood Venous blood specimen / Unknown Venipuncture / Unknown 01/20/2025 7:11 PM EDT 01/20/2025 7:18 PM EDT Sachin Murrieta MD LAB BLOOD ORDERABLES Fin al Result Performing Organization Address City/[facility]/ZIP Co de Phone Number [facility] [address] [place] [address], [place] [phone] * ECG-Annotated (12/30/2024) Beto Muir MD ECG ORDERABLES Final Result * ECG 12 lead (12/26/2024 3:22 AM EDT) Only the most recent of2 resultswithin the time period is included. [facility] Ventricular Rate ECG 57 BPM GEMUSE Atrial Rate 57 BPM GEMUSE P-R Interval 142 ms GEMUSE QRS Duration 122 ms GEMUSE Q-T Interval 452 ms GEMUSE QTc 439 ms GEMUSE P Wave [place] 18 degrees GEMUSE R [place] 19 degrees GEMUSE T [place] 18 degrees GEMUSE ECG Interpretation Sinus bradycardia Right bundle branch block Abnormal ECG When compared with ECG of 26-DEC-2024 02:12, (unconfirmed) No significant change was found Confirmed by Olu MEEK YUFENG ([id number]) on 12/26/2024 8:18:56 PM GEMUSE 12/26/2024 3:22 AM EDT 12/26/2024 8:18 PM EDT Ladonna Galan [employer] ECG ORDERABLES Final Res ult GEMUSE * APTT (12/26/2024 2:40 AM EDT) aPTT 31.4 24.1 - 39.3 sec LAB COAGULATION METHOD 12/26/2024 3:12 AM EDT [facility] Blood Venous blood specimen / Unknown Venipuncture / Unknown 12/26/2024 2:40 AM EDT 12/26/2024 2:58 AM EDT Oh Khanna MD LAB BLOOD ORDERABLES Final R esult Performing Organization Address City/[facility]/ZIP Co de Phone Number [facility] [address] [place] [address], [place] [phone] * (ABNORMAL) Protime-INR (12/26/2024 2:40 AM EDT) Protime 14.3(H) 10.6 - 13.9 sec LAB COAGULATION METHOD 12/26/2024 3:12 AM EDT [facility] INR 1.1 LAB COAGULATION METHOD 12/26/2024 3:12 AM EDT [facility] Blood Venous blood specimen / Unknown Venipuncture / Unknown 12/26/2024 2:40 AM EDT 12/26/2024 2:58 AM EDT Oh Khanna MD LAB BLOOD ORDERABLES Final R esult [facility] [address] [place] [address], * (ABNORMAL) Lipid panel (02/11/2002) LDL/HDL Ratio [...] Documents on File Type Date Recorded Patient Account Auditor Expl anation Advance Directives and Living Will 01/29/2025 10:45 AM AYAN Advance Directives and Living Will 01/28/2025 3:23 PM Nelida BurcheauKdestini Moreira Health Care Proxy Advance Directives and [...] Communication Santi Moreira Health Care Agent Nelida Iván Friend [facility] Health Care Agent Care Teams Drilling And Production Superintendent Relationship Specialty Start Date End Date Lobo Mills MD [address] S[address]agher [place] PCP - General 12/14/23
--- OUTSIDE RECORDS SUMMARY | 2025-03-18 04:16 | XMS_ITS | Encounter Summary ---
Author Organization [facility] Address [address] [place] [address] Care Team Providers Care Slusher Operator Name Role Phone Lobo Mills MD Primary Care Provider [phone] Encounter Details Date Type Department Care Team (Late st Contact Info) Description 10/24/2024 Lab Requisition [facility] - Main Lab [address] [facility] [place] [address] Rich Cintron PA [address] [phone] Calculus of kidney Social History [...] Complete blood count (10/24/2024 11:48 AM EDT) [facility] WBC 9.1 4.8 - 10.8 K/mcL LAB HEMETOLOGY METHOD 10/24/2024 3:24 PM EDT [facility] RBC 3.30(L) 4.50 - 5.50 M/mcL LAB HEMETOLOGY METHOD 10/24/2024 3:24 PM EDT [facility] Hemoglobin 10.3(L) 13.5 - 17.5 g/dL LAB HEMETOLOGY METHOD 10/24/2024 3:24 PM [facility] Hematocrit 31.2(L) 42.0 - 54.0 % LAB HEMETOLOGY METHOD [facility] MCV 96.0 79.0 - 98.0 FL LAB HEMETOLOGY METHOD 10/24[facility]2024 3[facility] MCH 31.7 27.0 - 32.0 pcg LAB HEMETOLOGY METHOD 10/24/2024 3:24 PM [facility] MCHC 33.0 32.0 - 37.0 g/dL LAB HEMETOLOGY METHOD 10/24/2024 3:24 PM [facility] RDW 15.8(H) 11.0 - 15.0 % LAB HEMETOLOGY METHOD 10/24/2024 3:24 PM EDT [facility] Platelets 464(H) 130 - 400 K/mcL LAB HEMETOLOGY METHOD 10/24[facility]2024 3[facility] MPV 10.6 7.0 - 11.0 FL LAB HEMETOLOGY METHOD 10/24/2024 3:24 PM [facility] NRBC 0.0 <1.0 % LAB HEMETOLOGY METHOD 10/24/2024 3[facility] NRBC Absolute 0.00 <0.10 K/mcL LAB HEMETOLOGY METHOD 10/24/2024 3:24 PM EDT [facility] Blood Venous blood specimen / Unknown 10/24/2024 11:48 AM EDT 10/24/2024 2:28 PM EDT us Rich ALMARAZ LAB BLOOD ORDERABLES Final Resul t [facility] [address] [place] [address], documented in this encounter Visit Diagnoses Diagnosis Calculus of kidney documented in this encounter Care Teams Slusher Operator Relationship Specialty Start Date End Date Lobo Mills MD [address] [place], [place] PCP - General 12/14/23 documented as of this encounter
== END 2025-03-17 14:20 | disposition home or self-care (01) ==
LOC: HO.HVNA 14:19
PROVIDERS: Visit Provider Internal Medicine Medical Oncology
DX: N17.9 Acute kidney failure, unspecified (principal)
CPT/HCPCS: 36415; 80053; 85025

== ENCOUNTER 2025-03-24 11:06 | Outpatient (REF) | payer MEDICARE, SELFPAY ==
[2025-03-24 11:13] LABS: Hematocrit 27.2 % (42.0-52.0); Hemoglobin 8.9 g/dl (14.0-18.0); Imm Gran Abs Auto 0.05 X10*3/uL (0.00-0.03); Imm Gran Pct Auto 0.4 % (0.0-0.4); Lymphocytes Absolute Auto 2.0 X10*3/uL (1.2-4.9); MANUAL DIFF FLAG SCAN; Mean Corpuscular HGB Conc 32.7 g/dl (31.0-36.0); Mean Corpuscular Hemoglobin 31.6 pg (27.0-33.0); Mean Corpuscular Volume 96.5 fL (80.0-98.0); NRBC Abs Auto 0.000 X10*3/uL (0.0-0.012); NRBC Pct Auto 0.0 /100WBC (0.0-0.2); Platelet Count 413 X10*3/uL (160-400); Red Blood Count 2.82 X10*6/uL (4.60-5.80); SCAN SMEAR FLAG 1; White Blood Count 12.2 X10*3/uL (4.8-10.8)
[2025-03-24 11:54] LABS: Alanine Aminotransferase < 6 U/L (0-40); Albumin Level 3.9 g/dL (3.5-5.0); Alkaline Phosphatase 69 U/L (39-117); Anion Gap 11 (12-20); Aspartate Amino Transferase 19 U/L (5-37); Blood Urea Nitrogen 29 mg/dL (9-16); Calcium 8.9 mg/dL (8.4-10.2); Carbon Dioxide 21 mmol/L (22-29); Chloride 112 mmol/L (96-108); Estimated Glomerular Filt Rate 44; Potassium 4.0 mmol/L (3.3-5.1); Sodium 140 mmol/L (135-145); Total Protein 6.3 g/dL (6.5-8.0)
--- OUTSIDE RECORDS SUMMARY | 2025-03-24 14:18 | XMS_ITS | Clinical Summary ---
Author Organization [facility] Address [address] [place] [address] Phone Care Team Providers Care Lead Software Test Engineer Name Role Phone Lobo Mills MD Primary Care Provider [phone] Allergies Active Allergy Reactions Criticality Noted Date [...] 01/27/2025 Generalized abdominal pain 01/27/2025 Moderate malnutrition ([facility] V24) 01/24/2025 Acute pancreatitis 01/20/2025 Small bowel obstruction ([facility] V24, [facility] V2 8) 12/26/2024 Bowel obstruction ([facility] V24, [facility] V28) 03/2025 Acquired ptosis of eyelid 02/06/2024 Anemia 02/06/2024 Bundle branch block, right 02/06/2024 Chronic neck pain 02/06/2024 COVID-19 02/06/2024 Elevated PSA 02/06/2024 GERD (gastroesophageal reflux disease) HTN (hypertension) 02/06/2024 Nephrolithiasis 02/06/2024 Obstructive lung disease (ge neralized) ([facility] V24, [facility] V28) 02/06/2024 Peripheral neuropathy 02/06/2024 Prediabetes 02/06/2024 Prostate cancer ([facility] V24, [facility] V28) 02/05 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, [facility]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 Psoriasis of scalp 02/06/2024 Stage 3 chronic kidney disease ([facility] V24, [facility] V28) 02/06/2024 Encounters Date Type Department Care Team Description 03/06/2025 10:00 AM EST Consult Orthopedic Surgery - [place] 175 [facility] [address] [place] [phone] Lori Walters PA [facility] [place] (Primary Dx) 02/27/2025 12:00 PM EDT - 02/27/2025 4:36 PM EDT Emergency [facility] Emergency [address] [place] [phone] Alexander Collins MD Edema leg (Primary Dx); Anemia, unspecified type; Hypoalbuminemia Discharge Disposition: Home or Self Care 02/07/2025 6:12 AM EDT - 02/07/2025 10:14 AM EDT Emergency [facility] Emergency [address] [place] [phone] Arthralgia of left hand (Primary Dx); Lead-induced acute gout of left hand, initial encounter Discharge Disposition: Home or Self Care 01/26/2025 9:17 PM EDT - 01/30/2025 5:00 PM EDT Hospital Encounter [facility] Urology Unit [address] [place] [phone] Shmuel Garber MD Jones, Christopher, MD Alam, Aroosa, MD Generalized abdominal pain (Primary Dx); Small bowel obstruction (CMS/HCC V24, [facility] V28); Pseudomyxoma peritonei (CMS/HCC V24, [facility] V28) Discharge Disposition: Home-Health Care [facility] [place] 01/20/2025 5:46 PM EDT - 01/24/2025 3:25 PM EDT Hospital Encounter [facility] Medical Surgical Unit [address] [place] [phone] Sachin Murrieta MD Jones, Christopher, MD Santoyo-Pacheco, Omar D, MD Intestinal obstruction, unspecified cause, unspecified whether partial or complete (CMS/HCC V24, [facility] V28) (Primary Dx); Acute pancreatitis, unspecified complication status, unspecified pancreatitis type Discharge Disposition: Home or Self Care 12/26/2024 1:38 AM EDT - 12/27/2024 5:54 PM EDT Hospital Encounter [facility] Urology Unit [address] [place] [phone] Oh Khanna MD Muhoozi, Bannet, MD Flores, Carlos M, MD Mohani, Priya, MD Generalized abdominal pain (Primary Dx) Discharge Disposition: Home or Self Care from Last 3 Months Surgical History Surgery Date Site/Laterality Comments APPENDECTOMY CHOLECYSTECTOMY SPLENECTOMY, TOTAL OMENTECTOMY Medical History Medical History Date Comments Prostate cancer ([facility] V24, [facility] V28) Small bowel obstruction ([facility] V24, [facility] V2 8) Appendix carcinoma ([facility] V24, [facility] V28) Benign prostatic hyperplasia Chronic kidney disease (CKD) , stage III (moderate) ([facility] V24, [facility] V28) Family History Medical History Relation Name [...] LAB HEMETOLOGY METHOD 02/27/2025 2:22 PM EDT [facility] RBC 2.50(L) 4.50 - 5.50 M/mcL LAB HEMETOLOGY METHOD 02/27/2025 2:22 PM EDT [facility] Hemoglobin 7.9(L) 13.5 - 17.5 g/dL LAB HEMETOLOGY METHOD 02/27/2025 2:22 PM [facility] Hematocrit 23.8(L) 42.0 - 54.0 % LAB HEMETOLOGY METHOD 02/27/2025 2:22 PM [facility] MCV 95.2 79.0 - 98.0 FL LAB HEMETOLOGY METHOD 02/27/2025 2:22 PM [facility] MCH 31.6 27.0 - 32.0 pcg LAB HEMETOLOGY METHOD 02/27/2025 2:22 PM [facility] MCHC 33.2 32.0 - 37.0 g/dL LAB HEMETOLOGY METHOD 02/27/2025 2:22 PM [facility] RDW 16.2(H) 11.0 - 15.0 % LAB HEMETOLOGY METHOD 02/27/2025 2:22 PM [facility] Platelets 334 130 - 400 K/mcL LAB HEMETOLOGY METHOD 02/27/2025 2:22 PM [facility] MPV 9.3 7.0 - 11.0 FL LAB HEMETOLOGY METHOD 02/27/2025 2:22 PM [facility] NRBC 0.0 <1.0 % LAB HEMETOLOGY METHOD 02/27/2025 2:22 PM T [facility] NRBC Absolute 0.00 <0.10 K/mcL LAB HEMETOLOGY METHOD 02/27/2025 2:22 PM [facility] Neutrophils Relative 65.8 % LAB HEMETOLOGY METHOD 02/27/2025 2:22 PM [facility] Lymphocytes Relative 21.3 % LAB HEMETOLOGY METHOD 02/27/2025 2:22 PM [facility] Monocytes Relative 10.0 % LAB HEMETOLOGY METHOD 02/27/2025 2:22 PM T [facility] Eosinophils Relative 1.7 % LAB HEMETOLOGY METHOD 02/27/2025 2:22 PM [facility] Basophils Relative 0.7 % LAB HEMETOLOGY METHOD 02/27/2025 2:22 PM [facility] Immature Granulocytes Relative 0.5 % LAB HEMETOLOGY METHOD 02/27/2025 2:22 PM [facility] Neutrophils Absolute 5.81 1.50 - 7.00 K/mcL LAB HEMETOLOGY METHOD 02/27/2025 2:22 PM [facility] Lymphocytes Absolute 1.88 1.00 - 5.00 K/mcL LAB HEMETOLOGY METHOD 02/27/2025 2:22 PM [facility] Monocytes Absolute 0.88 0.20 - 1.00 K/mcL LAB HEMETOLOGY METHOD 02/27/2025 2:22 PM [facility] Eosinophils Absolute 0.15 0.00 - 0.50 K/mcL LAB HEMETOLOGY METHOD 02/27/2025 2:22 PM [facility] Basophils Absolute 0.06 0.00 - 0.20 K/mcL LAB HEMETOLOGY METHOD 02/27/2025 2:22 PM [facility] Immature Granulocytes Absolute 0.04(H) 0.00 - 0.03 K/mcL LAB HEMETOLOGY METHOD 02/27/2025 2:22 PM EDT [facility] Blood Venous blood specimen / Unknown Venipuncture / Unknown 02/27/2025 1:57 PM EDT 02/27/2025 2:12 PM EDT Alexander Collins MD LAB BLOOD ORDERABLES Final Result Performing Organization Address [facility]/ZIP Co de Phone Number [facility] [address] [place] [address], [place] [phone] * Type and screen (02/27/2025 1:57 PM EDT) Only the most recent of2 resultswithin the time period is included. ABO Group O 02/27/2025 3:07 PM EDT [facility] Rh Type Negative 02/27/2025 3:07 PM EDT [facility] Antibody Screen Negative 02/27/2025 3:07 PM EDT [facility] Blood Venous blood specimen / Unknown Venipuncture / Unknown 02/27/2025 1:57 PM EDT 02/27/2025 2:12 PM EDT Alexander Collins MD LAB BLOOD BANK TEST ORDERAB LES Final Result Performing Organization Address City/[facility]/ZIP Co de Phone Number [facility] [address] [place] [address], [place] [phone] * (ABNORMAL) B-type natriuretic peptide (02/27/2025 1:57 PM EDT) BNP 315(H) <=100 pcg/mL LAB CHEMISTRY METHOD 02/27/2025 2:51 PM EDT [facility] Blood Venous blood specimen / Unknown Venipuncture / Unknown 02/27/2025 1:57 PM EDT 02/27/2025 2:12 PM EDT us Alexander Collins MD LAB BLOOD ORDERABLES Final Result [facility] [address] [place] [address], [place] [phone] * (ABNORMAL) Comprehensive Metabolic Panel (CMP) (02/27/2025 1:57 PM EDT) Only the most recent of7 resultswithin the time period is included. Sodium 142 133 - 145 mmol/L LAB CHEMISTRY METHOD 02/27/2025 2:49 PM [facility] Potassium 4.1 3.5 - 5.5 mmol/L LAB CHEMISTRY METHOD 02/27/2025 2:49 PM [facility] Chloride 115(H) 96 - 110 mmol/L LAB CHEMISTRY METHOD 02/27/2025 2:49 PM [facility] CO2 22 21 - 32 mmol/L LAB CHEMISTRY METHOD 02/27/2025 2:49 PM [facility] Anion Gap 5 3 - 11 LAB CHEMISTRY METHOD 02/27/2025 2:49 PM [facility] Glucose 112(H) 70 - 100 mg/dL LAB CHEMISTRY METHOD 02/27/2025 2:49 PM [facility] BUN 22 5 - 25 mg/dL LAB CHEMISTRY METHOD 02/27/2025 2:49 PM [facility] Creatinine 1.19 0.70 - 1.30 mg/dL LAB CHEMISTRY METHOD 02/27/2025 2:49 PM [facility] eGFR 67 >=60 mL/min/1. 73m2 LAB CHEMISTRY METHOD 02/27/2025 2:49 PM T [facility] Comment:Calculation based on the Chronic Kidney Disease Epidemiology Collaboration (CKD-EPI) equation refit without adjustment for race. BUN/Creatinine Ratio 18.5 LAB CHEMISTRY METHOD 02/27/2025 2:49 PM EDT [facility] Calcium 8.2(L) 8.5 - 10.5 mg/dL LAB CHEMISTRY METHOD 02/27/2025 2:49 PM EDT [facility] AST (SGOT) 9(L) 10 - 42 unit/L LAB CHEMISTRY METHOD 02/27/2025 2:49 PM EDT [facility] ALT (SGPT) 14 10 - 60 unit/L LAB CHEMISTRY METHOD 02/27/2025 2:49 PM EDT [facility] Alkaline Phosphatase 58 42 - 121 unit/L LAB CHEMISTRY METHOD 02/27/2025 2:49 PM EDT [facility] Total Protein 4.9(L) 6.0 - 8.0 g/dL LAB CHEMISTRY METHOD 02/27/2025 2:49 PM EDT [facility] Albumin 2.7(L) 3.2 - 5.0 g/dL LAB CHEMISTRY METHOD 02/27/2025 2:49 PM EDT [facility] Total Bilirubin 0.3 0.0 - 1.4 mg/dL LAB CHEMISTRY METHOD 02/27/2025 2:49 PM EDT [facility] Blood Venous blood specimen / Unknown Venipuncture / Unknown 02/27/2025 1:57 PM EDT 02/27/2025 2:12 PM EDT us Alexander Collins MD LAB BLOOD ORDERABLES Final Result [facility] [address] [place] [address], * XR Chest 2 Views (02/27/2025 12:54 [...] Signed Date: 02/27/2025 13:22 ET Workstation ID: [id number] Transcribed By: Self Edit Transcribed Date: 02/27/2025 [...] Signed Date: 02/27/2025 13:22 ET Workstation ID: [id number] Transcribed By: Self Edit Transcribed Date: 02/27/2025 [...] Signed Date: 02/27/2025 12:44 ET Workstation ID: [id number] Transcribed By: Self Edit Transcribed Date: 02/27/2025 [...] Signed Date: 02/27/2025 12:44 ET Workstation ID: [id number] Transcribed By: Self Edit Transcribed Date: 02/27/2025 [...] Signed Date: 02/07/2025 09:29 ET Workstation ID: [id number] Transcribed By: Self Edit Transcribed Date: 02/07/2025 [...] Signed Date: 02/07/2025 09:29 ET Workstation ID: [id number] Transcribed By: Self Edit Transcribed Date: 02/07/2025 09:28 ET Briseida ALMARAZ IMG XR PROCEDURES Final Result * Phosphorus (01/30/2025 5:43 AM EDT) Only the most recent of6 resultswithin the time period is included. Phosphorus 2.9 2.5 - 4.5 mg/dL LAB CHEMISTRY METHOD 01/30/2025 7:03 AM EDT [facility] Blood Venous blood specimen / Unknown Venipuncture / Unknown 01/30/2025 5:43 AM EDT 01/30/2025 6:19 AM EDT [facility] BLOOD ORDERABLES Final Result Performing Organization Address [facility] Co de Phone Number [facility] [address] [place] [address], [place] [phone] * Magnesium (01/30/2025 5:43 AM EDT) Only the most recent of9 resultswithin the time period is included. Magnesium 2.0 1.9 - 2.6 mg/dL LAB CHEMISTRY METHOD 01/30/2025 7:03 AM EDT [facility] Blood Venous blood specimen / Unknown Venipuncture / Unknown 01/30/2025 5:43 AM EDT 01/30/2025 6:19 AM EDT Yazmin Degroot [facility] BLOOD ORDERABLES Final Result Performing Organization Address [facility] de Phone Number [facility] [address] [place] [address], [place] [phone] * IR Insert Gastro Tube Perc w [...] as the tube itself. Specimen: None Tube: 16-Palestinian gastrostomy Estimated blood loss: Minimal Consultations: None [...] over the wire through which we placed [id number] gastrostomy tube. The peel-away sheath was removed. [...] Signed Date: 01/28/2025 17:19 ET Workstation ID: [id number] Transcribed By: Self Edit Transcribed Date: 01/28/2025 [...] as the tube itself. Specimen: None Tube: 16-Palestinian gastrostomy Estimated blood loss: Minimal Consultations: None [...] advanced over the wire through which weplaced [id number] gastrostomy tube. The peel-away sheath was removed.5 [...] Signed Date: 01/28/2025 17:19 ET Workstation ID: [id number] Transcribed By: Self Edit Transcribed Date: 01/28/2025 [...] LAB CHEMISTRY METHOD 01/27/2025 6:55 AM EDT [facility] eGFR 68 >=60 mL/min/1. 73m2 LAB CHEMISTRY METHOD 01/27/2025 6:55 AM EDT [facility] Comment:Calculation based on the Chronic Kidney Disease Epidemiology Collaboration (CKD-EPI) equation refit without adjustment for race. BUN/Creatinine Ratio 17.8 LAB CHEMISTRY METHOD 01/27/2025 6:55 AM EDT [facility] Calcium 8.3(L) 8.5 - 10.5 mg/dL LAB CHEMISTRY METHOD 01/27/2025 6:55 AM EDT [facility] Blood Venous blood specimen / Unknown Venipuncture / Unknown 01/27/2025 6:03 AM EDT 01/27/2025 6:08 AM EDT us Rubén Majano MD LAB BLOOD ORDERABLES Final Result [facility] [address] [place] [address], * XR Chest 1 View (01/27/2025 2:35 [...] Signed Date: 01/27/2025 08:25 ET Workstation ID: [id number] Transcribed By: Self Edit Transcribed Date: 01/27/2025 [...] Signed Date: 01/27/2025 08:25 ET Workstation ID: [id number] Transcribed By: Self Edit Transcribed Date: 01/27/2025 [...] LAB CHEMISTRY METHOD 01/26/2025 11:15 PM EDT [facility] Blood Venous blood specimen / Unknown Venipuncture / Unknown 01/26/2025 10:40 PM EDT 01/26/2025 10:44 PM EDT Shmuel Garber MD LAB BLOOD ORDERABLES Gabbie l Result [facility] [address] [place] [address], [place] [phone] * (ABNORMAL) Manual differential (01/26/2025 10:40 PM EDT) Only the most recent of2 resultswithin the time period is included. Neutrophils % 77.0 % LAB HEMETOLOGY METHOD 01/26/2025 11:27 PM EDT [facility] Bands % 4.0 % LAB HEMETOLOGY METHOD 01/26/2025 11:27 PM EDT [facility] Lymphocytes % 10.0 % LAB HEMETOLOGY METHOD 01/26/2025 11:27 PM EDT [facility] Monocytes % 9.0 % LAB HEMETOLOGY METHOD 01/26/2025 11:27 PM [facility] Eosinophils % 1.0 % LAB HEMETOLOGY METHOD 01/26/2025 11:27 PM EDT [facility] Basophils % 0.0 % LAB HEMETOLOGY METHOD 01/26/2025 11:27 PM EDT [facility] Neutrophils Absolute Manual 8.47(H) 1.50 - 7.00 K/mcL LAB HEMETOLOGY METHOD 01/26/2025 11:27 PM [facility] Bands Absolute Manual 0.44(H) 0.00 - 0.00 K/mcL LAB HEMETOLOGY METHOD 01/26/2025 11:27 PM EDT [facility] Lymphocytes Absolute 1.10 1.00 - 5.00 K/mcL LAB HEMETOLOGY METHOD 01/26/2025 11:27 PM [facility] Monocytes Absolute Manual 0.99 0.20 - 1.00 K/mcL LAB HEMETOLOGY METHOD 01/26/2025 11:27 PM [facility] Eosinophils Absolute Manual 0.11 0.00 - 0.50 K/mcL LAB HEMETOLOGY METHOD 01/26/2025 11:27 PM [facility] Basophils Absolute Manual 0.00 0.00 - 0.20 K/mcL LAB HEMETOLOGY METHOD 01/26/2025 11:27 PM EDT [facility] Rbc Morphology Present( A) Consistent with indices, Normal for LAB HEMETOLOGY METHOD 01/26/2025 11:27 PM EDT [facility] Comment:RBC: Morphology agre es with CBC Platelet Morphology - WAM See Note(A) Normal LAB HEMETOLOGY METHOD 01/26/2025 11:27 PM EDT [facility] Comment:PLT: Normal Target Cells Present 5 - 10%(A) (none) LAB HEMETOLOGY METHOD 01/26/2025 11:27 PM EDT [facility] Blood Venous blood specimen / Unknown Venipuncture / Unknown 01/26/2025 10:40 PM EDT 01/26/2025 10:46 PM EDT Shmuel Garber MD LAB BLOOD ORDERABLES Gabbie l Result [facility] [address] [place] [address], [place] [phone] * (ABNORMAL) Hemoglobin and hematocrit (01/22/2025 7:56 PM EDT) Hemoglobin 10.4(L) 13.5 - 17.5 g/dL LAB HEMETOLOGY METHOD 01/22/2025 8:44 PM EDT [facility] Hematocrit 30.8(L) 42.0 - 54.0 % LAB HEMETOLOGY METHOD 01/22/2025 8:44 PM EDT [facility] Blood Venous blood specimen / Unknown Venipuncture / Unknown 01/22/2025 7:56 PM EDT 01/22/2025 8:26 PM EDT Ryan Otto MD LAB BLOOD ORDERABLES F inal Result [facility] [address] [place] [address], * XR Abdomen 1 View (01/22/2025 9:35 [...] Signed Date: 01/22/2025 10:11 ET Workstation ID: [id number] Transcribed By: Self Edit Transcribed Date: 01/22/2025 [...] Signed Date: 01/22/2025 10:11 ET Workstation ID: [id number] Transcribed By: Self Edit Transcribed Date: 01/22/2025 10:10 ET Cheri ALMARAZ IMG XR PROCEDURES Final Resu lt * (ABNORMAL) Lipase (01/21/2025 5:50 AM EDT) Only the most recent of3 resultswithin the time period is included. Pathologist [facility] [place] Lipase 262(H) 13 - 75 unit/L LAB CHEMISTRY METHOD 01/21/2025 10:09 AM EDT [facility] Blood Venous blood specimen / Unknown Venipuncture / Unknown 01/21/2025 5:50 AM EDT 01/21/2025 6:20 AM EDT Ryan Otto MD LAB BLOOD ORDERABLES F inal Result Performing Organization Address City/[facility]/ZIP Co de Phone Number [facility] [address] [place] [address], [place] [phone] * Triglycerides (01/20/2025 7:11 PM EDT) Pathologist [facility] [place] Triglycerides 74 0 - 150 mg/dL LAB CHEMISTRY METHOD 01/20/2025 10:28 PM EDT [facility] Blood Venous blood specimen / Unknown Venipuncture / Unknown 01/20/2025 7:11 PM EDT 01/20/2025 7:17 PM EDT Rubén Majano MD LAB BLOOD ORDERABLES Final Result Performing Organization Address City/[facility]/ZIP Co de Phone Number [facility] [address] [place] [address], [place] [phone] * Lactate dehydrogenase (01/20/2025 7:11 PM EDT) [facility] LDH 207 120 - 246 unit/L LAB CHEMISTRY METHOD 01/20/2025 10:28 PM EDT [facility] Blood Venous blood specimen / Unknown Venipuncture / Unknown 01/20/2025 7:11 PM EDT 01/20/2025 7:17 PM EDT Rubén Majano MD LAB BLOOD ORDERABLES Final Result Performing Organization Address City/[facility]/ZIP Co de Phone Number [facility] [address] [place] [address], * Lactate (01/20/2025 7:11 PM EDT) [facility] Lactate 1.2 0.4 - 2.0 mmol/L LAB CHEMISTRY METHOD 01/20/2025 7:54 PM EDT [facility] Blood Venous blood specimen / Unknown Venipuncture / Unknown 01/20/2025 7:11 PM EDT 01/20/2025 7:18 PM EDT Sachin Murrieta MD LAB BLOOD ORDERABLES Fin al Result Performing Organization Address City/[facility]/ZIP Co de Phone Number [facility] [address] [place] [address], [place] [phone] * ECG-Annotated (12/30/2024) Beto Muir MD ECG ORDERABLES Final Result * ECG 12 lead (12/26/2024 3:22 AM EDT) Only the most recent of2 resultswithin the time period is included. [facility] Ventricular Rate ECG 57 BPM GEMUSE Atrial Rate 57 BPM GEMUSE P-R Interval 142 ms GEMUSE QRS Duration 122 ms GEMUSE Q-T Interval 452 ms GEMUSE QTc 439 ms GEMUSE P Wave Jackson 18 degrees GEMUSE R Jackson 19 degrees GEMUSE T Jackson 18 degrees GEMUSE ECG Interpretation Sinus bradycardia Right bundle branch block Abnormal ECG When compared with ECG of 26-DEC-2024 02:12, (unconfirmed) No significant change was found Confirmed by Olu MEEK YUFENG ([id number]) on 12/26/2024 8:18:56 PM GEMUSE 12/26/2024 3:22 AM EDT 12/26/2024 8:18 PM EDT Ladonna Galan ADDICTIONS COUNSELOR ECG ORDERABLES Final Res ult GEMUSE * APTT (12/26/2024 2:40 AM EDT) aPTT 31.4 24.1 - 39.3 sec LAB COAGULATION METHOD 12/26/2024 3:12 AM EDT [facility] Blood Venous blood specimen / Unknown Venipuncture / Unknown 12/26/2024 2:40 AM EDT 12/26/2024 2:58 AM EDT Oh Khanna MD LAB BLOOD ORDERABLES Final R esult Performing Organization Address City/[facility]/ZIP Co de Phone Number [facility] [address] [place] [address], [place] [phone] * (ABNORMAL) Protime-INR (12/26/2024 2:40 AM EDT) Protime 14.3(H) 10.6 - 13.9 sec LAB COAGULATION METHOD 12/26/2024 3:12 AM EDT [facility] INR 1.1 LAB COAGULATION METHOD 12/26/2024 3:12 AM EDT [facility] Blood Venous blood specimen / Unknown Venipuncture / Unknown 12/26/2024 2:40 AM EDT 12/26/2024 2:58 AM EDT Oh Khanna MD LAB BLOOD ORDERABLES Final R esult [facility] [address] [place] [address], * (ABNORMAL) Lipid panel (02/11/2002) LDL/HDL Ratio [...] Documents on File Type Date 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
--- OUTSIDE RECORDS SUMMARY | 2025-03-24 14:18 | XMS_ITS | Clinical Summary ---
Author Organization [facility] Address [address] [facility] [address] [place] [address] Care Team Providers Care Electrical Estimator Name Role Phone Lobo Mills MD Primary Care Provider [phone] Allergies Active Allergy Reactions Criticality Noted Date [...] Documents on File Type Date Recorded Patient Lead Caregiver Expl anation Health Care Proxy 06/07/2019 9:42 PM Conver jigar [facility] (Do Not Resuscitate)/DNI (Do Not Intubate) 06/07/2019 9:41 PM Conversion - DNR Ord er ([facility] Mitzi DM) Health Care Proxy 05/27/2019 11:56 AM Conv ersion - [facility] * Full Code (Latest Code Status on File) Date Activated Date Inactivated Comments 08/10/2021 3:59 PM 08/12/2021 8:27 PM Care Teams Electrical Estimator Relationship Specialty Start Date End Date Lobo Mills MD [address] [place] [address] PCP - General 06/04/21
--- OUTSIDE RECORDS SUMMARY | 2025-03-24 14:18 | XMS_ITS ---
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 Generalized abdominal pain 01/27/2025 Moderate malnutrition ([facility] V24) 01/24/2025 Acute pancreatitis 01/20/2025 Small bowel obstruction ([facility] V24, [facility] V2 8) 12/26/2024 Bowel obstruction ([facility] V24, [facility] V28) 03/2025 Acquired ptosis of eyelid 02/06/2024 Anemia 02/06/2024 Bundle branch block, right 02/06/2024 Chronic neck pain 02/06/2024 COVID-19 02/06/2024 Elevated PSA 02/06/2024 GERD (gastroesophageal reflux disease) HTN (hypertension) 02/06/2024 Nephrolithiasis 02/06/2024 Obstructive lung disease (ge neralized) ([facility] V24, [facility] V28) 02/06/2024 Peripheral neuropathy 02/06/2024 Prediabetes 02/06/2024 Prostate cancer ([facility] V24, [facility] V28) 02/05 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 Past Treatment and Therapy Plans No past plan information found. Lifetime Dose Tracking * Chemical Lifetime Dose Automatic Entry Manual Entr y Fluoro Time 1.7 minutes 0 minutes 1.7 minutes Air Kerma 13 mGy 0 mGy 13 mGy
--- OUTSIDE RECORDS SUMMARY | 2025-03-24 14:18 | XMS_ITS | Encounter Summary ---
Author Organization [facility] Address [address] [place] [address] Care Team Providers Care Japanese Interpreter Name Role Phone Lobo Mills MD Primary Care Provider [phone] Encounter Details Date Type Department Care Team (Late st Contact Info) Description 10/24/2024 Lab Requisition [facility] - Main Lab [address] [facility] [place] [address] Rich Cintron PA [address] [address] Calculus of kidney Social History [...] Complete blood count (10/24/2024 11:48 AM EDT) [facility] WBC 9.1 4.8 - 10.8 K/mcL LAB HEMETOLOGY METHOD 10/24/2024 3:24 PM EDT [facility] RBC 3.30(L) 4.50 - 5.50 M/mcL LAB HEMETOLOGY METHOD 10/24/2024 3:24 PM EDT [facility] Hemoglobin 10.3(L) 13.5 - 17.5 g/dL LAB HEMETOLOGY METHOD 10/24/2024 3:24 PM [facility] Hematocrit 31.2(L) 42.0 - 54.0 % LAB HEMETOLOGY METHOD [facility] MCV 96.0 79.0 - 98.0 FL LAB HEMETOLOGY METHOD 10/24/2024 3[facility] MCH 31.7 27.0 - 32.0 pcg LAB HEMETOLOGY METHOD 10/24/2024 3:24 PM [facility] MCHC 33.0 32.0 - 37.0 g/dL LAB HEMETOLOGY METHOD 10/24/2024 3:24 PM [facility] RDW 15.8(H) 11.0 - 15.0 % LAB HEMETOLOGY METHOD 10/24/2024 3:24 PM EDT [facility] Platelets 464(H) 130 - 400 K/mcL LAB HEMETOLOGY METHOD 10/24/2024 3:24 [facility] MPV 10.6 7.0 - 11.0 FL LAB HEMETOLOGY METHOD 10/24/2024 3:24 PM [facility] NRBC 0.0 <1.0 % LAB HEMETOLOGY METHOD 10/24/2024 3:24 [facility] NRBC Absolute 0.00 <0.10 K/mcL LAB HEMETOLOGY METHOD 10/24/2024 3:24 PM EDT [facility] Blood Venous blood specimen / Unknown 10/24/2024 11:48 AM EDT 10/24/2024 2:28 PM EDT us Rich ALMARAZ LAB BLOOD ORDERABLES Final Resul t [facility] [address] [place] [address], documented in this encounter Visit Diagnoses Diagnosis Calculus of kidney documented in this encounter Care Teams Japanese Interpreter Relationship Specialty Start Date End Date Lobo Mills MD [address] [place], [place] PCP - General 12/14/23 documented as of this encounter
== END 2025-03-24 11:07 | disposition home or self-care (01) ==
LOC: HO.HVNA 11:06
PROVIDERS: Visit Provider Internal Medicine Medical Oncology
DX: N17.9 Acute kidney failure, unspecified (principal); Z90.410 Acquired total absence of pancreas
CPT/HCPCS: 36415; 80053; 85025

== ENCOUNTER 2025-03-31 14:32 | Outpatient (REF) | payer MEDICARE, SELFPAY ==
[2025-03-31 14:38] LABS: MANUAL DIFF FLAG NO
[2025-03-31 14:42] LABS: Hematocrit 28.6 % (42.0-52.0); Hemoglobin 9.2 g/dl (14.0-18.0); Imm Gran Abs Auto 0.03 X10*3/uL (0.00-0.03); Imm Gran Pct Auto 0.3 % (0.0-0.4); Lymphocytes Absolute Auto 2.7 X10*3/uL (1.2-4.9); Mean Corpuscular HGB Conc 32.2 g/dl (31.0-36.0); Mean Corpuscular Hemoglobin 30.9 pg (27.0-33.0); Mean Corpuscular Volume 96.0 fL (80.0-98.0); NRBC Abs Auto 0.000 X10*3/uL (0.0-0.012); NRBC Pct Auto 0.0 /100WBC (0.0-0.2); Platelet Count 487 X10*3/uL (160-400); Red Blood Count 2.98 X10*6/uL (4.60-5.80); White Blood Count 11.4 X10*3/uL (4.8-10.8)
[2025-03-31 14:52] LABS: Anion Gap 10 (12-20); Blood Urea Nitrogen 32 mg/dL (9-16); Carbon Dioxide 20 mmol/L (22-29); Chloride 116 mmol/L (96-108); Estimated Glomerular Filt Rate 44; Potassium 4.2 mmol/L (3.3-5.1); Sodium 142 mmol/L (135-145)
--- OUTSIDE RECORDS SUMMARY | 2025-03-31 17:52 | XMS_ITS | Clinical Summary ---
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) DNR (Do Not Resuscitate)/DNI (Do Not Intubate) 06/07/2019 9:41 PM Conversion - DNR Ord er ([facility]) Health Care Proxy 05/27/2019 11:56 AM Conv ersion - External Healthcare Proxy ([facility]) * Full Code (Latest Code Status on File) Date Activated Date Inactivated Comments 08/10/2021 3:59 PM 08/12/2021 8:27 PM Care Teams Quarrying Manager Relationship Specialty Start Date End Date Lobo Mills MD [address] [place] [address] PCP - General 06/04/21
--- OUTSIDE RECORDS SUMMARY | 2025-03-31 17:52 | XMS_ITS | Clinical Summary ---
Author Organization [facility] Address [address] [address] Phone Care Team Providers Care Still Photographer Name Role Phone Lobo Mills MD Primary Care Provider [phone] Allergies Active Allergy Reactions Criticality Noted Date [...] Office Visit [facility] [address] [facility] [address] [place] [address] Briseida Clarke ARNP Stage 3a chronic kidney disease (HCC) (Primary Dx); Anemia in chronic kidney disease; Chronic metabolic acidosis 12/30/2024 Orders Only [facility] [address] [place] [address] [address] [place] [address] Briseida Clarke ARNP Acute nontraumatic kidney injury, [...] Office Visit [facility] [address] [phone] Mike Andres MD [address] [address] Health Maintenance Due Date Last Done Comments [...] UIBC 188 111 - 343 ug/dL [facility] TIBC 220(L) 250 - 450 ug/dL [facility] Iron 32(L) 38 - 169 ug/dL [facility] Iron Saturation (TSat) 15 15 - 55 % [facility] 01/14/2025 12:3 2 PM EDT 01/14/2025 us Briseida ALARCONP LAB BLOOD ORDERABLES Final Result [facility] [address] [place] [address] * Vitamin D 25 Hydroxy (01/14/2025 12:32 PM EDT) [facility] Vitamin D, 25-OH, Total 42.1 30.0 - 100.0 ng/mL [facility] Comment: Vitamin D deficiency has been defined by the [place] of Medicine and an Endocrine Society practice guideline as a level of serum 25-OH vitamin D less than 20 ng/mL (1,2). The Endocrine Society went on to further define vitamin D insufficiency as a level between 21 and 29 ng/mL (2). 1. IOM ([place] of Medicine). 2010. Dietary reference intakes for calcium and D. [place]: The National Academies Press. 2. Red MF, Aimee WRIGHT, Greyson GUZMÁN, et al. Evaluation, treatment, and prevention of vitamin D deficiency: an Endocrine Society clinical practice guideline. JCEM. 2010; 96(7):1911-30. 01/14/2025 12:3 2 PM EDT 01/14/2025 Briseida Clarke [facility] LAB BLOOD ORDERABLES Final Result [facility] [address] [place] [address] * (ABNORMAL) CBC (01/14/2025 12:32 PM EDT) [facility] WBC 6.9 3.4 - 10.8 x10E3/uL [facility] RBC 3.00(L) 4.14 - 5.80 x10E6/uL [facility] Hemoglobin 9.7(L) 13.0 - 17.7 g/dL [facility] Hematocrit 29.3(L) 37.5 - 51.0 % [facility] MCV 98(H) 79 - 97 fL [facility] MCH 32.3 26.6 - 33.0 pg [facility] MCHC 33.1 31.5 - 35.7 g/dL [facility] RDW 13.8 11.6 - 15.4 % [facility] Platelets 336 150 - 450 x10E3/uL [facility] 01/14/2025 12:3 2 PM EDT 01/14/2025 Briseida [facility] LAB BLOOD ORDERABLES Final Result Performing Organization Address City/[facility]/ZIP Co de Phone Number [facility] [address] [place] [address] * Immunofixation electrophoresis (01/14/2025 12:32 PM EDT) IgG 908 603 - 1,613 mg/dL [facility] IgA 123 61 - 437 mg/dL [facility] IgM 48 20 - 172 mg/dL [facility] Immunofixation Result, Serum Comment [facility] Comment: The immunofixation pattern appears unremarkable. Evidence of monoclonal protein is not apparent. 01/14/2025 12:3 2 PM EDT 01/14/2025 Briseida [facility] LAB BLOOD ORDERABLES Final Result Performing Organization Address City/[facility]/ZIP Co de Phone Number [facility] [address] [place] [address] * PTH, Intact (01/14/2025 12:32 PM EDT) PTH 37 15 - 65 pg/mL [facility] 01/14/2025 12:3 2 PM EDT 01/14/2025 [facility] LAB BLOOD ORDERABLES Final Result Performing Organization Address City/[facility]/ZIP Co de Phone Number [facility] [address] [place] [address] * Ferritin (01/14/2025 12:32 PM EDT) Pathologist [facility] Ferritin 325 30 - 400 ng/mL [facility] 01/14/2025 12:3 2 PM EDT 01/14/2025 Briseida [facility] LAB BLOOD ORDERABLES Final Result Performing Organization Address [facility] de Phone Number [facility] [address] [place] [address] * (ABNORMAL) Renal Function Panel (01/14/2025 12:32 PM EDT) Pathologist [facility] Glucose 91 70 - 99 mg/dL [facility] BUN 23 8 - 27 mg/dL [facility] Creatinine 1.55(H) 0.76 - 1.27 mg/dL [facility] eGFR CKD-EPI CR 2020 49(L) >59 mL/min/1.7 3 [facility] BUN/Creatinine Ratio 15 10 - 24 [facility] Sodium 141 134 - 144 mmol/L [facility] Potassium 4.6 3.5 - 5.2 mmol/L [facility] Chloride 109(H) 96 - 106 mmol/L [facility] Bicarbonate (CO2) 17(L) 20 - 29 mmol/L [facility] Calcium 8.6 8.6 - 10.2 mg/dL [facility] Albumin 3.9 3.9 - 4.9 g/dL [facility] Phosphorus 3.1 2.8 - 4.1 mg/dL [facility] 01/14/2025 12:3 2 PM EDT 01/14/2025 Briseida ALARCONP LAB BLOOD ORDERABLES Final Result [facility] [address] [place] [address] from Last 3 Months Insurance Medicare Medicaid [place] Care Teams Still Photographer Relationship Specialty Start Date End Date Lobo Mills MD [address] [place] PCP - General 03/05/19
--- OUTSIDE RECORDS SUMMARY | 2025-03-31 17:53 | XMS_ITS ---
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 Generalized abdominal pain 01/27/2025 Moderate malnutrition ([facility] V24) 01/24/2025 Acute pancreatitis 01/20/2025 Small bowel obstruction ([facility] V24, [facility] V2 8) 12/26/2024 Bowel obstruction ([facility] V24, [facility] V28) 03/2025 Acquired ptosis of eyelid 02/06/2024 Anemia 02/06/2024 Bundle branch block, right 02/06/2024 Chronic neck pain 02/06/2024 COVID-19 02/06/2024 Elevated PSA 02/06/2024 GERD (gastroesophageal reflux disease) HTN (hypertension) 02/06/2024 Nephrolithiasis 02/06/2024 Obstructive lung disease (ge neralized) ([facility] V24, [facility] V28) 02/06/2024 Peripheral neuropathy 02/06/2024 Prediabetes 02/06/2024 Prostate cancer ([facility] V24, [facility] V28) 02/05 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 Past Treatment and Therapy Plans No past plan information found. Lifetime Dose Tracking * Chemical Lifetime Dose Automatic Entry Manual Entr y Fluoro Time 1.7 minutes 0 minutes 1.7 minutes Air Kerma 13 mGy 0 mGy 13 mGy
--- OUTSIDE RECORDS SUMMARY | 2025-03-31 17:53 | XMS_ITS | Data Portability ---
Author Organization [place] [facility] Address [address] [place] [address] Care Team Providers Care Hospice Art Therapist Name Role Phone ARIES ROJAS Primary Care Provider [facility] OTHER Assessment Encounter Date Assessment Date Assessment [...] care were discussed with the Virtual Physician hydro generation supervisor for [facility], Dr. Horn. After discussion with [...] which he has since ordered from his switch tender and it is currently coming in the [...] and he has some coming in from switch tender but we are in the middle of [...] and he has some coming in from switch tender but we are in the middle of [...] calcium, serum or plasma 2018 019 baldo [facility], [address] [place] [address], [address], 9 15:07:42 Referral None recorded. Procedures None [...] By Organization Details Last Modified Time 07/30/2018 81048 Acute Nausea and Vomiting/Diarrhea BASIC INFORMATION Acute [...] disease, do not use Tylenol. Ask your STEEL SAMPLER how to address fever if you are concerned about Tylenol use. 3) Anti-diarrheal medicines: These are available [id number], but in some cases are not recommended and can even worsen some cases of intestinal problems. Ask your STEEL SAMPLER if you should use them. In children [...] with one of the PCP suggestions from [facility]. SEEK CARE IMMEDIATELY IF: 1) You are [...] in your condition between 8am-10pm, please call [facility] at [phone] to help navigate your care. Thank you for your visit with [facility] today. You were seen today for abdominal [...] condition between 8am-10pm, please call [facility] at [phone] to help navigate your care. baldo Not available 07/30/2018 14:04:47 Reason for Referral None Reported. Results Created Date Observation Date Name Description Value Unit Range Abnormal Flag Note LastModifiedBy Organization Detail LastModifiedTime 07/31/19 19 07/30/2018 BMP + ioniz ed calci um, serum or plasm a Na 139 mmol/ L 136-14 5 Not Available [facility] - [facility] [address] [place], [address], 07/30/2018 14:04:49 07/31/19 19 07/30/2018 BMP + ioniz ed calci um, serum or plasm a K 4.3 mmol/ L 3.5-5. 1 Not Available [facility] [address] [place], [address], 07/30/2018 14:04:49 07/31/1907/30/2018 BMP + ioniz ed calci um, serum or plasm a cL 109 mmol/ L 96-111 Not Available [facility] [address] [place], [address], 07/30/2018 14:04:49 07/31/1907/30/2018 BMP + ioniz ed calci um, serum or plasm a ica 1.20 mmol/ L 1.1-1. 4 Not Available [facility] - Home [address] [place], [address], 07/30/2018 14:04:49 07/31/19 19 07/30/2018 BMP + ioniz ed calci um, serum or plasm a TCO2 19 mmol/ L 20-30 Not Available [facility] [address] [place], [address], 07/30/2018 14:04:49 07/31/19 07/30/2018 BMP + ioniz ed calci um, serum or plasm a glu 144 mg/dL 70-115 Not Available [facility] [address] [place], [address], 07/30/2018 14:04:49 07/31/19 19 07/30/2018 BMP + ioniz ed calci um, serum or plasm a BUN 46 mg/dL 6-24 Not Available [facility] [address] [place], [address], 07/30/2018 14:04:49 07/31/19 19 07/30/2018 BMP + ioniz ed calci um, serum or plasm a crea 1.3 mg/dL .65-1. 36 Not Available [facility] [address] [place], [address], 07/30/2018 14:04:49 07/31/1907/30/2018 BMP + ioniz ed calci um, serum or plasm a HCT 43 %_pcv 40.6-5 0.3 Not Available [facility] - [facility] [address] [place], [address], 07/30/2018 14:04:49 07/31/1907/30/2018 BMP + ioniz ed calci um, serum or plasm a Hb 14.6 g/dL 13.9-1 7.4 Not Available [facility] [address] [place], [address], 07/30/2018 14:04:49 07/31/1907/30/2018 BMP + ioniz ed calci um, serum or plasm a angap 16 mmol/ L 6-18 Not Available [facility] [address] [place], [address], 07/30/2018 14:04:49 Result Notes None recorded. 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 Procedures Surgical History Date Name Laterality Status Provider Name and Address Organization Details Recorded Time 9 IV Start Procedure - DH completed DEBBI THOMSON NP [address], [place], [address], [place] [facility] 07/30/2018 15:49:59 Imaging Results None recorded. Procedure Notes None recorded. Medical Equipment None Reported. Allergies Allergen ID Allergen Name Allergen Category Reaction Reaction Severity Criticality Documentation Date Start Date Code Code System Note Provider Name and Address Organization Details Recorded Time 518391 cefepime medicatio n Not available Not available Not available 09/25/2021 65389 RxNorm RUFINA Duffy [address], [place], [address], [place] [facility] 2 12:56:11 555457 Iodinated contrast media (substanc e) medicatio n Not available Not available Not available 09/25/2021 72169 2004 SNOMED RUFINA Duffy [address], [facility], [address], [place] [facility] 2 12:56:18 40215 acetamino phen / oxycodone medicatio n Not available Not available Not available 07/30/2018 88712 3 RxNorm DEBBI THOMSON NP [address], [place], [address], [place] [facility] 9 [...] Recorded Respiratory rate Body temperature Oxygen saturation Heart rate Systolic And Diastolic Provider Name and Address Organization Details Last Updated DateTime 9 18 /min 98.7 [degF] 95 % 108 /min 108/54 mm[Hg] Not Available [facility] 9 14:03:10 Date Recorded Respiratory rate Body temperature Heart rate Oxygen saturation Systolic And Diastolic Provider Name and Address Organization Details Last Updated DateTime 2 22 /min 98.9 [degF] 96 /min 97 % 138/76 mm[Hg] Not Available [facility] 2 12:38:31 Social History Question Answer Notes LastModified by Organizat ion Details LastModified Time Tobacco Smoking Status Never Smoker DEBBI THOMSON, LUIS ALBERTO [address], [place], [address], [place] [facility] 07/30/2018 14:02:24 Do You [...] le 07/30/2018 14:02:17 Medical History Condition Response COPD Y Cancer Y Hypertension Y Past Encounters Encounter ID Performer Location Encounter Start Date Encounter Closed Date Diagnosis/Indication Diagnosis SNOMED-CT Code Diagnosis ICD10 Code Diagnosis IMO Codes Diagnosis Note [id number] DEBBI THOMSON NP [facility] [address] [facility] [place] [address] 07/30/2018 13:54:27 08/01/2018 15:30:31 Diarrhea 28304226 R19.7 [id number] RUFINA Walter [facility] [address] [place] [address] 09/25/2021 11:33:30 09/30/2021 09:40:37 Cellulitis 387107402 L03.90 Health Concerns Section Related Observation LastModified by Organization Detai ls LastModified Time None Recorded Concern Status LastModified by Organization Details LastModified Time None Recorded Advance Directives Directive Y: Payers Insurance Date Sequence Insurance Name Policy Number Policy Snyder Covered Member ID Snyder Member ID Guarantor Name 10/01/2021 2 [place] [facility] Jose Hirsch [id number] Jose Hirsch 07/30/2018 1 *SELF PAY* Josestephanie Hirsch [id number] Jose Joycelyn 07/30/2018 1 [place] [employer] Josestephanie Hirsch [id number] Jose Hirsch 09/25/2021 1 [place] [employer] Josestephanie Hirsch [id number] Jose Hirsch Notes Date Note Type Note [...] diclofenac and got a bleeding ulcer. DEBBI THOMSON NP [address], [place], [address], [place] [facility] 07/30/2018 17:56:13 09/25/2021 text/html [...] which he has since ordered from his switch tender and it is currently coming in the [...] sxs today. RUFINA Graham [address], [place], [address], [place] [facility] 09/25/2021 13:40:14
--- OUTSIDE RECORDS SUMMARY | 2025-03-31 17:53 | XMS_ITS | Encounter Summary ---
Author Organization [facility] Address [address] [place] [address] Care Team Providers Care Burr Grinder Name Role Phone Lobo Mills MD Primary Care Provider [phone] Encounter Details Date Type Department Care Team (Late st Contact Info) Description 10/24/2024 Lab Requisition [facility] - Main Lab [address] [facility] [place] [address] Rich Cintron PA [address] [address] Calculus of kidney Social History [...] Complete blood count (10/24/2024 11:48 AM EDT) [facility] WBC 9.1 4.8 - 10.8 K/mcL LAB HEMETOLOGY METHOD 10/24/2024 3:24 PM EDT [facility] RBC 3.30(L) 4.50 - 5.50 M/mcL LAB HEMETOLOGY METHOD 10/24/2024 3:24 PM EDT [facility] Hemoglobin 10.3(L) 13.5 - 17.5 g/dL LAB HEMETOLOGY METHOD 10/24/2024 3:[address] [facility] Hematocrit 31.2(L) 42.0 - 54.0 % LAB [facility]ETOLOGY [facility] MCV 96.0 79.0 - 98.0 FL LAB HEMETOLOGY METHOD [facility] MCH 31.7 27.0 - 32.0 pcg LAB HEMETOLOGY METHOD 10/24/2024 3:[address] [facility] MCHC 33.0 32.0 - 37.0 g/dL LAB HEMETOLOGY METHOD 10/24/2024 3:[address] [facility] RDW 15.8(H) 11.0 - 15.0 % LAB HEMETOLOGY METHOD 10/24/2024 3:24 PM EDT [facility] Platelets 464(H) 130 - 400 K/mcL LAB HEMETOLOGY METHOD [facility] MPV 10.6 7.0 - 11.0 FL LAB HEMETOLOGY METHOD 10/24/2024 3:[address] [facility] NRBC 0.0 <1.0 % LAB HEMETOLOGY METHOD [facility] NR[facility] Absolute 0.00 <0.10 K/mcL LAB HEMETOLOGY METHOD 10/24/2024 3:24 PM EDT [facility] Blood Venous blood specimen / Unknown 10/24/2024 11:48 AM EDT 10/24/2024 2:28 PM EDT us Rich [facility]MAR[facility] LAB BLOOD ORDERABLES Final Resul t [facility] [address] [place] [address], documented in this encounter Visit Diagnoses Diagnosis Calculus of kidney documented in this encounter Care Teams Burr Grinder Relationship Specialty Start Date End Date Lobo Mills MD [address] [place], [place] PCP - General 12/14/23 documented as of this encounter
--- OUTSIDE RECORDS SUMMARY | 2025-03-31 17:53 | XMS_ITS | Clinical Summary ---
Author Organization 175 [facility] Address [address] [place] [address] Phone Care Team Providers Care Shoe Shiner Name Role Phone Lobo Mills MD Primary Care Provider [phone] Allergies Active Allergy Reactions Criticality Noted Date [...] (six) hours if needed for flatulence. Active furosemide (LASIX) 20 mg tablet Take 1 tablet (20 mg total) by mouth 2 (two) times a day for 5 days. 10 each 5 Active pantoprazole (PROTONIX) 40 mg EC tablet Take 1 tablet (40 mg total) by mouth 2 (two) times a day. 120 each 5 03/25/20 25 potassium chloride (KLOR-CON M20) 20 mEq [...] 01/27/2025 Generalized abdominal pain 01/27/2025 Moderate malnutrition ([facility] V24) 01/24/2025 Acute pancreatitis 01/20/2025 Small bowel obstruction ([facility] V24, [facility] V2 8) 12/26/2024 Bowel obstruction ([facility] V24, [facility] V28) 03/2025 Acquired ptosis of eyelid 02/06/2024 Anemia 02/06/2024 Bundle branch block, right 02/06/2024 Chronic neck pain 02/06/2024 COVID-19 02/06/2024 Elevated PSA 02/06/2024 GERD (gastroesophageal reflux disease) HTN (hypertension) 02/06/2024 Nephrolithiasis 02/06/2024 Obstructive lung disease (ge neralized) ([facility] V24, [facility] V28) 02/06/2024 Peripheral neuropathy 02/06/2024 Prediabetes 02/06/2024 Prostate cancer ([facility] V24, [facility] V28) 02/05 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, [facility]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 Psoriasis of scalp 02/06/2024 Stage 3 chronic kidney disease ([facility] V24, [facility] V28) 02/06/2024 Encounters Date Type Department Care Team Description 03/06/2025 10:00 AM EST Consult Orthopedic Surgery - [place] [address] [facility] [address] [place] [phone] Lori Walters PA [facility] arthritis (Primary Dx) 02/27/2025 12:00 PM EDT - 02/27/2025 4:36 PM EDT Emergency [facility] Emergency [address] [place] [phone] Alexander Collins MD Edema leg (Primary Dx); Anemia, unspecified type; Hypoalbuminemia Discharge Disposition: Home or Self Care 02/07/2025 6:12 AM EDT - 02/07/2025 10:14 AM EDT Emergency [facility] Emergency [address] [place] [phone] Arthralgia of left hand (Primary Dx); Lead-induced acute gout of left hand, initial encounter Discharge Disposition: Home or Self Care 01/26/2025 9:17 PM EDT - 01/30/2025 5:00 PM EDT Hospital Encounter [facility] Urology Unit [address] [place] [phone] Shmuel Garber MD Jones, Christopher, MD Alam, Aroosa, MD Generalized abdominal pain (Primary Dx); Small bowel obstruction ([facility] V24, [facility] V28); 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, [facility] V28) Discharge Disposition: [place] [facility] [place]/20/2025 5:46 PM EDT - 01/24/2025 3:25 PM EDT Hospital Encounter [facility] Medical Surgical Unit [address] [place] [phone] Sachin Murrieta MD Jones, Christopher, MD Santoyo-Pacheco, Omar D, MD Intestinal obstruction, unspecified cause, unspecified whether partial or complete ([facility] V24, [facility] V28) (Primary Dx); Acute pancreatitis, unspecified complication status, unspecified pancreatitis type Discharge Disposition: Home or Self Care from Last 3 Months Surgical History Surgery Date Site/Laterality Comments APPENDECTOMY CHOLECYSTECTOMY SPLENECTOMY, TOTAL OMENTECTOMY Medical History Medical History Date Comments Prostate cancer ([facility] V24, [facility] V28) Small bowel obstruction ([facility] V24, [facility] V2 8) 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 [facility] WBC 8.8 4.8 - 10.8 K/mcL LAB HEMETOLOGY METHOD 02/27/2025 2:22 PM EDT [facility] RBC 2.50(L) 4.50 - 5.50 M/mcL LAB HEMETOLOGY METHOD 02/27/2025 2:22 [facility] Hemoglobin 7.9(L) 13.5 - 17.5 g/dL LAB HEMETOLOGY METHOD 02/27/2025 2:22 PM [facility] Hematocrit 23.8(L) 42.0 - 54.0 % LAB HEMETOLOGY METHOD 02/27/2025 2:22 PM [facility] MCV 95.2 79.0 - 98.0 FL LAB HEMETOLOGY METHOD 02/27/2025 2:22 PM [facility] MCH 31.6 27.0 - 32.0 pcg LAB HEMETOLOGY METHOD 02/27/2025 2:22 PM [facility] MCHC 33.2 32.0 - 37.0 g/dL LAB HEMETOLOGY METHOD 02/27/2025 2:22 PM [facility] RDW 16.2(H) 11.0 - 15.0 % LAB HEMETOLOGY METHOD 02/27/2025 2:22 PM [facility] Platelets 334 130 - 400 K/mcL LAB HEMETOLOGY METHOD 02/27/2025 2:22 PM [facility] MPV 9.3 7.0 - 11.0 FL LAB HEMETOLOGY METHOD 02/27/2025 2:22 PM [facility] NRBC 0.0 <1.0 % LAB HEMETOLOGY METHOD 02/27/2025 2:22 PM [facility] NRBC Absolute 0.00 <0.10 K/mcL LAB HEMETOLOGY METHOD 02/27/2025 2:22 PM [facility] Neutrophils Relative 65.8 % LAB HEMETOLOGY METHOD 02/27/2025 2:22 PM [facility] Lymphocytes Relative 21.3 % LAB HEMETOLOGY METHOD 02/27/2025 2:22 PM EDT [facility] Monocytes Relative 10.0 % LAB HEMETOLOGY METHOD 02/27/2025 2:22 PM T [facility] Eosinophils Relative 1.7 % LAB HEMETOLOGY METHOD 02/27/2025 2:22 PM EDT [facility] Basophils Relative 0.7 % LAB HEMETOLOGY METHOD 02/27/2025 2:22 PM EDT [facility] Immature Granulocytes Relative 0.5 % LAB HEMETOLOGY METHOD 02/27/2025 2:22 PM EDT [facility] Neutrophils Absolute 5.81 1.50 - 7.00 K/mcL LAB HEMETOLOGY METHOD 02/27/2025 2:22 PM EDT [facility] Lymphocytes Absolute 1.88 1.00 - 5.00 K/mcL LAB HEMETOLOGY METHOD 02/27/2025 2:22 PM EDT [facility] Monocytes Absolute 0.88 0.20 - 1.00 K/mcL LAB HEMETOLOGY METHOD 02/27/2025 2:22 PM EDT [facility] Eosinophils Absolute 0.15 0.00 - 0.50 K/mcL LAB HEMETOLOGY METHOD 02/27/2025 2:22 PM EDT [facility] Basophils Absolute 0.06 0.00 - 0.20 K/mcL LAB HEMETOLOGY METHOD 02/27/2025 2:22 PM EDT [facility] Immature Granulocytes Absolute 0.04(H) 0.00 - 0.03 K/mcL LAB HEMETOLOGY METHOD 02/27/2025 2:22 PM [facility] Blood Venous blood specimen / Unknown Venipuncture / Unknown 02/27/2025 1:57 PM EDT 02/27/2025 2:12 PM EDT Alexander Collins MD LAB BLOOD ORDERABLES Final Result Performing Organization Address [facility]/ZIP Co de Phone Number [facility] [address] [place] [address], [place] [phone] * Type and screen (02/27/2025 1:57 PM EDT) Only the most recent of2 resultswithin the time period is included. ABO Group O 02/27/2025 3:07 PM EDT [facility] Rh Type Negative 02/27/2025 3:07 PM EDT [facility] Antibody Screen Negative 02/27/2025 3:07 PM EDT [facility] Blood Venous blood specimen / Unknown Venipuncture / Unknown 02/27/2025 1:57 PM EDT 02/27/2025 2:12 PM EDT Alexander Collins MD LAB BLOOD BANK TEST ORDERAB LES Final Result Performing Organization Address [facility] de Phone Number [facility] [address] [place] [address], [place] [phone] * (ABNORMAL) B-type natriuretic peptide (02/27/2025 1:57 PM EDT) BNP 315(H) <=100 pcg/mL LAB CHEMISTRY METHOD 02/27/2025 2:51 PM EDT [facility] Blood Venous blood specimen / Unknown Venipuncture / Unknown 02/27/2025 1:57 PM EDT 02/27/2025 2:12 PM EDT Alexander Collins MD LAB BLOOD ORDERABLES Final Result Performing Organization Address [facility]/ZIP Co de Phone Number [facility] [address] [place] [address], [place] [phone] * (ABNORMAL) Comprehensive Metabolic Panel (CMP) (02/27/2025 1:57 PM EDT) Only the most recent of6 resultswithin the time period is included. Sodium 142 133 - 145 mmol/L LAB CHEMISTRY METHOD 02/27/2025 2:49 PM [facility] Potassium 4.1 3.5 - 5.5 mmol/L LAB CHEMISTRY METHOD 02/27/2025 2:49 PM [facility] Chloride 115(H) 96 - 110 mmol/L LAB CHEMISTRY METHOD 02/27/2025 2:49 PM [facility] CO2 22 21 - 32 mmol/L LAB CHEMISTRY METHOD 02/27/2025 2:49 PM [facility] Anion Gap 5 3 - 11 LAB CHEMISTRY METHOD 02/27/2025 2:49 PM [facility] Glucose 112(H) 70 - 100 mg/dL LAB CHEMISTRY METHOD 02/27/2025 2:49 PM [facility] BUN 22 5 - 25 mg/dL LAB CHEMISTRY METHOD 02/27/2025 2:49 PM [facility] Creatinine 1.19 0.70 - 1.30 mg/dL LAB CHEMISTRY METHOD 02/27/2025 2:49 PM [facility] eGFR 67 >=60 mL/min/1. 73m2 LAB CHEMISTRY METHOD 02/27/2025 2:49 PM [facility] Comment:Calculation based on the Chronic Kidney Disease Epidemiology Collaboration (CKD-EPI) equation refit without adjustment for race. BUN/Creatinine Ratio 18.5 LAB CHEMISTRY METHOD 02/27/2025 2:49 PM [facility] Calcium 8.2(L) 8.5 - 10.5 mg/dL LAB CHEMISTRY METHOD 02/27/2025 2:49 PM [facility] AST (SGOT) 9(L) 10 - 42 unit/L LAB CHEMISTRY METHOD 02/27/2025 2:49 PM EDT [facility] ALT (SGPT) 14 10 - 60 unit/L LAB CHEMISTRY METHOD 02/27/2025 2:49 PM EDT [facility] Alkaline Phosphatase 58 42 - 121 unit/L LAB CHEMISTRY METHOD 02/27/2025 2:49 PM EDT [facility] Total Protein 4.9(L) 6.0 - 8.0 g/dL LAB CHEMISTRY METHOD 02/27/2025 2:49 PM EDT [facility] Albumin 2.7(L) 3.2 - 5.0 g/dL LAB CHEMISTRY METHOD 02/27/2025 2:49 PM EDT [facility] Total Bilirubin 0.3 0.0 - 1.4 mg/dL LAB CHEMISTRY METHOD 02/27/2025 2:49 PM EDT [facility] Blood Venous blood specimen / Unknown Venipuncture / Unknown 02/27/2025 1:57 PM EDT 02/27/2025 2:12 PM EDT us Alexander Collins MD LAB BLOOD ORDERABLES Final Result [facility] [address] [place] [address], [place] [phone] * XR Chest 2 Views (02/27/2025 12:54 [...] Signed Date: 02/27/2025 13:22 ET Workstation ID: [id number] Transcribed By: Self Edit Transcribed Date: 02/27/2025 [...] Signed Date: 02/27/2025 13:22 ET Workstation ID: [id number] Transcribed By: Self Edit Transcribed Date: 02/27/2025 [...] Signed Date: 02/27/2025 12:44 ET Workstation ID: [id number] Transcribed By: Self Edit Transcribed Date: 02/27/2025 [...] Signed Date: 02/27/2025 12:44 ET Workstation ID: [id number] Transcribed By: Self Edit Transcribed Date: 02/27/2025 12:43 ET us Alexander Collins MD CV VASCULAR PROCEDURES Gabbie l Result * XR Hand 3+ Views Left (02/07/2025 7:58 AM EDT) Anatomical Region Laterality Modality Upper Extremities, Hand Left [facility] 02/07/2025 9:28 AM EDT Impressions 02/07/2025 9:29 AM EDT No acute findings. Degenerative changes as detailed above. -------- FINAL REPORT -------- Dictated By: Pratik Christian Dictated Date: 02/07/2025 09:28 ET Assigned Physician: Pratik Christian Reviewed and Electronically Signed By: Pratik Christian Signed Date: 02/07/2025 09:29 ET Workstation ID: [id number] Transcribed By: Self Edit Transcribed Date: 02/07/2025 [...] Signed Date: 02/07/2025 09:29 ET Workstation ID: [id number] Transcribed By: Self Edit Transcribed Date: 02/07/2025 09:28 ET Briseida ALMARAZ IMG XR PROCEDURES Final Result * Phosphorus (01/30/2025 5:43 AM EDT) Only the most recent of6 resultswithin the time period is included. Phosphorus 2.9 2.5 - 4.5 mg/dL LAB CHEMISTRY METHOD 01/30/2025 7:03 AM EDT [facility] Blood Venous blood specimen / Unknown Venipuncture / Unknown 01/30/2025 5:43 AM EDT 01/30/2025 6:19 AM EDT us Yazmin Degroot DE LAB BLOOD ORDERABLES Final Result Performing Organization Address [facility] de Phone Number [facility] [address] [place] [address], [place] [phone] * Magnesium (01/30/2025 5:43 AM EDT) Only the most recent of6 resultswithin the time period is included. Magnesium 2.0 1.9 - 2.6 mg/dL LAB CHEMISTRY METHOD 01/30/2025 7:03 AM EDT [facility] Blood Venous blood specimen / Unknown Venipuncture / Unknown 01/30/2025 5:43 AM EDT 01/30/2025 6:19 AM EDT [facility] BLOOD ORDERABLES Final Result Performing Organization Address [facility] de Phone Number [facility] [address] [place] [address], [place] [phone] * IR Insert Gastro Tube Perc w [...] as the tube itself. Specimen: None Tube: 16-Colombian gastrostomy Estimated blood loss: Minimal Consultations: None [...] over the wire through which we placed [id number] gastrostomy tube. The peel-away sheath was removed. [...] Signed Date: 01/28/2025 17:19 ET Workstation ID: [id number] Transcribed By: Self Edit Transcribed Date: 01/28/2025 [...] as the tube itself. Specimen: None Tube: 16-Colombian gastrostomy Estimated blood loss: Minimal Consultations: None [...] advanced over the wire through which weplaced [id number] gastrostomy tube. The peel-away sheath was removed.5 [...] Signed Date: 01/28/2025 17:19 ET Workstation ID: [id number] Transcribed By: Self Edit Transcribed Date: 01/28/2025 17:16 ET us Patricia ALMARAZ IMG IR PROCEDURES Final Result * (ABNORMAL) Basic metabolic panel (01/27/2025 6:03 AM EDT) Only the most recent of5 resultswithin the time period is included. Pathologist [facility] Sodium 138 133 - 145 mmol/L LAB CHEMISTRY METHOD 01/27/2025 6:55 AM [facility] Potassium 3.8 3.5 - 5.5 mmol/L LAB CHEMISTRY METHOD 01/27/2025 6:55 AM [facility] Chloride 103 96 - 110 mmol/L LAB CHEMISTRY METHOD 01/27/2025 6:55 AM [facility] CO2 33(H) 21 - 32 mmol/L LAB CHEMISTRY METHOD 01/27/2025 6:55 AM [facility] Anion Gap 2(L) 3 - 11 LAB CHEMISTRY METHOD 01/27/2025 6:55 AM [facility] Glucose 122(H) 70 - 100 mg/dL LAB CHEMISTRY METHOD 01/27/2025 6:55 AM [facility] BUN 21 5 - 25 mg/dL LAB CHEMISTRY METHOD 01/27/2025 6:55 AM [facility] Creatinine 1.18 0.70 - 1.30 mg/dL LAB CHEMISTRY METHOD 01/27/2025 6:55 AM [facility] eGFR 68 >=60 mL/min/1. 73m2 LAB CHEMISTRY METHOD 01/27/2025 6:55 AM [facility] Comment:Calculation based on the Chronic Kidney Disease Epidemiology Collaboration (CKD-EPI) equation refit without adjustment for race. BUN/Creatinine Ratio 17.8 LAB CHEMISTRY METHOD 01/27/2025 6:55 AM [facility] Calcium 8.3(L) 8.5 - 10.5 mg/dL LAB CHEMISTRY METHOD 01/27/2025 6:55 AM EDT [facility] Blood Venous blood specimen / Unknown Venipuncture / Unknown 01/27/2025 6:03 AM EDT 01/27/2025 6:08 AM EDT Rubén Majano MD LAB BLOOD ORDERABLES Final Result [facility] [address] [place] [address], [place] [phone] * XR Chest 1 View (01/27/2025 2:35 [...] Signed Date: 01/27/2025 08:25 ET Workstation ID: [id number] Transcribed By: Self Edit Transcribed Date: 01/27/2025 [...] Signed Date: 01/27/2025 08:25 ET Workstation ID: [id number] Transcribed By: Self Edit Transcribed Date: 01/27/2025 08:24 ET us Rubén Majano MD IMG XR PROCEDURES Final Res ult * CT Abdomen Pelvis wo Contrast (01/26/2025 11:30 PM EDT) Only the most recent of2 [...] Lactate, with Reflex (01/26/2025 10:40 PM EDT) [facility] LACTIC ACID 1.2 0.4 - 2.0 mmol/L LAB CHEMISTRY METHOD 01/26/2025 11:15 PM EDT [facility] Blood Venous blood specimen / Unknown Venipuncture / Unknown 01/26/2025 10:40 PM EDT 01/26/2025 10:44 PM EDT Shmuel Garber MD LAB BLOOD ORDERABLES Gabbie l Result [facility] [address] [place] [address], [place] [phone] * (ABNORMAL) Manual differential (01/26/2025 10:40 PM EDT) Only the most recent of2 resultswithin the time period is included. [facility] Neutrophils % 77.0 % LAB HEMETOLOGY METHOD 01/26/2025 11:27 PM EDT [facility] Bands % 4.0 % LAB HEMETOLOGY METHOD 01/26/2025 11:27 PM [facility] Lymphocytes % 10.0 % LAB HEMETOLOGY METHOD 01/26/2025 11:27 PM [facility] Monocytes % 9.0 % LAB HEMETOLOGY METHOD 01/26/2025 11:27 PM [facility] Eosinophils % 1.0 % LAB HEMETOLOGY METHOD 01/26/2025 11:27 PM [facility] Basophils % 0.0 % LAB HEMETOLOGY METHOD 01/26/2025 11:27 PM [facility] Neutrophils Absolute Manual 8.47(H) 1.50 - 7.00 K/mcL LAB HEMETOLOGY METHOD 01/26/2025 11:27 PM [facility] Bands Absolute Manual 0.44(H) 0.00 - 0.00 K/mcL LAB HEMETOLOGY METHOD 01/26/2025 11:27 PM [facility] Lymphocytes Absolute 1.10 1.00 - 5.00 K/mcL LAB HEMETOLOGY METHOD 01/26/2025 11:27 PM [facility] Monocytes Absolute Manual 0.99 0.20 - 1.00 K/mcL LAB HEMETOLOGY METHOD 01/26/2025 11:27 PM [facility] Eosinophils Absolute Manual 0.11 0.00 - 0.50 K/mcL LAB HEMETOLOGY METHOD 01/26/2025 11:27 PM [facility] Basophils Absolute Manual 0.00 0.00 - 0.20 K/mcL LAB HEMETOLOGY METHOD 01/26/2025 11:27 PM [facility] Rbc Morphology Present( A) Consistent with indices, Normal for [place] LAB HEMETOLOGY METHOD 01/26/2025 11:27 PM [facility] Comment:RBC: Morphology agre es with CBC Platelet Morphology - WAM See Note(A) Normal LAB HEMETOLOGY METHOD 01/26/2025 11:27 PM EDT [facility] Comment:PLT: Normal Target Cells Present 5 - 10%(A) (none) LAB HEMETOLOGY METHOD 01/26/2025 11:27 PM EDT [facility] Blood Venous blood specimen / Unknown Venipuncture / Unknown 01/26/2025 10:40 PM EDT 01/26/2025 10:46 PM EDT Shmuel Garber MD LAB BLOOD ORDERABLES Gabbie l Result [facility] [address] [place] [address], * (ABNORMAL) Hemoglobin and hematocrit (01/22/2025 7:56 PM EDT) Hemoglobin 10.4(L) 13.5 - 17.5 g/dL LAB HEMETOLOGY METHOD 01/22/2025 8:44 PM EDT [facility] Hematocrit 30.8(L) 42.0 - 54.0 % LAB HEMETOLOGY METHOD 01/22/2025 8:44 PM EDT [facility] Blood Venous blood specimen / Unknown Venipuncture / Unknown 01/22/2025 7:56 PM EDT 01/22/2025 8:26 PM EDT Ryan Otto MD LAB BLOOD ORDERABLES F inal Result [facility] [address] [place] [address], * XR Abdomen 1 View (01/22/2025 9:35 AM EDT) Anatomical Region Laterality Modality Body Radiographic [place] ging 01/22/2025 10:1 0 AM EDT Impressions 01/22/2025 10:11 AM EDT Tip of gastric tube within the upper abdomen to left of midline. -------- FINAL REPORT -------- Dictated By: Vince Gonzalez Dictated Date: 01/22/2025 10:10 ET Assigned Physician: Vince Gonzalez Reviewed and Electronically Signed By: Vince Gonzalez Signed Date: 01/22/2025 10:11 ET Workstation ID: [id number] Transcribed By: Self Edit Transcribed Date: 01/22/2025 [...] Signed Date: 01/22/2025 10:11 ET Workstation ID: [id number] Transcribed By: Self Edit Transcribed Date: 01/22/2025 10:10 ET us Cheri ALMARAZ IMG XR PROCEDURES Final Resu lt * (ABNORMAL) Lipase (01/21/2025 5:50 AM EDT) Only the most recent of2 resultswithin the time period is included. Lipase 262(H) 13 - 75 unit/L LAB CHEMISTRY METHOD 01/21/2025 10:09 AM EDT [facility] Blood Venous blood specimen / Unknown Venipuncture / Unknown 01/21/2025 5:50 AM EDT 01/21/2025 6:20 AM EDT us Ryan Otto MD LAB BLOOD ORDERABLES F inal Result Performing Organization Address [facility]/ZIP Co de Phone Number [facility] [address] [place] [address], [place] [phone] * Triglycerides (01/20/2025 7:11 PM EDT) Triglycerides 74 0 - 150 mg/dL LAB CHEMISTRY METHOD 01/20/2025 10:28 PM EDT [facility] Blood Venous blood specimen / Unknown Venipuncture / Unknown 01/20/2025 7:11 PM EDT 01/20/2025 7:17 PM EDT us Rubén Majano MD LAB BLOOD ORDERABLES Final Result Performing Organization Address [facility]/ZIP Co de Phone Number [facility] [address] [place] [address], [place] [phone] * Lactate dehydrogenase (01/20/2025 7:11 PM EDT) LDH 207 120 - 246 unit/L LAB CHEMISTRY METHOD 01/20/2025 10:28 PM EDT [facility] Blood Venous blood specimen / Unknown Venipuncture / Unknown 01/20/2025 7:11 PM EDT 01/20/2025 7:17 PM EDT us Rubén Majano MD LAB BLOOD ORDERABLES Final Result [facility] [address] [place] [address], [place] [phone] * Lactate (01/20/2025 7:11 PM EDT) [facility] Lactate 1.2 0.4 - 2.0 mmol/L LAB CHEMISTRY METHOD 01/20/2025 7:54 PM EDT [facility] Blood Venous blood specimen / Unknown Venipuncture / Unknown 01/20/2025 7:11 PM EDT 01/20/2025 7:18 PM EDT Sachin Murrieta MD LAB BLOOD ORDERABLES Fin al Result Performing Organization Address City/[facility]/ZIP Co de Phone Number [facility] [address] [place] [address], [place] [phone] * ECG-Annotated (12/30/2024) Provider Onbase ECG ORDERABLES Final Result * (ABNORMAL) Lipid panel (02/11/2002) [facility] LDL/HDL Ratio 4 1 - 5 Triglycerides [...] Documents on File Type Date 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
--- OUTSIDE RECORDS SUMMARY | 2025-03-31 17:53 | XMS_ITS | Data Portability ---
Author Organization RUFINA Hamilton s [address] Address [address] [place] [address] Assessment No assessment recorded. Plan of Treatment Reminders Order Date Submit Date Provider Last Modified By Organization Details Last Modified Time Details Appointments None recorded. Lab None recorded. Referral None recorded. Procedures None recorded. Surgeries None recorded. Imaging None recorded. Medication Orders cephalexin 500 mg capsule 2022 023 [id number], [address] [place], [place], [phone], 12:02:04 Patient TargetsNo targets recorded. Patient Instructions Encounter Date Encounter Id Patient Instructions Last Modified By Organization Details Last Modified Time 11/21/2022 [id number] Cellulitis is a skin infection caused by [...] your doctor if you can take an [id number]-acy-[id number] medicine. Not available 11/21/2022 12:00:53 Reason for Referral None Reported. 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 Procedures Surgical History Date Name Laterality Status Provider Name and Address Organization Details Recorded Time 3 Wound Dressing completed Neal Trejo [facility] [address] [facility] [place], [address], [place] - [facility] 11/21/2022 12:01:52 3 Wound Care UC completed Nela Trejo NP [address] [place], [address], [place] - [facility] 11/21/2022 12:01:24 Appendectomy completed GENEVA JESUS PA - [facility] 11/21/2022 11:28:37 Imaging Results None recorded. Procedure Notes None recorded. Medical Equipment None Reported. Allergies Allergen ID Allergen Name Allergen Category Reaction Reaction Severity Criticality Documentation Date Start Date Code Code System Note Provider Name and Address Organization Details Recorded Time 542498 Iodinated contrast media (substanc e) medicatio n other Not available Not available 11/21/2022 53832 2003 SNOMED feel s like I'm on [...] [Score] - Reported Respiratory rate Oxygen saturation Heart rate Body temperature Systolic And Diastolic Provider Name and Address Organization Details Last Updated DateTime 162.56 cm 27.3 kg/m2 13633.1 9 g 5 17 /min 98 % 96 /min 98.5 [degF] 129/94 mm[Hg] GENEVA JESUS [employer] 11:29:31 Social History Question Answer Notes LastModified by [email or web address] Details LastModified Time Tobacco Smoking Status Never Smoker GENEVA schmitz [employer] 11/21/2022 11:27:59 Have You Recently Traveled Abroad? No [email or web address] Information not available 11/21/2022 Sex: Unknown Functional Status Question Answer Note LastModified by [email or web address] Details LastModified Time Do you use any illicit or recreational drugs? No [email or web address] Information not available 11/21/2022 Do you or have you ever used any other forms of tobacco or nicotine? No Information not available 11/21/2022 What is your level of alcohol consumption? Occasional [email or web address] Information not available 11/21/2022 Mental Status None recorded. Family History Relationship Description Onset Age of this Age Resolved Age Notes LastModified by Organization Details LastModified Time Father No current problems or disability [email or web address] Not available 11/21 11:27:52 Mother No current problems or disability [email or web address] Not available 11/21 11:27:52 Medical History No medical history recorded. Past Encounters Encounter ID Performer Location Encounter Start Date Encounter Closed Date Diagnosis/Indication Diagnosis SNOMED-CT Code Diagnosis ICD10 Code Diagnosis IMO Codes Diagnosis Note [id number] [address] [place] [address] 06/18/2017 13:20:47 06/18/2017 14:49:02 [id number] Neal Trejo NP [address] [place] [address] 11/21/2022 11:08:48 11/21/2022 12:06:21 Cellulitis of toe of left foot [id number] 8655124 L03.032 Health Concerns Section Related Observation LastModified by Organization Detai ls LastModified Time None Recorded Concern Status LastModified by Organization Details LastModified Time None Recorded Advance Directives Directive None Recorded Payers Insurance Date Sequence Insurance Name Policy Number Policy Snyder Covered Member ID Snyder Member ID Guarantor Name 11/21/2022 1 [place] [employer] Jose Garcia Teal [id number] Josestephanie Jaegerl 06/07/2023 2 [place] [facility] Jose Teal [id number] Jose Heidel 11/21/2022 NORIDIAN - SPECIALITY CLAIMS (MEDICARE [facility] A) Jose C Teal [id number] Jose Hirsch Notes Date Note Type Note [...] Neal Trejo NP [address] [place], [address], [place] - [facility] 11/21/2022 12:02:23
== END 2025-03-31 14:33 | disposition home or self-care (01) ==
LOC: HO.HVNA 14:32
PROVIDERS: Visit Provider Internal Medicine Medical Oncology
DX: N17.9 Acute kidney failure, unspecified (principal)
CPT/HCPCS: 36415; 80051; 82565; 84520; 85025

== ENCOUNTER 2025-04-07 14:41 | Outpatient (REF) | payer MEDICARE, SELFPAY ==
[2025-04-07 14:45] LABS: MANUAL DIFF FLAG NO
[2025-04-07 14:48] LABS: Hematocrit 27.2 % (42.0-52.0); Hemoglobin 8.8 g/dl (14.0-18.0); Imm Gran Abs Auto 0.02 X10*3/uL (0.00-0.03); Imm Gran Pct Auto 0.2 % (0.0-0.4); Lymphocytes Absolute Auto 1.7 X10*3/uL (1.2-4.9); Mean Corpuscular HGB Conc 32.4 g/dl (31.0-36.0); Mean Corpuscular Hemoglobin 30.9 pg (27.0-33.0); Mean Corpuscular Volume 95.4 fL (80.0-98.0); NRBC Abs Auto 0.000 X10*3/uL (0.0-0.012); NRBC Pct Auto 0.0 /100WBC (0.0-0.2); Platelet Count 422 X10*3/uL (160-400); Red Blood Count 2.85 X10*6/uL (4.60-5.80); White Blood Count 9.4 X10*3/uL (4.8-10.8)
[2025-04-07 15:01] LABS: Anion Gap 12 (12-20); Blood Urea Nitrogen 32 mg/dL (9-16); Carbon Dioxide 19 mmol/L (22-29); Chloride 117 mmol/L (96-108); Estimated Glomerular Filt Rate 45; Potassium 4.4 mmol/L (3.3-5.1); Sodium 144 mmol/L (135-145)
--- OUTSIDE RECORDS SUMMARY | 2025-04-07 23:59 | XMS_ITS | Encounter Summary ---
Author Organization Address [address] [place] [address] Care Team Providers Care Fish House Worker Name Role Phone Lobo Mills MD Primary Care Provider [phone] Encounter Details Date Type Department Care Team (Late st Contact Info) Description 10/24/2024 Lab Requisition [facility] - Main Lab [address] [facility] [place] [address] Rich Cintron PA [address] [address] Calculus of kidney Social History [...] Complete blood count (10/24/2024 11:48 AM EDT) [facility] WBC 9.1 4.8 - 10.8 K/mcL LAB HEMETOLOGY METHOD 10/24/2024 3:24 PM EDT [facility] RBC 3.30(L) 4.50 - 5.50 M/mcL LAB HEMETOLOGY METHOD 10/24/2024 3:24 PM EDT [facility] Hemoglobin 10.3(L) 13.5 [...] LAB HEMETOLOGY METHOD 10/24/2024 3:24 PM EDT [facility] Platelets 464(H) 130 - 400 K/mcL LAB [facility] MPV 10.6 7.0 - 11.0 FL LAB HEMETOLOGY METHOD 10/24/2024 3:[address] [facility] NRBC 0.0 <1.0 % LAB HEMETOLOGY [facility] NR[facility] Absolute 0.00 <0.10 K/mcL LAB HEMETOLOGY METHOD 10/24/2024 3:24 PM EDT [facility] Blood Venous blood specimen / Unknown 10/24/2024 11:48 AM EDT 10/24/2024 2:28 PM EDT us Rich ALMARAZ LAB BLOOD ORDERABLES Final Resul t [facility] [address] [place] [address], documented in this encounter Visit Diagnoses Diagnosis Calculus of kidney documented in this encounter Care Teams Fish House Worker Relationship Specialty Start Date End Date Lobo Mills MD [address] [place], [place] PCP - General 12/14/23 documented as of this encounter
--- OUTSIDE RECORDS SUMMARY | 2025-04-07 23:59 | XMS_ITS | Clinical Summary ---
Author Organization 175 [facility] Address [address] [place] [address] Phone Care Team Providers Care Electric Screw Driver Operator Name Role Phone Lobo Mills MD Primary Care Provider [phone] Allergies Active Allergy Reactions Criticality Noted Date [...] a day for 5 days. 10 each 02/27/2025 Active pantoprazole (PROTONIX) 40 mg EC tablet Take 1 tablet (40 mg total) by mouth 2 (two) times a day. 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 Generalized abdominal pain 01/27/2025 Moderate malnutrition 01/24/2025 Acute pancreatitis 01/20/2025 Small bowel obstruction 12/26/2024 Bowel obstruction 11/08/2024 Acquired ptosis of eyelid 02/06/2024 Anemia 02/06/2024 Bundle branch block, right 02/06/2024 Chronic neck pain 02/06/2024 COVID-19 02/06/2024 Elevated PSA 02/06/2024 GERD (gastroesophageal reflux disease) 4 HTN (hypertension) 02/06/2024 Nephrolithiasis 02/06/2024 Obstructive lung disease (generalized) Peripheral neuropathy 02/06/2024 Prediabetes 02/06/2024 Prostate cancer 02/06/2024 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 scalp 02/06/2024 Stage 3 chronic kidney disease 02/06/2024 Encounters Date Type Department Care Team Description 03/06/2025 10:00 AM EST Consult Orthopedic Surgery - [place] [address] [facility] [address] [place] [id number] Lori Walters PA [facility] arthritis (Primary Dx) 02/27/2025 12:00 PM EDT - 02/27/2025 4:36 PM EDT Emergency [facility] Emergency [address] [place] [phone] Alexander Collins MD Edema leg (Primary Dx); Anemia, unspecified type; Hypoalbuminemia Discharge Disposition: Home or Self Care 02/07/2025 6:12 AM EDT - 02/07/2025 10:14 AM EDT Emergency [facility] Emergency [address] [place] [phone] Arthralgia of left hand (Primary Dx); Lead-induced acute gout of left hand, initial encounter Discharge Disposition: Home or Self Care 01/26/2025 9:17 PM EDT - 01/30/2025 5:00 PM EDT Hospital Encounter [facility]rology Unit [address] [place] [phone] Shmuel Garber MD Jones, Christopher, MD Alam, Aroosa, MD Generalized abdominal pain (Primary Dx); Small bowel obstruction (CMS/HCC V24, CMS/HCC V28); Pseudomyxoma peritonei (CMS/HCC V24, CMS/HCC V28) Discharge Disposition: [place]-Health [place] [facility] [place]/20/2025 5:46 PM EDT - 01/24/2025 3:25 PM EDT Hospital Encounter [facility] Medical Surgical Unit [address] [place] [phone] Sachin Murrieta MD Jones, Christopher, MD Santoyo-Pacheco, [...] Orientation Straight 02/07/2025 7: 39 AM EDT Last Filed Vital Signs Vital Sign Reading [...] EDT LACTATE STAT 01/20/2025 7:11 PM EDT LIPID PANEL Routine 02/11/2002 from Last 3 Months or Most Recently Relevant to Health Maintenance Results * (ABNORMAL) CBC auto differential (02/27/2025 1:57 PM EDT) Only the most recent of11 resultswithin the time period is included. WBC 8.8 4.8 - 10.8 K/mcL LAB HEMETOLOGY METHOD 02/27/2025 2:22 PM EDT [facility] RBC 2.50(L) 4.50 - 5.50 M/mcL LAB HEMETOLOGY METHOD 02/27/2025 2:22 PM EDT [facility] Hemoglobin 7.9(L) 13.5 - 17.5 g/dL LAB HEMETOLOGY METHOD 02/27/2025 2:22 PM EDT [facility] Hematocrit 23.8(L) 42.0 - 54.0 % LAB HEMETOLOGY METHOD 02/27/2025 2:22 PM EDT [facility] MCV 95.2 79.0 - 98.0 FL LAB HEMETOLOGY METHOD 02/27/2025 2:22 PM EDT [facility] MCH 31.6 27.0 - 32.0 pcg LAB HEMETOLOGY METHOD 02/27[facility]25 [facility] MCHC 33.2 32.0 - 37.0 g/dL LAB HEMETOLOGY METHOD 02/27/2025 2:22 PM [facility] RDW 16.2(H) 11.0 - 15.0 % LAB HEMETOLOGY METHOD 02/27/2025 2:22 PM [facility] Platelets 334 130 - 400 K/mcL LAB HEMETOLOGY METHOD 02/27/2025 2:22 PM [facility] MPV 9.3 7.0 - 11.0 FL LAB HEMETOLOGY METHOD 02/27/2025 2:22 PM [facility] NRBC 0.0 <1.0 % LAB HEMETOLOGY METHOD 02/27/2025 2:22 PM [facility] NRBC Absolute 0.00 <0.10 K/mcL LAB HEMETOLOGY METHOD 02/27/2025 2:22 PM [facility] Neutrophils Relative 65.8 % LAB HEMETOLOGY METHOD 02/27/2025 2:22 PM [facility] Lymphocytes Relative 21.3 % LAB HEMETOLOGY METHOD 02/27/2025 2:22 PM [facility] Monocytes Relative 10.0 % LAB HEMETOLOGY METHOD 02/27/2025 2:22 PM [facility] Eosinophils Relative 1.7 % LAB HEMETOLOGY METHOD 02/27/2025 2:22 PM [facility] Basophils Relative 0.7 % LAB HEMETOLOGY METHOD 02/27/2025 2:22 PM [facility] Immature Granulocytes Relative 0.5 % LAB HEMETOLOGY METHOD 02/27/2025 2:22 PM [facility] Neutrophils Absolute 5.81 1.50 - 7.00 K/mcL LAB HEMETOLOGY METHOD 02/27/2025 2:22 PM EDT [facility] Lymphocytes Absolute 1.88 1.00 - 5.00 K/mcL LAB HEMETOLOGY METHOD 02/27/2025 2:22 PM EDT [facility] Monocytes Absolute 0.88 0.20 - 1.00 K/mcL LAB HEMETOLOGY METHOD 02/27/2025 2:22 PM EDT [facility] Eosinophils Absolute 0.15 0.00 - 0.50 K/mcL LAB HEMETOLOGY METHOD 02/27/2025 2:22 PM EDT [facility] Basophils Absolute 0.06 0.00 - 0.20 K/mcL LAB HEMETOLOGY METHOD 02/27/2025 2:22 PM EDT [facility] Immature Granulocytes Absolute 0.04(H) 0.00 - 0.03 K/mcL LAB HEMETOLOGY METHOD 02/27/2025 2:22 PM EDT [facility] Blood Venous blood specimen / Unknown Venipuncture / Unknown 02/27/2025 1:57 PM EDT 02/27/2025 2:12 PM EDT us Alexander Collins MD LAB BLOOD ORDERABLES Final Result [facility] [address] [place] [address], * Type and screen (02/27/2025 1:57 PM EDT) Only the most recent of2 resultswithin the time period is included. ABO Group O 02/27/2025 3:07 PM EDT [facility] Rh Type Negative 02/27/2025 3:07 PM EDT [facility] Antibody Screen Negative 02/27/2025 3:07 PM EDT [facility] Blood Venous blood specimen / Unknown Venipuncture / Unknown 02/27/2025 1:57 PM EDT 02/27/2025 2:12 PM EDT us Alexander Collins MD LAB BLOOD BANK TEST ORDERAB LES Final Result Performing Organization Address [facility]/ZIP Co de Phone Number [facility] [address] [place] [address], [place] [phone] * (ABNORMAL) B-type natriuretic peptide (02/27/2025 1:57 PM EDT) Pathologist [facility] BNP 315(H) <=100 pcg/mL LAB CHEMISTRY METHOD 02/27/2025 2:51 PM EDT [facility] Blood Venous blood specimen / Unknown Venipuncture / Unknown 02/27/2025 1:57 PM EDT 02/27/2025 2:12 PM EDT Alexander Collins MD LAB BLOOD ORDERABLES Final Result Performing Organization Address [facility] Co de Phone Number [facility] [address] [place] [address], [place] [phone] * (ABNORMAL) Comprehensive Metabolic Panel (CMP) (02/27/2025 1:57 PM EDT) Only the most recent of6 resultswithin the time period is included. Pathologist [facility] Sodium 142 133 - 145 mmol/L LAB CHEMISTRY METHOD 02/27/2025 2:49 PM EDT [facility] Potassium 4.1 3.5 - 5.5 mmol/L LAB CHEMISTRY METHOD 02/27/2025 2:49 PM EDT [facility] Chloride 115(H) 96 - 110 mmol/L LAB CHEMISTRY METHOD 02/27/2025 2:49 PM EDT [facility] CO2 22 21 - 32 mmol/L LAB CHEMISTRY METHOD 02/27/2025 2:49 PM EDT [facility] Anion Gap 5 3 - 11 LAB CHEMISTRY METHOD 02/27/2025 2:49 PM [facility] Glucose 112(H) 70 - 100 mg/dL LAB CHEMISTRY METHOD 02/27/2025 2:49 PM [facility] BUN 22 5 - 25 mg/dL LAB CHEMISTRY METHOD 02/27/2025 2:49 PM [facility] Creatinine 1.19 0.70 - 1.30 mg/dL LAB CHEMISTRY METHOD 02/27/2025 2:49 PM [facility] eGFR 67 >=60 mL/min/1. 73m2 LAB CHEMISTRY METHOD 02/27/2025 2:49 PM [facility] Comment:Calculation based on the Chronic Kidney Disease Epidemiology Collaboration (CKD-EPI) equation refit without adjustment for race. BUN/Creatinine Ratio 18.5 LAB CHEMISTRY METHOD 02/27/2025 2:49 PM [facility] Calcium 8.2(L) 8.5 - 10.5 mg/dL LAB CHEMISTRY METHOD 02/27/2025 2:49 PM [facility] AST (SGOT) 9(L) 10 - 42 unit/L LAB CHEMISTRY METHOD 02/27/2025 2:49 PM [facility] ALT (SGPT) 14 10 - 60 unit/L LAB CHEMISTRY METHOD 02/27/2025 2:49 PM [facility] Alkaline Phosphatase 58 42 - 121 unit/L LAB CHEMISTRY METHOD 02/27/2025 2:49 PM [facility] Total Protein 4.9(L) 6.0 - 8.0 g/dL LAB CHEMISTRY METHOD 02/27/2025 2:49 PM [facility] Albumin 2.7(L) 3.2 - 5.0 g/dL LAB CHEMISTRY METHOD 02/27/2025 2:49 PM [facility] Total Bilirubin 0.3 0.0 - 1.4 mg/dL LAB CHEMISTRY METHOD 02/27/2025 2:49 PM [facility] Blood Venous blood specimen / Unknown Venipuncture / Unknown 02/27/2025 1:57 PM EDT 02/27/2025 2:12 PM EDT Alexander Collins MD LAB BLOOD ORDERABLES Final Result [facility] [address] [place] [address], [place] [phone] * XR Chest 2 Views (02/27/2025 12:54 [...] Signed Date: 02/27/2025 13:22 ET Workstation ID: [id number] Transcribed By: Self Edit Transcribed Date: 02/27/2025 [...] Signed Date: 02/27/2025 13:22 ET Workstation ID: [id number] Transcribed By: Self Edit Transcribed Date: 02/27/2025 [...] Signed Date: 02/27/2025 12:44 ET Workstation ID: [id number] Transcribed By: Self Edit Transcribed Date: 02/27/2025 [...] Signed Date: 02/27/2025 12:44 ET Workstation ID: [id number] Transcribed By: Self Edit Transcribed Date: 02/27/2025 [...] Signed Date: 02/07/2025 09:29 ET Workstation ID: [id number] Transcribed By: Self Edit Transcribed Date: 02/07/2025 [...] Signed Date: 02/07/2025 09:29 ET Workstation ID: [id number] Transcribed By: Self Edit Transcribed Date: 02/07/2025 09:28 ET Briseida ALMARAZ IMG XR PROCEDURES Final Result * Phosphorus (01/30/2025 5:43 AM EDT) Only the most recent of6 resultswithin the time period is included. Phosphorus 2.9 2.5 - 4.5 mg/dL LAB CHEMISTRY METHOD 01/30/2025 7:03 AM EDT [facility] Blood Venous blood specimen / Unknown Venipuncture / Unknown 01/30/2025 5:43 AM EDT 01/30/2025 6:19 AM EDT Yazmin ALMARAZ LAB BLOOD ORDERABLES Final Result [facility] [address] [place] [address], [place] [phone] * Magnesium (01/30/2025 5:43 AM EDT) Only the most recent of6 resultswithin the time period is included. Magnesium 2.0 1.9 - 2.6 mg/dL LAB CHEMISTRY METHOD 01/30/2025 7:03 AM EDT [facility] Blood Venous blood specimen / Unknown Venipuncture / Unknown 01/30/2025 5:43 AM EDT 01/30/2025 6:19 AM EDT us Yazmin ALMARAZ LAB BLOOD ORDERABLES Final Result [facility] [address] [place] [address], * IR Insert Gastro Tube Perc w [...] as the tube itself. Specimen: None Tube: 16-Tongan gastrostomy Estimated blood loss: Minimal Consultations: None [...] over the wire through which we placed [id number]-Jruzcl gastrostomy tube. The peel-away sheath was removed. [...] Signed Date: 01/28/2025 17:19 ET Workstation ID: [id number] Transcribed By: Self Edit Transcribed Date: 01/28/2025 [...] as the tube itself. Specimen: None Tube: 16-Tongan gastrostomy Estimated blood loss: Minimal Consultations: None [...] advanced over the wire through which weplaced [id number]-Tyueqi gastrostomy tube. The peel-away sheath was removed.5 [...] Signed Date: 01/28/2025 17:19 ET Workstation ID: [id number] Transcribed By: Self Edit Transcribed Date: 01/28/2025 17:16 ET Patricia ALMARAZ IMG IR PROCEDURES Final Result * (ABNORMAL) Basic metabolic panel (01/27/2025 6:03 AM EDT) Only the most recent of5 resultswithin the time period is included. Sodium 138 133 - 145 mmol/L LAB CHEMISTRY METHOD 01/27/2025 6:55 AM EDT [facility] Potassium 3.8 3.5 - 5.5 mmol/L LAB CHEMISTRY METHOD 01/27/2025 6:55 AM EDT [facility] Chloride 103 96 - 110 mmol/L LAB CHEMISTRY METHOD 01/27/2025 6:55 AM [facility] CO2 33(H) 21 - 32 mmol/L LAB CHEMISTRY METHOD 01/27/2025 6:55 AM [facility] Anion Gap 2(L) 3 - 11 LAB CHEMISTRY METHOD 01/27/2025 6:55 AM [facility] Glucose 122(H) 70 - 100 mg/dL LAB CHEMISTRY METHOD 01/27/2025 6:55 AM [facility] BUN 21 5 - 25 mg/dL LAB CHEMISTRY METHOD 01/27/2025 6:55 AM [facility] Creatinine 1.18 0.70 - 1.30 mg/dL LAB CHEMISTRY METHOD 01/27/2025 6:55 AM [facility] eGFR 68 >=60 mL/min/1. 73m2 LAB CHEMISTRY METHOD 01/27/2025 6:55 AM [facility] Comment:Calculation based on the Chronic Kidney Disease Epidemiology Collaboration (CKD-EPI) equation refit without adjustment for race. BUN/Creatinine Ratio 17.8 LAB CHEMISTRY METHOD 01/27/2025 6:55 AM [facility] Calcium 8.3(L) 8.5 - 10.5 mg/dL LAB CHEMISTRY METHOD 01/27/2025 6:55 AM [facility] Blood Venous blood specimen / Unknown Venipuncture / Unknown 01/27/2025 6:03 AM EDT 01/27/2025 6:08 AM EDT us Rubén Majano MD LAB BLOOD ORDERABLES Final Result [facility] [address] [place] [address], * XR Chest 1 View (01/27/2025 2:35 [...] Signed Date: 01/27/2025 08:25 ET Workstation ID: [id number] Transcribed By: Self Edit Transcribed Date: 01/27/2025 [...] Signed Date: 01/27/2025 08:25 ET Workstation ID: [id number] Transcribed By: Self Edit Transcribed Date: 01/27/2025 [...] Lactate, with Reflex (01/26/2025 10:40 PM EDT) Pathologist [facility] LACTIC ACID 1.2 0.4 - 2.0 mmol/L LAB CHEMISTRY METHOD 01/26/2025 11:15 PM EDT [facility] Blood Venous blood specimen / Unknown Venipuncture / Unknown 01/26/2025 10:40 PM EDT 01/26/2025 10:44 PM EDT us Shmuel Garber MD LAB BLOOD ORDERABLES Gabbie l Result [facility] [address] [place] [address], [place] [phone] * (ABNORMAL) Manual differential (01/26/2025 10:40 PM EDT) Only the most recent of2 resultswithin the time period is included. Pathologist [facility] Neutrophils % 77.0 % LAB HEMETOLOGY METHOD 01/26/2025 11:27 PM EDT [facility] Bands % 4.0 % LAB HEMETOLOGY METHOD 01/26/2025 11:[facility] Lymphocytes % 10.0 % LAB HEMETOLOGY METHOD 01/26/2025 11:27 PM [facility] Monocytes % 9.0 % LAB HEMETOLOGY METHOD 01/26/2025 11:27 PM T [facility] Eosinophils % 1.0 % LAB HEMETOLOGY METHOD 01/26/2025 11:27 PM EDT [facility] Basophils % 0.0 % LAB HEMETOLOGY METHOD 01/26/2025 11:27 PM [facility] Neutrophils Absolute Manual 8.47(H) 1.50 - 7.00 K/mcL LAB HEMETOLOGY METHOD 01/26/2025 11:27 PM EDT [facility] Bands Absolute Manual 0.44(H) 0.00 - 0.00 K/mcL LAB HEMETOLOGY METHOD 01/26/2025 11:27 PM EDT [facility] Lymphocytes Absolute 1.10 1.00 - 5.00 K/mcL LAB HEMETOLOGY METHOD 01/26/2025 11:27 PM EDT [facility] Monocytes Absolute Manual 0.99 0.20 - 1.00 K/mcL LAB HEMETOLOGY METHOD 01/26/2025 11:27 PM EDT [facility] Eosinophils Absolute Manual 0.11 0.00 - 0.50 K/mcL LAB HEMETOLOGY METHOD 01/26/2025 11:27 PM EDT [facility] Basophils Absolute Manual 0.00 0.00 - 0.20 K/mcL LAB HEMETOLOGY METHOD 01/26/2025 11:27 PM EDT [facility] Rbc Morphology Present( A) Consistent with indices, Normal for LAB HEMETOLOGY METHOD 01/26/2025 11:27 PM EDT [facility] Comment:RBC: Morphology agre es with CBC Platelet Morphology - WAM See Note(A) Normal LAB HEMETOLOGY METHOD 01/26/2025 11:27 PM EDT [facility] Comment:PLT: Normal Target Cells Present 5 - 10%(A) (none) LAB HEMETOLOGY METHOD 01/26/2025 11:27 PM EDT [facility] Blood Venous blood specimen / Unknown Venipuncture / Unknown 01/26/2025 10:40 PM EDT 01/26/2025 10:46 PM EDT us Shmuel Garber MD LAB BLOOD ORDERABLES Gabbie mckeon Result [facility] [address] [place] [address], * (ABNORMAL) Hemoglobin and hematocrit (01/22/2025 7:56 PM EDT) Hemoglobin 10.4(L) 13.5 - 17.5 g/dL LAB HEMETOLOGY METHOD 01/22/2025 8:44 PM EDT [facility] Hematocrit 30.8(L) 42.0 - 54.0 % LAB HEMETOLOGY METHOD 01/22/2025 8:44 PM EDT [facility] Blood Venous blood specimen / Unknown Venipuncture / Unknown 01/22/2025 7:56 PM EDT 01/22/2025 8:26 PM EDT us Ryan Otto MD LAB BLOOD ORDERABLES F inal Result [facility] [address] [place] [address], [place] [phone] * XR Abdomen 1 View (01/22/2025 9:35 [...] Signed Date: 01/22/2025 10:11 ET Workstation ID: [id number] Transcribed By: Self Edit Transcribed Date: 01/22/2025 [...] Signed Date: 01/22/2025 10:11 ET Workstation ID: [id number] Transcribed By: Self Edit Transcribed Date: 01/22/2025 10:10 ET Cheri ALMARAZ IMG XR PROCEDURES Final Resu lt * (ABNORMAL) Lipase (01/21/2025 5:50 AM EDT) Only the most recent of2 resultswithin the time period is included. [facility] Lipase 262(H) 13 - 75 unit/L LAB CHEMISTRY METHOD 01/21/2025 10:09 AM EDT [facility] Blood Venous blood specimen / Unknown Venipuncture / Unknown 01/21/2025 5:50 AM EDT 01/21/2025 6:20 AM EDT Ryan Otto MD LAB BLOOD ORDERABLES F inal Result [facility] [address] [place] [address], [place] [phone] * Triglycerides (01/20/2025 7:11 PM EDT) Triglycerides 74 0 - 150 mg/dL LAB CHEMISTRY METHOD 01/20/2025 10:28 PM EDT [facility] Blood Venous blood specimen / Unknown Venipuncture / Unknown 01/20/2025 7:11 PM EDT 01/20/2025 7:17 PM EDT us Rubén Majano MD LAB BLOOD ORDERABLES Final Result Performing Organization Address [facility]/ZIP Co de Phone Number [facility] [address] [place] [address], [place] [phone] * Lactate dehydrogenase (01/20/2025 7:11 PM EDT) [facility] LDH 207 120 - 246 unit/L LAB CHEMISTRY METHOD 01/20/2025 10:28 PM EDT [facility] Blood Venous blood specimen / Unknown Venipuncture / Unknown 01/20/2025 7:11 PM EDT 01/20/2025 7:17 PM EDT us Rubén Majano MD LAB BLOOD ORDERABLES Final Result Performing Organization Address [facility]/ZIP Co de Phone Number [facility] [address] [place] [address], [place] [phone] * Lactate (01/20/2025 7:11 PM EDT) Pathologist [facility] Lactate 1.2 0.4 - 2.0 mmol/L LAB CHEMISTRY METHOD 01/20/2025 7:54 PM EDT [facility] Blood Venous blood specimen / Unknown Venipuncture / Unknown 01/20/2025 7:11 PM EDT 01/20/2025 7:18 PM EDT us Sachin Murrieta MD LAB BLOOD ORDERABLES Fin al Result Performing Organization Address City/[facility]/ZIP Co de Phone Number [facility] [address] [place] [address], * (ABNORMAL) Lipid panel (02/11/2002) LDL/HDL Ratio 4 1 - 5 Triglycerides 353(A) 10 - 160 mg/dL Cholesterol 163 10 - 240 mg/dL HDL 38 32 - 96 mg/dL LDL Cholesterol 54(A) 62 - 185 mg/dL Blood Venous blood specimen / Unknown us Historical Provider LAB BLOOD ORDERABLES Gabbie l Result from Last 3 Months or Most Recently Relevant to Health Maintenance Insurance MEDICARE [place]ICAID - [place] Advance Directives Documents on File Type Date Recorded Patient Instrument Lens Generator Expl anation Advance Directives and Living Will [...] Agents on File Name Relationship Healthcare Agent [facility] p Communication Santi Moreira Health Care Agent Nelida Pimentel [facility] Health Care Agent Care Teams Electric Screw Driver Operator Relationship Specialty Start Date End Date Lobo Mills MD [address] [place] [address] [facility] - General 12/14/23
--- OUTSIDE RECORDS SUMMARY | 2025-04-07 23:59 | XMS_ITS ---
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 Past Treatment and Therapy Plans No past plan information found. Lifetime Dose Tracking * Chemical Lifetime Dose Automatic Entry Manual Entr y Fluoro Time 1.7 minutes 0 minutes 1.7 minutes Air Kerma 13 mGy 0 mGy 13 mGy
--- OUTSIDE RECORDS SUMMARY | 2025-04-07 23:59 | XMS_ITS | Clinical Summary ---
Author Organization [facility] Address [address] [facility] [address] [place] [address] Care Team Providers Care Clerical Adjuster Name Role Phone Lobo Mills MD Primary Care Provider [phone] Allergies Active Allergy Reactions Criticality Noted Date [...] Documents on File Type Date Recorded Patient Manager Sales Support Expl anation Health Care Proxy 06/07/2019 9:42 PM Conver jigar - External Healthcare Proxy ([facility]) DNR (Do Not Resuscitate)/DNI (Do Not Intubate) 06/07/2019 9:41 PM Conversion - DNR Ord er ([facility]) Health Care Proxy 05/27/2019 11:56 AM Conv ersion - External Healthcare Proxy ([facility]) * Full Code (Latest Code Status on File) Date Activated Date Inactivated Comments 08/10/2021 3:59 PM 08/12/2021 8:27 PM Care Teams Clerical Adjuster Relationship Specialty Start Date End Date Lobo Mills MD [address] [place] [address] PCP - General 06/04/21
== END 2025-04-07 14:42 | disposition home or self-care (01) ==
LOC: HO.HVNA 14:41
PROVIDERS: Visit Provider Internal Medicine Medical Oncology
DX: N17.9 Acute kidney failure, unspecified (principal); Z90.410 Acquired total absence of pancreas
CPT/HCPCS: 36415; 80051; 82565; 84520; 85025

== ENCOUNTER 2025-04-14 09:00 | Outpatient (REF) | payer MEDICARE, SELFPAY ==
--- OUTSIDE RECORDS SUMMARY | 2024-03-18 04:30 | XMS_ITS ---
Author Organization [facility] Address [address] [facility] [address] [place] [address] Care Team Providers Care Manufacturing Advisor Name Role Phone Lobo Mills MD Primary Care Provider Unavaila Sriram Garcia Unavailable [phone] Allergies Allergen (clinical drug ingredient) Drug/Non Drug [...] Date End Date Status Baclofen 5 MG 1 tablet as needed Orally 4x/day; Duration: 30 day(s) Active Pantoprazole Sodium 20 MG 1 tablet Orally Once a day; Duration: 30 day(s) Active Aspir-Low 81 MG 1 tablet Orally Once a day; Duration: 30 day(s) Active oxyCODONE HCl 10 MG 1 tablet as needed Orally every 6 hrs Active Sodium Chloride 0.9 % as directed Intravenous Active Multivitamin - 1 tablet Orally Once a day; Duration: 30 day(s) Active Mucinex 600 MG 2 tablets as needed Orally once daily For rectal mucus Active Bicalutamide 50 MG 1 tablet Orally Once a day; Duration: 30 day(s) Active Simethicone 80 MG 1 tablet after meals and at bedtime Orally Four times a day; Duration: 30 day(s) Active Ondansetron 4 MG 1 tablet on the tongue and allow to dissolve Orally every 8 hours as needed; Duration: 30 day(s) Active Loperamide HCl 2 MG 1 capsule as needed Orally Four times a day Active Diphenoxylate-Atropine 2.5-0.025 MG 1 tablet as needed Orally Four times a day Active Gabapentin 600 MG 2 tablet Orally three times a day; Duration: 30 day(s) Active Acetaminophen 500 MG 1 capsule as needed Orally every 6 hrs Active Encounters Encounter Location Date Provider Diagnosis [facility] [address] [place] [address] 03/18/2024 Sriram Shirley Plan Of Treatment Next Appt Details Provider Name:Sriram Shirley, 04/18/2025 11:00:00 AM, [address] [place] [address], [phone], Progress Notes * Richard FARIASOB:1955 (70 yo M)Acc No.[id number]:03/18/2024 Ostomy Follow-Up Visit Patient: Jose GASTELUM Provider: Raisa Shirley MD, MSc, CWSP :1955 A ge:69 Y S ex:Male Date:03/18/2024 Address:[address] [place], [place] [id number] Pcp:Lobo Mills MD Subjective: * Chief Complaints: * 1 . ostomy f/u, EH. * Medical History: B abesiosis, Right bundle branch block, Postprocedural hypertension, Hypertension, Osteoarthritis of knee, unspecified laterality, unspecified osteoarthritis type, Neuropathy, Chronic obstructive pulmonary disease, unspecified, Personal history of malignant neoplasm of prostate, Malignant neoplasm of abdomen, Encounter for attention to ileostomy, Ileostomy status, Personal history of other malignant neoplasm of large intestine, Myalgia, other site, Nephrolithiasis, Obstructive and reflux uropathy, unspecified, Secondary malignant neoplasm of retroperitoneum and peritoneum, Acquired absence of spleen, Personal history of malignant neoplasm of other organs and systems, Alcohol abuse, uncomplicated. * Medications: T aking Acetaminophen 500 MG Capsule 1 capsule as needed Orally every 6 hrs , Taking Gabapentin 600 MG Tablet 2 tablet Orally three times a day , Taking Diphenoxylate-Atropine 2.5-0.025 MG Tablet 1 tablet as needed Orally Four times a day , Taking Loperamide HCl 2 MG Capsule 1 capsule as needed Orally Four times a day , Taking Ondansetron 4 MG Tablet Disintegrating 1 tablet on the tongue and allow to dissolve Orally every 8 hours as needed , Taking Simethicone 80 MG Tablet 1 tablet after meals and at bedtime Orally Four times a day , Taking Bicalutamide 50 MG Tablet 1 tablet Orally Once a day , Taking Mucinex 600 MG Tablet Extended Release 12 Hour 2 tablets as needed Orally once daily , Notes to Pharmacist: For rectal mucus, Taking Multivitamin - Tablet 1 tablet Orally Once a day , Taking Sodium Chloride 0.9 % Solution as directed Intravenous , Taking oxyCODONE HCl 10 MG Tablet 1 tablet as needed Orally every 6 hrs , Taking Aspir-Low 81 MG Tablet Delayed Release 1 tablet Orally Once a day , Taking Pantoprazole Sodium 20 MG Tablet Delayed Release 1 tablet Orally Once a day , Taking Baclofen 5 MG Tablet 1 tablet as needed Orally 4x/day * Allergies: I nicholas, Cefepime, Iodinated Diagnostic Agents. Objective: * Vitals: Assessment: Plan: * Treatment: * Billing Information: * Visit Code: * Procedure Codes: * Electronic signature of Zulema Shirley MD on 04/14/2025 at 09:02 PM EST Sign off status: Pending * Provider: Raisa Shirley MD, MSc, CWSP Date: 05/18/2023 Generated for Zoya melendez/Monika/Reva on: 06/15/2024 09:02 PM EST
--- OUTSIDE RECORDS SUMMARY | 2025-01-21 05:00 | XMS_ITS ---
Author Organization [facility] Address [address] [facility] [address] [place] [address] Care Team Providers Care Tube Former Operator Name Role Phone Gene ROSAS, Lobo Primary Care Provider UnavailSriram Singh Unavailable [phone] REASON FOR VISIT 1 month f/u, hospitalized at [facility] Encounters Encounter Location Date Provider Diagnosis [facility] [address] [place] [address] 01/21/2025 Sriram Shirley Plan Of Treatment Next Appt Details Provider Name:Sriram Shirley, 04/18/2025 11:00:00 AM, [address] [place], [address], Progress Notes * Richard FARIASOB:1955 (70 yo M)Acc No.[id number]:01/21/2025 Ostomy Follow-Up Visit Patient: Coy CAITY Jose Provider: Raisa Shirley MD, MSc, CWSP :1955 A ge:69 Y S ex:Male Date:01/21/2025 [id number] Pcp:Lobo Mills MD Subjective: * Chief Complaints: * 1 . 1 month f/u, hospitalized at [facility]. * Medical History: Objective: * Vitals: Assessment: Plan: * Treatment: * Billing Information: * Visit Code: * Procedure Codes: * Electronic signature of Zulema Shirley MD on 04/14/2025 at 09:02 PM EST Sign off status: Pending * Provider: Raisa Shirley MD, MSc, CWSP Date: 0 01/21/2025 Generated for Zoya melendez/Monika/Reva on: 1 06/15/2024 09:02 PM EST
--- OUTSIDE RECORDS SUMMARY | 2025-02-28 05:00 | XMS_ITS ---
Author Organization [facility] Address [address] [address] Care Team Providers Care Diesel Plant Operator Name Role Phone Gene ROSAS, Lobo Primary Care Provider Unavaila Sriram Garcia Unavailable [phone] REASON FOR VISIT 1 month f/u Encounters Encounter Location Date Provider Diagnosis [facility] Care [facility] [address] [place] [address] 02/28/2025 Sriram Shirley Plan Of Treatment Next Appt Details Provider Name:Sriram Shirley, 04/18/2025 11:00:00 AM, [address] [place] [address], [phone], Progress Notes * Richard FARIASOB:1955 (70 yo M)Acc No.[id number]:02/28/2025 Ostomy Follow-Up Visit Patient: Coy SIMMONSWeslyViviann Provider: Raisa Shirley MD, MSc, CWSP :1955 A ge:69 Y S ex:Male Date:02/28/2025 Address: [id number] Pcp:Lobo Mills MD Subjective: * Chief Complaints: * 1 . 1 month f/u. * Medical History: Objective: * Vitals: Assessment: Plan: * Treatment: * Billing Information: * Visit Code: * Procedure Codes: * Electronic signature of Zulema Shirley MD on 04/14/2025 at 09:02 PM EST Sign off status: Pending * Provider: Raisa Shirley MD, MSc, CWSP Date: 1 Generated for Zoya melendez/Monika/Reva on: 1 06/15/2024 09:02 PM EST
[2025-04-14 14:36] LABS: MANUAL DIFF FLAG NO
[2025-04-14 14:47] LABS: Hematocrit 26.1 % (42.0-52.0); Hemoglobin 8.6 g/dl (14.0-18.0); Imm Gran Abs Auto 0.06 X10*3/uL (0.00-0.03); Imm Gran Pct Auto 0.5 % (0.0-0.4); Lymphocytes Absolute Auto 2.0 X10*3/uL (1.2-4.9); Mean Corpuscular HGB Conc 33.0 g/dl (31.0-36.0); Mean Corpuscular Hemoglobin 31.3 pg (27.0-33.0); Mean Corpuscular Volume 94.9 fL (80.0-98.0); NRBC Abs Auto 0.000 X10*3/uL (0.0-0.012); NRBC Pct Auto 0.0 /100WBC (0.0-0.2); Platelet Count 385 X10*3/uL (160-400); Red Blood Count 2.75 X10*6/uL (4.60-5.80); White Blood Count 11.0 X10*3/uL (4.8-10.8)
[2025-04-14 15:02] LABS: Anion Gap 10 (12-20); Blood Urea Nitrogen 30 mg/dL (9-16); Carbon Dioxide 21 mmol/L (22-29); Chloride 112 mmol/L (96-108); Estimated Glomerular Filt Rate 54; Potassium 4.3 mmol/L (3.3-5.1); Sodium 139 mmol/L (135-145)
--- OUTSIDE RECORDS SUMMARY | 2025-04-14 21:02 | XMS_ITS | Clinical Summary ---
Author Organization [facility] Address [address] [facility] [address] [place] [address] Care Team Providers Care Decorating And Assembly Supervisor Name Role Phone Lobo Mills MD Primary Care Provider [phone] Allergies Active Allergy Reactions Criticality Noted Date [...] Documents on File Type Date Recorded Patient Lightout Examiner Expl anation Health Care Proxy 06/07/2019 9:42 PM Conver jigar - External Healthcare Proxy ([facility]) DNR (Do Not Resuscitate)/DNI (Do Not Intubate) 06/07/2019 9:41 PM Conversion - DNR Ord er ([facility]) Health Care Proxy 05/27/2019 11:56 AM Conv ersion - External Healthcare Proxy ([facility]) * Full Code (Latest Code Status on File) Date Activated Date Inactivated Comments 08/10/2021 3:59 PM 08/12/2021 8:27 PM Care Teams Decorating And Assembly Supervisor Relationship Specialty Start Date End Date Lobo Mills MD [address] [place] [address] PCP - General 06/04/21
--- OUTSIDE RECORDS SUMMARY | 2025-04-14 21:02 | XMS_ITS ---
Author Organization [facility] Address [address] [place] [address] Phone Care Team Providers Care Procurement Consultant Name Role Phone Lobo Mills MD Primary Care Provider [phone] Active Problems Problem Noted Date Diagnosed Date [...]
--- OUTSIDE RECORDS SUMMARY | 2025-04-14 21:02 | XMS_ITS | Patient Health Record ---
Author Organization [facility] Address [address] [place] [address] Care Team Providers Care Orthotist Or Prosthetist Name Role Phone Lobo Mills MD Primary Care Provider Sriram Aguirre Unavailable [phone] Allergies Allergen (clinical drug ingredient) Drug/Non Drug [...] Duration) Notes Start Date End Date Status Sodium Chloride 0.9 % as directed Intravenous Not-Taking Aspir-Low 81 MG 1 tablet Orally Once a day; Duration: 30 day(s) Not-Taking Mucinex 600 MG 2 tablets as needed Orally once daily For rectal mucus Not-Taking Multivitamin - 1 tablet Orally Once a day; Duration: 30 day(s) Not-Taking Pantoprazole Sodium 20 MG 1 tablet Orally Once a day; Duration: 30 day(s) Active Simethicone 80 MG 1 tablet after meals and at bedtime Orally Four times a day; Duration: 30 day(s) Not-Taking Bicalutamide 50 MG 1 tablet Orally Once a day; Duration: 30 day(s) Active oxyCODONE HCl 10 MG 1 tablet as needed Orally every 6 hrs Active Loperamide HCl 2 MG 1 capsule as needed Orally Four times a day Active Ondansetron 4 MG 1 tablet on the tongue and allow to dissolve Orally every 8 hours as needed; Duration: 30 day(s) Active Gabapentin 600 MG 2 tablet Orally three times a day; Duration: 30 day(s) Active Diphenoxylate-Atropin e 2.5-0.025 MG 1 tablet as needed Orally Four times a day Active Colestipol HCl Activ e Acetaminophen 500 MG 1 capsule as needed Orally every 6 hrs Active fentaNYL 37.5 MCG/HR 1 patch to skin Transdermal Active Problems Problem Type SNOMED Code ICD Code Onset Dates Problem Status W/U Status Risk Notes Problem Malignant neoplasm of prostate (793038630) Malignant neoplasm of prostate (C61) Active confirmed Problem Malignant neoplasm of abdomen (552486438) 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) Active confirmed Problem 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 Problem Alcohol abuse (36023453) Alcohol abuse, uncomplicated (F10.10) Active confirmed Problem Chronic obstructive pulmonary disease (55458035) Chronic obstructive pulmonary disease, unspecified (J44.9) Active confirmed Problem Urinary tract obstruction (8455100) Obstructive and reflux uropathy, unspecified (N13.9) Active confirmed Problem Attention to ileostomy (951747999) Encounter for attention to ileostomy (Z43.2) Active confirmed Problem History of malignant neoplasm of colon (092017946) Personal history of other malignant neoplasm of large intestine (Z85.038) Active confirmed Problem History of malignant neoplasm of prostate (300868716) Personal history of malignant neoplasm of prostate (Z85.46) Active confirmed Problem History of malignant neoplasm (671704723) Personal history of malignant neoplasm of other organs and systems (Z85.89) Active confirmed Problem 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 Problem Ileostomy present (964150880) Ileostomy status (Z93.2) Active confirmed Problem Chronic kidney disease stage 3 (disorder) (028126553) CKD (chronic kidney disease), stage III (N18.30) Active confirmed Problem Gastrostomy present (332373179) Gastrostomy tube in place (Z93.1) Active confirmed Vital Signs Heart Rate 56 /min 03/21/2025 Temperature 97.7 degrees Fahrenheit 03/21/2025 Respiratory Rate 18 /min 03/21/2025 Height-cm 162.56 cm 03/21/2025 Oximetry 97 % 03/21/2025 Blood pressure diastolic 68 mm Hg 03/21/2025 Weight-kg 59.87 kg 03/21/2025 Height 64 in 03/21/2025 Blood pressure systolic 112 mm Hg 03/21/2025 Weight 132 lbs 03/21/2025 BMI 22.66 kg/m2 03/21/2025 Encounters Encounter Location Date Provider Diagnosis [facility] [address] [facility] [address] [place] [id number] 11/19/2024 Sriram Waien Malignant neoplasm o f abdomen C76.2 ; [...] neoplasm of other organs and systems Z85.89 [facility] [address] [facility] [address] [place] [id number] 12/17/2024 Sriram Александрien Malignant neoplasm o f abdomen C76.2 ; [...] neoplasm of other organs and systems Z85.89 [facility] [address] [address] 03/21/2025 Sriram Waien Malignant neoplasm o f abdomen C76.2 ; [...] neoplasm of other organs and systems Z85.89 Assessments Encounter Date Diagnosis (ICD Code) Assessment Notes Treatment Notes Treatment Clinical Notes Section Notes 11/19/2024 Malignant neoplasm of abdomen (ICD-10 - C76.2) 12/17/2024 Malignant neoplasm of abdomen (ICD-10 - C76.2) 03/21/2025 Malignant neoplasm of abdomen (ICD-10 - C76.2) 12/17/2024 Chronic obstructive pulmonary disease, unspecified (ICD-10 - J44.9) 11/19/2024 Chronic obstructive pulmonary disease, unspecified (ICD-10 - J44.9) 03/21/2025 Chronic obstructive pulmonary disease, unspecified (ICD-10 - J44.9) 11/19/2024 Encounter for attention to ileostomy (ICD-10 - Z43.2) 03/21/2025 Encounter for attention to ileostomy (ICD-10 - Z43.2) 12/17/2024 Encounter for attention to ileostomy (ICD-10 - Z43.2) 12/17/2024 Personal history of other malignant neoplasm of large intestine (ICD-10 - Z85.038) 03/21/2025 Personal history of other malignant neoplasm of large intestine (ICD-10 - Z85.038) 11/19/2024 Personal history of other malignant neoplasm of large intestine (ICD-10 - Z85.038) 11/19/2024 Personal history of malignant neoplasm of prostate (ICD-10 - Z85.46) 03/21/2025 Personal history of malignant neoplasm of prostate (ICD-10 - Z85.46) 12/17/2024 Personal history of malignant neoplasm of prostate (ICD-10 - Z85.46) 11/19/2024 Ileostomy status (ICD-10 - Z93.2) 12/17/2024 Ileostomy status (ICD-10 - Z93.2) 03/21/2025 Ileostomy status (ICD-10 - Z93.2) 11/19/2024 Secondary malignant neoplasm of retroperitoneum and peritoneum (ICD-10 - C78.6) 12/17/2024 Secondary malignant neoplasm of retroperitoneum and peritoneum (ICD-10 - C78.6) 03/21/2025 Secondary malignant neoplasm of retroperitoneum and peritoneum (ICD-10 - C78.6) 03/21/2025 Alcohol abuse, uncomplicated (ICD-10 - F10.10) 12/17/2024 Alcohol abuse, uncomplicated (ICD-10 - F10.10) 11/19/2024 Alcohol abuse, uncomplicated (ICD-10 - F10.10) 11/19/2024 Obstructive and reflux uropathy, unspecified (ICD-10 - N13.9) 12/17/2024 Obstructive and reflux uropathy, unspecified (ICD-10 - N13.9) 03/21/2025 Obstructive and reflux uropathy, unspecified (ICD-10 - N13.9) 03/21/2025 Personal history of malignant neoplasm of other organs and systems (ICD-10 - Z85.89) 12/17/2024 Personal history of malignant neoplasm of [...] in 1-month for granuloma management at the [place] location. Fern Davis was available for any [...] moldable barrier ring, 1 piece Coloplast S[employer] [place] convex appliance, and C shaped elastic barrier [...] in 1-month for granuloma management at the [place] location. All of Jose's questions and concerns were addressed. He was instructed to call with any further questions or concerns and follow up in 1-month for granuloma management at the [place] location. Fern Davis was available for any questions or concerns that I may have had, Nery Almendarez BSN OMS and Briseida Marino [employer] OMS. Silver nitrate was applied to 3 distinct areas. Jose tolerated the procedure well. I, Sriram Shirley MD confirm that Nery Almendarez RN OMS, adheres to the guidelines of the established clinical protocols in the office. I confirm the above care provided was rendered under my general supervision as initially planned and subsequently discussed and supervised by me. 03/21/2025 Other Jose presented to the office follow up ostomy visit for hyper-granulation management. He has a permanent Ileostomy, due to personal history of appendix and peritoneal carcinomatosis. 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 He now has a G-Tube in place for supplemental nutritional intake. He reported that he was suggested to go on Hospice services but has declined Hospice at this time. He is currently followed by Palliative care services. He is currently using adhesive remover, stoma powder followed by skin barrier spray (crusting), Barrier ring, S[employer] [place] 1 piece convex appliance with 4 hook belt tabs, 2 C Elastic barrier strips, 2 hook appliance belt. Stoma appears beefy red, moist, budding apx 10mm. Scattered hyper-granulation present with 3 distinct larger areas on stoma 1,2, & 3 o'clock. Stoma appears round with OS centrally located. Peristomal plane flabby/soft, Peristomal skin with contact dermatitis along the immediate edge 6-7 o'clock and at the outer lateral aspect 8-11 o'clock. Stoma and peristomal eval completed. Silver nitrate applied to 3 distinct areas of hyper-granulation on stoma at 1,2,3 o'clock. Recs to apply stoma powder followed by skin barrier in the crusting method x3 layers to the areas of contact dermatitis, to change appliance routinely every 3 days to aid with preventing the appliance from leaking, to utilize a 4 hook appliance belt. Education provided regarding current recs, appliance removal, cleansing, and appliance application. He verbalized understanding of the education provided. All of Jose's questions and concerns were addressed. He was instructed to call with any further questions or concerns and follow up in 1 month for hyper-granulation management. Silver nitrate was applied to 3 distinct areas of hyper-granulation, Jose tolerated the procedure well. Dr. Shirley was available for any questions or concerns that I may have had, Briseida CARRERO. I, Sriram Shirley MD confirm that Briseida CARRERO, adheres to the guidelines of the established clinical protocols in the office. I confirm the above care provided was rendered under my general supervision as initially planned and subsequently discussed and supervised by me. Plan Of Treatment Next Appt Details Provider Name:Sriram Shirley, 04/18/2025 11:00:00 AM, [address] [place] [address], [phone], Insurance Providers Payer Name Payer Address Payer Phone Subscriber Number Group Number Insured Name Patient Relationship to Insured Coverage Start Date Coverage End Date Medicare [address] [place], [place] [id number] Jose Hirsch Self - patient is the insured [employer]you (Medicaid) [address] [place], [place] [id number] Jose Hirsch Self - patient is the [...] CKD (chronic kidney disease), stage III N18.[address] Z93.1 Surgical History Surgery Date(Month/Year) EGD Debulking intraabdominal neoplasm appendectomy total colectomy, with Ileostomy creation Bilateral nephrostomy Splenectomy Cholecystectomy Eye lid surgery
--- OUTSIDE RECORDS SUMMARY | 2025-04-14 21:03 | XMS_ITS | Clinical Summary ---
Author Organization 175 [facility] Address [address] [place] [address] Phone Care Team Providers Care Highway Worker Name Role Phone Lobo Mills MD Primary Care Provider [phone] Allergies Active Allergy Reactions Criticality Noted Date [...] 10:00 AM EST Consult Orthopedic Surgery - [place] 175 [facility] [address] [place] [phone] Lori Walters PA [facility] arthritis (Primary Dx) 02/27/2025 12:00 PM EDT - 02/27/2025 4:36 PM EDT Emergency [facility] Emergency [address] [place] [phone] Alexander Collins MD Edema leg (Primary Dx); Anemia, unspecified type; Hypoalbuminemia Discharge Disposition: Home or Self Care 02/07/2025 6:12 AM EDT - 02/07/2025 10:14 AM EDT Emergency [facility] Emergency [address] [place] [phone] Arthralgia of left hand (Primary Dx); Lead-induced acute gout of left hand, initial encounter Discharge Disposition: Home or Self Care 01/26/2025 9:17 PM EDT - 01/30/2025 5:00 PM EDT Hospital Encounter [facility] Urology Unit [address] [place] [phone] Shmuel Garber MD Jones, Christopher, MD Alam, Aroosa, MD Generalized abdominal pain (Primary Dx); Small bowel obstruction (CMS/HCC V24, CMS/HCC V28); Pseudomyxoma peritonei (CMS/HCC V24, CMS/HCC V28) Discharge Disposition: Home-Health Care [facility] 01/20/2025 5:46 PM EDT - 01/24/2025 3:25 PM EDT Hospital Encounter [facility] Medical Surgical Unit [address] [place] [phone] Sachin Murrieta MD Jones, Christopher, MD Santoyo-Pacheco, [...] [facility] Hemoglobin 7.9(L) 13.5 - 17.5 g/dL LAB HEMETOLOGY METHOD 02/27/2025 2:22 PM EDT [facility] Hematocrit 23.8(L) 42.0 - 54.0 % LAB HEMETOLOGY METHOD 02/27/2025 2:22 PM EDT [facility] MCV 95.2 79.0 - 98.0 FL LAB HEMETOLOGY METHOD 02/27/2025 2:22 PM EDT [facility] MCH 31.6 27.0 - 32.0 pcg LAB HEMETOLOGY [facility] MCHC 33.2 32.0 - 37.0 g/dL LAB HEMETOLOGY METHOD 02/27/2025 2:22 PM [facility] RDW 16.2(H) 11.0 - 15.0 % LAB HEMETOLOGY METHOD 02/27/2025 2:22 PM [facility] Platelets 334 130 - 400 K/mcL LAB HEMETOLOGY METHOD 02/27/2025 2:22 PM [facility] MPV 9.3 7.0 - 11.0 FL LAB HEMETOLOGY METHOD 02/27/2025 2:22 PM [facility] NRBC 0.0 <1.0 % LAB HEMETOLOGY METHOD 02/27/2025 2:22 PM [facility] NRBC Absolute 0.00 <0.10 K/mcL LAB HEMETOLOGY METHOD 02/27/2025 2:22 PM [facility] Neutrophils Relative 65.8 % LAB HEMETOLOGY METHOD 02/27/2025 2:22 PM [facility] Lymphocytes Relative 21.3 % LAB HEMETOLOGY METHOD 02/27/2025 2:22 PM [facility] Monocytes Relative 10.0 % LAB HEMETOLOGY METHOD 02/27/2025 2:22 PM [facility] Eosinophils Relative 1.7 % LAB HEMETOLOGY METHOD 02/27/2025 2:22 PM [facility] Basophils Relative 0.7 % LAB HEMETOLOGY METHOD 02/27/2025 2:22 PM [facility] Immature Granulocytes Relative 0.5 % LAB HEMETOLOGY METHOD 02/27/2025 2:22 PM [facility] Neutrophils Absolute 5.81 1.50 - [...] [facility] [address] [place] [address], * Type and screen (02/27/2025 1:57 PM [...] ORDERAB LES Final Result Performing Organization Address [facility]/ZIP Co de Phone Number [facility] [address] [place] [address], [place] [phone] * (ABNORMAL) B-type natriuretic peptide (02/27/2025 1:57 PM EDT) Pathologist [facility] BNP 315(H) <=100 pcg/mL LAB CHEMISTRY METHOD 02/27/2025 2:51 PM EDT [facility] Blood Venous blood specimen / Unknown Venipuncture / Unknown 02/27/2025 1:57 PM EDT 02/27/2025 2:12 PM EDT Alexander Collins MD LAB BLOOD ORDERABLES Final Result Performing Organization Address [facility] Co de Phone Number [facility] [address] [place] [address], [place] [phone] * (ABNORMAL) Comprehensive Metabolic Panel (CMP) (02/27/2025 1:57 PM EDT) Only the most recent of6 resultswithin the time period is included. Pathologist [facility] Sodium 142 133 - 145 mmol/L LAB CHEMISTRY METHOD 02/27/2025 2:49 PM EDT [facility] Potassium 4.1 3.5 - 5.5 mmol/L LAB CHEMISTRY METHOD 02/27/2025 2:49 PM EDT [facility] Chloride 115(H) 96 - 110 mmol/L LAB CHEMISTRY METHOD 02/27/2025 2:49 PM EDT [facility] CO2 22 21 - 32 mmol/L LAB CHEMISTRY METHOD 02/27/2025 2:49 PM EDT [facility] Anion Gap 5 3 - 11 LAB CHEMISTRY METHOD 02/27/2025 2:49 PM [facility] Glucose 112(H) 70 - 100 mg/dL LAB CHEMISTRY METHOD 02/27/2025 2:49 PM [facility] BUN 22 5 - 25 mg/dL LAB CHEMISTRY METHOD 02/27/2025 2:49 PM [facility] Creatinine 1.19 0.70 - 1.30 mg/dL LAB CHEMISTRY METHOD 02/27/2025 2:49 PM [facility] eGFR 67 >=60 mL/min/1. 73m2 LAB CHEMISTRY METHOD 02/27/2025 2:49 PM [facility] Comment:Calculation based on the Chronic Kidney Disease Epidemiology Collaboration (CKD-EPI) equation refit without adjustment for race. BUN/Creatinine Ratio 18.5 LAB CHEMISTRY METHOD 02/27/2025 2:49 PM [facility] Calcium 8.2(L) 8.5 - 10.5 mg/dL LAB CHEMISTRY METHOD 02/27/2025 2:49 PM [facility] AST (SGOT) 9(L) 10 - 42 unit/L LAB CHEMISTRY METHOD 02/27/2025 2:49 PM [facility] ALT (SGPT) 14 10 - 60 unit/L LAB CHEMISTRY METHOD 02/27/2025 2:49 PM [facility] Alkaline Phosphatase 58 42 - 121 unit/L LAB CHEMISTRY METHOD 02/27/2025 2:49 PM [facility] Total Protein 4.9(L) 6.0 - 8.0 g/dL LAB CHEMISTRY METHOD 02/27/2025 2:49 PM [facility] Albumin 2.7(L) 3.2 - 5.0 g/dL LAB CHEMISTRY METHOD 02/27/2025 2:49 PM [facility] Total Bilirubin 0.3 0.0 - 1.4 mg/dL LAB CHEMISTRY METHOD 02/27/2025 2:49 PM [facility] Blood Venous blood specimen / Unknown Venipuncture / Unknown 02/27/2025 1:57 PM EDT 02/27/2025 2:12 PM EDT Alexander Collins MD LAB BLOOD ORDERABLES Final Result [facility] ([facility]) [facility] [address] [place] [address], [place] [phone] * XR Chest 2 Views (02/27/2025 12:54 [...] Signed Date: 02/27/2025 13:22 ET Workstation ID: [id number] Transcribed By: Self Edit Transcribed Date: 02/27/2025 [...] Signed Date: 02/27/2025 13:22 ET Workstation ID: [id number] Transcribed By: Self Edit Transcribed Date: 02/27/2025 [...] Signed Date: 02/27/2025 12:44 ET Workstation ID: [id number] Transcribed By: Self Edit Transcribed Date: 02/27/2025 [...] Signed Date: 02/27/2025 12:44 ET Workstation ID: [id number] Transcribed By: Self Edit Transcribed Date: 02/27/2025 [...] Signed Date: 02/07/2025 09:29 ET Workstation ID: [id number] Transcribed By: Self Edit Transcribed Date: 02/07/2025 [...] Signed Date: 02/07/2025 09:29 ET Workstation ID: [id number] Transcribed By: Self Edit Transcribed Date: 02/07/2025 [...] Yazmin ALMARAZ LAB BLOOD ORDERABLES Final Result [facility] [address] [place] [address], [place] [phone] * Magnesium (01/30/2025 5:43 AM EDT) Only the most recent of6 resultswithin the time period is included. Magnesium 2.0 1.9 - 2.6 mg/dL LAB CHEMISTRY METHOD 01/30/2025 7:03 AM EDT [facility] Blood Venous blood specimen / Unknown Venipuncture / Unknown 01/30/2025 5:43 AM EDT 01/30/2025 6:19 AM EDT us Yazmin ALMARAZ LAB BLOOD ORDERABLES Final Result [facility] [address] [place] [address], * IR Insert Gastro Tube Perc w [...] as the tube itself. Specimen: None Tube: 16-Portuguese gastrostomy Estimated blood loss: Minimal Consultations: None [...] over the wire through which we placed [id number]-Ewsifl gastrostomy tube. The peel-away sheath was removed. [...] Signed Date: 01/28/2025 17:19 ET Workstation ID: [id number] Transcribed By: Self Edit Transcribed Date: 01/28/2025 [...] as the tube itself. Specimen: None Tube: 16-Portuguese gastrostomy Estimated blood loss: Minimal Consultations: None [...] advanced over the wire through which weplaced [id number]-Niuzoy gastrostomy tube. The peel-away sheath was removed.5 [...] Signed Date: 01/28/2025 17:19 ET Workstation ID: [id number] Transcribed By: Self Edit Transcribed Date: 01/28/2025 17:16 ET Patricia ALMARAZ IMG IR PROCEDURES Final Result * (ABNORMAL) Basic metabolic panel (01/27/2025 6:03 AM EDT) Only the most recent of5 resultswithin the time period is included. Sodium 138 133 - 145 mmol/L LAB CHEMISTRY METHOD 01/27/2025 6:55 AM EDT [facility] Potassium 3.8 3.5 - 5.5 mmol/L LAB CHEMISTRY METHOD 01/27/2025 6:55 AM EDT [facility] Chloride 103 96 - 110 mmol/L LAB CHEMISTRY METHOD 01/27/2025 6:55 AM [facility] CO2 33(H) 21 - 32 mmol/L LAB CHEMISTRY METHOD 01/27/2025 6:55 AM [facility] Anion Gap 2(L) 3 - 11 LAB CHEMISTRY METHOD 01/27/2025 6:55 AM [facility] Glucose 122(H) 70 - 100 mg/dL LAB CHEMISTRY METHOD 01/27/2025 6:55 AM [facility] BUN 21 5 - 25 mg/dL LAB CHEMISTRY METHOD 01/27/2025 6:55 AM [facility] Creatinine 1.18 0.70 - 1.30 mg/dL LAB CHEMISTRY METHOD 01/27/2025 6:55 AM [facility] eGFR 68 >=60 mL/min/1. 73m2 LAB CHEMISTRY METHOD 01/27/2025 6:55 AM [facility] Comment:Calculation based on the Chronic Kidney Disease Epidemiology Collaboration (CKD-EPI) equation refit without adjustment for race. BUN/Creatinine Ratio 17.8 LAB CHEMISTRY METHOD 01/27/2025 6:55 AM [facility] Calcium 8.3(L) 8.5 - 10.5 mg/dL LAB CHEMISTRY METHOD 01/27/2025 6:55 AM [facility] Blood Venous blood specimen / Unknown Venipuncture / Unknown 01/27/2025 6:03 AM EDT 01/27/2025 6:08 AM EDT us Rubén Majano MD LAB BLOOD ORDERABLES Final Result [facility] [address] [place] [address], * XR Chest 1 View (01/27/2025 2:35 [...] bones. -------- FINAL REPORT -------- Dictated By: RONDEY CHENG Dictated Date: 01/27/2025 08:24 ET Assigned Physician: RODNEY CHENG Reviewed and Electronically Signed By: RODNEY CHENG Signed Date: 01/27/2025 08:25 ET Workstation ID: [id number] Transcribed By: Self Edit Transcribed Date: 01/27/2025 [...] Signed Date: 01/27/2025 08:25 ET Workstation ID: [id number] Transcribed By: Self Edit Transcribed Date: 01/27/2025 [...] with Reflex (01/26/2025 10:40 PM EDT) Pathologist [facility] LACTIC ACID 1.2 0.4 - 2.0 mmol/L LAB CHEMISTRY METHOD 01/26/2025 11:15 PM EDT [facility] Blood Venous blood specimen / Unknown Venipuncture / Unknown 01/26/2025 10:40 PM EDT 01/26/2025 10:44 PM EDT us Shmuel Garber MD LAB BLOOD ORDERABLES Gabbie l Result [facility] [address] [place] [address], [place] [phone] * (ABNORMAL) Manual differential (01/26/2025 10:40 PM EDT) Only the most recent of2 resultswithin the time period is included. Pathologist [facility] Neutrophils % 77.0 % LAB HEMETOLOGY METHOD 01/26/2025 11:27 PM EDT [facility] Bands % 4.0 % LAB HEMETOLOGY [facility] Lymphocytes % 10.0 % LAB HEMETOLOGY METHOD 01/26/2025 11:27 PM [facility] Monocytes % 9.0 % LAB HEMETOLOGY METHOD 01/26/2025 11:27 PM T [facility] Eosinophils % 1.0 % LAB HEMETOLOGY METHOD 01/26/2025 11:27 PM EDT [facility] Basophils % 0.0 % LAB HEMETOLOGY METHOD 01/26/2025 11:27 PM [facility] Neutrophils Absolute Manual 8.47(H) 1.50 - 7.00 K/mcL LAB HEMETOLOGY METHOD 01/26/2025 11:27 PM EDT [facility] Bands Absolute Manual 0.44(H) 0.00 - 0.00 K/mcL LAB HEMETOLOGY METHOD 01/26/2025 11:27 PM EDT [facility] Lymphocytes Absolute 1.10 1.00 - 5.00 K/mcL LAB HEMETOLOGY METHOD 01/26/2025 11:27 PM EDT [facility] Monocytes Absolute Manual 0.99 0.20 - 1.00 K/mcL LAB HEMETOLOGY METHOD 01/26/2025 11:27 PM EDT [facility] Eosinophils Absolute Manual 0.11 0.00 - 0.50 K/mcL LAB HEMETOLOGY METHOD 01/26/2025 11:27 PM EDT [facility] Basophils Absolute Manual 0.00 0.00 - 0.20 K/mcL LAB HEMETOLOGY METHOD 01/26/2025 11:27 PM EDT [facility] Rbc Morphology Present( A) Consistent with indices, Normal for Guston LAB HEMETOLOGY METHOD 01/26/2025 11:27 PM EDT [facility] Comment:RBC: Morphology agre es [...] MD LAB BLOOD ORDERABLES Gabbie mckeon Result [facility] [address] [place] [address], * (ABNORMAL) Hemoglobin and hematocrit (01/22/2025 7:56 [...] [facility] [address] [place] [address], [place] [phone] * XR Abdomen 1 View (01/22/2025 9:35 [...] Signed Date: 01/22/2025 10:11 ET Workstation ID: [id number] Transcribed By: Self Edit Transcribed Date: 01/22/2025 [...] Signed Date: 01/22/2025 10:11 ET Workstation ID: [id number] Transcribed By: Self Edit Transcribed Date: 01/22/2025 10:10 ET Cheri ALMARAZ IMG XR PROCEDURES Final Resu lt * (ABNORMAL) Lipase (01/21/2025 5:50 AM EDT) Only the most recent of2 resultswithin the time period is included. [facility] Lipase 262(H) 13 - 75 unit/L LAB CHEMISTRY METHOD 01/21/2025 10:09 AM EDT [facility] Blood Venous blood specimen / Unknown Venipuncture / Unknown 01/21/2025 5:50 AM EDT 01/21/2025 6:20 AM EDT Ryan Otto MD LAB BLOOD ORDERABLES F inal Result [facility] [address] [place] [address], [place] [phone] * Triglycerides (01/20/2025 7:11 PM EDT) Triglycerides 74 0 - 150 mg/dL LAB CHEMISTRY METHOD 01/20/2025 10:28 PM EDT [facility] Blood Venous blood specimen / Unknown Venipuncture / Unknown 01/20/2025 7:11 PM EDT 01/20/2025 7:17 PM EDT us Rubén Majano MD LAB BLOOD ORDERABLES Final Result Performing Organization Address [facility]/ZIP Co de Phone Number [facility] [address] [place] [address], [place] [phone] * Lactate dehydrogenase (01/20/2025 7:11 PM EDT) [facility] LDH 207 120 - 246 unit/L LAB CHEMISTRY METHOD 01/20/2025 10:28 PM EDT [facility] Blood Venous blood specimen / Unknown Venipuncture / Unknown 01/20/2025 7:11 PM EDT 01/20/2025 7:17 PM EDT us Rubén Majano MD LAB BLOOD ORDERABLES Final Result Performing Organization Address [facility]/ZIP Co de Phone Number [facility] [address] [place] [address], [place] [phone] * Lactate (01/20/2025 7:11 PM EDT) Pathologist [facility] Lactate 1.2 0.4 - 2.0 mmol/L LAB CHEMISTRY METHOD 01/20/2025 7:54 PM EDT [facility] Blood Venous blood specimen / Unknown Venipuncture / Unknown 01/20/2025 7:11 PM EDT 01/20/2025 7:18 PM EDT us Sachin Murrieta MD LAB BLOOD ORDERABLES Fin al Result Performing Organization Address City/[facility]/ZIP Co de Phone Number [facility] [address] [place] [address], * (ABNORMAL) Lipid panel (02/11/2002) LDL/HDL Ratio [...] Documents on File Type Date 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
--- OUTSIDE RECORDS SUMMARY | 2025-04-14 21:03 | XMS_ITS | Encounter Summary ---
Author Organization [facility] [address] Address [address] [place] [address] Care Team Providers Care Power Nut Runner Operator Name Role Phone Lobo Mills MD Primary Care Provider [phone] Encounter Details Date Type Department Care Team (Late st Contact Info) Description 10/24/2024 Lab Requisition [facility] Lab [address] [facility] [place] [address] Rich Cintron PA [address] [phone] Calculus of kidney Social History [...] Complete blood count (10/24/2024 11:48 AM EDT) [facility] WBC 9.1 4.8 - 10.8 K/mcL LAB HEMETOLOGY METHOD 10/24/2024 3:24 PM EDT [facility] RBC 3.30(L) 4.50 - 5.50 M/mcL LAB HEMETOLOGY METHOD 10/24/2024 3:24 PM EDT [facility] Hemoglobin 10.3(L) 13.5 - 17.5 g/dL LAB HEMETOLOGY METHOD 10/24/2024 3:24 PM [facility] Hematocrit 31.2(L) 42.0 - 54.0 % LAB HEMETOLOGY METHOD [facility]24[facility]24 3[facility] MCV 96.0 79.0 - 98.0 FL LAB HEMETOLOGY METHOD 10/24/2024 3:24 [facility] MCH 31.7 27.0 - 32.0 pcg LAB HEMETOLOGY METHOD 10/24/2024 3:24 PM [facility] MCHC 33.0 32.0 - 37.0 g/dL LAB HEMETOLOGY METHOD 10/24/2024 3:24 PM [facility] RDW 15.8(H) 11.0 - 15.0 % LAB HEMETOLOGY METHOD 10/24/2024 3:24 PM EDT [facility] Platelets 464(H) 130 - 400 K/mcL LAB HEMETOLOGY METHOD 10/24/2024 3:[facility] MPV 10.6 7.0 - 11.0 FL LAB HEMETOLOGY METHOD 10/24/2024 3:24 PM [facility] NRBC 0.0 <1.0 % LAB HEMETOLOGY METHOD [facility]/24[facility]2024 3:24 [facility] NRBC Absolute 0.00 <0.10 K/mcL LAB HEMETOLOGY METHOD 10/24/2024 3:24 PM EDT [facility] Blood Venous blood specimen / Unknown 10/24/2024 11:48 AM EDT 10/24/2024 2:28 PM EDT us Rich ALMARAZ LAB BLOOD ORDERABLES Final Resul t [facility] [address] [place] [address], documented in this encounter Visit Diagnoses Diagnosis Calculus of kidney documented in this encounter Care Teams Power Nut Runner Operator Relationship Specialty Start Date End Date Lobo Mills MD [address] [place], [place] PCP - General 12/14/23 documented as of this encounter
== END 2025-04-14 09:01 | disposition home or self-care (01) ==
LOC: HO.LNP 09:00
PROVIDERS: Visit Provider Internal Medicine Medical Oncology
DX: N17.9 Acute kidney failure, unspecified (principal); Z90.411 Acquired partial absence of pancreas
CPT/HCPCS: 80051; 82565; 84520; 85025

== ENCOUNTER 2025-04-21 14:46 | Outpatient (REF) | payer MEDICARE, SELFPAY ==
--- OUTSIDE RECORDS SUMMARY | 2024-03-18 04:30 | XMS_ITS ---
Author Organization [facility] Address [address] [place] [address] Care Team Providers Care Hand Grinder Name Role Phone Lobo Mills MD Primary Care Provider Unavaila Sriram Garcia Unavailable [phone] Allergies Allergen (clinical drug ingredient) Drug/Non Drug [...] Active Encounters Encounter Location Date Provider Diagnosis [facility] [address] [place] [address] 03/18/2024 Sriram Shirley Plan Of Treatment Next Appt Details Provider Name:Sriram Shirley, 06/06/2025 11:00:00 AM, [address] [place] [address], [phone], Progress Notes * Richard FARIASOB:1955 (70 yo M)Acc No.[id number]:03/18/2024 Ostomy Follow-Up Visit Patient: Jose Delaney Provider: Raisa Shirley MD, MSc, CWSP :1955 A ge:69 Y S ex:Male Date:03/18/2024 Address:[address] [place], [place] [phone] Pcp:Lobo Mills MD Subjective: * Chief Complaints: [...] Electronic signature of Zulema Shirley MD on 04/21/2025 at 06:04 PM EST Sign off status: Pending * Provider: Raisa Shirley MD, MSc, CWSP Date: 05/18/2023 Generated for Zoya melendez/Monika/Reva on: 06/22/2024 06:04 PM EST
--- OUTSIDE RECORDS SUMMARY | 2025-02-28 05:00 | XMS_ITS ---
Author Organization [facility] Address [address] [address] Care Team Providers Care Tap Dancer Name Role Phone Lobo Mills MD Primary Care Provider Unavaila Sriram Garcia Unavailable [phone] REASON FOR VISIT 1 month f/u Encounters Encounter Location Date Provider Diagnosis [facility] [address] [place] [address] 02/28/2025 Sriram Shirley Plan Of Treatment Next Appt Details Provider Name:Sriram Fern, 06/06/2025 11:00:00 AM, [address] [place] [address], [phone], Progress Notes * Richard FARIASOB:1955 (70 yo M)Acc No.[id number]:02/28/2025 Ostomy Follow-Up Visit Patient: Coy rothmike Jose Provider: Raisa Shirley MD, MSc, CWSP :1955 A ge:69 Y S ex:Male Date:02/28/2025 Address: [id number] Pcp:Lobo Mills MD Subjective: * Chief Complaints: * 1 month f/u * Electronic signature of Zulema Shirley MD on 04/21/2025 at 06:03 PM EST Sign off status: Pending * Provider: Raisa Shirley MD, MSc, CWSP Date: Generated for Printi ng/Faxing/eTransmitting on: 1 06/22/2024 06:03 PM EST
--- OUTSIDE RECORDS SUMMARY | 2025-04-17 23:59 | XMS_ITS | Continuity of Care Document ---
Author Organization [facility] Address [address] [place] [id number]- Care Team Providers Care Medical Physiologist Name Role Phone Gene ROSAS, Lobo Medina Primary Care Physician [place] [facility] [place] 03/18/25 - 04/17/[address] [address]- Encounter Type: Triage Allergies, Adverse Reactions, Alerts Substance Criticality Severity Reaction Reaction Severity Status cefepime 1, 2 Macular rash Act mayra Zosyn Unable to assess criticality Persistent Moderate rigors, rash, spasms Active Contrast Dye Active 1Tolerates piperacillin-tazobactam 2macular rash Immunizations Given and Recorded Vaccine Date Status Refusal Reason SARS-CoV-2(COVID-19)mRNA-LNP vac([id number]) 03/12/24 Recorded influenza virus vaccine, inactivated 02/05/24 Give n influenza virus vaccine, inactivated 02/17/23 Give n influenza virus vaccine, inactivated 03/15/22 Give n influenza virus vaccine, inactivated 03/22/21 Give n influenza virus vaccine, inactivated 02/13/20 Give n influenza virus vaccine, inactivated 02/04/19 Give n influenza virus vaccine, inactivated 04/11/17 Give n influenza virus vaccine, inactivated 03/03/14 Give n influenza virus vaccine, inactivated 1 01/11/13 Gi gena influenza virus vaccine, inactivated 2 03/07/12 Gi gena influenza virus vaccine, inactivated 3 02/02/11 Gi gena influenza virus vaccine, inactivated 4 02/11/10 Gi gena [id number] 12y+ bivalent booster vax 03/15/22 Given SARS-CoV-2 mRNA (zmpkpbu-mgte-ioovt) vax 5 09/23/21 Given zoster vaccine, inactivated 07/03/21 Recorded SARS-CoV-2 (COVID-19) mRNA BNT-162b2 vac 03/22/21 Given SARS-CoV-2 (COVID-19) mRNA BNT-162b2 vac 09/08/20 Given SARS-CoV-2 (COVID-19) mRNA BNT-162b2 vac 08/18/20 Given pneumococcal 23-valent vaccine 02/13/20 Given pneumococcal 23-valent vaccine 6 01/11/13 Given tetanus/diphtheria/pertussis, acel(Tdap) 01/19/16 Given pneumococcal 13-valent vaccine 01/28/14 Given Meningococcal Conjugate Vaccine 03/11/13 Given Meningococcal Conjugate Vaccine 7 05/25/07 Given Influenza Vaccine (oldterm) 8 05/29/09 Given Influenza Vaccine (oldterm) 9 05/23/07 Given Influenza Inactive (IM) (oldterm) 10 04/07/09 Give n Influenza Inactive (IM) (oldterm) 11 03/31/08 Give n Haemophilus B Conj Vaccine (oldterm) 12 05/30/07 G iven Hepatitis B Vaccine (old term) 13 05/23/07 Given Pneumococcal Poly (PPV23) (oldterm) 14 05/23/07 Gi gena tetanus-diphtheria toxoids (Td) 15 05/23/07 Given 1Admin Note: vis 2Admin Note: VIS dated 10/31/11 3Admin Note: VIS 11/23/10 4Admin Note: VIS 12/08/2009 5Result Comment: pt tolerated well -SB 6Admin Note: vis 02/03/09 7Admin Note: vis given 12/14/06 8Admin Note: VIS 9Admin Note: vis 10Admin Note: vis 11Admin Note: vis 12Admin Note: VIS GIVEN 04/15/1998 13Admin Note: vis 11/15/06 14Admin Note: vis 11/26/06 15Admin Note: vis 10/08/93 Medications acetaminophen 500 mg oral capsule 1 capsule = 500 mg, By Mouth, Every 6 hours, PRN Pain , Mild, 0 Refills, Maintenance, 03/22/21 11:22:00 AM EST, Partial fill upon patient request if the prescription is for a schedule II opioid drug. Start Date: 03/22/21 Status: Ordered Medication Dispense Status: Completed Total Allowed Fills: 1 Fills Dispensed: 0 atropine-diphenoxylate 0.025 mg-2.5 mg oral tablet 1, tablet, By Mouth, 4 times a day, PRN, as needed for loose stool Start Date: 08/03/24 Status: Ordered Medication Dispense Status: Completed Total Allowed Fills: 1 Fills Dispensed: 0 baclofen 5 mg oral tablet 1 tablet = 5 mg, By Mouth, 4 times a day, # 120 tablet, 2 Refills, Maintenance, 02/05/24 10:19:00 AMEDT, Tablet, [facility] #[id number], Partial fill upon patient request if the prescription is for a schedule II opioid drug., 163, cm, 02/05/24 9:55:00 EDT, Height, 68.5, kg, 02/01/24 14:28:00 EDT, Dry Weight Start Date: 02/05/24 Stop Date: 05/05/24 Status: Ordered Medication Dispense Status: Completed Quantity: 120.0 Unit: tablet Total Allowed Fills: 3 Fills Dispensed: 0 Begin Isosource HN @95mL/hr x 12 hrs (13.5 units per day) via G tube by backpack feeding pump metho Begin Isosource HN @95mL/hr x 12 hrs (13.5 units per day) via G tube by backpack feeding pump method. Pls provide all necessary G-tube supplies., See Instructions, # 405 each, Refills 11, Tot. Refills 11, Maintenance, Dx: Metastatic peritoneal carcinomatosis, abnormal weight loss, h/o intermittent p artial SBO. Ht: 163 cm. Wt: 53.3 kg, 02/04/25 5:07:00 PM EDT, Supply Start Date: 02/04/25 Status: Ordered Medication Dispense Status: Completed Quantity: 405.0 Unit: each Total Allowed Fills: 12 Fills Dispensed: 0 bicalutamide 50 mg oral tablet 1 tablet = 50 mg, By Mouth, Every 24 hours, # 30 tablet, 0 Refills, Maintenance, 08/08/22 3:11:00 PMEDT, Tablet, Partial fill upon patient request if the prescription is for a schedule II opioid drug. Start Date: 08/08/22 Status: Ordered Medication Dispense Status: Completed Quantity: 30.0 Unit: tablet Total Allowed Fills: 1 Fills Dispensed: 0 colestipol 1 gm oral tablet 2 tablet = 2 Gm, By Mouth, 2 times a day, # 360 tablet, 1 Refills, Maintenance, 03/19/25 2:40:00 PMEST, Tablet, [facility] #[id number], Partial fill upon patient request if the prescription is for a schedule II opioid drug., 163, cm, 02/27/25 10:45:00 EDT, Height, 56.6, kg, 02/14/25 10:11:00 EDT, Dry Weight Start Date: 03/19/25 Status: Ordered Medication Dispense Status: Completed Quantity: 360.0 Unit: tablet Total Allowed Fills: 2 Fills Dispensed: 0 Compression Stockings See Instructions, # 2 each, Refills 1, Tot. 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 Refills 0, Maintenance, Sacral ulcer; L98.429; TO L&C, 08/26/24 3:11:00 PM EDT, Supply Start Date: 08/26/24 Status: Ordered Medication Dispense Status: Completed Quantity: 1.0 Unit: each Total Allowed Fills: 1 Fills Dispensed: 0 gabapentin 300 mg oral capsule 1, capsule, By Mouth, 4 times a day, # 360 capsule, Refills 1, Tot. Refills 1, Maintenance, 03/18/25 9:58:00 PM EST, Route to Pharmacy Electronically, [facility] #[id number], 163, cm, 02/27/25 10:45:00 EDT, Height, 56.6, kg, 02/14/25 10:11:00 EDT, Dry Weight Start Date: 03/18/25 Status: Ordered Medication Dispense Status: Completed Quantity: 360.0 Unit: capsule Total Allowed Fills: 2 Fills Dispensed: 0 Multivitamin Tablet 1 tablet, By Mouth, Daily, Maintenance, 03/01/24 10:21:00 AM EDT, Partial fill upon patient request if the prescription is for a schedule II opioid drug. Start Date: 03/01/24 Status: Ordered Medication Dispense Status: Completed Total Allowed Fills: 1 Fills Dispensed: 0 Narcan 4 mg/0.1 mL nasal spray 1 sprays = 4 mg, Naris, Right, Once, PRN Other, PRN in case of accidental overdose , unresponsiveness, or RR < 10 use one spray in one nostril. if an additional dose is needed, alternate nostril may repeat every 2 to 3 minutes until patient responds, # 2 each, 1 Refills, Soft Stop, 02/10/25 2:08:00 PM EDT, [facility] #[id number], Partial fill upon patient request if the prescription is for a schedule II opioid drug., 163, cm, 12/19/24 14:04:00 EDT, Height, 53.3, kg, 12/13/24 10:07:00 EDT, Dry Weight Start Date: 02/10/25 Status: Ordered Medication Dispense Status: Completed Quantity: 2.0 Unit: each Total Allowed Fills: 2 Fills Dispensed: 0 Nutritional Supplements See Instructions, # 90 each, Refills 5, Tot. Refills 5, Maintenance, Ensure milk chocolate 3 per day; Diagnosis weight loss due to peritoneal malignancy; C78.6; [facility], 11/27/24 10:57:00 AM EDT, Supply Start Date: 11/27/24 Status: Ordered Medication Dispense Status: Completed Quantity: 90.0 Unit: each Total Allowed Fills: 6 Fills Dispensed: 0 ondansetron 8 mg oral tablet 1 tablet = 8 mg, By Mouth, Every 8 hours, PRN as needed for nausea/vomiting, # 30 tablet, 1 Refills, Maintenance, 02/13/25 5:48:00 PM EDT, Tablet, [facility] #[id number], Partial fill upon patient request if the prescription is for a schedule II opioid drug., 163, cm, 12/19/24 14:04:00 EDT, Height, 53.3, kg, 12/13/24 10:07:00 EDT, Dry Weight Start Date: 02/13/25 Status: Ordered Medication Dispense Status: Completed Quantity: 30.0 Unit: tablet Total Allowed Fills: 2 Fills Dispensed: 0 oxyCODONE 10 mg oral tablet 1 tablet = 10 mg, By Mouth, Every 4 hours, PRN as needed for pain, for 21 days, MassPAT reviewed; dx C78.6 carcinomatosis;, # 126 tablet, 0 Refills, Acute 05/08/25 6:05:00 PM EST, 04/17/25 6:05:00 PM EST, Tablet, [facility] #[id number], Partial fill upon patient request, 04/17/25, 163, cm, 04/11/25 10:19:00 EST, Height, 57.7, kg, 04/11/25 10:19:00 EST, Dry Weight Start Date: 04/17/25 Stop Date: 05/08/25 Status: Ordered Medication Dispense Status: Completed Quantity: 126.0 Unit: tablet Total Allowed Fills: 1 Fills Dispensed: 0 Indications: Malignant neoplasm of prostate; Secondary malignant neoplasm of retroperitoneum and peritoneum; OxyCONTIN 20 mg oral tablet, extended release 20 mg, 1, tablet, By Mouth, Daily at bedtime, for 28 days, Dispensea sbrand per insurance requirement; D/c Fentanyl, # 28 tablet, Refills 0, Tot. Refills 0, Hard Stop 04/20/25 7:10:00 PM EST, 03/23/25 7:10:00 PM EST, Route to Pharmacy Electronically, [facility] #[id number], Partial fill upon patient request if the prescription is for a schedule II opioid drug., 163, cm, 02/27/25 10:45:00 EDT, Height, 56.6, kg, 02/14/25 10:11:00 EDT, Dry Weight Start Date: 03/23/25 Stop Date: 04/20/25 Status: Ordered Medication Dispense Status: Completed Quantity: 28.0 Unit: tablet Total Allowed Fills: 1 Fills Dispensed: 0 OxyCONTIN 20 mg oral tablet, extended release 20 mg, 1, tablet, By Mouth, Daily at bedtime, Dispensea sbrand per insurance requirement; D/c Fentanyl, # 28 tablet, Refills 0, Tot. Refills 0, Maintenance, 04/22/25 7:10:00 PM EST, Route to PharmacyElectronically, [facility] #[id number], Partial fill upon patient request if the prescription is for a schedule II opioid drug., 04/21/25, 163, cm, 04/11/25 10:19:00 EST, Height, 57.7, kg, 04/11/25 10:19:00 EST, Dry Weight Start Date: 04/22/25 Stop Date: 05/20/25 Status: Ordered Medication Dispense Status: Completed Quantity: 28.0 Unit: tablet Total Allowed Fills: 1 Fills Dispensed: 0 pantoprazole 40 mg oral delayed release tablet 1 tablet, By Mouth, Daily, # 90 tablet, 0 Refills, Maintenance, 04/01/25 11:17:00 PM EST, 163, cm, 02/27/25 10:45:00 EDT, Height, 56.6, kg, 02/14/25 10:11:00 EDT, Dry Weight Start Date: 04/01/25 Status: Ordered Medication Dispense Status: Completed Quantity: 90.0 Unit: tablet Total Allowed Fills: 1 Fills Dispensed: 0 Pull ups - medium Pull ups - medium, See Instructions, # 180 each, Refills 11, Tot. Refills 11, Maintenance, 6 per day; rectal leakage, 10/04/24 7:11:00 PM EDT, Supply Start Date: 10/04/24 Status: Ordered Medication Dispense Status: Completed Quantity: 180.0 Unit: each Total Allowed Fills: 12 Fills Dispensed: 0 shoe insertsustom for callouses shoe insertsustom for callouses, See Instructions, # 2 each, Refills 0, Tot. Refills 0, Maintenance, R 84 -partcualrly bad on right and opaunful; Painful callosities; R73/03; G62.09; C78.6; dispense 3 pairs, 11/27/24 10:56:00 AM EDT, Supply Start Date: 11/27/24 Status: Ordered Medication Dispense Status: Completed Quantity: 2.0 Unit: each Total Allowed Fills: 1 Fills Dispensed: 0 tamsulosin 0.4 mg oral capsule 1, capsule, By Mouth, Daily, # 90 capsule, Refills 0, Maintenance, 04/02/25 3:15:00 PM EST, [id number], 163, cm, 02/27/25 10:45:00 EDT, Height, 56.6,kg, 02/14/25 10:11:00 EDT, Dry Weight Start Date: 04/02/25 Status: Ordered Medication Dispense Status: Completed Quantity: 90.0 Unit: capsule Total Allowed Fills: 1 Fills Dispensed: 0 Problem List Condition Confirmation Course Effective Dates Status Health Status Informant Acquired ptosis of eyelid Confirmed Active Medical orders for life-sustaining treatment (MOLST) form in chart Confirmed 02/24/21 Active Anemia Confirmed Active Peritoneal carcinomatosis Confirmed 05/01/06 Active Stage III chronic kidney disease Confirmed Active Chronic neck pain Confirmed Active Obstructive lung disease 1 Confirmed Active Chronic pain Confirmed Active Diarrhea Confirmed Active Peripheral neuropathy (?alcohol?) Confirmed Active Controlled substance agreement 08/26/2024 Confirmed Active GERD (gastroesophageal reflux disease) Confirmed Active Status post splenectomy Confirmed Active Hypertension Confirmed Active Ileostomy present Confirmed 05/01/07 Active Nephrolithiasis 2 Confirmed Active Prostate cancer - progression on bx 06/16/16 3 Confirmed Active Myofascial pain syndrome, cervical 4 Confirmed Active Nausea Confirmed Active Localized osteoarthritis of left knee Confirmed Active Cancer associated pain Confirmed Active Pelvic swelling Confirmed Active Prediabetes Confirmed Active 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 Astorga at [facility] 4followed by PM&R Social History Social History Type Response Sexual Sexually involved in last 6 months: No. Gender identity: Male. Preferred pronoun: He/Him/His. Smoking Status Never (less than 100 in lifetime); Use: pt expressed he has had a lot of exposure to second hand smoke. entered on: 05/09/23 Sex Sex Representation Male (finding) Patient Care team information Care Team Personnel Name: Anny Clarke RN Position: [facility] RN Member Role: Primary Care Nurse Name: Jossy Lloyd Position: [facility] Onco RN Member Role: Primary Care Nurse Name: Domingo Peck RN Position: [facility] RN Member Role: Primary Care Nurse Name: Megan Mansfield RN Position: [facility] AMB Nurse Member Role: Primary Care Nurse Name: Lobo Mills MD Position: [facility] Physician - Primary Care Member Role: PCP Address: [address] [place] [address] Telecom: Name: Nicole Mixon RN Position: [facility] RN Member Role: Primary Care Nurse Name: Stacey Hebert RN Position: [facility] ED RN W/OE and Tasks Member Role: Primary Care Nurse Name: Neetu Alcazar RN Position: [facility] ED RN W/OE and Tasks Member Role: Primary Care Nurse Name: Nery Lee RN Position: [facility] RN Member Role: Primary Care Nurse Name: Di Lou RN Position: [facility] RN Member Role: Primary Care Nurse Name: Kristina Phelps RN Position: [facility] RN Member Role: Primary Care Nurse Name: Aida Aguila RN Position: [facility] Outreach Member Role: Primary Care Nurse Name: Magali Mattson RN Position: [facility] RN Member Role: Primary Care Nurse Name: Teresita Caldera RN Position: [facility] RN Member Role: Primary Care Nurse Name: Rashmi Saavedra RN Position: [facility] RN Member Role: Primary Care Nurse Name: Obinna London MD Position: [facility] Physician - General Surgery Member Role: Lifetime Consulting Physician Name: Jossy Arias RN Position: [facility] RN Member Role: Primary Care Nurse Name: Aida Villeda RN Position: [facility] SN RN Member Role: Primary Care Nurse Name: Sweta Jacobson NP Position: [facility] Associate Professional Member Role: Primary Care Nurse Name: Florinda Nieto RN Position: [facility] RN Member Role: Primary Care Nurse Name: Marlyn Sahu RN Position: [facility] RN Member Role: Primary Care Nurse Name: Lupe Manzo RN Position: [facility] RN Member Role: Primary Care Nurse Name: Lima Tao LPN Position: [facility] RN Member Role: Primary Care Nurse Name: Yazmin Martell RN Position: [facility] Onco RN Member Role: Primary Care Nurse Name: Jamaal Singh RN Position: [facility] RN Member Role: Primary Care Nurse Name: Briseida Pardo RN Position: [facility] RN Member Role: Primary Care Nurse Name: Domingo Herndon RN Position: [facility] RN Member Role: Primary Care Nurse Name: Florinda José RN Position: [facility] RN Member Role: Primary Care Nurse Name: Jorge A Mojica RN Position: [facility] RN Member Role: Primary Care Nurse Name: Celestine Huber RN Position: [facility] RN Supv Member Role: Primary Care Nurse Name: Leonie Waite RN Position: [facility] Back Hand Member Role: Primary Care Nurse Name: Loki Giles Jr, RN Position: [facility] RN Member Role: Primary Care Nurse Name: Helga Acevedo RN Position: [facility] RN Member Role: Primary Care Nurse Name: Liat Mcallister RN Position: [facility] RN Member Role: Primary Care Nurse Name: Pema Barry RN Position: [facility] OB RN Member Role: Primary Care Nurse Name: Renan Ham RN Position: [facility] RN Member Role: Primary Care Nurse Name: Raquel Patel RN Position: [facility] RN Member Role: Primary Care Nurse Name: Herve Padron RN Position: [facility] RN Member Role: Primary Care Nurse Name: Kun Jiménez RN Position: [facility] SN RN Member Role: Primary Care Nurse Name: Dilcia Nieves NP Position: [facility] Associate Professional Member Role: Primary Care Nurse Address: [address] [place] [address] Telecom: Name: Timmy Guallpa RN Position: [facility] RN Member Role: Primary Care Nurse Name: Christopher Bravo RN Position: [facility] [place] RN W/OE and Tasks Member Role: Primary Care Nurse Name: Jesis Sneed RN Position: [facility] RN Member Role: Primary Care Nurse Name: Bijal Mcgee RN Position: [facility] RN Member Role: Primary Care Nurse Name: Lobo Mcgee RN Position: [facility] RN Member Role: Primary Care Nurse Name: Shellie Mullisn RN Position: [facility] RN Member Role: Primary Care Nurse Name: Helga Georges RN Position: [facility] Onco RN Member Role: Primary Care Nurse Name: Svetlana Arguello RN Position: [facility] RN Member Role: Primary Care Nurse Name: Nel Magallanes RN Position: [facility] Onco RN Member Role: Primary Care Nurse Name: Malorie Adrian RN Position: [facility] RN Member Role: Primary Care Nurse Name: Bimal Singh RN Position: [facility] RN Member Role: Primary Care Nurse Name: Arlene Ramirez RN Position: [facility] RN Member Role: Primary Care Nurse Name: Annalee Wakefield NP Position: [facility] PCO Associate Professional Member Role: Primary Care Nurse Address: [address] [place] [address] Telecom: Name: Romario Camara RN Position: [facility] RN Member Role: Primary Care Nurse Name: Adela Real RN Position: [facility] RN Member Role: Primary Care Nurse Name: Enrike Stein RN Position: [facility] RN Member Role: Primary Care Nurse Name: Phoebe Hanna NP Position: Reference Physician Member Role: Primary Care Nurse Address: [address] [place] [address] [address] [place], [place] [address] Telecom: Name: Alvina Kenney RN Position: [facility] RN Member Role: Primary Care Nurse Name: Emanuel Pereira MD Position: [facility] Outreach Member Role: Lifetime Consulting Physician Address: [address] [facility] [place] [address]- Telecom: Name: Robert Pendleton MD Position: [facility] Renal MD Member Role: Lifetime Consulting Physician Address: [address] [facility] [place] [address]- [place] Telecom: Name: Sharon Wilson RN Position: [facility] RN Member Role: Primary Care Nurse Name: Benedict Lockwood RN Position: [facility] Onco RN Member Role: Primary Care Nurse Name: Hailey Elizondo RN Position: [facility] Onco RN Member Role: Primary Care Nurse Name: Pema Banks RN Position: [facility] RN Member Role: Primary Care Nurse Name: Sonal Myles RN Position: [facility] RN Member Role: Primary Care Nurse Name: Magdy Patel RN Position: [facility] SN RN Member Role: Primary Care Nurse Name: Hailey Lima RN Position: [facility] RN Member Role: Primary Care Nurse Name: Denice De La Cruz RN Position: [facility] RN Member Role: Primary Care Nurse Name: Catherine Mcfarlane RN Position: [facility] Onco RN Member Role: Primary Care Nurse Name: Lamont De Leon RN Position: [facility] RN Supv Member Role: Primary Care Nurse Name: Caitlyn Clarke RN Position: [facility] RN Member Role: Primary Care Nurse Name: Vickie Weldon RN Position: [facility] RN Member Role: Primary Care Nurse Name: Onur Brown RN Position: [facility] RN Member Role: Primary Care Nurse Name: Jocelynn Paniagua RN Position: [facility] RN Member Role: Primary Care Nurse Name: Luanne Pace RN Position: [facility] RN Member Role: Primary Care Nurse Name: Jeffrey Whelan RN Position: [facility] RN Member Role: Primary Care Nurse Name: Alexander Garcia MD Position: [facility] Renal MD Member Role: Lifetime Consulting Physician Address: [address] [place] [address] [facility] [address] Telecom: Name: Pema Persaud RN Position: [facility] RN Member Role: Primary Care Nurse Name: Aga Story RN Position: [facility] RN Member Role: Primary Care Nurse Name: Vickie Kumari RN Position: [facility] OB RN Member Role: Primary Care Nurse Name: Hansa Alfonso RN Position: [facility] RN Member Role: Primary Care Nurse Name: Naima Brady RN Position: [facility] RN Member Role: Primary Care Nurse Name: Ovidio Barker RN Position: [facility] [place] RN W/OE and Tasks Member Role: Primary Care Nurse Name: Denice Garcia RN Position: [facility] RN Member Role: Primary Care Nurse Name: Jeison Avendaño RN Position: [facility] RN Member Role: Primary Care Nurse Name: Antonietta Payne RN Position: [facility] RN Member Role: Primary Care Nurse Name: Liat Corrales LPN Position: [facility] RN Member Role: Primary Care Nurse Name: Cheri Hernandez RN Position: [facility] RN Member Role: Primary Care Nurse Name: Neetu Patel RN Position: [facility] RN Member Role: Primary Care Nurse Name: Gino Constantino RN Position: [facility] RN Member Role: Primary Care Nurse Name: Genoveva Martin RN, I Position: [facility] RN Member Role: Primary Care Nurse Care Team Related Persons Name: CALVIN THACKER Name: ISSA CARRERA Insurance Providers Guarantor name: DAWNA FARIAS [employer] Plan Information #: 1 Payer: MEDICARE B Payer Identifier: NA Member Number: [id number] Group Number: Subscriber Identifier: NA Relationship to Subscriber: self Coverage Type: NA Coverage Verification Date: NA Telecom: NA Address: [facility] Plan Information #: 2 Payer: [facility] [employer] Payer Identifier: GRIFFIN Member Number: [id number] Group Number: Subscriber Identifier: NA Relationship to Subscriber: self Coverage Type: MEDICAID Coverage Verification Date: NA Telecom: NA Address:
--- OUTSIDE RECORDS SUMMARY | 2025-04-17 23:59 | XMS_ITS | Continuity of Care Document ---
Author Organization [facility] Address [address] [place] [address]- Care Team Providers Care Resume Specialist Name Role Phone Gene ROSAS, Lobo Medina Primary Care Physician Encounter [facility] Date(s): 03/18/25 - 04/17/[address] [address]- Encounter Diagnosis Peritoneal carcinomatosis(Discharge Diagnosis) - 03/18/25 Encounter Type: Triage Allergies, Adverse Reactions, Alerts Substance Criticality Severity Reaction Reaction Severity Status cefepime 1, 2 Macular rash Act mayra Zosyn Unable to assess criticality Persistent Moderate rigors, rash, spasms Active Contrast Dye Active 1Tolerates piperacillin-tazobactam 2macular rash Immunizations Given and Recorded Vaccine Date Status Refusal Reason SARS-CoV-2(COVID-19)mRNA-LNP vac([id number]) 03/12/24 Recorded influenza virus vaccine, inactivated 02/05/24 [...] virus vaccine, inactivated 4 02/11/10 Gi gena [id number] 12y+ bivalent booster vax 03/15/22 Given SARS-CoV-2 mRNA ([id number]) vax 5 09/23/21 Given zoster vaccine, inactivated [...] 2 Refills, Maintenance, 02/05/24 10:19:00 AMEDT, Tablet, [facility] #[id number], Partial fill upon patient request if the [...] 1 Refills, Maintenance, 03/19/25 2:40:00 PMEST, Tablet, [facility] #[id number], Partial fill upon patient request if the [...] 9:58:00 PM EST, Route to Pharmacy Electronically, [facility] #[id number], 163, cm, 02/27/25 10:45:00 EDT, Height, 56.6, [...] Refills, Soft Stop, 02/10/25 2:08:00 PM EDT, [facility] #[id number], Partial fill upon patient request if the [...] Refills, Maintenance, 02/13/25 5:48:00 PM EDT, Tablet, [facility] #[id number], Partial fill upon patient request if the [...] PM EST, 04/17/25 6:05:00 PM EST, Tablet, [facility] #[id number], Partial fill upon patient request, 04/17/25, 163, [...] 7:10:00 PM EST, Route to Pharmacy Electronically, [facility] #[id number], Partial fill upon patient request if the [...] 04/22/25 7:10:00 PM EST, Route to PharmacyElectronically, [facility] #[id number], Partial fill upon patient request if the [...] 04/02/25 3:15:00 PM EST, Route toPharmacy Electronically, [facility] #[id number], 163, cm, 02/27/25 10:45:00 EDT, Height, 56.6,kg, [...] grade, being observed by Dr. Astorga at [facility] Urology 4followed by PM&R Diagnosis Diagnosis Type Effective Dates Health Status Clinical Service Informant Peritoneal carcinomatosis Discharge Diagnosis 03/18/25 Non-Specified Social History Social History Type Response Sexual Sexually involved in last 6 months: No. Gender identity: Male. Preferred pronoun: He/Him/His. Smoking Status Never (less than 100 in lifetime); Use: pt expressed he has had a lot of exposure to second hand smoke. entered on: 05/09/23 Sex Sex Representation Male (finding) Patient Care team information Care Team Personnel Name: Anny Clrake RN Position: [facility] RN Member Role: Primary Care Nurse Name: Jossy Lloyd Position: [facility] Onco RN Member Role: Primary Care Nurse Name: Domingo Peck RN Position: [facility] RN Member Role: Primary Care Nurse Name: Megan Mansfield RN Position: [facility] AMB Nurse Member Role: Primary Care Nurse Name: Lobo Mills MD Position: [facility] Physician - Primary Care Member Role: PCP Address: [address] [place] [address] Telecom: Name: Nicole Mixon RN Position: [facility] RN Member Role: Primary Care Nurse Name: Stacey Hebert RN Position: [facility] ED RN W/OE and Tasks Member Role: Primary Care Nurse Name: Neetu Alcazar RN Position: [facility] ED RN W/OE and Tasks Member Role: Primary Care Nurse Name: Nery Lee RN Position: [facility] RN Member Role: Primary Care Nurse Name: Di Lou RN Position: [facility] RN Member Role: Primary Care Nurse Name: Kristina Phelps RN Position: [facility] RN Member Role: Primary Care Nurse Name: Aida Aguila RN Position: [facility] Outreach Member Role: Primary Care Nurse Name: Magali Mattson RN Position: [facility] RN Member Role: Primary Care Nurse Name: Teresiat Caldera RN Position: [facility] RN Member Role: Primary Care Nurse Name: Rashmi Saavedra RN Position: [facility] RN Member Role: Primary Care Nurse Name: Obinna London MD Position: [facility] Physician - General Surgery Member Role: Lifetime Consulting Physician Name: Jossy Arias RN Position: [facility] RN Member Role: Primary Care Nurse Name: Aida Villeda RN Position: [facility] RN Member Role: Primary Care Nurse Name: Sweta Jacobson NP Position: [facility] Associate Professional Member Role: Primary Care Nurse Name: Florinda Nieto RN Position: [facility] RN Member Role: Primary Care Nurse Name: Marlyn Sahu RN Position: [facility] RN Member Role: Primary Care Nurse Name: Lupe Manzo RN Position: [facility] RN Member Role: Primary Care Nurse Name: Lima Tao LPN Position: [facility] RN Member Role: Primary Care Nurse Name: Yazmin Martell RN Position: [facility] Onco RN Member Role: Primary Care Nurse Name: Jamaal Singh RN Position: [facility] RN Member Role: Primary Care Nurse Name: Briseida Pardo RN Position: [facility] RN Member Role: Primary Care Nurse Name: Domingo Herndon RN Position: [facility] RN Member Role: Primary Care Nurse Name: Florinda José RN Position: [facility] RN Member Role: Primary Care Nurse Name: Jorge A Mojica RN Position: [facility] RN Member Role: Primary Care Nurse Name: Celestine Huber RN Position: [facility] RN Suplori Member Role: Primary Care Nurse Name: Leonie Waite RN Position: [facility] Grapple Skidder Operator Member Role: Primary Care Nurse Name: Loki Giles Jr, RN Position: [facility] RN Member Role: Primary Care Nurse Name: Helga Acevedo RN Position: [facility] RN Member Role: Primary Care Nurse Name: Liat Mcallister RN Position: [facility] RN Member Role: Primary Care Nurse Name: Pema Barry RN Position: [facility] OB RN Member Role: Primary Care Nurse Name: Renan Ham RN Position: [facility] RN Member Role: Primary Care Nurse Name: Raquel Patel RN Position: [facility] RN Member Role: Primary Care Nurse Name: Herve Padron RN Position: [facility] RN Member Role: Primary Care Nurse Name: Kun Jiménez RN Position: [facility] SN RN Member Role: Primary Care Nurse Name: Dilcia Nievse NP Position: [facility] Associate Professional Member Role: Primary Care Nurse Address: [address] [place] [address] Telecom: Name: Timmy Guallpa RN Position: [facility] RN Member Role: Primary Care Nurse Name: Christopher Bravo RN Position: [facility] CHELE RN W/OE and Tasks Member Role: Primary Care Nurse Name: Jessi Sneed RN Position: [facility] RN Member Role: Primary Care Nurse Name: Bijal Mcgee RN Position: [facility] RN Member Role: Primary Care Nurse Name: Lobo Mcgee RN Position: [facility] RN Member Role: Primary Care Nurse Name: Shellie Mullins RN Position: [facility] RN Member Role: Primary Care Nurse Name: Helga Georges RN Position: [facility] Onco RN Member Role: Primary Care Nurse Name: Svetlana Arguello RN Position: [facility] RN Member Role: Primary Care Nurse Name: Nel Magallanes RN Position: [facility] Onco RN Member Role: Primary Care Nurse Name: Malorie Adrian RN Position: [facility] RN Member Role: Primary Care Nurse Name: Bimal Singh RN Position: [facility] RN Member Role: Primary Care Nurse Name: Arlene Ramirez RN Position: [facility] RN Member Role: Primary Care Nurse Name: Annalee Wakefield NP Position: [facility] PCO Associate Professional Member Role: Primary Care Nurse Address: [address] [place] [address] [place] Telecom: Name: Romario Camara RN Position: [facility] RN Member Role: Primary Care Nurse Name: Adela Real RN Position: [facility] RN Member Role: Primary Care Nurse Name: Enrike Stein RN Position: [facility] RN Member Role: Primary Care Nurse Name: Phoebe Hanna NP Position: Reference Physician Member Role: Primary Care Nurse Address: [address] [place] [address] [address] [place], [place] [address] Telecom: Name: Alvina Kenney RN Position: [facility] RN Member Role: Primary Care Nurse Name: Emanuel Pereira MD Position: [facility] Outreach Member Role: Lifetime Consulting Physician Address: [address] [facility] [place] [address]- [place] Telecom: Name: Robert Pendleton MD Position: [facility] Renal MD Member Role: Lifetime Consulting Physician Address: [address] [facility] [place] [address]- [place] Telecom: Name: Sharon Wilson RN Position: [facility] RN Member Role: Primary Care Nurse Name: Benedict Lockwood RN Position: [facility] Onco RN Member Role: Primary Care Nurse Name: Hailey Elizondo RN Position: [facility] Onco RN Member Role: Primary Care Nurse Name: Pema Banks RN Position: [facility] RN Member Role: Primary Care Nurse Name: Sonal Myles RN Position: [facility] RN Member Role: Primary Care Nurse Name: Magdy Patel RN Position: [facility] SN RN Member Role: Primary Care Nurse Name: Hailey Lima RN Position: [facility] RN Member Role: Primary Care Nurse Name: Denice De La Cruz RN Position: [facility] RN Member Role: Primary Care Nurse Name: Catherine Mcfarlane RN Position: [facility] Onco RN Member Role: Primary Care Nurse Name: Lamont De Leon RN Position: [facility] RN Suplori Member Role: Primary Care Nurse Name: Caitlyn Clarke RN Position: [facility] RN Member Role: Primary Care Nurse Name: Vickie Weldon RN Position: [facility] RN Member Role: Primary Care Nurse Name: Onur Brown RN Position: [facility] RN Member Role: Primary Care Nurse Name: Jocelynn Paniagua RN Position: [facility] RN Member Role: Primary Care Nurse Name: Luanne Pace RN Position: [facility] RN Member Role: Primary Care Nurse Name: Jeffrey Whelan RN Position: [facility] RN Member Role: Primary Care Nurse Name: Alexander Garcia MD Position: [facility] Renal MD Member Role: Lifetime Consulting Physician Address: [address] [place], [place] [id number] [facility] [address] Telecom: Name: Pema Persaud RN Position: [facility] RN Member Role: Primary Care Nurse Name: Aga Story RN Position: [facility] RN Member Role: Primary Care Nurse Name: Vickie Kumari RN Position: [facility] OB RN Member Role: Primary Care Nurse Name: Hansa Alfonso RN Position: [facility] RN Member Role: Primary Care Nurse Name: Naima Brady RN Position: [facility] RN Member Role: Primary Care Nurse Name: Ovidio Barker RN Position: [facility] ED RN W/OE and Tasks Member Role: Primary Care Nurse Name: Denice Garcia RN Position: [facility] RN Member Role: Primary Care Nurse Name: Jeison Avendaño RN Position: [facility] RN Member Role: Primary Care Nurse Name: Antonietta Payne RN Position: [facility] RN Member Role: Primary Care Nurse Name: Liat Corrales LPN Position: [facility] RN Member Role: Primary Care Nurse Name: Cheri Hernandez RN Position: [facility] RN Member Role: Primary Care Nurse Name: Neetu Patel RN Position: [facility] RN Member Role: Primary Care Nurse Name: Gino Constantino RN Position: [facility] RN Member Role: Primary Care Nurse Name: Genoveva Martin RN, I Position: [facility] RN Member Role: Primary Care Nurse Care Team Related Persons Name: CALVIN THACKER Name: ISSA CARRERA Insurance Providers Guarantor name: DAWNA SARAWesly Health Plan Information #: 1 Payer: MEDICARE B Payer Identifier: GRIFFIN Member Number: [id number] Group Number: [id number] Subscriber Identifier: GRIFFIN Relationship to Subscriber: self Coverage Type: NA Coverage Verification Date: NA Telecom: NA Address: NA Health Plan Information #: 2 Payer: [employer] Payer Identifier: GRIFFIN Member Number: [id number] Group Number: [id number] Subscriber Identifier: GRIFFIN Relationship to Subscriber: self Coverage Type: MEDICAID Coverage Verification Date: NA Telecom: Address:
--- OUTSIDE RECORDS SUMMARY | 2025-04-17 23:59 | XMS_ITS | Continuity of Care Document ---
Author Organization [facility] Address [address] [place] [id number]- Care Team Providers Care Salesman/Owner Name Role Phone Gene ROSAS, Lobo Medina Primary Care Physician Encounter [facility] Date(s): 03/18/25 - 04/17/[address] [address]- Encounter Type: Triage Allergies, Adverse Reactions, Alerts Substance Criticality Severity Reaction Reaction Severity Status cefepime 1, 2 Macular rash Act mayra Zosyn Unable to assess criticality Persistent Moderate rigors, rash, spasms Active Contrast Dye Active 1Tolerates piperacillin-tazobactam 2macular rash Immunizations Given and Recorded Vaccine Date Status Refusal Reason SARS-CoV-2(COVID-19)mRNA-LNP vac(jug199) 03/12/24 Recorded influenza virus vaccine, inactivated 02/05/24 [...] virus vaccine, inactivated 4 02/11/10 Gi gena [id number] 12y+ bivalent booster vax 03/15/22 Given SARS-CoV-2 mRNA ([id number]) vax 5 09/23/21 Given zoster vaccine, inactivated [...] 2 Refills, Maintenance, 02/05/24 10:19:00 AMEDT, Tablet, [facility] #[id number], Partial fill upon patient request if the [...] 1 Refills, Maintenance, 03/19/25 2:40:00 PMEST, Tablet, [facility] #[id number], Partial fill upon patient request if the [...] 9:58:00 PM EST, Route to Pharmacy Electronically, [facility] #[id number], 163, cm, 02/27/25 10:45:00 EDT, Height, 56.6, [...] Refills, Soft Stop, 02/10/25 2:08:00 PM EDT, [facility] #[id number], Partial fill upon patient request if the [...] Refills, Maintenance, 02/13/25 5:48:00 PM EDT, Tablet, [email or web address] #[id number], Partial fill upon patient request if the [...] PM EST, 04/17/25 6:05:00 PM EST, Tablet, [facility] #[id number], Partial fill upon patient request, 04/17/25, 163, [...] 7:10:00 PM EST, Route to Pharmacy Electronically, [facility] #[id number], Partial fill upon patient request if the [...] 04/22/25 7:10:00 PM EST, Route to PharmacyElectronically, [facility] #[id number], Partial fill upon patient request if the [...] 04/02/25 3:15:00 PM EST, Route toPharmacy Electronically, [id number], 163, cm, 02/27/25 10:45:00 EDT, Height, 56.6,kg, [...] grade, being observed by Dr. Astorga at [facility] Urology 4followed by PM&R Social History Social [...] Team Personnel Name: Anny Clarke RN Position: [facility] RN Member Role: Primary Care Nurse Name: Jossy Lloyd Position: [facility] Onco RN Member Role: Primary Care Nurse Name: Domingo Peck RN Position: [facility] RN Member Role: Primary Care Nurse Name: Megan Mansfield RN Position: [facility] AMB Nurse Member Role: Primary Care Nurse Name: Lobo Mills MD Position: [facility] Physician - Primary Care Member Role: PCP Address: [address] [place] [address] Telecom: Name: Nicole Mixon RN Position: [facility] RN Member Role: Primary Care Nurse Name: Stacey Hebert RN Position: [facility] ED RN W/OE and Tasks Member Role: Primary Care Nurse Name: Neetu Alcazar RN Position: [facility] ED RN W/OE and Tasks Member Role: Primary Care Nurse Name: Nery Lee RN Position: [facility] RN Member Role: Primary Care Nurse Name: Di Lou RN Position: [facility] RN Member Role: Primary Care Nurse Name: Kristina Phelps RN Position: [facility] RN Member Role: Primary Care Nurse Name: Aida Aguila RN Position: [facility] Outreach Member Role: Primary Care Nurse Name: Magali Mattson RN Position: [facility] RN Member Role: Primary Care Nurse Name: Teresita Caldera RN Position: [facility] RN Member Role: Primary Care Nurse Name: Rashmi Saavedra RN Position: [facility] RN Member Role: Primary Care Nurse Name: Obinna London MD Position: [facility] Physician - General Surgery Member Role: Lifetime Consulting Physician Name: Jossy Arias RN Position: [facility] RN Member Role: Primary Care Nurse Name: Aida Villeda RN Position: [facility] SN RN Member Role: Primary Care Nurse Name: Sweta Jacobson NP Position: [facility] Associate Professional Member Role: Primary Care Nurse Name: Florinda Nieto RN Position: [facility] RN Member Role: Primary Care Nurse Name: Marlyn Sahu RN Position: [facility] RN Member Role: Primary Care Nurse Name: Lupe Manzo RN Position: [facility] RN Member Role: Primary Care Nurse Name: Lima Tao LPN Position: [facility] RN Member Role: Primary Care Nurse Name: Yazmin Martell RN Position: [facility] Onco RN Member Role: Primary Care Nurse Name: Jamaal Singh RN Position: [facility] RN Member Role: Primary Care Nurse Name: Briseida Pardo RN Position: [facility] RN Member Role: Primary Care Nurse Name: Domingo Herndon RN Position: [facility] RN Member Role: Primary Care Nurse Name: Florinda José RN Position: [facility] RN Member Role: Primary Care Nurse Name: Jorge A Mojica RN Position: [facility] RN Member Role: Primary Care Nurse Name: Celestine Huber RN Position: [facility] RN Supv Member Role: Primary Care Nurse Name: Leonie Waite RN Position: [facility] Community Recreation Coordinator Member Role: Primary Care Nurse Name: Loki Giles Jr, RN Position: [facility] RN Member Role: Primary Care Nurse Name: Helga Acevedo RN Position: [facility] RN Member Role: Primary Care Nurse Name: Liat Mcallister RN Position: [facility] RN Member Role: Primary Care Nurse Name: Pema Barry RN Position: [facility] OB RN Member Role: Primary Care Nurse Name: Renan Ham RN Position: [facility] RN Member Role: Primary Care Nurse Name: Raquel Patel RN Position: [facility] RN Member Role: Primary Care Nurse Name: Herve Padron RN Position: [facility] RN Member Role: Primary Care Nurse Name: Kun Jiménez RN Position: [facility] SN RN Member Role: Primary Care Nurse Name: Dilcia Nieves NP Position: [facility] Associate Professional Member Role: Primary Care Nurse Address: [address] [place] [address] Telecom: Name: Timmy Guallpa RN Position: [facility] RN Member Role: Primary Care Nurse Name: Christopher Bravo RN Position: [facility] CHELE RN W/OE and Tasks Member Role: Primary Care Nurse Name: Jessi Sneed RN Position: [facility] RN Member Role: Primary Care Nurse Name: Bijal Mcgee RN Position: [facility] RN Member Role: Primary Care Nurse Name: Lobo Mcgee RN Position: [facility] RN Member Role: Primary Care Nurse Name: Shellie Mullins RN Position: [facility] RN Member Role: Primary Care Nurse Name: Helga Georges RN Position: [facility] Onco RN Member Role: Primary Care Nurse Name: Svetlana Arguello RN Position: [facility] RN Member Role: Primary Care Nurse Name: Nel Magallanes RN Position: [facility] Onco RN Member Role: Primary Care Nurse Name: Malorie Adrian RN Position: [facility] RN Member Role: Primary Care Nurse Name: Bimal Singh RN Position: [facility] RN Member Role: Primary Care Nurse Name: Arlene Ramirez RN Position: [facility] RN Member Role: Primary Care Nurse Name: Annalee Wakefield NP Position: [facility] PCO Associate Professional Member Role: Primary Care Nurse Address: [address] [place] [id number] Telecom: Name: Romario Camara RN Position: [facility] RN Member Role: Primary Care Nurse Name: Adela Real RN Position: [facility] RN Member Role: Primary Care Nurse Name: Enrike Stein RN Position: [facility] RN Member Role: Primary Care Nurse Name: Phoebe Hanna NP Position: Reference Physician Member Role: Primary Care Nurse Address: [address] [place] [address] [address] [place], [place] [address] Telecom: Name: Alvina Kenney RN Position: [facility] RN Member Role: Primary Care Nurse Name: Emanuel Pereira MD Position: [facility] Outreach Member Role: Lifetime Consulting Physician Address: [address] [facility] [address] [facility] [place] [address]- Telecom: Name: Robert Pendleton MD Position: [facility] Renal MD Member Role: Lifetime Consulting Physician Address: [address] [facility] [address] [facility] [place] [address]- [place] Telecom: Name: Sharon Wilson RN Position: [facility] RN Member Role: Primary Care Nurse Name: Benedict Lockwood RN Position: [facility] Onco RN Member Role: Primary Care Nurse Name: Hailey Elizondo RN Position: [facility] Onco RN Member Role: Primary Care Nurse Name: Pema Banks RN Position: [facility] RN Member Role: Primary Care Nurse Name: Sonal Myles RN Position: [facility] RN Member Role: Primary Care Nurse Name: Magdy Patel RN Position: [facility] SN RN Member Role: Primary Care Nurse Name: Hailey Lima RN Position: [facility] RN Member Role: Primary Care Nurse Name: Denice De La Cruz RN Position: [facility] RN Member Role: Primary Care Nurse Name: Catherine Mcfarlane RN Position: [facility] Onco RN Member Role: Primary Care Nurse Name: Lamont De Leon RN Position: [facility] RN Supv Member Role: Primary Care Nurse Name: Caitlyn Clarke RN Position: [facility] RN Member Role: Primary Care Nurse Name: Vickie Weldon RN Position: [facility] RN Member Role: Primary Care Nurse Name: Onur Brown RN Position: [facility] RN Member Role: Primary Care Nurse Name: Jocelynn Paniagua RN Position: [facility] RN Member Role: Primary Care Nurse Name: Luanne Pace RN Position: [facility] RN Member Role: Primary Care Nurse Name: Jeffrey Whelan RN Position: [facility] RN Member Role: Primary Care Nurse Name: Alexander Garcia MD Position: [facility] Renal MD Member Role: Lifetime Consulting Physician Address: [address] [place] [address] [facility] [address] Telecom: Name: Pema Persaud RN Position: [facility] RN Member Role: Primary Care Nurse Name: Aga Story RN Position: [facility] RN Member Role: Primary Care Nurse Name: Vickie Kumari RN Position: [facility] OB RN Member Role: Primary Care Nurse Name: Hansa Alfonso RN Position: [facility] RN Member Role: Primary Care Nurse Name: Naima Brady RN Position: [facility] RN Member Role: Primary Care Nurse Name: Ovidio Barker RN Position: [facility] [place]LE RN W/OE and Tasks Member Role: Primary Care Nurse Name: Denice Garcia RN Position: [facility] RN Member Role: Primary Care Nurse Name: Jeison Avendaño RN Position: [facility] RN Member Role: Primary Care Nurse Name: Antonietta Payne RN Position: [facility] RN Member Role: Primary Care Nurse Name: Liat Corrales LPN Position: [facility] RN Member Role: Primary Care Nurse Name: Cheri Hernandez RN Position: [facility] RN Member Role: Primary Care Nurse Name: Neetu Patel RN Position: [facility] RN Member Role: Primary Care Nurse Name: Gino Constantino RN Position: [facility] RN Member Role: Primary Care Nurse Name: Genoveva Martin RN, I Position: [facility] RN Member Role: Primary Care Nurse Care Team Related Persons Name: CALVIN THACKER Name: ISSA CARRERA Insurance Providers Guarantor name: DAWNA FARIAS [employer] Plan Information #: 1 Payer: MEDICARE B Payer Identifier: NA Member Number: [id number] Group Number: Subscriber Identifier: NA Relationship to Subscriber: self Coverage Type: NA Coverage Verification Date: NA Telecom: NA Address: [facility] Plan Information #: 2 Payer: [facility] Payer Identifier: GRIFFIN Member Number: [id number] Group Number: Subscriber Identifier: NA Relationship to Subscriber: self Coverage Type: MEDICAID Coverage Verification Date: NA Telecom: NA Address:
--- OUTSIDE RECORDS SUMMARY | 2025-04-18 08:00 | XMS_ITS ---
Author Organization [facility] Address [address] [facility] [address] [place] [address] Care Team Providers Care Crew Lead Name Role Phone Lobo Mills MD Primary Care Provider Unavaila Sriram Garcia Unavailable [phone] Allergies Allergen (clinical drug ingredient) Drug/Non Drug Allergy documented on EMR Reaction Allergy Type Onset Date Status ferrous sulfate Iron Unknown Drug Allergy A ctive piperacillin / tazobactam Zosyn Unknown Drug Allergy Active cefepime Cefepime Unknown Drug Allergy Active Iodinated contrast media (substance) Iodinated Diagnostic Agents Unknown Drug Allergy Active REASON FOR VISIT Ostomy follow up, granuloma management. Medications Medication SIG (Take, Route, Frequency, Duration) Notes Start Date End Date Status Bicalutamide 50 MG Tablet 1 tablet Orally Once a day; Duration: 30 day(s) Active oxyCODONE HCl 10 MG Tablet 1 tablet as needed Orally every 6 hrs Active Diphenoxylate-Atropine 2.5-0.025 MG Tablet 1 tablet as needed Orally Four times a day Active Loperamide HCl 2 MG Capsule 1 capsule as needed Orally Four times a day Active Ondansetron 4 MG Tablet Disintegrating 1 tablet on the tongue and allow to dissolve Orally every 8 hours as needed; Duration: 30 day(s) Active fentaNYL 37.5 MCG/HR Patch 72 Hour 1 patch to skin Transdermal Active Colestipol HCl Activ e Acetaminophen 500 MG Capsule 1 capsule as needed Orally every 6 hrs Active Gabapentin 600 MG Tablet 2 tablet Orally three times a day; Duration: 30 day(s) Active Aspir-Low 81 MG Tablet Delayed Release 1 tablet Orally Once a day; Duration: 30 day(s) Not-Taking Mucinex 600 MG Tablet Extended Release 12 Hour 2 tablets as needed Orally once daily For rectal mucus Not-Taking Multivitamin - Tablet 1 tablet Orally Once a day; Duration: 30 day(s) Not-Taking Sodium Chloride 0.9 % Solution as directed Intravenous Not-Taking Pantoprazole Sodium 20 MG Tablet Delayed Release 1 tablet Orally Once a day; Duration: 30 day(s) Active Simethicone 80 MG Tablet 1 tablet after meals and at bedtime Orally Four times a day; Duration: 30 day(s) Not-Taking Social History Tobacco Use: Social History Observation Description Date Details (start date - stop date) Never Smoker NA - NA Social History Tobacco Use: Social Info Question Answer Notes Tobacco Control (Standard) Tobacco use: Nonsmoker Section Notes: never smoked, states has lived with people who smoke 03/21/25 Currently with Pallative care. 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) 04/18/2025 Chronic obstructive pulmonary disease, unspecified (ICD-10 - J44.9) 04/18/2025 Encounter for attention to ileostomy (ICD-10 - Z43.2) 04/18/2025 Personal history of other malignant neoplasm of large intestine (ICD-10 - Z85.038) 04/18/2025 Personal history of malignant neoplasm of prostate (ICD-10 - Z85.46) 04/18/2025 Ileostomy status (ICD-10 - Z93.2) 04/18/2025 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 Plan Of Treatment Treatment Notes Assessment Notes Other Jose presented to the office follow [...] skin barrier spray (crusting), Barrier ring, Sensuria [place] 1 piece convex appliance with 4 hook [...] and subsequently discussed and supervised by me. Next Appt Details Provider Name:Sriram Shirley, 06/06/2025 11:00:00 AM, [address] [place], [id number], History and Physical Notes * Examination Category Sub-Category Detail Notes Category Not es Ostomy Location Right Side Umbilicus Surgery Date 07/12/2007 Stoma Shape Oval Abdominal Contours Flabby / Soft Current Appliance adhesive remover, st eric powder followed by skin barrier crusting, Barrier ring, Sensuria [place] 1 piece convex appliance with 4 hook belt tabs, 2 C Elastic barrier strips, 2 hook appliance belt Size 22 mm (7/8 ) Type Permanent Peristoma Peristomal plane fla bby/soft, Peristomal skin with contact dermatitis along the immediate edge 6-7 o'clock and at the outer lateral aspect 8-11 o'clock. Stoma Number #1 Stoma Construction End Belt Line Location Above Stoma Appearance Beefy Red, Moist, Bu dding apx 10mm, scattered hyper-granulation present with 3 distinct larger areas on stoma 1-3 o'clock. Stoma Appearance Notes OS centrally loca grupo. Stoma Functioning Yes Flatus Presence Yes Stool Present Yes Stool Description Liquid with a green color Clinician BISHNU Hammond presen grupo for a follow-up visit for ileostomy management. He reported he has multiple hospitalizations since last visit for blockages and the most recent for gout in [...] skin barrier spray (crusting), Barrier ring, Sensuria [place] 1 piece convex appliance with 4 hook belt tabs, 2 C Elastic barrier strips, 2 hook appliance belt. Stoma appears beefy red, moist, budding apx 10mm. Scattered hyper-granulation present with 3 distinct larger areas on stoma 1-3 o'clock. Stoma appears round with OS centrally located. Peristomal plane flabby/soft, Peristomal skin with contact dermatitis along the immediate edge 6-7 o'clock and at the outer lateral aspect 8-11 o'clock. Stoma and peristomal eval completed. Silver nitrate applied to 3 distinct areas of hyper-granulation on stoma @1,2,3 o'clock. Recs to apply stoma powder followed by skin barrier in the crusting method x3 layers to the areas of contact dermatitis, to change appliance routinely every 3 days to aid with preventing the appliance from leaking, to utilize a 4 hook appliance belt. Education provided regarding current recs, appliance removal, cleansing, and appliance application. He verbalized understanding of the education provided. Follow up scheduled in 1-month for hyper-granulation management. Progress Notes * Vivian FARIASMandiOB:1955 (70 yo M)Acc No.[id number]:04/18/2025 Ostomy Follow-Up Visit Patient: Jose Delaney Provider: Raisa Shirley MD, MSc, CWSP :1955 A ge:70 Y S ex:Male Date:04/18/2025 Address: [id number] Pcp:Lobo Mills MD Subjective: * Chief Complaints: * O stomy follow up, granuloma management. * ROS: G eneral / Constitutional: Patient denies c hange in appetite, fever, weakness. ? M usculoskeletal: Patient denies a rthritis / arthralgia, joint stiffness, swollen joints. P sychiatric: Patient denies d elusions, depressed mood, difficulty sleeping. * Medical History: Babesiosis Right bundle branch [...] other organs and systems Alcohol abuse, uncomplicated SBO (small bowel obstruction) Secondary malignant neoplasm of retroperitoneum and peritoneum Malignant neoplasm of prostate CKD (chronic kidney disease), stage III Gastrostomy tube in place Medical History Verified * Surgical History: EGD Debulking intraabdominal neoplasm appendectomy total colectomy, with Ileostomy creation Bilateral nephrostomy Splenectomy Cholecystectomy Eye lid surgery Surgical History verified. * Family History: F ather: diagnosed with Heart disease, Other malignant neoplasm without specification of site.?Family History Verified.. Family history verified no changes since last visit . * Social History: T obacco Use: T obacco Control (Standard) T obacco use: N onsmoker S ocial History Verified. n ever smoked, states has lived with people who smoke 03/21/25 Currently with Pallative care. * Medications: T akingfentaNYL 37.5 MCG/HR Patch 72 Hour 1 patch to skin Transdermal Colestipol HCl Acetaminophen 500 MG Capsule 1 capsule as [...] dissolve Orally every 8 hours as needed Bicalutamide 50 MG Tablet 1 tablet Orally Once a day oxyCODONE HCl 10 MG Tablet 1 tablet as needed Orally every 6 hrs Pantoprazole Sodium 20 MG Tablet Delayed Release 1 tablet Orally Once a day Taking fentaNYL 37.5 MCG/HR Patch 72 Hour 1 patch to skin Transdermal Taking Colestipol HCl Taking Acetaminophen 500 MG Capsule 1 capsule [...] Orally every 8 hours as needed Taking Bicalutamide 50 MG Tablet 1 tablet Orally Once a day Taking oxyCODONE HCl 10 MG Tablet 1 tablet as needed Orally every 6 hrs Taking Pantoprazole Sodium 20 MG Tablet Delayed Release 1 tablet Orally Once a day Not-TakingSimethicone 80 MG Tablet 1 tablet after meals and at bedtime Orally Four times a day Mucinex 600 MG Tablet Extended Release 12 Hour 2 tablets as needed Orally once daily , Notes to Pharmacist: For rectal mucusMultivitamin - Tablet 1 tablet Orally Once a day Sodium Chloride 0.9 % Solution as directed Intravenous Aspir- Low 81 MG Tablet Delayed Release 1 tablet Orally Once a day Medication List reviewed and reconciled with the patientNot-Taking Simethicone 80 MG Tablet 1 tablet after meals and at bedtime Orally Four times a day Not-Taking Mucinex 600 MG Tablet Extended Release 12 Hour 2 tablets as needed Orally once daily , Notes to Pharmacist: For rectal mucusNot-Taking Multivitamin - Tablet 1 tablet Orally Once a day Not- Taking Sodium Chloride 0.9 % Solution as directed Intravenous Not-Taking Aspir-Low 81 MG Tablet Delayed Release 1 tablet Orally Once a day Medication List reviewed and reconciled with the patient * Allergies: I ronCefepimeIodinated Diagnostic AgentsZosynyesAllergies Verified. Objective: * Vitals: B P:102/58mm Hg, HR:92/min, RR:18/min, Temp:99F, Oxygen sat %:96%, Wt:125lbs, Wt- k.7 kg, Ht: 64 in, Ht-cm: 162.56 cm, BMI:21.45Index, Pain scale:01-10, Body Surface Area: 1.6. * Examination: O stomy: Stoma Number # 1. Surgery Date 0 07/12/2007. Type P ermanent. Stoma Construction E nd. Location R ight Side Umbilicus. Belt Line Location A nancy. Stoma Shape O alva. Size 2 2 mm (11/05 ). Stoma Appearance B eefy Red, Moist, Budding apx 10mm, scattered hyper-granulation present with 3 distinct larger areas on stoma 1-3 o'clock. Stoma Appearance Notes O S centrally located. Peristoma P eristomal plane flabby/soft, Peristomal skin with contact dermatitis along the immediate edge 6-7 o'clock and at the outer lateral aspect 8-11 o'clock. Abdominal Contours F labby / Soft. Stoma Functioning Y es. Flatus Presence Y es. Stool Present Y es. Stool Description L iquid with a green color. Current Appliance a dhesive remover, stoma powder followed by skin barrier crusting, Barrier ring, S[employer] [place] 1 piece convex appliance with 4 hook belt tabs, 2 C Elastic barrier strips, 2 hook appliance belt. C linician: BISHNU Hammond presented for a follow-up visit for ileostomy management. He reported he has multiple hospitalizations since last visit for blockages and the most recent for gout in the left hand. He now has a G-Tube in place for supplemental nutritional intake. He reported that he was suggested to go on Hospice services but has declined Hospice at this time. He is currently followed by Palliative care services. He is currently using adhesive remover, s mauro powder followed by skin barrier spray (crusting), Barrier ring, Sensuria [place] 1 piece convex appliance with 4 hook belt tabs, 2 C Elastic barrier strips, 2 hook appliance belt. Stoma appears beefy red, moist, budding apx 10mm. Scattered hyper-granulation present with 3 distinct larger areas on stoma 1-3 o'clock. Stoma appears round with OS centrally located. Peristomal plane flabby/soft, Peristomal skin with contact dermatitis along the immediate edge 6-7 o'clock and at the outer lateral aspect 8-11 o'clock. Stoma and peristomal eval completed. Silver nitrate applied to 3 distinct areas of hyper-granulation on stoma @1,2,3 o'clock. R ecs to apply stoma powder followed by skin barrier in the crusting method x3 layers to the areas of contact dermatitis, to change appliance routinely every 3 days to aid with preventing the appliance from leaking, to utilize a 4 hook appliance belt. E ducation provided regarding current recs, appliance removal, cleansing, and appliance application. He v erbalized understanding of the education provided. Follow up scheduled in 1- month for hyper-granulation m anagement. Assessment: * Assessment: 1. M alignant neoplasm of abdomen - C76.2 (Primary) 2 . C hronic obstructive pulmonary disease, unspecified - J44.9 3 . E ncounter for attention to ileostomy - Z43.2 4 . P ersonal history of other malignant neoplasm of large intestine - Z85.038 5 . P ersonal history of malignant neoplasm of prostate - Z85.46 ? 6 . I leostomy status - Z93.2 7 . S econdary malignant neoplasm of retroperitoneum and peritoneum - C78.6 8 . A lcohol abuse, uncomplicated - F10.10 9 . O bstructive and reflux uropathy, unspecified - N13.9 1 0. P ersonal history of malignant neoplasm of other organs and systems - Z85.89 Plan: * Treatment: * Preventive Medicine: Screenings: F all risk screening Have you had two or more falls in the past year? N o Have you had any falls with injury in the past year? N o Does Patient have an unsteady gait??No Does Patient walk independently? Y es Is Patient mobile using assistive devices? N o If yes, what ambulatory aid is used??None N utrition Screening Have you recently lost weight without trying? Y es If yes, how much weight have you lost??Unsure of exact amount of weight loss. Have you been eating poorly because of a decreased appetite? Y es On average how many meals do you eat per day? 2 Eats 2 meals a days and has supplemental tube feedings 2x/day. Have you suffered psychological stress or acute disease in the past 3 months? N o Billing Information: * Procedure Codes: * Electronic signature of Zulema Shirley MD on 04/21/2025 at 06:03 PM EST Sign off status: Pending * Provider: Raisa Shirley MD, MSc, CWSP Date: 06/19/2024 Generated for Zoya melendez/Monika/Veronicasmitting on: 06/22/2024 06:03 PM EST
--- OUTSIDE RECORDS SUMMARY | 2025-04-18 11:15 | XMS_ITS | Encounter Summary ---
Author Organization [facility] Address [address] [address] Phone Care Team Providers Care Airport Operations Duty Manager Name Role Phone Lobo Mills MD Primary Care Provider [phone] Reason for Visit * Reason Comments Chronic Kidney Disease Encounter Details Date Type Department Care Team (Latest Contact Info) Description 04/18/2025 11:15 AM EST Office Visit [facility] [address] [address] Mike Andres MD [address] [address] Carcinomatosis of peritoneal cavity (HCC) (Primary Dx); Stage 3a chronic kidney disease (HCC); Nephrolithiasis Social History Tobacco Use Types Packs/Day Years Used Date Smoking Tobacco: Never Smokeless Tobacco: Never Alcohol Use Standard Drinks/Week Comments Not Currently 0 (1 standard drink = 0.6 oz pur e alcohol) Sex and Gender Information Value Date Recorded Sex Assigned at Not on file Legal Sex Male 1:27 PM EST Gender Identity Not on file Sexual Orientation Not on file documented as of this encounter Last Filed Vital Signs Vital Sign Reading Time Taken Comments Blood Pressure 110/64 04/18/2025 11:23 AM EST Pulse 78 04/18/2025 11:23 AM EST Temperature - - Respiratory Rate - - Oxygen Saturation - - Inhaled Oxygen Concentration - - Weight 54.9 kg (121 lb) 04/18/2025 11:23 AM EST Height - - Body Mass Index 20.77 07/20/2018 12:00 PM EDT documented in this encounter Functional Status * BP Answer Date of Assessment Author 110/64 04/18/2025 11:23 AM EST Ligia Cabrera * Pulse Answer Date of Assessment Author 78 04/18/2025 11:23 AM EST Ligia Cabrera * Weight Answer Date of Assessment Author 19304/18/2025 11:23 AM EST Ligia Cabrera * BP Answer Date of Assessment Author 110/64 04/18/2025 11:23 AM EST Ligia Cabrera * Weight Answer Date of Assessment Author 193504/18/2025 11:23 AM EST Ligia Cabrera documented as of this encounter Progress Notes * Mike Andres MD - 04/18/2025 11:15 AM EST Images from the original note were not included. Patient Name: Jose Hirsch, Male Date of : 1955, 70 y.o. Date: 01/14/2025 [] New Patient [x] Established Patient [] New Hospital Follow Up [] Established Hospital Follow Up [] Telemed Visit [] H&P Referring MD: No primary care provider on file. PCP: Lobo Mills MD Chief Complaint: Chief Complaint Patient presents with Chronic Kidney Disease Reason For Visit: Jose Hirsch is a 70 y.o. 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 In the office for a f/u States he has mucous secretion via the rectum The following portions of the patient's chart were reviewed in this encounter and updated as appropriate: Allergies Meds Problems Med Hx Surg Hx Fam Hx ROS Constitutional: Negative for chills and fever. HENT: Negative for congestion, ear pain, hearing loss and sore throat. Eyes: Negative for pain and discharge. Respiratory: Negative for cough, shortness of breath and wheezing. Cardiovascular: Negative for chest pain, palpitations and leg swelling. Gastrointestinal: Negative for abdominal pain, blood in stool, constipation, diarrhea, nausea and vomiting. Genitourinary: Negative for dysuria, frequency, hematuria and urgency. Musculoskeletal: Negative for back pain, myalgias and neck pain. Skin: Negative for rash. Neurological: Negative for dizziness, tremors and headaches. Endo/Heme/Allergies: Negative for polydipsia. Does not bruise/bleed easily. Full 13 point review of systems unremarkable except as noted above. Past Medical History: Diagnosis Date Acute injury of kidney Acute kidney failure (HCC) Cancer (HCC) peritoneal carcinomatosis Chronic kidney disease Esophageal reflux Essential hypertension Hyperkalemia Hyposmolality and/or hyponatremia Nephrolithiasis Urinary tract infection Past Surgical History: Procedure Laterality Date OTHER SURGICAL HISTORY nephrostomy tube placement Social History Tobacco Use Smoking status: Never Smokeless tobacco: Never Substance Use Topics Alcohol use: Not Currently Family History Problem Relation Age of Onset Cancer Father Current Outpatient Medications Medication Sig Dispense Refill acetaminophen (TYLENOL) 500 MG tablet Take by mouth every 6 (six) hours if needed for mild pain Baclofen 5 MG pack Take by mouth bicalutamide (CASODEX) 50 MG chemo tablet Take 50 mg by mouth 1 (one) time each day Take at the same time . Take with or without food. colestipol (COLESTID) 1 g tablet Take 1 g by mouth in the morning and 1 g in the evening. diphenoxylate-atropine (LOMOTIL) 2.5-0.025 MG per tablet Take 1 tablet by mouth 4 (four) times a day if needed for diarrhea gabapentin (NEURONTIN) 400 MG capsule Take 400 mg by mouth in the morning and 400 mg at noon and 400 mg in the evening and 400 mg before bedtime. loperamide (IMODIUM) 2 MG capsule Take 2 mg by mouth 4 (four) times a day if needed for diarrhea Multiple Vitamins-Minerals (multivitamin with minerals) tablet Take 1 tablet by mouth 1 (one) time each day oxyCODONE (ROXICODONE) 5 MG immediate release tablet Take 5 mg by mouth every 4 (four) hours if needed for moderate pain OxyCONTIN 20 MG 12 hr abuse-deterrent tablet Take 20 mg by mouth every 12 (twelve) hours pantoprazole (PROTONIX) 40 MG EC tablet Take 40 mg by mouth 1 (one) time each day before breakfast Do not crush, chew, or split. simethicone (MYLICON) 80 MG chewable tablet Chew 80 mg every 6 (six) hours if needed for flatulence sodium chloride (OCEAN) 0.65 % nasal spray Administer 1 spray into each nostril if needed for congestion tamsulosin (FLOMAX) 0.4 MG 24 hr capsule Take 0.4 mg by mouth 1 (one) time each day No current facility-administered medications for this visit. Allergies Allergen Reactions Cefepime Iron Zosyn [Piperacillin-Tazobactam In Dex] Objective: Vitals: 04/18/25 1123 BP: 110/64 Pulse: 78 Weight: 121 lb (54.9 kg) Physical Exam Vitals reviewed. Constitutional: Patient does not appear ill. HEENT: STIVEN , No JVD Nose: Nose normal. Mouth/Throat: Oropharynx is clear and moist. Eyes: Conjunctivae are normal. Pupils are equal, round, and reactive to light. No scleral icterus. Neck: No thyroid mass and no thyromegaly present. Cardiovascular: Normal rate and regular rhythm. Exam reveals no friction rub. No murmur heard. Trace pitting BLE Edema. Pulmonary/Chest: Effort normal and breath sounds normal. No respiratory distress. No wheezes. No rales. Abdominal: Soft. There is no abdominal tenderness. No hernia. Musculoskeletal: Normal range of motion. She exhibits no deformity. Skin: Skin is warm and dry. No rash noted. No erythema. Psychiatric: Normal mood and affect. eGFR Date Value Ref Range Status 08/12/2021 81 >60 mL/min/1.73m*2 Final eGFR Non-Afr Macedonian Date Value Ref Range Status 04/11/2025 56 Final Chemistry Lab Units 04/11/25 0000 02/27/25 1357 01/30/25 0543 01/29/25 0559 01/28/25 0557 01/27/25 0603 01/26/25 2240 11/08/24 1035 03/14/24 0000 06/26/23 0000 06/18/23 0000 CREATININE mg/dL 1.38 1.19 1.20 1.26 1.33* 1.18 1.36* < > 1.79* 1.27 1.50* BUN mg/dL 29 22 26* 31* 27* 21 21 < > 28* 18 15 BUN / CREAT RATIO -- 18.5 21.7 24.6 20.3 17.8 15.4 < > -- -- -- EGFRNAFR 56 -- -- -- -- -- -- -- 41 62 53 GLUCOSE mg/dL 110 112* 112* 109* 99 122* 116* < > -- -- 124 POTASSIUM mEq/L 4.0 4.1 4.1 4.2 4.4 3.8 3.5 < > 4.1 5.2 4.8 SODIUM mEq/L 138 142 135 137 139 138 139 < > 141 144 138 CO2 mmol/L -- 30 28 28 33* 32 < > 22 25 24 CHLORIDE 109 115* 99 101 102 103 101 < > -- -- 104.0 ALBUMIN g/dL 3.8 2.7* 2.9* 3.0* 2.7* -- 3.1* < > -- -- -- BILIRUBIN TOTAL MG/DL 0.20 0.3 0.8 0.7 1.0 -- 1.0 < > -- -- -- AST U/L 15 9* 10 12 23 -- 24 < > -- -- -- ALT U/L 6 -- -- -- -- -- -- -- -- -- -- < > = values in this interval not displayed. Bone Mineral Lab Units 04/11/25 0000 02/27/25 1357 01/30/25 0543 01/29/25 0559 01/28/25 0557 01/27/25 0603 01/26/25 2240 01/24/25 0551 01/23/25 0652 01/22/25 0602 01/20/25 1911 01/14/25 1232 CALCIUM mg/dL 9.2 8.2* 8.4* 8.1* 8.0* 8.3* 8.7 8.5 8.2* 9.1 < > 8.6 PHOSPHORUS mg/dL -- -- 2.9 4.1 4.7* -- -- 3.3 2.5 4.3 -- 3.1 ALK PHOS U/L 68 58 149* 178* 212* -- 147* -- -- -- < > -- MAGNESIUM mg/dL -- -- 2.0 2.3 1.7* -- -- 2.0 2.1 1.1* -- -- PTH pg/mL -- -- -- -- -- -- -- -- -- -- -- 37 VIT D 25 HYDROXY ng/mL -- -- -- -- -- -- -- -- -- -- -- 42.1 < > = values in this interval not displayed. CBC Lab Units 01/22/25195501/14/25 1232 03/20/24 0000 03/14/24 0000 06/26/23 0000 WBC AUTO x10E3/uL -- 6.9 -- -- -- RBC AUTO x10E6/uL -- 3.00* -- -- -- MCV fL -- 98* -- -- -- HEMATOCRIT % 30.8* 29.3* 28.9* 34.0* 29.8* HEMOGLOBIN g/dL 10.4* 9.7* 10.0* 11.0* 10.1* PLATELETS AUTO x10E3/uL -- 336 439* 374 684* PLAN: Assessment & Plan 1. Carcinomatosis of peritoneal cavity (HCC) 2. Stage 3a chronic kidney disease (HCC) 3. Nephrolithiasis Resolved JORGE r/t pre-renal in the setting of volume depletion as evidenced by quick improvement with IVF. Serum Creat peaked to 3.9, BL Scr 1.1-1.4. Now Cr 1.36 CT scan of abd/pelvis on 08/05/2024 shows no hydronephrosis or noncontrast evidence of suspicious masses. Simple appearing renal cysts and hypodensities that are too small to characterize. 8 mm nonobstructing stone in the lower pole of the left kidney, intrinsic hyperdense exophytic right renal cyst is unchanged, likely hemorrhagic /proteinaceous. 2. CKD Stage 3a of unclear etiology other than metastatic cancer hx: Serum Creat returned to BL 1.38, GFR 56 w/ normal electrolytes Not on DONNA/ARB Good blood pressure Normal sero/urine studies Avoid NSAIDs/Nephrotoxins Follow low Na diet 3. Anemia in CKD: Hgb below target at 8.8 w/ normal iron studies, not on iron supp F/u with oncology 4. Chronic Metabolic acidosis: Bicarb level low at 17; Now improved to 19 Orders Placed This Encounter Comprehensive Metabolic Panel (CMP) Return in about 6 months (around 10/17/2025) for with Jen. Mike Andres MD documented in this encounter Plan of Treatment Upcoming Encounters Date Type Department Care Team (Late st Contact Info) Description 10/23/2025 10:30 AM EDT Office Visit [facility] [address] [facility] [address] [place] [address] Briseida ClarkeMAHENDRA [address] [address] documented as of this encounter Procedures Procedure Name Priority Date/Time Associated Diagnosis Comments COMPREHENSIVE METABOLIC PANEL (CMP) (EXTERNAL LAB ENTRY) Routine 04/11/2025 documented in this encounter Results * Comprehensive Metabolic Panel (CMP) (04/11/2025) Glucose 110 mg/dL BUN 29 mg/dL Creatinine 1.38 mg/dL Sodium 138 mEq/L Potassium 4.0 mEq/L Chloride 109 Calcium 9.2 mg/dL Albumin (Blood) 3.8 g/dL AST (SGOT) 15 U/L ALT (SGPT) 6 U/L Alkaline Phosphatase 68 U/L Total Bilirubin 0.20 MG/DL eGFR Non-Afr Macedonian 56 Total Protein, Serum 6.3 Anion Gap 10 A/G Ratio 1.5 Blood 04/11/2025 us Historical Provider LAB BLOOD ORDERABLES Gabbie l Result documented in this encounter Visit Diagnoses Diagnosis Carcinomatosis of peritoneal cavity (HCC)- Primary Stage 3a chronic kidney disease (HCC) Nephrolithiasis documented in this encounter Care Teams Airport Operations Duty Manager Relationship Specialty Start Date End Date Lobo Mills MD [facility] P[facility] - General 03/05/19 documented as of this encounter
--- OUTSIDE RECORDS SUMMARY | 2025-04-19 23:59 | XMS_ITS | Continuity of Care Document ---
Author Organization [facility] Address [address] [place] [address]- Care Team Providers Care Associate Loan Officer Name Role Phone Gene ROSAS, Lobo Medina Primary Care Physician Encounter [facility] Date(s): 03/20/25 - 04/19/[address] [address] Encounter Type: Triage Allergies, Adverse Reactions, Alerts Substance Criticality Severity Reaction Reaction Severity Status cefepime 1, 2 Macular rash Act mayra Zosyn Unable to assess criticality Persistent Moderate rigors, rash, spasms Active Contrast Dye Active 1Tolerates piperacillin-tazobactam 2macular rash Immunizations Given and Recorded Vaccine Date Status Refusal Reason SARS-CoV-2(COVID-19)mRNA-LNP vac([id number]) 03/12/24 Recorded influenza virus vaccine, inactivated 02/05/24 [...] virus vaccine, inactivated 4 02/11/10 Gi gena [id number] 12y+ bivalent booster vax 03/15/22 Given SARS-CoV-2 mRNA ([id number]) vax 5 09/23/21 Given zoster vaccine, inactivated [...] 2 Refills, Maintenance, 02/05/24 10:19:00 AMEDT, Tablet, [facility] #[id number], Partial fill upon patient request if the [...] 1 Refills, Maintenance, 03/19/25 2:40:00 PMEST, Tablet, [facility] #[id number], Partial fill upon patient request if the [...] 9:58:00 PM EST, Route to Pharmacy Electronically, [facility] #[id number], 163, cm, 02/27/25 10:45:00 EDT, Height, 56.6, [...] Refills, Soft Stop, 02/10/25 2:08:00 PM EDT, [facility] #[id number], Partial fill upon patient request if the [...] Refills, Maintenance, 02/13/25 5:48:00 PM EDT, Tablet, [facility] #[id number], Partial fill upon patient request if the [...] PM EST, 04/17/25 6:05:00 PM EST, Tablet, [facility] #[id number], Partial fill upon patient request, 04/17/25, 163, [...] 7:10:00 PM EST, Route to Pharmacy Electronically, [facility] #[id number], Partial fill upon patient request if the [...] 04/22/25 7:10:00 PM EST, Route to PharmacyElectronically, [facility] #[id number], Partial fill upon patient request if the [...] 04/02/25 3:15:00 PM EST, [id number], 163, cm, 02/27/25 10:45:00 EDT, Height, 56.6,kg, [...] grade, being observed by Dr. Astorga at [facility] 4followed by PM&R Social History Social [...] Team Personnel Name: Anny Clarke RN Position: [facility] RN Member Role: Primary Care Nurse Name: Jossy Lloyd Position: [facility] Onco RN Member Role: Primary Care Nurse Name: Domingo Peck RN Position: [facility] RN Member Role: Primary Care Nurse Name: Megan Mansfield RN Position: [facility] AMB Nurse Member Role: Primary Care Nurse Name: Lobo Mills MD Position: [facility] Physician - Primary Care Member Role: PCP Address: [address] [place] [address] Telecom: Name: Nicole Mixon RN Position: [facility] RN Member Role: Primary Care Nurse Name: Stacey Hebert RN Position: [facility] ED RN W/OE and Tasks Member Role: Primary Care Nurse Name: Neetu Alcazar RN Position: [facility] RN Member Role: Primary Care Nurse Name: Nery Lee RN Position: [facility] RN Member Role: Primary Care Nurse Name: Di Lou RN Position: [facility] RN Member Role: Primary Care Nurse Name: Kristina Phelps RN Position: [facility] RN Member Role: Primary Care Nurse Name: Aida Aguila RN Position: [facility] Outreach Member Role: Primary Care Nurse Name: Magali Mattson RN Position: [facility] RN Member Role: Primary Care Nurse Name: Teresita Caldera RN Position: [facility] RN Member Role: Primary Care Nurse Name: Rashmi Saavedra RN Position: [facility] RN Member Role: Primary Care Nurse Name: Obinna London MD Position: [facility] Physician - General Surgery Member Role: Lifetime Consulting Physician Name: Jossy Arias RN Position: [facility] RN Member Role: Primary Care Nurse Name: Aida Villeda RN Position: [facility] SN RN Member Role: Primary Care Nurse Name: Sweta Jacobson NP Position: [facility] Associate Professional Member Role: Primary Care Nurse Name: Florinda Nieto RN Position: [facility] RN Member Role: Primary Care Nurse Name: Marlyn Sahu RN Position: [facility] RN Member Role: Primary Care Nurse Name: Lupe Manzo RN Position: [facility] RN Member Role: Primary Care Nurse Name: iLma Tao LPN Position: [facility] RN Member Role: Primary Care Nurse Name: Yazmin Martell RN Position: [facility] Onco RN Member Role: Primary Care Nurse Name: Jamaal Singh RN Position: [facility] RN Member Role: Primary Care Nurse Name: Briseida Pardo RN Position: [facility] RN Member Role: Primary Care Nurse Name: Domingo Herndon RN Position: [facility] RN Member Role: Primary Care Nurse Name: Florinda José RN Position: [facility] RN Member Role: Primary Care Nurse Name: Jorge A Mojica RN Position: [facility] RN Member Role: Primary Care Nurse Name: Celestine Huber RN Position: [facility] RN Supv Member Role: Primary Care Nurse Name: Leonie Waite RN Position: [facility] Centrifugal Drier Operator Member Role: Primary Care Nurse Name: Loki Giles Jr, RN Position: [facility] RN Member Role: Primary Care Nurse Name: Helga Acevedo RN Position: [facility] RN Member Role: Primary Care Nurse Name: Liat Mcallister RN Position: [facility] RN Member Role: Primary Care Nurse Name: Pema Barry RN Position: [facility] OB RN Member Role: Primary Care Nurse Name: Renan Ham RN Position: [facility] RN Member Role: Primary Care Nurse Name: Raquel Patel RN Position: [facility] RN Member Role: Primary Care Nurse Name: Herve Padron RN Position: [facility] RN Member Role: Primary Care Nurse Name: Kun Jiménez RN Position: [facility] SN RN Member Role: Primary Care Nurse Name: Dilcia Nieves NP Position: [facility] Associate Professional Member Role: Primary Care Nurse Address: [address] [place] [address] Telecom: Name: Timmy Guallpa RN Position: [facility] RN Member Role: Primary Care Nurse Name: Christopher Bravo RN Position: [facility] CHELE RN W/FELY and Tasks Member Role: Primary Care Nurse Name: Jessi Sneed RN Position: [facility] RN Member Role: Primary Care Nurse Name: Bijal Mcgee RN Position: [facility] RN Member Role: Primary Care Nurse Name: Lobo Mcgee RN Position: [facility] RN Member Role: Primary Care Nurse Name: Shellie Mullins RN Position: [facility] RN Member Role: Primary Care Nurse Name: Helga Georges RN Position: [facility] Onco RN Member Role: Primary Care Nurse Name: Svetlana Arguello RN Position: [facility] RN Member Role: Primary Care Nurse Name: Nel Magallanes RN Position: [facility] Onco RN Member Role: Primary Care Nurse Name: Malorie Adrian RN Position: S RN Member Role: Primary Care Nurse Name: Bimal Singh RN Position: [facility] RN Member Role: Primary Care Nurse Name: Arlene Ramirez RN Position: [facility] RN Member Role: Primary Care Nurse Name: Annalee Wakefield NP Position: [facility] PCO Associate Professional Member Role: Primary Care Nurse Address: [address] [place] [address] Telecom: Name: Romario Camara RN Position: [facility] RN Member Role: Primary Care Nurse Name: Adela Real RN Position: [facility] RN Member Role: Primary Care Nurse Name: Enrike Stein RN Position: [facility] RN Member Role: Primary Care Nurse Name: Phoebe Hanna NP Position: Reference Physician Member Role: Primary Care Nurse Address: [address] [place] [address] [address] [place], [place] [address] Telecom: Name: Alvina Kenney RN Position: [facility] RN Member Role: Primary Care Nurse Name: Emanuel Pereira MD Position: [facility] Outreach Member Role: Lifetime Consulting Physician Address: [address] [facility] [address] [facility] [place] [address]- [place] Telecom: Name: Robert Pendleton MD Position: [facility] Renal MD Member Role: Lifetime Consulting Physician Address: [address] [facility] [address] [facility] [place] [address]- [place] Telecom: Name: Sharon Wilson RN Position: [facility] RN Member Role: Primary Care Nurse Name: Benedict Lockwood RN Position: [facility] Onco RN Member Role: Primary Care Nurse Name: Hailey Elizondo RN Position: [facility] Onco RN Member Role: Primary Care Nurse Name: Pema Banks RN Position: [facility] RN Member Role: Primary Care Nurse Name: Sonal Myles RN Position: [facility] RN Member Role: Primary Care Nurse Name: Magdy Patel RN Position: [facility] SN RN Member Role: Primary Care Nurse Name: Hailey Lima RN Position: [facility] RN Member Role: Primary Care Nurse Name: Denice De La Cruz RN Position: [facility] RN Member Role: Primary Care Nurse Name: Catherine Mcfarlane RN Position: [facility] Onco RN Member Role: Primary Care Nurse Name: Lamont De Leon RN Position: [facility] RN Supv Member Role: Primary Care Nurse Name: Caitlyn Clarke RN Position: [facility] RN Member Role: Primary Care Nurse Name: Vickie Weldon RN Position: [facility] RN Member Role: Primary Care Nurse Name: Onur Brown RN Position: [facility] RN Member Role: Primary Care Nurse Name: Jocelynn Paniagua RN Position: [facility] RN Member Role: Primary Care Nurse Name: Luanne Pace RN Position: [facility] RN Member Role: Primary Care Nurse Name: Jeffrey Whelan RN Position: [facility] RN Member Role: Primary Care Nurse Name: Alexander Garcia MD Position: [facility] Renal MD Member Role: Lifetime Consulting Physician Address: [address] [place], [place] [id number] [facility] [address] Telecom: Name: Pema Persaud RN Position: [facility] RN Member Role: Primary Care Nurse Name: Aga Story RN Position: [facility] RN Member Role: Primary Care Nurse Name: Vickie Kumari RN Position: [facility] OB RN Member Role: Primary Care Nurse Name: Hansa Alfonso RN Position: [facility] RN Member Role: Primary Care Nurse Name: Naima Brady RN Position: [facility] RN Member Role: Primary Care Nurse Name: Ovidio Barker RN Position: [facility] CHELE RN W/OE and Tasks Member Role: Primary Care Nurse Name: Denice Garcia RN Position: [facility] RN Member Role: Primary Care Nurse Name: Jeison Avendaño RN Position: [facility] RN Member Role: Primary Care Nurse Name: Antonietta Payne RN Position: [facility] RN Member Role: Primary Care Nurse Name: Liat Corrales LPN Position: [facility] RN Member Role: Primary Care Nurse Name: Cheri Hernandez RN Position: [facility] RN Member Role: Primary Care Nurse Name: Neetu Patel RN Position: [facility] RN Member Role: Primary Care Nurse Name: Gino Constantino RN Position: [facility] RN Member Role: Primary Care Nurse Name: Genoveva Martin RN, I Position: [facility] RN Member Role: Primary Care Nurse Care Team Related Persons Name: CALVIN THACKER Name: ISSA CARRERA Insurance Providers Guarantor name: DAWNA FARIAS Reebee Plan Information #: 1 Payer: MEDICARE B Payer Identifier: Member Number: [id number] Group Number: Subscriber Identifier: Relationship to Subscriber: self Coverage Type: NA Coverage Verification Date: NA Telecom: NA Address: NA Health Plan Information #: 2 Payer: [employer] Payer Identifier: Member Number: [id number] Group Number: Subscriber Identifier: Relationship to Subscriber: self Coverage Type: MEDICAID Coverage Verification Date: NA Telecom: NA Address: NA
[2025-04-21 14:51] LABS: MANUAL DIFF FLAG NO
[2025-04-21 14:54] LABS: Hematocrit 28.4 % (42.0-52.0); Hemoglobin 9.1 g/dl (14.0-18.0); Imm Gran Abs Auto 0.04 X10*3/uL (0.00-0.03); Imm Gran Pct Auto 0.4 % (0.0-0.4); Lymphocytes Absolute Auto 2.2 X10*3/uL (1.2-4.9); Mean Corpuscular HGB Conc 32.0 g/dl (31.0-36.0); Mean Corpuscular Hemoglobin 30.8 pg (27.0-33.0); Mean Corpuscular Volume 96.3 fL (80.0-98.0); NRBC Abs Auto 0.000 X10*3/uL (0.0-0.012); NRBC Pct Auto 0.0 /100WBC (0.0-0.2); Platelet Count 421 X10*3/uL (160-400); Red Blood Count 2.95 X10*6/uL (4.60-5.80); White Blood Count 11.0 X10*3/uL (4.8-10.8)
--- OUTSIDE RECORDS SUMMARY | 2025-04-21 18:03 | XMS_ITS | Clinical Summary ---
Author Organization [facility] Address [address] [address] Phone Care Team Providers Care Truck Supervisor Name Role Phone Lobo Mills MD Primary Care Provider [phone] Allergies Active Allergy Reactions Criticality Noted Date [...] Encounters Date Type Department Care Team Description 04/18/2025 11:15 AM EST Office Visit [facility] [address] [id number] Mike Andres MD Carcinomatosis of peritoneal cavity (HCC) (Primary Dx); Stage 3a chronic kidney disease (HCC); Nephrolithiasis from Last 3 Months Family History Medical [...] Pulse 78 04/18/2025 11:23 AM EST Temperature 36.6 C (97.9 F) 07/20/2018 12:00 PM EDT Respiratory Rate 12 07/20/2018 12:00 PM EDT Oxygen Saturation 100% 01/14/2025 10:58 AM EDT Inhaled Oxygen Concentration - - Weight 54.9 kg (121 lb) 04/18/2025 11:23 AM EST Height 162.6 cm (5' 4 ) 07/20/2018 12:00 PM EDT Body Mass Index 20.77 07/20/2018 12:00 PM EDT Plan of Treatment Upcoming Encounters Date Type Department Care Team (Late st Contact Info) Description 10/23/2025 10:30 AM EDT Office Visit [facility] [address] [phone] Briseida Clarke ARNP [address] [address] Health Maintenance Due Date Last Done Comments [...] PANEL (CMP) (EXTERNAL LAB ENTRY) Routine 04/11/2025 from Last 3 Months Results * Comprehensive Metabolic Panel (CMP) (04/11/2025) Glucose 110 mg/dL BUN 29 mg/dL Creatinine 1.38 mg/dL Sodium 138 mEq/L Potassium 4.0 mEq/L Chloride 109 Calcium 9.2 mg/dL Albumin (Blood) 3.8 g/dL AST (SGOT) 15 U/L ALT (SGPT) 6 U/L Alkaline Phosphatase 68 U/L Total Bilirubin 0.20 MG/DL eGFR Non-Afr British 56 Total Protein, Serum 6.3 Anion Gap 10 A/G Ratio 1.5 Blood 04/11/2025 Historical Provider LAB BLOOD ORDERABLES Gabbie l Result from Last 3 Months Insurance Medicare Medicaid [place] Medicaid [place] Care Teams Truck Supervisor Relationship Specialty Start Date End Date Lobo Mills MD [address] [place] PCP - General 03/05/19
--- OUTSIDE RECORDS SUMMARY | 2025-04-21 18:04 | XMS_ITS ---
Author Organization [address] [facility] Address [address] [place] [address] Phone Care Team Providers Care Junior Web Developer Name Role Phone Lobo Mills MD Primary Care Provider [phone] Active Problems Problem Noted Date Diagnosed Date [...]
--- OUTSIDE RECORDS SUMMARY | 2025-04-21 18:04 | XMS_ITS | Patient Health Record ---
Author Organization [facility] Address [address] [place] [address] Care Team Providers Care Hand Picker Name Role Phone Lobo Mills MD Primary Care Provider Sriram Aguirre Unavailable [phone] Allergies Allergen (clinical drug ingredient) Drug/Non Drug [...] Duration) Notes Start Date End Date Status fentaNYL 37.5 MCG/HR Patch 72 Hour 1 patch to skin Transdermal Active Mucinex 600 MG Tablet Extended Release 12 Hour 2 tablets as needed Orally once daily For rectal mucus Not-Taking Colestipol HCl Activ e Multivitamin - Tablet 1 tablet Orally Once a day; Duration: 30 day(s) Not-Taking Acetaminophen 500 MG Capsule 1 capsule as needed Orally every 6 hrs Active Sodium Chloride 0.9 % Solution as directed Intravenous Not-Taking Gabapentin 600 MG Tablet 2 tablet Orally three times a day; Duration: 30 day(s) Active Bicalutamide 50 MG Tablet 1 tablet Orally Once a day; Duration: 30 day(s) Active oxyCODONE HCl 10 MG Tablet 1 tablet as needed Orally every 6 hrs Active Pantoprazole Sodium 20 MG Tablet Delayed Release 1 tablet Orally Once a day; Duration: 30 day(s) Active Simethicone 80 MG Tablet 1 tablet after meals and at bedtime Orally Four times a day; Duration: 30 day(s) Not-Taking Aspir-Low 81 MG Tablet Delayed Release 1 tablet Orally Once a day; Duration: 30 day(s) Not-Taking Diphenoxylate-Atropine 2.5-0.025 MG Tablet 1 tablet as needed Orally Four times a day Active Loperamide HCl 2 MG Capsule 1 capsule as needed Orally Four times a day Active Ondansetron 4 MG Tablet Disintegrating 1 tablet on the tongue and allow to dissolve Orally every 8 hours as needed; Duration: 30 day(s) Active Social History Tobacco Use: Social History Observation Description Date Details (start date - stop date) Never Smoker NA - NA Social History Drug/Alcohol: Social Info Question Answer Notes Drugs Have you used drugs other than those for medical reasons in the past 12 months? No Tobacco Use: Social Info Question Answer Notes Tobacco Control (Standard) Tobacco use: Nonsmoker Additional Details Category Social Info Options Details Drug/Alcohol: Do you drink alcohol? Socia lly Section Notes: never smoked never smoked never smoked 03/21/25 Currently with Pallative care. never smoked, states has lived with people who smoke 03/21/25 Currently with Pallative care. 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 Problem Alcohol abuse (47560188) Alcohol abuse, uncomplicated (F10.10) Active confirmed Problem Chronic obstructive pulmonary disease (61563064) Chronic obstructive pulmonary disease, unspecified (J44.9) Active confirmed Problem Urinary tract obstruction (1746412) Obstructive and reflux uropathy, unspecified (N13.9) Active confirmed Problem Attention to ileostomy (789404010) Encounter for attention to ileostomy (Z43.2) Active confirmed Problem History of malignant neoplasm of colon (656898971) Personal history of other malignant neoplasm of large intestine (Z85.038) Active confirmed Problem History of malignant neoplasm of prostate (839397820) Personal history of malignant neoplasm of prostate (Z85.46) Active confirmed Problem History of malignant neoplasm (736552687) Personal history of malignant neoplasm of other organs and systems (Z85.89) Active confirmed Problem 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 Problem Ileostomy present (875699710) Ileostomy status (Z93.2) Active confirmed Problem Chronic kidney disease stage 3 (disorder) (896299921) CKD (chronic kidney disease), stage III (N18.30) Active confirmed Problem Gastrostomy present (972825497) Gastrostomy tube in place (Z93.1) Active confirmed Vital Signs Heart Rate 92 /min 04/18/2025 Temperature 99 degrees Fahrenheit 04/18/2025 Respiratory Rate 18 /min 04/18/2025 Height-cm 162.56 cm 04/18/2025 Oximetry 96 % 04/18/2025 Blood pressure diastolic 58 mm Hg 04/18/2025 Weight-kg 56.7 kg 04/18/2025 Height 64 in 04/18/2025 Blood pressure systolic 102 mm Hg 04/18/2025 Weight 125 lbs 04/18/2025 BMI 21.45 kg/m2 04/18/2025 Encounters Encounter Location Date Provider Diagnosis [facility] [address] [place] [address] 04/18/2025 Sriram Shirley Malignant neoplasm o f [...] neoplasm of other organs and systems Z85.89 [facility] [address] [facility] [address] [place] [address] 11/19/2024 Sriram Shirley Malignant neoplasm o f [...] neoplasm of other organs and systems Z85.89 [facility] [address] [facility] [address] [place] [address] 12/17/2024 Sriram Александрien Malignant neoplasm o f [...] neoplasm of other organs and systems Z85.89 [facility] [address] [place] [address] 03/21/2025 Srirammike Shirley Malignant neoplasm o f abdomen C76.2 [...] neoplasm of abdomen (ICD-10 - C76.2) 04/18/2025 Malignant neoplasm of abdomen (ICD-10 - C76.2) 04/18/2025 Chronic obstructive pulmonary disease, unspecified (ICD-10 - J44.9) 03/21/2025 Chronic obstructive pulmonary disease, unspecified (ICD-10 - J44.9) 12/17/2024 Chronic obstructive pulmonary disease, unspecified (ICD-10 - J44.9) 11/19/2024 Chronic obstructive pulmonary disease, unspecified (ICD-10 - J44.9) 11/19/2024 Encounter for attention to ileostomy (ICD-10 - Z43.2) 03/21/2025 Encounter for attention to ileostomy (ICD-10 - Z43.2) 12/17/2024 Encounter for attention to ileostomy (ICD-10 - Z43.2) 04/18/2025 Encounter for attention to ileostomy (ICD-10 - Z43.2) 04/18/2025 Personal history of other malignant neoplasm of large intestine (ICD-10 - Z85.038) 12/17/2024 Personal history of other malignant neoplasm [...] neoplasm of prostate (ICD-10 - Z85.46) 04/18/2025 Personal history of malignant neoplasm of prostate (ICD-10 - Z85.46) 04/18/2025 Ileostomy status (ICD-10 - Z93.2) 12/17/2024 Ileostomy status (ICD-10 - Z93.2) 03/21/2025 Ileostomy status (ICD-10 - Z93.2) 11/19/2024 Ileostomy status (ICD-10 - Z93.2) 11/19/2024 Secondary malignant neoplasm of retroperitoneum and peritoneum (ICD-10 - C78.6) 12/17/2024 Secondary malignant neoplasm of retroperitoneum and peritoneum (ICD-10 - C78.6) 03/21/2025 Secondary malignant neoplasm of retroperitoneum and peritoneum (ICD-10 - C78.6) 04/18/2025 Secondary malignant neoplasm of retroperitoneum and peritoneum (ICD-10 - C78.6) 04/18/2025 Alcohol abuse, uncomplicated (ICD-10 - F10.10) 03/21/2025 Alcohol abuse, uncomplicated (ICD-10 - F10.10) 12/17/2024 Alcohol abuse, uncomplicated (ICD-10 - F10.10) 11/19/2024 Alcohol abuse, uncomplicated (ICD-10 - F10.10) 11/19/2024 Obstructive and reflux uropathy, unspecified (ICD-10 - N13.9) 12/17/2024 Obstructive and reflux uropathy, unspecified (ICD-10 - N13.9) 04/18/2025 Obstructive and reflux uropathy, unspecified (ICD-10 - N13.9) 03/21/2025 Obstructive and reflux uropathy, unspecified (ICD-10 - N13.9) 04/18/2025 Personal history of malignant neoplasm of other organs and systems (ICD-10 - Z85.89) 03/21/2025 Personal history of malignant neoplasm of [...] skin barrier spray (crusting), Barrier ring, Sensuria Pattison 1 piece convex appliance with 4 hook [...] concerns that I may have had, Briseida Marino LPN OMS. I, Sriram Shirley MD confirm that Briseida Marino LPN OMS, adheres to the guidelines of the established clinical protocols in the office. I confirm the above care provided was rendered under my general supervision as initially planned and subsequently discussed and supervised by me. 11/19/2024 Other Jose presented to the office follow up ostomy visit for granuloma management. He has a permanent Ileostomy, due to personal history of appendix and peritoneal carcinomatosis. He reports he currently is utilizing stoma powder with skin barrier in the crusting procdure, Brava moldable barrier ring, 1 piece Coloplast Sensura Pattison convex appliance, and C shaped elastic barrier [...] in 1-month for granuloma management at the [place] location. Fern Davis was available for any [...] moldable barrier ring, 1 piece Coloplast Sensura Pattison convex appliance, and C shaped elastic barrier [...] in 1-month for granuloma management at the [place] location. All of Jose's questions and concerns were addressed. He was instructed to call with any further questions or concerns and follow up in 1-month for granuloma management at the [place] location. Fern Davis was available for any questions or concerns that I may have had, Nery Almendarez BSN OMS and Briseida Marino LPN OMS. Silver nitrate was applied to 3 distinct areas. Joes tolerated the procedure well. I, Sriram Shirley [...] Provider Name:Sriram Shirley, 06/06/2025 11:00:00 AM, [address] [place], [address], Insurance Providers Payer Name Payer Address Payer Phone Subscriber Number Group Number Insured Name Patient Relationship to Insured Coverage Start Date Coverage End Date Medicare [address] [place], [place] [id number] Jose Hirsch Self - [facility] the [facility] [address] [place], [place] [id number] [phone] [id number] Jose Hirsch Self - patient is the [...]
--- OUTSIDE RECORDS SUMMARY | 2025-04-21 18:04 | XMS_ITS | Clinical Summary ---
Author Organization [address] [facility] Address [address] [place] [address] Phone Care Team Providers Care Retail Office Manager Name Role Phone Lobo Mills MD Primary Care Provider [phone] Allergies Active Allergy Reactions Criticality Noted Date [...] 10:00 AM EST Consult Orthopedic Surgery - [place] [address] [facility] [address] [place] [phone] Lori Walters PA [facility] arthritis (Primary Dx) 02/27/2025 12:00 PM EDT - 02/27/2025 4:36 PM EDT Emergency [facility] [address] [place] [phone] Alexander Collins MD Edema leg (Primary Dx); Anemia, unspecified type; Hypoalbuminemia Discharge Disposition: Home or Self Care 02/07/2025 6:12 AM EDT - 02/07/2025 10:14 AM EDT Emergency [facility] [address] [place] [phone] Arthralgia of left hand (Primary Dx); Lead-induced acute gout of left hand, initial encounter Discharge Disposition: Home or Self Care 01/26/2025 9:17 PM EDT - 01/30/2025 5:00 PM EDT Hospital Encounter [facility] [address] [place] [phone] Shmuel Garber MD Jones, Christopher, MD Alam, Aroosa, MD Generalized abdominal pain (Primary Dx); Small bowel obstruction (CMS/HCC V24, CMS/HCC V28); Pseudomyxoma peritonei (CMS/HCC V24, CMS/HCC V28) Discharge Disposition: Home-Health Care [facility] [place] 01/20/2025 5:46 PM EDT - 01/24/2025 3:25 PM EDT Hospital Encounter [facility] [address] [place] [phone] Sachin Murrieta MD Jones, Christopher, MD Santoyo-Pacheco, [...] pcg LAB [facility] M[facility]C 33.2 32.0 - 37.0 g/dL LAB HEMETOLOGY METHOD 02/27/2025 2:22 PM [facility] RDW 16.2(H) 11.0 - 15.0 % LAB HEMETOLOGY METHOD 02/27/2025 2:22 PM [facility] Platelets 334 130 - 400 K/mcL LAB HEMETOLOGY METHOD 02/27/2025 2:22 PM [facility] MPV 9.3 7.0 - 11.0 FL LAB HEMETOLOGY METHOD 02/27/2025 2:22 PM [facility] NRBC 0.0 <1.0 % LAB HEMETOLOGY METHOD 02/27/2025 2:22 PM [facility] NRBC Absolute 0.00 <0.10 K/mcL LAB HEMETOLOGY METHOD 02/27/2025 2:22 PM [facility] Neutrophils Relative 65.8 % LAB HEMETOLOGY METHOD 02/27/2025 2:22 PM [facility] Lymphocytes Relative 21.3 % LAB HEMETOLOGY METHOD 02/27/2025 2:22 PM [facility] Monocytes Relative 10.0 % LAB HEMETOLOGY METHOD 02/27/2025 2:22 PM [facility] Eosinophils Relative 1.7 % LAB HEMETOLOGY METHOD 02/27/2025 2:22 PM [facility] Basophils Relative 0.7 % LAB HEMETOLOGY METHOD 02/27/2025 2:22 PM [facility] Immature Granulocytes Relative 0.5 % LAB HEMETOLOGY METHOD 02/27/2025 2:22 PM [facility] Neutrophils Absolute 5.81 1.50 [...] Result [facility] [address] [place] [address], * Type and screen (02/27/2025 1:57 PM [...] ORDERAB LES Final Result Performing Organization Address [place]/[facility]/ZIP Co de Phone Number [facility] [address] [place] [address], [place] [phone] * (ABNORMAL) B-type natriuretic peptide (02/27/2025 1:57 PM EDT) Pathologist [facility] BNP 315(H) <=100 pcg/mL LAB CHEMISTRY METHOD 02/27/2025 2:51 PM EDT [facility] Blood Venous blood specimen / Unknown Venipuncture / Unknown 02/27/2025 1:57 PM EDT 02/27/2025 2:12 PM EDT Alexander Collins MD LAB BLOOD ORDERABLES Final Result Performing Organization Address [place]/[facility] Co de Phone Number [facility] [address] [place] [address], [place] [phone] * (ABNORMAL) Comprehensive Metabolic Panel (CMP) (02/27/2025 1:57 PM EDT) Only the most recent of6 resultswithin the time period is included. Pathologist [facility] Sodium 142 133 - 145 mmol/L LAB CHEMISTRY METHOD 02/27/2025 2:49 PM EDT [facility] Potassium 4.1 3.5 - 5.5 mmol/L LAB CHEMISTRY METHOD 02/27/2025 2:49 PM EDT [facility] Chloride 115(H) 96 - 110 mmol/L LAB CHEMISTRY METHOD 02/27/2025 2:49 PM EDT [facility] CO2 22 21 - 32 mmol/L LAB CHEMISTRY METHOD 02/27/2025 2:49 PM EDT [facility] Anion Gap 5 3 - 11 LAB CHEMISTRY METHOD 02/27/2025 2:49 PM [facility] Glucose 112(H) 70 - 100 mg/dL LAB CHEMISTRY METHOD 02/27/2025 2:49 PM [facility] BUN 22 5 - 25 mg/dL LAB CHEMISTRY METHOD 02/27/2025 2:49 PM [facility] Creatinine 1.19 0.70 - 1.30 mg/dL LAB CHEMISTRY METHOD 02/27/2025 2:49 PM [facility] eGFR 67 >=60 mL/min/1. 73m2 LAB CHEMISTRY METHOD 02/27/2025 2:49 PM [facility] Comment:Calculation based on the Chronic Kidney Disease Epidemiology Collaboration (CKD-EPI) equation refit without adjustment for race. BUN/Creatinine Ratio 18.5 LAB CHEMISTRY METHOD 02/27/2025 2:49 PM [facility] Calcium 8.2(L) 8.5 - 10.5 mg/dL LAB CHEMISTRY METHOD 02/27/2025 2:49 PM [facility] AST (SGOT) 9(L) 10 - 42 unit/L LAB CHEMISTRY METHOD 02/27/2025 2:49 PM [facility] ALT (SGPT) 14 10 - 60 unit/L LAB CHEMISTRY METHOD 02/27/2025 2:49 PM [facility] Alkaline Phosphatase 58 42 - 121 unit/L LAB CHEMISTRY METHOD 02/27/2025 2:49 PM [facility] Total Protein 4.9(L) 6.0 - 8.0 g/dL LAB CHEMISTRY METHOD 02/27/2025 2:49 PM [facility] Albumin 2.7(L) 3.2 - 5.0 g/dL LAB CHEMISTRY METHOD 02/27/2025 2:49 PM [facility] Total Bilirubin 0.3 0.0 - 1.4 mg/dL LAB CHEMISTRY METHOD 02/27/2025 2:49 PM [facility] Blood Venous blood specimen / Unknown Venipuncture / Unknown 02/27/2025 1:57 PM EDT 02/27/2025 2:12 PM EDT Alexander Collins MD LAB BLOOD ORDERABLES Final Result [facility] [address] [place] [address], [place] [phone] * XR Chest 2 Views (02/27/2025 12:54 [...] Signed Date: 02/27/2025 13:22 ET Workstation ID: [id number] Transcribed By: Self Edit Transcribed Date: 02/27/2025 [...] Signed Date: 02/27/2025 13:22 ET Workstation ID: [id number] Transcribed By: Self Edit Transcribed Date: 02/27/2025 [...] Signed Date: 02/27/2025 12:44 ET Workstation ID: [id number] Transcribed By: Self Edit Transcribed Date: 02/27/2025 [...] Signed Date: 02/27/2025 12:44 ET Workstation ID: [id number] Transcribed By: Self Edit Transcribed Date: 02/27/2025 [...] Signed Date: 02/07/2025 09:29 ET Workstation ID: [id number] Transcribed By: Self Edit Transcribed Date: 02/07/2025 [...] Signed Date: 02/07/2025 09:29 ET Workstation ID: [id number] Transcribed By: Self Edit Transcribed Date: 02/07/2025 [...] Yazmin ALMARAZ LAB BLOOD ORDERABLES Final Result [facility] [address] [place] [address], [place] [phone] * Magnesium (01/30/2025 5:43 AM EDT) Only the most recent of6 resultswithin the time period is included. Magnesium 2.0 1.9 - 2.6 mg/dL LAB CHEMISTRY METHOD 01/30/2025 7:03 AM EDT [facility] Blood Venous blood specimen / Unknown Venipuncture / Unknown 01/30/2025 5:43 AM EDT 01/30/2025 6:19 AM EDT us Yazmin ALMARAZ LAB BLOOD ORDERABLES Final Result [facility] [address] [place] [address], * IR Insert Gastro Tube Perc w [...] as the tube itself. Specimen: None Tube: 16-Lithuanian gastrostomy Estimated blood loss: Minimal Consultations: None [...] over the wire through which we placed [id number] gastrostomy tube. The peel-away sheath was removed. [...] Signed Date: 01/28/2025 17:19 ET Workstation ID: [id number] Transcribed By: Self Edit Transcribed Date: 01/28/2025 [...] as the tube itself. Specimen: None Tube: 16-Lithuanian gastrostomy Estimated blood loss: Minimal Consultations: None [...] advanced over the wire through which weplaced [id number]-Vkwpek gastrostomy tube. The peel-away sheath was removed.5 [...] Signed Date: 01/28/2025 17:19 ET Workstation ID: [id number] Transcribed By: Self Edit Transcribed Date: 01/28/2025 17:16 ET Patricia ALMARAZ IMG IR PROCEDURES Final Result * (ABNORMAL) Basic metabolic panel (01/27/2025 6:03 AM EDT) Only the most recent of5 resultswithin the time period is included. Sodium 138 133 - 145 mmol/L LAB CHEMISTRY METHOD 01/27/2025 6:55 AM EDT [facility] Potassium 3.8 3.5 - 5.5 mmol/L LAB CHEMISTRY METHOD 01/27/2025 6:55 AM EDT [facility] Chloride 103 96 - 110 mmol/L LAB CHEMISTRY METHOD 01/27/2025 6:55 AM [facility] CO2 33(H) 21 - 32 mmol/L LAB CHEMISTRY METHOD 01/27/2025 6:55 AM [facility] Anion Gap 2(L) 3 - 11 LAB CHEMISTRY METHOD 01/27/2025 6:55 AM [facility] Glucose 122(H) 70 - 100 mg/dL LAB CHEMISTRY METHOD 01/27/2025 6:55 AM [facility] BUN 21 5 - 25 mg/dL LAB CHEMISTRY METHOD 01/27/2025 6:55 AM [facility] Creatinine 1.18 0.70 - 1.30 mg/dL LAB CHEMISTRY METHOD 01/27/2025 6:55 AM [facility] eGFR 68 >=60 mL/min/1. 73m2 LAB CHEMISTRY METHOD 01/27/2025 6:55 AM [facility] Comment:Calculation based on the Chronic Kidney Disease Epidemiology Collaboration (CKD-EPI) equation refit without adjustment for race. BUN/Creatinine Ratio 17.8 LAB CHEMISTRY METHOD 01/27/2025 6:55 AM [facility] Calcium 8.3(L) 8.5 - 10.5 mg/dL LAB CHEMISTRY METHOD 01/27/2025 6:55 AM [facility] Blood Venous blood specimen / Unknown Venipuncture / Unknown 01/27/2025 6:03 AM EDT 01/27/2025 6:08 AM EDT us Rubén Majano MD LAB BLOOD ORDERABLES Final Result [facility] [address] [place] [address], * XR Chest 1 View (01/27/2025 2:35 [...] Signed Date: 01/27/2025 08:25 ET Workstation ID: [id number] Transcribed By: Self Edit Transcribed Date: 01/27/2025 [...] Signed Date: 01/27/2025 08:25 ET Workstation ID: [id number] Transcribed By: Self Edit Transcribed Date: 01/27/2025 [...] with Reflex (01/26/2025 10:40 PM EDT) Pathologist [facility] LACTIC ACID 1.2 0.4 - 2.0 mmol/L LAB CHEMISTRY METHOD 01/26/2025 11:15 PM EDT [facility] Blood Venous blood specimen / Unknown Venipuncture / Unknown 01/26/2025 10:40 PM EDT 01/26/2025 10:44 PM EDT us Shmuel Garber MD LAB BLOOD ORDERABLES Gabbie l Result [facility] [address] [place] [address], [place] [phone] * (ABNORMAL) Manual differential (01/26/2025 10:40 PM EDT) Only the most recent of2 resultswithin the time period is included. Pathologist [facility] Neutrophils % 77.0 % LAB HEMETOLOGY METHOD 01/26/2025 11:27 PM EDT [facility] Bands % 4.0 % LAB [facility] Lymphocytes % 10.0 % LAB HEMETOLOGY METHOD 01/26/2025 11:27 PM [facility] Monocytes % 9.0 % LAB HEMETOLOGY METHOD 01/26/2025 11:27 PM T [facility] Eosinophils % 1.0 % LAB HEMETOLOGY METHOD 01/26/2025 11:27 PM EDT [facility] Basophils % 0.0 % LAB HEMETOLOGY METHOD 01/26/2025 11:27 PM [facility] Neutrophils Absolute Manual [...] Present( A) Consistent with indices, Normal for [place] LAB HEMETOLOGY METHOD 01/26/2025 11:27 PM EDT [...] MD LAB BLOOD ORDERABLES Gabbie mckeon Result [facility] [address] [place] [address], * (ABNORMAL) Hemoglobin and hematocrit (01/22/2025 7:56 [...] Result [facility] [address] [place] [address], [place] [phone] * XR Abdomen 1 View (01/22/2025 9:35 [...] Signed Date: 01/22/2025 10:11 ET Workstation ID: [id number] Transcribed By: Self Edit Transcribed Date: 01/22/2025 [...] Signed Date: 01/22/2025 10:11 ET Workstation ID: [id number] Transcribed By: Self Edit Transcribed Date: 01/22/2025 10:10 ET Cheri ALMARAZ IMG XR PROCEDURES Final Resu lt * (ABNORMAL) Lipase (01/21/2025 5:50 AM EDT) Only the most recent of2 resultswithin the time period is included. [facility] Lipase 262(H) 13 - 75 unit/L LAB CHEMISTRY METHOD 01/21/2025 10:09 AM EDT [facility] Blood Venous blood specimen / Unknown Venipuncture / Unknown 01/21/2025 5:50 AM EDT 01/21/2025 6:20 AM EDT Ryan Otto MD LAB BLOOD ORDERABLES F inal Result [facility] [address] [place] [address], [place] [phone] * Triglycerides (01/20/2025 7:11 PM EDT) Triglycerides 74 0 - 150 mg/dL LAB CHEMISTRY METHOD 01/20/2025 10:28 PM EDT [facility] Blood Venous blood specimen / Unknown Venipuncture / Unknown 01/20/2025 7:11 PM EDT 01/20/2025 7:17 PM EDT us Rubén Majano MD LAB BLOOD ORDERABLES Final Result Performing Organization Address [place]/[facility]/ZIP Co de Phone Number [facility] [address] [place] [address], [place] [phone] * Lactate dehydrogenase (01/20/2025 7:11 PM EDT) [facility] LDH 207 120 - 246 unit/L LAB CHEMISTRY METHOD 01/20/2025 10:28 PM EDT [facility] Blood Venous blood specimen / Unknown Venipuncture / Unknown 01/20/2025 7:11 PM EDT 01/20/2025 7:17 PM EDT us Rubén Majano MD LAB BLOOD ORDERABLES Final Result Performing Organization Address [place]/[facility]/ZIP Co de Phone Number [facility] [address] [place] [address], [place] [phone] * Lactate (01/20/2025 7:11 PM EDT) Pathologist [facility] Lactate 1.2 0.4 - 2.0 mmol/L LAB CHEMISTRY METHOD 01/20/2025 7:54 PM EDT [facility] Blood Venous blood specimen / Unknown Venipuncture / Unknown 01/20/2025 7:11 PM EDT 01/20/2025 7:18 PM EDT us Sachin Murrieta MD LAB BLOOD ORDERABLES Fin al Result Performing Organization Address City/[facility]/ZIP Co de Phone Number [facility] [address] [place] [address], * (ABNORMAL) Lipid panel (02/11/2002) LDL/HDL Ratio [...] Documents on File Type Date Recorded Patient Corporate Attorney Expl anation Advance Directives and Living [...] on File Name Relationship Healthcare Agent [facility] p Communication Santi Moreira Health Care Agent Nelida Pimentel [facility] Health Care Agent Care Teams Retail Office Manager Relationship Specialty Start Date End Date Lobo Mills MD [address] [place] [address] [facility] - General 12/14/23
--- OUTSIDE RECORDS SUMMARY | 2025-04-21 18:04 | XMS_ITS | Clinical Summary ---
Author Organization [facility] Address [address] [facility] [address] [place] [address] Care Team Providers Care Spaghetti Machine Operator Name Role Phone Lobo Mills MD Primary Care Provider [phone] Allergies Active Allergy Reactions Criticality Noted Date [...] Documents on File Type Date Recorded Patient Horse Doctor Expl anation Health Care Proxy 06/07/2019 9:42 PM Conver jigar - External Healthcare Proxy ([facility]) DNR (Do Not Resuscitate)/DNI (Do Not Intubate) 06/07/2019 9:41 PM Conversion - DNR Ord er ([facility]) Health Care Proxy 05/27/2019 11:56 AM Conv ersion - External Healthcare Proxy ([facility]) * Full Code (Latest Code Status on File) Date Activated Date Inactivated Comments 08/10/2021 3:59 PM 08/12/2021 8:27 PM Care Teams Spaghetti Machine Operator Relationship Specialty Start Date End Date Lobo Mills MD [address] [place] [address] PCP - General 06/04/21
--- OUTSIDE RECORDS SUMMARY | 2025-04-21 18:05 | XMS_ITS | Encounter Summary ---
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 Name Role Phone Lobo Mills MD Primary Care Provider [phone] Encounter Details Date Type Department Care Team (Late st Contact Info) Description 10/24/2024 Lab Requisition [facility] - Main Lab [address] [facility] [place] [address] Rich Cintron PA [address] [phone] Calculus of kidney Social History [...] Complete blood count (10/24/2024 11:48 AM EDT) [facility] WBC 9.1 4.8 - 10.8 K/mcL LAB HEMETOLOGY METHOD 10/24/2024 3:24 PM EDT [facility] RBC 3.30(L) 4.50 - 5.50 M/mcL LAB HEMETOLOGY METHOD 10/24/2024 3:24 PM EDT [facility] Hemoglobin 10.3(L) 13.5 - 17.5 g/dL LAB HEMETOLOGY METHOD 10/24/2024 3:24 PM [facility] Hematocrit 31.2(L) 42.0 - 54.0 % LAB HEMETOLOGY METHOD [facility]24 [facility] MCV 96.0 79.0 - 98.0 FL LAB HEMETOLOGY METHOD [facility]24 [facility] MCH 31.7 27.0 - 32.0 pcg LAB HEMETOLOGY METHOD 10/24/2024 3:24 PM [facility] MCHC 33.0 32.0 - 37.0 g/dL LAB HEMETOLOGY METHOD 10/24/2024 3:24 PM [facility] RDW 15.8(H) 11.0 - 15.0 % LAB HEMETOLOGY METHOD 10/24/2024 3:24 PM EDT [facility] Platelets 464(H) 130 - 400 K/mcL LAB HEMETOLOGY METHOD [facility]24 [facility] MPV 10.6 7.0 - 11.0 FL LAB HEMETOLOGY METHOD 10/24/2024 3:24 PM [facility] NRBC 0.0 <1.0 [...] [facility] [address] [place] [address], documented in this encounter Visit Diagnoses Diagnosis Calculus of kidney documented in this encounter Care Teams Truck Loader Overhead Crane Relationship Specialty Start Date End Date Lobo Mills MD [address], [place] PCP - General 12/14/23 documented as of this encounter
== END 2025-04-21 14:47 | disposition home or self-care (01) ==
LOC: HO.HVNA 14:46
PROVIDERS: Visit Provider Internal Medicine Medical Oncology
DX: N17.9 Acute kidney failure, unspecified (principal); Z90.410 Acquired total absence of pancreas
CPT/HCPCS: 36415; 85025

== ENCOUNTER 2025-04-30 18:28 | Outpatient (REF) | payer MEDICARE, SELFPAY ==
--- OUTSIDE RECORDS SUMMARY | 2024-03-18 04:30 | XMS_ITS ---
Author Organization [facility] Address [address] [place] [address] Care Team Providers Care Bankruptcy Processor Name Role Phone Lobo Mills MD Primary Care Provider Unavaila Sriram Garcia Unavailable [phone] Allergies Allergen (clinical drug ingredient) Drug/Non Drug Allergy documented on EMR Reaction Allergy Type Onset Date Status ferrous sulfate Iron Unknown Drug Allergy A ctive cefepime Cefepime Unknown Drug Allergy Active Iodinated contrast media (substance) Iodinated Diagnostic Agents Unknown Drug Allergy Active REASON FOR VISIT ostomy f/u, EH Medications Medication SIG (Take, Route, Frequency, Duration) Notes Start Date End Date Status Baclofen 5 MG Tablet 1 tablet as needed Orally 4x/day; Duration: 30 day(s) Active Pantoprazole Sodium 20 MG Tablet Delayed Release 1 tablet Orally Once a day; Duration: 30 day(s) Active Aspir-Low 81 MG Tablet Delayed Release 1 tablet Orally Once a day; Duration: 30 day(s) Active oxyCODONE HCl 10 MG Tablet 1 tablet as needed Orally every 6 hrs Active Sodium Chloride 0.9 % Solution as directed Intravenous Active Multivitamin - Tablet 1 tablet Orally On ce a day; Duration: 30 day(s) Active Mucinex 600 MG Tablet Extended Release 12 Hour 2 tablets as needed Orally once daily For rectal mucus Active Bicalutamide 50 MG Tablet 1 tablet Orally Once a day; Duration: 30 day(s) Active Simethicone 80 MG Tablet 1 tablet after meals and at bedtime Orally Four times a day; Duration: 30 day(s) Active Ondansetron 4 MG Tablet Disintegrating 1 tablet on the tongue and allow to dissolve Orally every 8 hours as needed; Duration: 30 day(s) Active Loperamide HCl 2 MG Capsule 1 capsule as needed Orally Four times a day Active Diphenoxylate-Atropine 2.5-0.025 MG Tablet 1 tablet as needed Orally Four times a day Active Gabapentin 600 MG Tablet 2 tablet Orally three times a day; Duration: 30 day(s) Active Acetaminophen 500 MG Capsule 1 capsule as needed Orally every 6 hrs Active Encounters Encounter Location Date Provider Diagnosis [facility] [address] [place] [address] 03/18/2024 Sriram Shirley Plan Of Treatment Next Appt Details Provider Name:Sriram Shirley, 06/06/2025 11:00:00 AM, [address] [place] [address], [phone], Progress Notes * Richard FARIASOB:1955 (70 yo M)Acc No.[id number]:03/18/2024 Ostomy Follow-Up Visit Patient: Jose Delaney Provider: Raisa Shirley MD, MSc, CWSP :1955 A ge:69 Y S ex:Male Date:03/18/2024 Address:[address] [place], [place] [id number] Pcp:Lobo Mills MD Subjective: * Chief Complaints: * o stomy f/u, EH * Medical History: Babesiosis Right bundle branch block Postprocedural hypertension Hypertension Osteoarthritis of knee, unspecified laterality, unspecified osteoarthritis type Neuropathy Chronic obstructive pulmonary disease, unspecified Personal history of malignant neoplasm of prostate Malignant neoplasm of abdomen Encounter for attention to ileostomy Ileostomy status Personal history of other malignant neoplasm of large intestine Myalgia, other site Nephrolithiasis Obstructive and reflux uropathy, unspecified 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 Personal history of malignant neoplasm of other organs and systems Alcohol abuse, uncomplicated * Medications: T akingAcetaminophen 500 MG Capsule 1 capsule as needed Orally every 6 hrs Gabapentin 600 MG Tablet 2 tablet Orally three times a day Diphenoxylate-Atropine 2.5-0.025 MG Tablet 1 tablet as needed Orally Four times a day Loperamide HCl 2 MG Capsule 1 capsule as needed Orally Four times a day Ondansetron 4 MG Tablet Disintegrating 1 tablet on the tongue and allow to dissolve Orally every 8 hours as needed Simethicone 80 MG Tablet 1 tablet after meals and at bedtime Orally Four times a day Bicalutamide 50 MG Tablet 1 tablet Orally Once a day Mucinex 600 MG Tablet Extended Release 12 Hour 2 tablets as needed Orally once daily , Notes to Pharmacist: For rectal mucusMultivitamin - Tablet 1 tablet Orally Once a day Sodium Chloride 0.9 % Solution as directed Intravenous oxyCODONE HCl 10 MG Tablet 1 tablet as needed Orally every 6 hrs Aspir-Low 81 MG Tablet Delayed Release 1 tablet Orally Once a day Pantoprazole Sodium 20 MG Tablet Delayed Release 1 tablet Orally Once a day Baclofen 5 MG Tablet 1 tablet as needed Orally 4x/day Taking Acetaminophen 500 MG Capsule 1 capsule as needed Orally every 6 hrs Taking Gabapentin 600 MG Tablet 2 tablet Orally three times a day Taking Diphenoxylate-Atropine 2.5-0.025 MG Tablet 1 tablet as needed Orally Four times a day Taking Loperamide HCl 2 MG Capsule 1 capsule as needed Orally Four times a day Taking Ondansetron 4 MG Tablet Disintegrating 1 tablet on the tongue and allow to dissolve Orally every 8 hours as needed Taking Simethicone 80 MG Tablet 1 tablet after meals and at bedtime Orally Four times a day Taking Bicalutamide 50 MG Tablet 1 tablet Orally Once a day Taking Mucinex 600 MG Tablet Extended Release 12 Hour 2 tablets as needed Orally once daily , Notes to Pharmacist: For rectal mucusTaking Multivitamin - Tablet 1 tablet Orally Once a day Taking Sodium Chloride 0.9 % Solution as directed Intravenous Taking oxyCODONE HCl 10 MG Tablet 1 tablet as needed Orally every 6 hrs Taking Aspir-Low 81 MG Tablet Delayed Release 1 tablet Orally Once a day Taking Pantoprazole Sodium 20 MG Tablet Delayed Release 1 tablet Orally Once a day Taking Baclofen 5 MG Tablet 1 tablet as needed Orally 4x/day * Allergies: I ronCefepimeIodinated Diagnostic Agents Billing Information: * Procedure Codes: * Electronic signature of Zulema Shirley MD on 04/30/2025 at 06:33 PM EST Sign off status: Pending * Provider: Raisa Shirley MD, MSc, CWSP Date: 05/18/2023 Generated for Zoya melendez/Monika/Reva on: 06:33 PM EST
--- OUTSIDE RECORDS SUMMARY | 2025-02-28 05:00 | XMS_ITS ---
Author Organization [facility] Address [address] [address] Care Team Providers Care Unpaid Intern Name Role Phone Lobo Mills MD Primary Care Provider Unavaila Sriram Garcia Unavailable [phone] REASON FOR VISIT 1 month f/u Encounters Encounter Location Date Provider Diagnosis [facility] [address] [place] [address] 02/28/2025 Sriram Shirley Plan Of Treatment Next Appt Details Provider Name:Sriram Fern, 06/06/2025 11:00:00 AM, [address] [place] [address], [phone], Progress Notes * Richard FARIASOB:1955 (70 yo M)Acc No.[id number]:02/28/2025 Ostomy Follow-Up Visit Patient: Coy rothmike Jose Provider: Raisa Shirley MD, MSc, CWSP :1955 A ge:69 Y S ex:Male Date:02/28/2025 Address: [id number] Pcp:Lobo Mills MD Subjective: * Chief Complaints: * 1 month f/u * Electronic signature of Zulema Shirley MD on 04/30/2025 at 06:32 PM EST Sign off status: Pending * Provider: Raisa Shirley MD, MSc, CWSP Date: Generated for Printi ng/Faxing/eTransmitting on: 1 06:32 PM EST
--- OUTSIDE RECORDS SUMMARY | 2025-04-24 23:59 | XMS_ITS | Continuity of Care Document ---
Author Organization [facility] Address [address] [place] [id number]- Care Team Providers Care Motor Racer Name Role Phone Gene ROSAS, Lobo Medina Primary Care Physician Encounter [facility] Date(s): 03/25/25 - 04/24/[address] [address] Encounter Type: Triage Allergies, Adverse Reactions, Alerts Substance Criticality Severity Reaction Reaction Severity Status cefepime 1, 2 Macular rash Act mayra Zosyn Unable to assess criticality Persistent Moderate rigors, rash, spasms Active Contrast Dye Active 1Tolerates piperacillin-tazobactam 2macular rash Immunizations Given and Recorded Vaccine Date Status Refusal Reason SARS-CoV-2(COVID-19)mRNA-LNP vac([id number]) 03/12/24 Recorded influenza virus vaccine, inactivated 02/05/24 [...] virus vaccine, inactivated 4 02/11/10 Gi gena [id number] 12y+ bivalent booster vax 03/15/22 Given SARS-CoV-2 mRNA (ixfenbe-nccp-apkzj) vax 5 09/23/21 Given zoster vaccine, inactivated [...] 2 Refills, Maintenance, 02/05/24 10:19:00 AMEDT, Tablet, [facility] #[id number], Partial fill upon patient request if the [...] 1 Refills, Maintenance, 03/19/25 2:40:00 PMEST, Tablet, [facility] #[id number], Partial fill upon patient request if the [...] 9:58:00 PM EST, Route to Pharmacy Electronically, [facility] #[id number], 163, cm, 02/27/25 10:45:00 EDT, Height, 56.6, [...] Refills, Soft Stop, 02/10/25 2:08:00 PM EDT, [facility] #[id number], Partial fill upon patient request if the [...] Refills, Maintenance, 02/13/25 5:48:00 PM EDT, Tablet, [facility] #[id number], Partial fill upon patient request if the [...] PM EST, 04/17/25 6:05:00 PM EST, Tablet, [facility] #[id number], Partial fill upon patient request, 04/17/25, 163, [...] 04/22/25 7:10:00 PM EST, Route to PharmacyElectronically, [facility] #[id number], Partial fill upon patient request if the [...] 04/02/25 3:15:00 PM EST, Route toPharmacy Electronically, [facility] #[id number], 163, cm, 02/27/25 10:45:00 EDT, Height, 56.6,kg, [...] grade, being observed by Dr. Astorga at [facility] 4followed by PM&R Social [...] Team Personnel Name: Anny Clarke RN Position: [facility] RN Member Role: Primary Care Nurse Name: Jossy Lloyd Position: [facility] Onco RN Member Role: Primary Care Nurse Name: Domingo Peck RN Position: [facility] RN Member Role: Primary Care Nurse Name: Megan Mansfield RN Position: [facility] AMB Nurse Member Role: Primary Care Nurse Name: Lobo Mills MD Position: [facility] Physician - Primary Care Member Role: PCP Address: [address] [place] [address]- Telecom: Name: Nicole Mixon RN Position: [facility] RN Member Role: Primary Care Nurse Name: Stacey Hebert RN Position: [facility] ED RN W/OE and Tasks Member Role: Primary Care Nurse Name: Neetu Alcazar RN Position: [facility] RN Member Role: Primary Care Nurse Name: Nery Lee RN Position: [facility] RN Member Role: Primary Care Nurse Name: Di Lou RN Position: [facility] RN Member Role: Primary Care Nurse Name: Kristina Phelps RN Position: [facility] RN Member Role: Primary Care Nurse Name: Adia Aguila RN Position: [facility] Outreach Member Role: Primary Care Nurse Name: Magali Mattson RN Position: [facility] RN Member Role: Primary Care Nurse Name: Teresita Caldera RN Position: [facility] RN Member Role: Primary Care Nurse Name: Rashmi Saavedra RN Position: [facility] RN Member Role: Primary Care Nurse Name: Obinna London MD Position: [facility] Physician - General Surgery Member Role: Lifetime Consulting Physician Name: Jossy Arias RN Position: [facility] RN Member Role: Primary Care Nurse Name: Aida Villeda RN Position: [facility] SN RN Member Role: Primary Care Nurse Name: Sweta Jacobson NP Position: [facility] Associate Professional Member Role: Primary Care Nurse Name: Florinda Nieto RN Position: [facility] RN Member Role: Primary Care Nurse Name: Marlyn Sahu RN Position: [facility] RN Member Role: Primary Care Nurse Name: Lupe Manzo RN Position: [facility] RN Member Role: Primary Care Nurse Name: Lima Tao LPN Position: [facility] RN Member Role: Primary Care Nurse Name: Yazmin Martell RN Position: [facility] Onco RN Member Role: Primary Care Nurse Name: Jamaal Singh RN Position: [facility] RN Member Role: Primary Care Nurse Name: Briseida Pardo RN Position: [facility] RN Member Role: Primary Care Nurse Name: Domingo Herndon RN Position: [facility] RN Member Role: Primary Care Nurse Name: Florinda José RN Position: [facility] RN Member Role: Primary Care Nurse Name: Jorge A Mojica RN Position: [facility] RN Member Role: Primary Care Nurse Name: Celestine Huber RN Position: [facility] RN Suplori Member Role: Primary Care Nurse Name: Leonie Waite RN Position: [facility] Hospital Weight Control Engineer Member Role: Primary Care Nurse Name: Loki Giles Jr, RN Position: [facility] RN Member Role: Primary Care Nurse Name: Helga Acevedo RN Position: [facility] RN Member Role: Primary Care Nurse Name: Liat Mcallister RN Position: [facility] RN Member Role: Primary Care Nurse Name: Pema Barry RN Position: [facility] OB RN Member Role: Primary Care Nurse Name: Renan Ham RN Position: [facility] RN Member Role: Primary Care Nurse Name: Raquel Patel RN Position: [facility] RN Member Role: Primary Care Nurse Name: Herve Padron RN Position: [facility] RN Member Role: Primary Care Nurse Name: Kun Jiménez RN Position: [facility] SN RN Member Role: Primary Care Nurse Name: Dilcia Nieves NP Position: [facility] Associate Professional Member Role: Primary Care Nurse Address: [address] [place] [address]- [place] Telecom: Name: Timmy Guallpa RN Position: [facility] RN Member Role: Primary Care Nurse Name: Christopher Bravo RN Position: [facility] ED RN W/OE and Tasks Member Role: Primary Care Nurse Name: Jessi Sneed RN Position: [facility] RN Member Role: Primary Care Nurse Name: Bijal Mcgee RN Position: [facility] RN Member Role: Primary Care Nurse Name: Lobo Mcgee RN Position: [facility] RN Member Role: Primary Care Nurse Name: Shellie Mullins RN Position: [facility] RN Member Role: Primary Care Nurse Name: Helga Georges RN Position: [facility] Onco RN Member Role: Primary Care Nurse Name: Svetlana Arguello RN Position: [facility] RN Member Role: Primary Care Nurse Name: Nel Magallanes RN Position: [facility] Onco RN Member Role: Primary Care Nurse Name: Malorie Adrian RN Position: [facility] RN Member Role: Primary Care Nurse Name: Bimal Singh RN Position: [facility] RN Member Role: Primary Care Nurse Name: Arlene Ramirez RN Position: [facility] RN Member Role: Primary Care Nurse Name: Annalee Wakefield NP Position: [facility] PCO Associate Professional Member Role: Primary Care Nurse Address: [address] [place] [address], [address] [place] [address]- [place] Telecom: Name: Romario Camara RN Position: [facility] RN Member Role: Primary Care Nurse Name: Adela Real RN Position: S RN Member Role: Primary Care Nurse Name: Enrike Stein RN Position: S RN Member Role: Primary Care Nurse Name: Phoebe Hanna NP Position: Reference Physician Member Role: Primary Care Nurse Address: [address] [facility] [address] [place] [address]- Telecom: Name: Alvina Kenney RN Position: [facility] RN Member Role: Primary Care Nurse Name: Emanuel Pereira MD Position: [facility] Outreach Member Role: Lifetime Consulting Physician Address: [address] [facility], [place] [address]- Telecom: Name: Robert Pendleton MD Position: [facility] Renal MD Member Role: Lifetime Consulting Physician Address: [address] [facility] [address] [facility] [place] [address]- Telecom: Name: Sharon Wilson RN Position: [facility] RN Member Role: Primary Care Nurse Name: Benedict Lockwood RN Position: [facility] Onco RN Member Role: Primary Care Nurse Name: Hailey Elizondo RN Position: [facility] Onco RN Member Role: Primary Care Nurse Name: Pema Banks RN Position: [facility] RN Member Role: Primary Care Nurse Name: Sonal Myles RN Position: [facility] RN Member Role: Primary Care Nurse Name: Magdy Patel RN Position: [facility] SN RN Member Role: Primary Care Nurse Name: Hailey Lima RN Position: [facility] RN Member Role: Primary Care Nurse Name: Denice De La Cruz RN Position: [facility] RN Member Role: Primary Care Nurse Name: Catherine Mcfarlane RN Position: [facility] Onco RN Member Role: Primary Care Nurse Name: Lamont De Leon RN Position: [facility] RN Suplori Member Role: Primary Care Nurse Name: Caitlyn Clarke RN Position: [facility] RN Member Role: Primary Care Nurse Name: Vickie Weldon RN Position: [facility] RN Member Role: Primary Care Nurse Name: Onur Brown RN Position: [facility] RN Member Role: Primary Care Nurse Name: Jocelynn Paniagua RN Position: [facility] RN Member Role: Primary Care Nurse Name: Luanne Pace RN Position: [facility] RN Member Role: Primary Care Nurse Name: Jeffrey Whelan RN Position: [facility] RN Member Role: Primary Care Nurse Name: Alexander Garcia MD Position: [facility] Renal MD Member Role: Lifetime Consulting Physician Address: [address] [facility] [address] [facility] [address] Telecom: Name: Pema Persaud RN Position: [facility] RN Member Role: Primary Care Nurse Name: Aga Story RN Position: [facility] RN Member Role: Primary Care Nurse Name: Vickie Kumari RN Position: [facility] OB RN Member Role: Primary Care Nurse Name: Hansa Alfonso RN Position: [facility] RN Member Role: Primary Care Nurse Name: Naima Brady RN Position: [facility] RN Member Role: Primary Care Nurse Name: Ovidio Barker RN Position: [facility] ED RN W/OE and Tasks Member Role: Primary Care Nurse Name: Denice Garcia RN Position: [facility] RN Member Role: Primary Care Nurse Name: Jeison Avendaño RN Position: [facility] RN Member Role: Primary Care Nurse Name: Antonietta Payne RN Position: [facility] RN Member Role: Primary Care Nurse Name: Liat Corrales LPN Position: [facility] RN Member Role: Primary Care Nurse Name: Cheri Hernandez RN Position: [facility] RN Member Role: Primary Care Nurse Name: Neetu Patel RN Position: [facility] RN Member Role: Primary Care Nurse Name: Gino Constantino RN Position: [facility] RN Member Role: Primary Care Nurse Name: Genoveva Martin RN, I Position: [facility] RN Member Role: Primary Care Nurse Care Team Related Persons Name: CALVIN THACKER Name: ISSA CARRERA Insurance Providers Guarantor name: DAWNA SARAWesly Health Plan Information #: 1 Payer: MEDICARE B Payer Identifier: GRIFFIN Member Number: [id number] Group Number: NA Subscriber Identifier: NA Relationship to Subscriber: self Coverage Type: NA Coverage Verification Date: NA Telecom: NA Address: NA Health Plan Information #: 2 Payer: [employer] Payer Identifier: GRIFFIN Member Number: [id number] Group Number: [id number] Subscriber Identifier: GRIFFIN Relationship to Subscriber: self Coverage Type: MEDICAID Coverage Verification Date: GRIFFIN Telecom: RGIFFIN Address: NA
--- OUTSIDE RECORDS SUMMARY | 2025-04-26 15:27 | XMS_ITS | Encounter Summary ---
Author Organization [facility] Address [address] [place] [address] Care Team Providers Care Flag Signaler Name Role Phone Lobo Mills MD Primary Care Provider [phone] Reason for Referral * Home Health (Routine) - Closed Specialty Diagnoses / Procedures Referred By Louise mujica Referred To Contact Home Health Services Diagnoses Dislodged gastrostomy tube Flores Squires PA [address] [place] [address] Phone: tel: fax: [facility] Nurse [facility] [address] [place] [phone] Phone: tel: fax: Referral ID Status Reason Start Date Expiration Date V isits Requested Visits Authorized [id number] Closed Consult and Treat 04/28/2025 04/28/2026 1 1 Reason for Visit * Reason Comments G-tube issue * Auth/Cert (Routine) Specialty Diagnoses / Procedures Referred By Louise mujica Referred To Contact Diagnoses Dislodged gastrostomy tube Procedures / Bill Dumont MD [address] [place] [address] Phone: tel: fax: [facility] [address] [place] [address] Phone: tel: Referral ID Status Reason Start Date Expiration Date Visits Re quested Visits Authorized [id number] 1 1 Encounter Details Date Type Department Care Team (Latest Contact Info) Description 04/26/2025 3:27 PM EST - 04/28/2025 4:17 PM EST Hospital Encounter [facility] [address] [place] [address] Darren Guan MD [address] [place] [address] Bill Dumont MD [address] [place] [address] Lupe Vanegas MD [address] [place] [address] [place] [address] [place], [place] [id number] Juan Carlos Colindres MD [address] [place] [address] Dislodged gastrostomy tube (Primary Dx) Discharge Disposition: Home-Health Care Svc Social History Tobacco Use Types Packs/Day Years Used Date Smoking Tobacco: Never Smokeless Tobacco: Never Alcohol Use Standard Drinks/Week Comments Not Currently 0 (1 standard drink = 0.6 oz pur e alcohol) Housing Instability Answer Date Recorde d Are you worried that in the next 2 months you may not have stable housing? No 04/26/2025 Food Access & Nutrition Answer Date Rec orded Do you have access to a vari ety of food including fruits and vegetables? Yes 04/26/2025 Health Literacy Answer Date Recorded How often do you need to hav e someone help you when you read instructions, pamphlets, or other written material from your doctor or pharmacy? Never 04/26/2025 Caregiver: How often do you need to have someone help you when you read instructions, pamphlets, or other written material from your doctor or pharmacy? Not on file 04/26/2025 Financial Risk Answer Date Recorded How hard is it for you to pa y for the very basics like food, housing, medical care, and air conditioning / heating? Not very hard 04/26/2025 Transportation Answer Date Recorded Has the lack of transportati on kept you from meetings, work, or from getting things needed for daily living? No Has the lack of transportati on kept you from medical appointments or from getting medications? No 04/26/2025 Social Isolation Answer Date Recorded How often do you feel lonely or isolated from th ose around you? Never 04/26/2025 Food Risk Answer Date Recorded Within the past 12 months we worried whether our food would run out before we got money to buy more. Never true 04/26/2025 Within the past 12 months th e food we bought just didn't last and we didn't have money to get more. Never true 04/26/2025 Dependent Care Answer Date Recorded Do you need help finding or paying for care for your loved ones. For example, child nutrition assistant or elderly care for an older adult? No 04/26/2025 Education Answer Date Recorded Do you think completing more education or training, like finishing a GED, going to college, or learning a trade, would be helpful for you? No 04/26/2025 Employment and Income Answer Date Recor ded During the last four weeks, have you been actively looking for work? No 04/26/2025 Living Situation Answer Date Recorded What is your living situation? Unrecognized valu e 04/26/2025 Interpersonal Safety Answer Date Record ed Physical Abuse Unrecognized value 04/26/2025 Verbal Abuse Unrecognized value 04/26/2025 Sex and Gender Information Value Date Recorded Sex Assigned at Male 02/07/2025 7:39 AM EDT Legal Sex Male 8:01 AM EST Gender Identity Male 02/07/2025 7:39 AM EDT Sexual Orientation Straight 02/07/2025 7: 39 AM EDT documented as of this encounter Last Filed Vital Signs Vital Sign Reading Time Taken Comments Blood Pressure 100/68 04/28/2025 12:33 PM EST Pulse 63 04/28/2025 12:33 PM EST Temperature 36.5 C (97.7 F) 04/28/2025 12:33 PM EST Respiratory Rate 16 04/28/2025 12:3 3 PM EST Oxygen Saturation 100% 04/28/2025 12: 33 PM EST Inhaled Oxygen Concentration - - Weight 57.1 kg (125 lb 12.8 oz) 025 10:29 PM EST Height 162.6 cm (5' 4 ) 04/26/2025 10:2 9 PM EST Body Mass Index 21.59 04/26/2025 10:29 PM EST documented in this encounter Functional Status * Are you deaf or do you have serious difficulty hearing? Answer Date of Assessment Author No 01/20/2025 10:27 PM Phoenix Arreola RN * Are you blind or do [...] 01/20/2025 10:27 PM Phoenix Arreola RN * Calculated C-SSRS Risk Score (Lifetime/Recent) Answer Date of Assessment Author No Risk Indicated 04/26/2025 10:11 PM EST Nelly Cisse RN * [place] Suicide Severity Rating Scale (Screener/Recent Self-Report) Question Answer Date of Assessment Author 1. Wish to be (Past 1 Month) No 025 10:11 PM Nelly Cuellar RN 2. Non-Specific Active Suici nimo Thoughts (Past 1 Month) No 04/26/2025 10:11 PM Tanvi Cuellar RN 6. Suicidal Behavior (Lifetime) No 10:11 PM EST Nelly Sutherland RN documented as of this encounter Mental Status * Because of a physical, mental, or emotional condition, do you have serious difficulty concentrating, remembering, or making decisions? (5 years old or older) Answer Entry Date Author No 01/20/2025 10:27 PM CHELET Phoenix Saunders RN documented in this encounter Medications at Time of Discharge acetaminophen (TYLENOL) 500 mg tablet Take 1 tablet (500 mg total) by mouth every 6 hours as needed for mild pain. gabapentin (NEURONTIN) 300 mg capsule Take 1 capsule (300 mg total) by mouth 4 (four) times a day. naloxone (NARCAN) 4 mg/0.1 mL nasal spray by Nasal route. ondansetron (ZOFRAN) 8 mg tablet Take 1 tablet (8 mg total) by mouth every 8 (eight) hours if needed for nausea. pantoprazole (PROTONIX) 40 mg EC tablet Take 1 tablet (40 mg total) by mouth 1 (one) time each day. simethicone (MYLICON,GAS-X) 180 mg capsule Take 1 capsule (180 mg total) by mouth every 6 (six) hours if needed for flatulence. tamsulosin (FLOMAX) 0.4 mg 24 hr capsule Take 1 capsule (0.4 mg total) by mouth 1 (one) time each day. documented as of this encounter Discharge Disposition Disposition Code Departure Means Destination Comment s Home-Health Care Svc documented in this encounter Progress Notes * Claudia Strong RN - 04/28/2025 2:02 PM EST Discharge reviewed. Port deaccessed. Pt home w services and calling for ride * Lara Bertrand RN - 04/28/2025 1:47 PM EST 04/28/25 1346 Transportation Transportation at discharge Family What day is the transport expected? 04/28/25 Final Discharge Disposition Home Health Care Services Pt d/c home with [facility], [facility] spoke with Emile, notified of d/c today. * Claudia Strong RN - 04/28/2025 9:19 AM EST Goals: Identify possible barriers to meeting goals/advancing plan of care: npo pending IR Stability of the patient: Moderately Stable - Low risk of patient condition declining or worsening End of Shift Summary: * Zoey Ordoñez RN - 04/28/2025 6:52 AM EST Problem: Nutritional: Body Nutrition Deficit Goal: Will consume the prescribed amount of daily calories Outcome: Progressing Goal: Achievement of adequate weight for body size and type will improve Outcome: Progressing Goals: Identify possible barriers to meeting goals/advancing plan of care: IR gtube placement. Stability of the patient: Moderately Stable - Low risk of patient condition declining or worsening End of Shift Summary: VSS, PRN pain given at needed. NPO for Gtube placement. * Liat Smith RN - 04/27/2025 2:11 PM EST 04/27/25 1410 Initial Transition Plan Initial Transition Plan Home Health Care ([facility] and [facility]) Discharge Planning Living Arrangements Friends (Lives with friend Santi) Type of Residence Private residence (split level house) Assistive Devices None Support Systems Friends Medication Coverage Has Med Coverage Under Insurance Plan Yes Medication Affordability No concerns related to payment for meds Informed Choice Informed Choice Given? Yes I met with patient with regards to discharge planning. Patient resides with his friend Santi. Patient states that Santi is supportive with care. Home is split level. Patient does not use any assistive devices to ambulate. Patient is active with [facility] for skilled care and [facility] for tube feed supplies. OZZIE 04/28 or 04/29 Barrier: dislodged Gtube, IR consult to replace Dispo home with friend Santi, active with [facility] and [facility] for tube feeds * eJssica Orantes RN - 04/27/2025 11:26 AM EST Goals: Problem: Nutritional: Body Nutrition Deficit Goal: Will consume the prescribed amount of daily calories Outcome: Progressing Problem: Cognitive: Meme Marin Fall Risk Goal: Last Known Fall Outcome: Progressing Problem: Bowel/Gastric: Nausea Goal: Occurrences of nausea will decrease Outcome: Progressing Identify possible barriers to meeting goals/advancing plan of care: none Stability of the patient: Moderately Stable - Low risk of patient condition declining or worsening End of Shift Summary: Patient VSS. All care and plans for hospital stay explained to patient. PA into see patient and explained plan. Care on going. * RUFINA Sigala - 04/27/2025 11:17 AM EST Images from the original note were not included. [facility] PROGRESS NOTE Date: 04/27/2025 Author: RUFINA Sigala Patient ID: Jose Hirsch is a 70 y.o. male : 1955 MR#: [id number] SUBJECTIVE Subjective Patient reporting his pain is well-controlled this morning. He is taking oral oxycodone. He reportslow output in the ileostomy because I have not eaten in 2 days . He denies dizziness, chest pain difficulty breathing. He reports he is able to get up out of bed and ambulate. He reports at home he does consume regular consistency foods and asked that his diet be adjusted. Radiology reports we do not have photogrammetric tech available for procedures today. Allergies Cefepime, Iodinated contrast media, Iron, and Piperacillin-tazobactam Current Medications: MEDSSCHEDULED[1] MEDSCONTINUOUS[2] MEDSPRN[3] OBJECTIVE Vitals: 04/26/25 2154 04/26/25 2229 04/27/25 0317 04/27/25 0808 BP: 117/77 108/66 116/56 BP Location: Right arm Right arm Right arm Patient Position: Sitting Sitting Sitting Pulse: 67 60 64 Resp: 16 15 16 Temp: 36.8 ??C (98.2 ??F) 36.8 ??C (98.2 ??F) 36.9 ??C (98.4 ??F) TempSrc: Oral Oral Temporal SpO2: 100% 99% 100% Weight: 57.1 kg (125 lb 12.8 oz) Height: 1.626 m (64 ) Physical Exam Constitutional: Appearance: He is cachectic. HENT: Head: Normocephalic and atraumatic. Mouth/Throat: Mouth: Mucous membranes are moist. Eyes: Extraocular Movements: Extraocular movements intact. Conjunctiva/sclera: Conjunctivae normal. Pupils: Pupils are equal, round, and reactive to light. Cardiovascular: Rate and Rhythm: Normal rate and regular rhythm. Pulmonary: Effort: Pulmonary effort is normal. Breath sounds: Normal breath sounds. No wheezing, rhonchi or rales. Comments: Right chest wall port intact Abdominal: General: Bowel sounds are normal. There is no distension. Palpations: Abdomen is soft. There is no mass. Tenderness: There is no abdominal tenderness. There is no rebound. Comments: Right lower quadrant ileostomy with small amount of yellow fecal matter no gas Musculoskeletal: General: Normal range of motion. Cervical back: Normal range of motion. Skin: General: Skin is warm. Neurological: General: No focal deficit present. Mental Status: He is alert and oriented to person, place, and time. Psychiatric: Mood and Affect: Mood normal. Behavior: Behavior normal. 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 1. Dislodged G-tube Placed by IR in January as a venting G-tube in the setting of recurrent SBO. Patient is able to consume a regular diet and has been eating and drinking small amounts since hospitalization. IR is unavailable to place the tube today. Awaiting response if patient can be placed on the schedule for tomorrow. Continue regular diet as tolerated by mouth today n.p.o. after midnight. 2. Cancer related pain/opioid dependence Continue home dosing of oxycodone both extended release and short acting. 3. BPH Continue tamsulosin 4. GERD Continue Protonix 5. JORGE/hypomagnesemia on CKD stage III Likely due to decreased oral intake, replaced via IV today. Continue to trend and continue low-flowIV fluids. Followed by Dr. Andres in the outpatient clinic. 6. Anemia of chronic disease Asymptomatic. 7. 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 Virgen at [facility] last seen 12/13/2024. Treatment as below 1. Cytoreductive surgery with ileocecectomy, omentectomy and partial colectomy in 06/2007 followed by HIPEC by Dr. Lagos at [facility]. 2. FOLFOX and Avastin because of progressive disease in 06/2018. Treatment discontinued because of several complications. 3. Another cytoreductive surgery by Dr. Lagos on 05/27/2019. Bilateral nephrostomy tubes removed on 08/16/2019. Currently, presenting with slowly progressive disease, complicated by intermittent partial small bowel obstructions and also gastric outlet obstruction. 4. Systemic palliative chemotherapy on short-term infusional 5-FU and bevacizumab starting on March 20, 2024. Treatment discontinued at cycle 5-day 15 on July 24, 2024 because of intolerance. At his last visit it was discussed the patient is no longer a surgical candidate. He continues to be high risk for recurrent bowel and or gastric outlet obstructions. Plan was for him to receive IV fluids once a week in their clinic. Fluids are now given daily by [facility]. 5. In December patient evaluated by Dr. Ca for palliative care. Patient requesting second opinion from [facility] is unclear at this visit occurred and the outcome. DAILY CARE CHECKLIST Length of Stay: VTE Prophylaxis: Compression boots Resuscitation: No CPR/Do Not Intubate PCP: Lobo Mills MD Disposition/patient need hospital stay because : Awaiting G-tube replacement Health care proxy with phone number : Case discussed with Dr. Vanegas [1] gabapentin, 300 mg, oral, 4x daily influenza trivalent (6 mos and Up), 0.5 mL, intramuscular, During hospitalization magnesium sulfate, 2 g, intravenous, Once oxyCODONE, 20 mg, oral, Nightly pantoprazole, 40 mg, oral, Daily tamsulosin, 0.4 mg, oral, Daily [2] sodium chloride, 75 mL/hr, Last Rate: 75 mL/hr (04/27/2512) [3] PRN medications: HYDROmorphone, ondansetron (ZOFRAN-ODT) disintegrating tablet, oxyCODONE, simethicone Cosigned by Lupe Vanegas MD at 04/27/2025 12:05 PM EST Associated attestation - Lupe Vanegas MD - 04/27/2025 12:05 PM EST This is a split/shared visit with RUFINA Sigala. I personally performed the medical decision making (MDM) for the care of this patient on 04/27/2025s documented below Patient was seen and examined, clinical findings were independently confirmed, case was discussed in detail with RUFINA Degroot and agree with her assessment and plan as detailed in her note of the day of service.I have personally performed the medical decision making in its entirety Patient here with dislodged G-tube which will be replaced by IR on 04/28/2025. Continue with the rest of his management per the PA notes. Lupe Vanegas MD 04/27/2025 12:05 PM EST * Liana Robledo RN - 04/27/2025 1:13 AM EST Problem: Nutritional: Body Nutrition Deficit Goal: Will consume the prescribed amount of daily calories Outcome: Progressing Goal: Achievement of adequate weight for body size and type will improve Outcome: Progressing Problem: Sensory: Acute Pain Goal: Pain level will improve or be tolerable Outcome: Progressing Goal: Ability to develop a pain control plan will improve Outcome: Progressing Problem: Bowel/Gastric: Nausea Goal: Occurrences of nausea will decrease Outcome: Progressing Problem: Physical Regulation:Periop Procedure - Minor Goal: Ability to maintain clinical measurements within normal limits will improve Outcome: Progressing Goals: Identify possible barriers to meeting goals/advancing plan of care: Stability of the patient: Moderately Stable - Low risk of patient condition declining or worsening End of Shift Summary: Patient safety and comfort maintained. On IV fluids. Pain medicated prn and schedule. Ileostomy bag intact. G tube stoma site c/d/I dressing change. Independent in the room. * Raquel Mayers RN - 04/26/2025 9:05 PM EST ED RN HANDOFF (All Hartmann Below Must Be Completed) Reason/Diagnosis for Admission: dislodged gtube Type of Admission: [x] Medsurg, [] Telemetry Already in a Hospital Bed: [] Yes / [x] No Room Considerations/Precautions (ex: fever, diarrhea, or any infectious concerns): [] Yes / [x] No Resource Specialist Teacher: [] Yes / [x] No If YES, Cardiac Rhythm: [] NSR, [] SB, [] ST, [] A-FIB, [] A-Flutter, [] Pacemaker, [] 1st Degree HB, [] 2nd Degree HB, [] 3rd Degree HB Reason for Resource Specialist Teacher: O2 []Yes /[x]No If YES, how many Liters: VS: Visit Vitals BP 107/69 Pulse 68 Temp 36.9 ??C (98.4 ??F) (Oral) Resp 17 SpO2 97% Smoking Status Never Current Mental Status: A/O x [x]4, []3, []2, []1 IV Access: [x] Yes / [] No port Field IV present: [] Yes / [] No Hx of Violence: [] Yes / [] No / [] Unknown Current Ambulation Status: independent Fall Risk:[] Yes / [] No Yellow Bracelet Applied [] Yes / [] No Yellow Socks Applied [] Yes / [] No Patient Belongings inventoried and BL completed: [] Yes / [x] No Patient belongings stored in the security closet: [] Yes (If Yes please supply Security bag #): [x] No Patient Medications stored in Pharmacy: [] Yes (If Yes please supply Medication Security bag #): [x] No ED Summary of Care: Pt came in for dislodged gtube. Pt has port accessed. Medicated with 500ml bolus of NS. Medicated per MAR for pain. Hx of pancreatic CA. Plan for IR to replace gtube. * Noemy Constantino RN - 04/26/2025 3:27 PM EST Pt BIBA from home after pulling out G-tube this AM, pt reports it getting caught on brief. Per EMS,pt has g-tube d/t prostate and appendix cancer. A&Ox4, ambulatory. Denies any chest pain or SOB. documented in this encounter H&P Notes * RUFINA Rascon - 04/26/2025 9:14 PM EST Images from the original note were not included. [facility] HISTORY [facility] PHYSICAL Please contact author [RUFINA Rascon] via [employer]. 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 He was in bed yesterday, 04/25/2025, when the G-tube outlet got stuck on his pull-ups/depends, he rotated sideways to reach for his pain medication and the G-tube ultimately pulled out. He was unaware that he should presents for evaluation sooner. The emergency department team here has attempted to replace the G-tube which was unsuccessful, general surgery ultimately recommended IR be consulted for placement. He complains of ongoing abdominal pain. He used the G- tube to supplement feeds although he is able to tolerate soft/pur??ed foods by mouth per his report. The G-tube was also placed to help decompress in the setting of recurrent obstruction. On arrival, initial blood pressure was 95/62, heart rate of 79, respirations of 18 with an SpO2 of 96% on room air and a temperature of 37.1 ??C. He was given multiple rounds of analgesics, 0.2 mg ofIM Dilaudid twice, an IV was placed and he received 500 cc of normal saline, 0.5 mg of IV Dilaudid and 300 mg of oral gabapentin. Medicine has been requested for admission to consult IR for G-tube placement. Review of Symptoms Review of Systems Constitutional: Negative for chills and fever. Respiratory: Negative for shortness of breath. Cardiovascular: Negative for chest pain. Gastrointestinal: Positive for abdominal pain and nausea. Negative for constipation, diarrhea and vomiting. Genitourinary: Negative for frequency and urgency. Musculoskeletal: Negative for gait problem. Skin: Negative for rash. Neurological: Negative for syncope, weakness and headaches. Psychiatric/Behavioral: Negative for suicidal ideas. All other systems reviewed and are negative. Medical History Past Medical History Medical History[1] Past Surgical History Surgical History[2] Social History reports that he has never smoked. He has never used smokeless tobacco. He reports that he does not currently use alcohol. He reports that he does not use drugs. Family History family history includes Cancer in his father. Allergies is allergic to cefepime, iodinated contrast media, iron, and piperacillin-tazobactam. Home Medications Medications Ordered Prior to Encounter[3] Objective Vitals Visit Vitals BP 107/69 Pulse 70 Temp 36.9 ??C (98.4 ??F) (Oral) Resp 17 Temp (24hrs), Av ??C (98.6 ??F), Min:36.9 ??C (98.4 ??F), Max:37.1 ??C (98.8 ??F) There is no height or weight on file to calculate BMI. No results found for: PTWT , PTHT Physical Examination Physical Exam Vitals reviewed. Constitutional: General: He is not in acute distress. Appearance: He is not toxic-appearing. HENT: Head: Normocephalic and atraumatic. Eyes: Extraocular Movements: Extraocular movements intact. Pupils: Pupils are equal, round, and reactive to light. Cardiovascular: Rate and Rhythm: Normal rate and regular rhythm. Heart sounds: No murmur heard. No friction rub. No gallop. Pulmonary: Effort: Pulmonary effort is normal. No respiratory distress. Breath sounds: Normal breath sounds. Abdominal: General: There is no distension. Palpations: Abdomen is soft. Tenderness: There is abdominal tenderness. There is no guarding or rebound. Comments: G-tube insertion site seen in the left abdomen with no significant surrounding skin changes Musculoskeletal: General: Normal range of motion. Cervical back: Normal range of motion and neck supple. No rigidity. Skin: General: Skin is warm and dry. Findings: No rash. Neurological: Mental Status: He is alert and oriented to person, place, and time. ECG: Was ECG Performed? No EKG Performed. Sinus Rhythm? N/A. Signs of acute ischemia? N/A Further Interpretation: No EKG obtained at the time of admission LAB RESULTS (most recent) HEMATOLOGY Lab Results Component Value Date WBC 8.8 02/27/2025 HGB 7.9 (L) 02/27/2025 HCT 23.8 (L) 02/27/2025 MCV 95.2 02/27/2025 PLT 334 02/27/2025 CHEMISTRY Lab Results Component Value Date GLUCOSE 112 (H) 02/27/2025 NA 142 02/27/2025 K 4.1 02/27/2025 CO2 22 02/27/2025 CL 115 (H) 02/27/2025 BUN 22 02/27/2025 CREATININE 1.19 02/27/2025 EGFR 67 02/27/2025 CALCIUM 8.2 (L) 02/27/2025 MG 2.0 01/30/2025 PHOS 2.9 01/30/2025 ANIONGAP 5 02/27/2025 Radiology No orders to display Assessment & Plan Dislodged G-Tube Abdominal Pain Jose is presenting to the hospital for evaluation of dislodged G-tube This was initially placed in the start of January by IR as a venting G-tube in the setting of recurrent bowel obstruction Also been used to supplement feeds as needed, he reports eating soft/pur??ed foods by mouth typically He was scheduled to have the G-tube replaced in May originally This was attempted to be replaced in the emergency department unsuccessfully It is also been recommended that IR be consulted for placement Will order for soft/bite-size diet Will consult IR Appreciate input and recommendations At the time of admission, no imaging or lab work has been obtained, will order baseline labs Opioid Dependence Longstanding history of opioid use secondary to cancer related pain Prescribed chronic extended release 20ng oxycodone nightly as well as immediate release 10mg oxycodone 6 times daily as needed Will continue at home opioid regiment He will have additional IV hydromorphone for breakthrough pain while in hospital BPH Continue tamsulosin 0.4 mg daily GERD Continue pantoprazole 40 mg daily Case discussed with my attending Dr. Dumont. Admission Checklist [x] Code status: No CPR/Do Not Intubate [x] VTE Prophylaxis: Sequentials [x] Diet order on admission: Dietary Orders (From admission, onward) Start Ordered 04/26/252122 Adult diet [facility]; Modified Consistencies, Dysphagia and Liquid Diets; IDDSI Level 6 Soft & Bite Sized Diet effective now Question Answer Comment Location [facility] Diet Type (req) Modified Consistencies, Dysphagia and Liquid Diets Modified Consistencies, Dysphagia and Liquid Diets IDDSI Level 6 Soft & Bite Sized 04/26/252121 [x] Medication reconciliation Health Care proxy with phone number: Santi Moreira, [1] Past Medical History: Diagnosis Date 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 Current Outpatient Medications on File Prior to Encounter Medication Sig Dispense Refill acetaminophen (TYLENOL) 500 mg tablet Take 1 tablet (500 mg total) by mouth every 6 hours as neededfor mild pain. furosemide (LASIX) 20 mg tablet Take 1 tablet (20 mg total) by mouth 2 (two) times a day for 5 days. 10 each 0 gabapentin (NEURONTIN) 300 mg capsule Take 1 capsule (300 mg total) by mouth 4 (four) times a day. naloxone (NARCAN) 4 mg/0.1 mL nasal spray by Nasal route. ondansetron (ZOFRAN) 8 mg tablet Take 1 tablet (8 mg total) by mouth every 8 (eight) hours if needed for nausea. pantoprazole (PROTONIX) 40 mg EC tablet Take 1 tablet (40 mg total) by mouth 1 (one) time each day. simethicone (MYLICON,GAS-X) 180 mg capsule Take 1 capsule (180 mg total) by mouth every 6 (six) hours if needed for flatulence. tamsulosin (FLOMAX) 0.4 mg 24 hr capsule Take 1 capsule (0.4 mg total) by mouth 1 (one) time each day. Cosigned by Bill Dumont MD at 04/27/2025 5:59 AM EST documented in this encounter Consult Notes * Nils Styles MD - 04/28/2025 8:01 AM ESTAssociated Order(s): IP CONSULT TO INTERVENTIONAL RADIOLOGY Interventional Radiology Consult Note Reason for Consult: Jsoe Hirsch is being seen today for a consultative service at the request of internal medicine for our opinion or medical advice regarding replacement of a gastrostomy tube. History Of Present Illness Jose Hirsch is a 70 y.o. male presenting with appendiceal carcinoma and bowel obstruction. Needs dislodged gastrostomy tube replacement. Past Medical History He has a past medical history of Appendix carcinoma (CMS/HCC V24, CMS/HCC V28), Benign prostatic hyperplasia, Chronic kidney disease (CKD), stage III (moderate) (CMS/HCC V24, CMS/HCC V28), Prostate cancer (CMS/HCC V24, CMS/HCC V28), and Small bowel obstruction (CMS/HCC V24, CMS/HCC V28). Surgical History He has a past surgical history that includes Appendectomy; Cholecystectomy; Splenectomy, total; andOmentectomy. Family History family history includes Cancer in his father. Social History He reports that he has never smoked. He has never used smokeless tobacco. He reports that he does not currently use alcohol. He reports that he does not use drugs. Allergies Cefepime, Iodinated contrast media, Iron, and Piperacillin-tazobactam Medications Prescriptions Prior to Admission[1] Last Recorded Vitals Blood pressure 110/67, pulse 65, temperature 36.9 ??C (98.4 ??F), temperature source Oral, resp. rate 14, height 1.626 m (64 ), weight 57.1 kg (125 lb 12.8 oz), SpO2 100%. Relevant Results Dislodged gastrostomy tube. Assessment/Plan Principal Problem: Dislodged gastrostomy tube Will replace gastrostomy tube. [1] Medications Prior to Admission Medication Sig Dispense Refill Last Dose/Taking acetaminophen (TYLENOL) 500 mg tablet Take 1 tablet (500 mg total) by mouth every 6 hours as neededfor mild pain. Unknown furosemide (LASIX) 20 mg tablet Take 1 tablet (20 mg total) by mouth 2 (two) times a day for 5 days. 10 each 0 gabapentin (NEURONTIN) 300 mg capsule Take 1 capsule (300 mg total) by mouth 4 (four) times a day. Unknown naloxone (NARCAN) 4 mg/0.1 mL nasal spray by Nasal route. Unknown ondansetron (ZOFRAN) 8 mg tablet Take 1 tablet (8 mg total) by mouth every 8 (eight) hours if needed for nausea. Unknown pantoprazole (PROTONIX) 40 mg EC tablet Take 1 tablet (40 mg total) by mouth 1 (one) time each day.Unknown simethicone (MYLICON,GAS-X) 180 mg capsule Take 1 capsule (180 mg total) by mouth every 6 (six) hours if needed for flatulence. Unknown tamsulosin (FLOMAX) 0.4 mg 24 hr capsule Take 1 capsule (0.4 mg total) by mouth 1 (one) time each day. Unknown * Hansa Linares RD - 04/27/2025 5:29 PM ESTAssociated Order(s): IP CONSULT TO NUTRITION SERVICES 04/27/2025 @ 5:29 PM EST Nutrition Consult Note/Nutrition Assessment Reason for RD Intervention: Assessment Type: Provider Consult Reason for Assessment: TPN, High MST Score (supplement) Anthropometrics: Height: 162.6 cm (64 ) Weight: 57.1 kg (125 lb 12.8 oz) BMI (Calculated): 21.6 BMI Class: Normal IBW (lbs): 130 Recent Weight Change: Yes Other (Comment): 5% loss over 2 months Current Diet and Supplements: Dietary Orders (From admission, onward) Start Ordered 04/28/25 0001 Adult NPO diet Location: [facility]; Diet: NPO- Except for Medications Diet effective midnight Question Answer Comment Location [facility] Diet NPO- Except for Medications 04/27/25 1114 04/27/25 1120 Adult diet [facility]; General, Bariatric/GI Options; Regular; GI Soft/Low Fiber Diet effective now Question Answer Comment Location [facility] Diet Type (req) General Diet Type (req) Bariatric/GI Options General Diet Regular Bariatric/GI Options GI Soft/Low Fiber 04/27/25 1120 04/27/25 1103 Dietary nutrition supplements Three times daily (TID); [facility]; Standard Oral Supplement Continuous Comments: chocolate Question Answer Comment Frequency Three times daily (TID) Location [facility] Supplements Standard Oral Supplement 04/27/25 1102 History of presenting illness: Patient is a 70 y.o. male with a history of Medical History[1] Surgical History[2] admitted 04/26/2025 with Dislodged gastrostomy tube. Food/Nutrition History: Previous Diet / Nutrition Education / Counseling: Patient presents with dislodged G tube. Had been taking bolus feeds, 1-2 cartons of Isosource as wel as regular diet at home. PAtietn reports weight loss butnot a/be to quantify. REcorded weight history shows 5% loss over 2 moths, weights have been ranging from 120-132lbs. since 11/08/24. Patient is followed by oncology RD. Social Influencers of Health & Nutrition - Hunger Vital Signs: Within the past 12 months we worried whether our food would run out before we got money to buy more: Never true Within the past 12 months the food we bought just didn't last and we didn't have money to get more: Never true Who obtained answers? Hunger vital signs completed by other discipline. Assistance: No assistance needed at this time Weight History: Wt Readings from Last 10 Encounters: 04/26/25 57.1 kg (125 lb 12.8 oz) 02/27/25 59.9 kg (132 lb) 02/07/25 54.4 kg (120 lb) 01/26/25 56.7 kg (125 lb) 01/21/25 58 kg (127 lb 12.8 oz) 12/26/24 (!) 40.8 kg (90 lb) 11/08/24 59 kg (130 lb) 02/08/24 68 kg (150 lb) Subjective Assessment: Consult received for TPN. Patient presents with dislodged Gtube. Was tolerating bolus feeds of 1 carton Isosource BID with oral diet but still losing weight. Patient agreeable to adding supplements until G tube can be replaced. Nutrition-Related Lab Values: Results from last 7 days Lab Units 04/27/25 0909 04/26/25 2204 SODIUM mmol/L 142 138 POTASSIUM mmol/L 4.3 4.5 MAGNESIUM mg/dL 1.7* -- CHLORIDE mmol/L 107 105 CO2 mmol/L 25 25 BUN mg/dL 21 23 CREATININE mg/dL 1.48* 1.58* EGFR mL/min/1.73m2 51* 47* CALCIUM mg/dL 8.3* 8.3* BILIRUBIN TOTAL mg/dL -- 0.2 ALK PHOS unit/L -- 80 ALT unit/L -- <7* AST unit/L -- 10 GLUCOSE mg/dL 107* 89 WBC AUTO K/mcL 9.3 9.2 Lab Results Component Value Date LIPASE 262 (H) 01/21/2025 Medications: MEDSSCHEDULED[3] CONTINUOUS: MEDSCONTINUOUS[4] MEDSPRN[5] Energy Needs: kcal, gm protein, mL fluid per day. Total Energy Estimated Needs: 9790-6357 kcal(30-35 kcal/kg) 68-85 g protein (1.2-1.5 g/kg) 6712-9523 ml(30-35 ml/kg) Height: 162.6 cm (64 ) Temp: 36.6 ??C (97.9 ??F) Food/Nutrition-Current Status: Intake Type: P.O. Appetite: Fair Intake Amount (%): Unable to Assess Intake Assessment: Inadequate Main IVF: None Propofol?: No Nutrition Focused Physical Findings: Overall Appearance: Patient appears thin, lying in bed. Digestive System (Mouth to Rectum): Appetite change, Other (Comment) (G tube displaced) Skin: colostomy, port, G tube Loss of Fat Location: Orbital, Triceps Loss of Fat Amt-Orbital: Moderate Loss of Fat Amt-Triceps: Moderate Loss of Muscle Location: Temples, Clavicle, Shoulders, Calf Loss of Muscle Amt-Temples: Moderate Loss of Muscle Amt-Clavicle: Moderate Loss of Muscle Amt-Shoulders: Moderate Loss of Muscle Amt-Calf: Moderate Nutrition Diagnosis: Code Type: Moderate-Chronic (E44.0) Moderate-Chronic Criteria: Mild Body Fat Depletion, Mild Muscle Mass Depletion Status: New Diagnosis: Inadequate Enteral Intake Etiology: Other (Comment) (displaced gtube) Symptoms: as evidenced by dislaced g tube Additional Nutrition Diagnosis?: Yes Status: New Diagnosis: Malnutrition Etiology: Increased demand for nutrient Symptoms: as evidenced by moderate muslce and fat depletion Nutrition Interventions: Collaboration and Referral of Nutrition Care Collaboration and Referral of Nutrition Care: Collaborate with Other Providers Discussed with provider patient not appropriate for TPN given functional GI tract and currently tolerating oral diet. Will add Ensure TID and continue PO diet until G tube can be replaced. Enteral Nutrition: Resume bolus feeds once G tube replaced. Consider Bolus feeds of 250 ml Jevity 1.2 TID with 60 ml water flush before and after each bolus. Adjust as needed with oral diet. Nutrition Education Education Materials Reviewed: Follow for need Goals: Patient will initially consume at least 50% of meals. , Patient will consume ONS., Electrolytes within normal range., Maintain weight., Stooling appropriately., and Patient to tolerate TF initiation/restart within 24-72 hours as medically indicated/appropriate Coordination of Patient Care: Care plan discussed with patient/family., Discussed with provider(s) via [employer] Secure Chat/Haiku. , and Malnutrition OPA sent to provider via [employer] Monitoring/Evaluation: Food Intake, Medical Food Supp/Oral Nutrition Supp, Weight, Renal/Electrolyte Profile Follow Up: Nutrition Priority Level: High Nutritional Discharge Recommendations: RD remains available and will continue to follow. Signature: Hansa Linares RD [1] Past Medical History: Diagnosis Date Appendix carcinoma (CMS/HCC V24, CMS/HCC V28) Benign prostatic hyperplasia Chronic kidney disease (CKD), stage III (moderate) (CMS/HCC V24, CMS/HCC V28) Prostate cancer (CMS/HCC V24, CMS/HCC V28) Small bowel obstruction (CMS/HCC V24, CMS/HCC V28) [2] Past Surgical History: Procedure Laterality Date APPENDECTOMY CHOLECYSTECTOMY OMENTECTOMY SPLENECTOMY, TOTAL [3] gabapentin, 300 mg, oral, 4x daily influenza trivalent (6 mos and Up), 0.5 mL, intramuscular, During hospitalization oxyCODONE, 20 mg, oral, Nightly pantoprazole, 40 mg, oral, Daily tamsulosin, 0.4 mg, oral, Daily [4] [5] PRN medications: HYDROmorphone, ondansetron (ZOFRAN-ODT) disintegrating tablet, oxyCODONE, simethicone documented in this encounter Miscellaneous Notes * ED Bed Hold Note - Stacey Baptiste RN - 04/26/2025 9:11 PM EST Bed: YW-21 Expected date: 04/26/25 Expected time: Means of arrival: Comments: HOLD FROM BOISE documented in this encounter Plan of Treatment Scheduled Referrals Name Type Priority Associated Diagnoses Order Schedule Ambulatory referral to Home Health Outpatient Referral Routine Dislodged gastrostomy tube 1 Occurrences starting 04/28/2025 until 04/28/2026 documented as of this encounter Procedures Procedure Name Priority Date/Time Associated Diagnosis Comments IR REPLACE G-TUBE PERC W FLUORO Routine 04/28/2025 11:50 AM EST MAGNESIUM Timed 04/28/2025 5:56 AM EST BASIC METABOLIC PANEL Routine 04/28/2025 5:56 AM EST CBC WITH AUTO DIFFERENTIAL Routine 04/28/2025 5:55 AM EST CBC AND DIFFERENTIAL Routine 04/28/2025 5:55 AM EST CBC WITH AUTO DIFFERENTIAL STAT 04/27/2025 9:09 AM EST CBC AND DIFFERENTIAL STAT 04/27/2025 9:09 AM EST MAGNESIUM STAT 04/27/2025 9:09 AM EST BASIC METABOLIC PANEL STAT 04/27/2025 9:09 AM EST EXTRA TUBES Routine 04/26/2025 10:04 PM EST CBC WITH AUTO DIFFERENTIAL Routine 04/26/2025 10:04 PM EST LT BLUE - NA CITRATE Routine 04/26/2025 10:04 PM EST CBC AND DIFFERENTIAL Routine 04/26/2025 10:04 PM EST COMPREHENSIVE METABOLIC PANEL Routine 04/26/2025 10:04 PM EST documented in this encounter Results * IR Replace G-Tube Perc w Fluoro (04/28/2025 11:50 AM EST) Anatomical Region Laterality Modality N/A Interventional R adiology 04/28/2025 3:20 PM EST Impressions 04/28/2025 3:24 PM EST Gastrostomy tube replacement under fluoroscopy. -------- FINAL REPORT -------- Dictated By: Vince Gonzalez Dictated Date: 04/28/2025 15:20 ET Assigned Physician: Vince Gonzalez Reviewed and Electronically Signed By: Vince Gonzalez Signed Date: 04/28/2025 15:24 ET Workstation ID: [id number] Transcribed By: Self Edit Transcribed Date: 04/28/2025 15:20 ET Narrative 04/28/2025 3:24 PM EST INDICATION: Accidental removal of gastrostomy tube PROCEDURE: Informed consent obtained for gastrostomy tube replacement under fluoroscopy Prior relevant studies: Images obtained during placement dated January 28, 2025 MEDICATIONS: Local anesthesia: 5 mL of lidocaine administered Sedation: Moderate intravenous sedation was initiated and maintained for 28 minutes while the patient was independently monitored by the radiology nurse under the supervision of the interventional radiologist. A total of 2 mg of Versed and 100 mcg of fentanyl administered during the procedure. TECHNIQUE: The gastrostomy tube site was prepped and draped sterilely. Timeout performed. 5 Portuguese dilator advanced into the ostomy site and water-soluble contrast injected with intraluminal opacification of gastric folds. Dilator removed over short Amplatz wire. Tract dilated up to 16 Portuguese. A 16 Portuguese gastric tube advanced over the wire into the gastric lumen. Retention balloon inflated with 5 mL of bacteriostatic water. Contrast injection confirms intraluminal location of tube. Please note that the tract measured up to 5 cm in length therefore a Amando button catheter cannot be placed at this time. An attempt will be made to order a catheter in this length. Total patient dose (air kerma): 8 mGy Procedure Note Vince Gonzalez MD - 04/28/2025 INDICATION: Accidental removal of gastrostomy tube PROCEDURE: Informed consent obtained for gastrostomy tube replacementunder fluoroscopy Prior relevant studies: Images obtained during placement dated 2024 MEDICATIONS: Local anesthesia: 5 mL of lidocaine administered Sedation: Moderate intravenous sedation was initiated and maintained for28 minutes while the patient was independently monitored by the radiologynurse under the supervision of the interventional radiologist. A total of2 mg of Versed and 100 mcg of fentanyl administered during the procedure. TECHNIQUE: The gastrostomy tube site was prepped and draped sterilely.Timeout performed. 5 Portuguese dilator advanced into the ostomy site and water-soluble contrastinjected with intraluminal opacification of gastric folds. Dilator removedover short Amplatz wire. Tract dilated up to 16 Portuguese. A 16 Frenchgastric tube advanced over the wire into the gastric lumen. Retentionballoon inflated with 5 mL of bacteriostatic water. Contrast injectionconfirms intraluminal location of tube. Please note that the tract measured up to 5 cm in length therefore aMickey button catheter cannot be placed at this time. An attempt will bemade to order a catheter in this length. Total patient dose (air kerma): 8 mGy IMPRESSION: Gastrostomy tube replacement under fluoroscopy. -------- FINAL REPORT -------- Dictated By: Vince Gonzalez Dictated Date: 04/28/2025 15:20 ET Assigned Physician: Vince Gonzalez Reviewed and Electronically Signed By: Vince Gonzalez Signed Date: 04/28/2025 15:24 ET Workstation ID: [id number] Transcribed By: Self Edit Transcribed Date: 04/28/2025 15:20 ET us Yazmin ALMARAZ IMG IR PROCEDURES Final Re sult * Magnesium (04/28/2025 5:56 AM EST) Magnesium 2.1 1.9 - 2.6 mg/dL 04/28/2025 6:54 AM EST [facility] Blood Venous blood specimen / Unknown Venipuncture / Unknown 04/28/2025 5:56 AM EST 04/28/2025 6:22 AM EST us Yazmin ALMARAZ LAB BLOOD ORDERABLES Final Result [facility]) H[facility] LAB [address] [place] [address], * (ABNORMAL) Basic metabolic panel (04/28/2025 5:56 AM EST) Sodium 140 133 - 145 mmol/L 04/28/2025 6:54 AM [facility] Potassium 4.8 3.5 - 5.5 mmol/L 04/28/2025 6:54 AM [facility] Chloride 107 96 - 110 mmol/L 04/28/2025 6:54 AM [facility] CO2 26 21 - 32 mmol/L 04/28/2025 6:54 AM [facility] Anion Gap 7 3 - 11 04/28/2025 6:54 AM [facility] Glucose 90 70 - 100 mg/dL 04/28/2025 6:54 AM [facility] BUN 22 5 - 25 mg/dL 04/28/2025 6:54 AM [facility] Creatinine 1.55(H) 0.70 - 1.30 mg/dL 04/28/2025 6:54 AM [facility] eGFR 48(L) >=60 mL/min/1. 73m2 04/28/2025 6:54 AM [facility] Comment:Calculation based on the Chronic Kidney Disease Epidemiology Collaboration (CKD-EPI) equation refit without adjustment for race. BUN/Creatinine Ratio 14.2 04/28/2025 6:54 AM [facility] Calcium 8.6 8.5 - 10.5 mg/dL 04/28/2025 6:54 AM [facility] Blood Venous blood specimen / Unknown Venipuncture / Unknown 04/28/2025 5:56 AM EST 04/28/2025 6:22 AM EST Yazmin ALMARAZ LAB BLOOD ORDERABLES Final Result [facility] [address] [place] [address], * (ABNORMAL) CBC auto differential (04/28/2025 5:55 AM EST) WBC 8.4 4.8 - 10.8 K/mcL LAB HEMETOLOGY METHOD 04/28/2025 6:32 AM EST [facility] RBC 2.70(L) 4.50 - 5.50 M/mcL LAB HEMETOLOGY METHOD 04/28/2025 6:32 AM [facility] Hemoglobin 8.5(L) 13.5 - 17.5 g/dL LAB HEMETOLOGY METHOD 04/28/2025 6:32 AM [facility] Hematocrit 25.5(L) 42.0 - 54.0 % LAB HEMETOLOGY METHOD 04/28/2025 6:32 AM [facility] MCV 93.8 79.0 - 98.0 FL LAB HEMETOLOGY METHOD 04/28/2025 6:32 AM [facility] MCH 31.3 27.0 - 32.0 pcg LAB HEMETOLOGY METHOD 04/28/2025 6:32 AM [facility] MCHC 33.3 32.0 - 37.0 g/dL LAB HEMETOLOGY METHOD 04/28/2025 6:32 AM [facility] RDW 14.3 11.0 - 15.0 % LAB HEMETOLOGY METHOD 04/28/2025 6:32 AM [facility] Platelets 414(H) 130 - 400 K/mcL LAB HEMETOLOGY METHOD 04/28/2025 6:32 AM [facility] MPV 9.5 7.0 - 11.0 FL LAB HEMETOLOGY METHOD 04/28/2025 6:32 AM [facility] NRBC 0.0 <1.0 % LAB HEMETOLOGY METHOD 04/28/2025 6:32 AM [facility] NRBC Absolute 0.00 <0.10 K/mcL LAB HEMETOLOGY METHOD 04/28/2025 6:32 AM [facility] Neutrophils Relative 45.8 % LAB HEMETOLOGY METHOD 04/28/2025 6:32 AM [facility] Lymphocytes Relative 33.5 % LAB HEMETOLOGY METHOD 04/28/2025 6:32 AM [facility] Monocytes Relative 15.2 % LAB HEMETOLOGY METHOD 04/28/2025 6:32 AM [facility] Eosinophils Relative 4.3 % LAB HEMETOLOGY METHOD 04/28/2025 6:32 AM [facility] Basophils Relative 1.0 % LAB HEMETOLOGY METHOD 04/28/2025 6:32 AM [facility] Immature Granulocytes Relative 0.2 % LAB HEMETOLOGY METHOD 04/28/2025 6:32 AM [facility] Neutrophils Absolute 3.84 1.50 - 7.00 K/mcL LAB HEMETOLOGY METHOD 04/28/2025 6:32 AM [facility] Lymphocytes Absolute 2.81 1.00 - 5.00 K/mcL LAB HEMETOLOGY METHOD 04/28/2025 6:32 AM [facility] Monocytes Absolute 1.27(H) 0.20 - 1.00 K/mcL LAB HEMETOLOGY METHOD 04/28/2025 6:32 AM [facility] Eosinophils Absolute 0.36 0.00 - 0.50 K/mcL LAB HEMETOLOGY METHOD 04/28/2025 6:32 AM [facility] Basophils Absolute 0.08 0.00 - 0.20 K/mcL LAB HEMETOLOGY METHOD 04/28/2025 6:32 AM [facility] Immature Granulocytes Absolute 0.02 0.00 - 0.03 K/mcL LAB HEMETOLOGY METHOD 04/28/2025 6:32 AM [facility] Blood Venous blood specimen / Unknown Venipuncture / Unknown 04/28/2025 5:55 AM EST 04/28/2025 6:24 AM EST Yazmin ALMARAZ LAB BLOOD ORDERABLES Final Result [facility] [address] [place] [address], * (ABNORMAL) CBC auto differential (04/27/2025 9:09 AM EST) WBC 9.3 4.8 - 10.8 K/mcL LAB HEMETOLOGY METHOD 04/27/2025 10:05 AM [facility] RBC 2.80(L) 4.50 - 5.50 M/mcL LAB HEMETOLOGY METHOD 04/27/2025 10:05 AM [facility] Hemoglobin 8.5(L) 13.5 - 17.5 g/dL LAB HEMETOLOGY METHOD 04/27/2025 10:05 AM [facility] Hematocrit 26.4(L) 42.0 - 54.0 % LAB HEMETOLOGY METHOD 04/27/2025 10:05 AM [facility] MCV 94.3 79.0 - 98.0 FL LAB HEMETOLOGY METHOD 04/27/2025 10:05 AM [facility] MCH 30.4 27.0 - 32.0 pcg LAB HEMETOLOGY METHOD 04/27/2025 10:05 AM [facility] MCHC 32.2 32.0 - 37.0 g/dL LAB HEMETOLOGY METHOD 04/27/2025 10:05 AM [facility] RDW 14.3 11.0 - 15.0 % LAB HEMETOLOGY METHOD 04/27/2025 10:05 AM [facility] [facility] Platelets 421(H) 130 - 400 K/mcL LAB HEMETOLOGY METHOD 04/27/2025 10:05 AM [facility] MPV 9.5 7.0 - 11.0 FL LAB HEMETOLOGY METHOD 04/27/2025 10:05 AM [facility] NRBC 0.0 <1.0 % LAB HEMETOLOGY METHOD 04/27/2025 10:05 AM [facility] NRBC Absolute 0.00 <0.10 K/mcL LAB HEMETOLOGY METHOD 04/27/2025 10:05 AM [facility] Neutrophils Relative 55.9 % LAB HEMETOLOGY METHOD 04/27/2025 10:05 AM [facility] Lymphocytes Relative 26.0 % LAB HEMETOLOGY METHOD 04/27/2025 10:05 AM [facility] Monocytes Relative 13.5 % LAB HEMETOLOGY METHOD 04/27/2025 10:05 AM [facility] Eosinophils Relative 3.6 % LAB HEMETOLOGY METHOD 04/27/2025 10:05 AM [facility] Basophils Relative 0.6 % LAB HEMETOLOGY METHOD 04/27/2025 10:05 AM [facility] Immature Granulocytes Relative 0.4 % LAB HEMETOLOGY METHOD 04/27/2025 10:05 AM [facility] Neutrophils Absolute 5.20 1.50 - 7.00 K/mcL LAB HEMETOLOGY METHOD 04/27/2025 10:05 AM [facility] Lymphocytes Absolute 2.42 1.00 - 5.00 K/mcL LAB HEMETOLOGY METHOD 04/27/2025 10:05 AM [facility] Monocytes Absolute 1.26(H) 0.20 - 1.00 K/mcL LAB HEMETOLOGY METHOD 04/27/2025 10:05 AM EST [facility] Eosinophils Absolute 0.34 0.00 - 0.50 K/[facility] LAB HEMETOLOGY METHOD 04/27/2025 10:05 AM EST [facility] Basophils Absolute 0.06 0.00 - 0.20 K/[facility] LAB HEMETOLOGY METHOD 04/27/2025 10:05 AM EST [facility] Immature Granulocytes Absolute 0.04(H) 0.00 - 0.03 K/[facility] LAB HEMETOLOGY METHOD 04/27/2025 10:05 AM EST [facility] Blood Venous blood specimen / Unknown Venipuncture / Unknown 04/27/2025 9:09 AM EST 04/27/2025 9:49 AM EST [facility] BLOOD ORDERABLES Final Result Performing Organization Address City/[facility]/ZIP Co de Phone Number [facility] [address] [place] [address], [place] [phone] * (ABNORMAL) Magnesium (04/27/2025 9:09 AM EST) Magnesium 1.7(L) 1.9 - 2.6 mg/dL 04/27/2025 10:11 AM EST [facility] Blood Venous blood specimen / Unknown Venipuncture / Unknown 04/27/2025 9:09 AM EST 04/27/2025 9:49 AM EST [facility] BLOOD ORDERABLES Final Result [facility] [address] [place] [address], [place] [phone] * (ABNORMAL) Basic metabolic panel (04/27/2025 9:09 AM EST) Sodium 142 133 - 145 mmol/L 04/27/2025 10:11 AM [facility] Potassium 4.3 3.5 - 5.5 mmol/L 04/27/2025 10:11 AM [facility] Chloride 107 96 - 110 mmol/L 04/27/2025 10:11 AM [facility] CO2 25 21 - 32 mmol/L 04/27/2025 10:11 AM [facility] Anion Gap 10 3 - 11 04/27/2025 10:11 AM [facility] Glucose 107(H) 70 - 100 mg/dL 04/27/2025 10:11 AM [facility] BUN 21 5 - 25 mg/dL 04/27/2025 10:11 AM [facility] Creatinine 1.48(H) 0.70 - 1.30 mg/dL 04/27/2025 10:11 AM [facility] eGFR 51(L) >=60 mL/min/1. 73m2 04/27/2025 10:11 AM [facility] Comment:Calculation based on the Chronic Kidney Disease Epidemiology Collaboration (CKD-EPI) equation refit without adjustment for race. BUN/Creatinine Ratio 14.2 04/27/2025 10:11 AM [facility] Calcium 8.3(L) 8.5 - 10.5 mg/dL 04/27/2025 10:11 AM [facility] Blood Venous blood specimen / Unknown Venipuncture / Unknown 04/27/2025 9:09 AM EST 04/27/2025 9:49 AM EST Yazmin ALMARAZ LAB BLOOD ORDERABLES Final Result [facility] [address] [place] [address], * Light blue tube (04/26/2025 10:04 PM EST) [facility] Extra Tube Hold for add-ons. 04/27/2025 12:01 AM [facility] Comment:Auto resulted. Blood Venous blood specimen / Unknown 04/26/2025 10:04 PM EST 04/26/2025 10:18 PM EST Bill Dumont MD LAB BLOOD ORDERABLES Final Resul t [facility] [address] [place] [address], * (ABNORMAL) Comprehensive metabolic panel (04/26/2025 10:04 PM EST) [facility] Sodium 138 133 - 145 mmol/L 04/26/2025 10:49 PM [facility] Potassium 4.5 3.5 - 5.5 mmol/L 04/26/2025 10:49 PM [facility] Chloride 105 96 - 110 mmol/L 04/26/2025 10:49 PM [facility] CO2 25 21 - 32 mmol/L 04/26/2025 10:49 PM [facility] Anion Gap 8 3 - 11 04/26/2025 10:49 PM [facility] Glucose 89 70 - 100 mg/dL 04/26/2025 10:49 PM [facility] BUN 23 5 - 25 mg/dL 04/26/2025 10:49 PM [facility] Creatinine 1.58(H) 0.70 - 1.30 mg/dL 04/26/2025 10:49 PM [facility] eGFR 47(L) >=60 mL/min/1. 73m2 04/26/2025 10:49 PM [facility] Comment:Calculation based on the Chronic Kidney Disease Epidemiology Collaboration (CKD-EPI) equation refit without adjustment for race. BUN/Creatinine Ratio 14.6 04/26/2025 10:49 PM [facility] Calcium 8.3(L) 8.5 - 10.5 mg/dL 04/26/2025 10:49 PM [facility] AST (SGOT) 10 10 - 42 unit/L 04/26/2025 10:49 PM [facility] ALT (SGPT) <7(L) 10 - 60 unit/L 04/26/2025 10:49 PM [facility] Alkaline Phosphatase 80 42 - 121 unit/L 04/26/2025 10:49 PM [facility] Total Protein 5.9(L) 6.0 - 8.0 g/dL 04/26/2025 10:49 PM [facility] Albumin 3.7 3.2 - 5.0 g/dL 04/26/2025 10:49 PM [facility] Total Bilirubin 0.2 0.0 - 1.4 mg/dL 04/26/2025 10:49 PM [facility] Blood Venous blood specimen / Unknown Venipuncture / Unknown 04/26/2025 10:04 PM EST 04/26/2025 10:18 PM EST us Rubén ALMARAZ LAB BLOOD ORDERABLES Gabbie l Result [facility] [address] [place] [address], * (ABNORMAL) CBC auto differential (04/26/2025 10:04 PM EST) WBC 9.2 4.8 - 10.8 K/mcL LAB HEMETOLOGY METHOD 04/26/2025 10:24 PM [facility] RBC 2.90(L) 4.50 - 5.50 M/mcL LAB HEMETOLOGY METHOD 04/26/2025 10:24 PM [facility] Hemoglobin 8.8(L) 13.5 - 17.5 g/dL LAB HEMETOLOGY METHOD 04/26/2025 10:24 PM [facility] Hematocrit 27.3(L) 42.0 - 54.0 % LAB HEMETOLOGY METHOD 04/26/2025 10:24 PM [facility] MCV 93.8 79.0 - 98.0 FL LAB HEMETOLOGY METHOD 04/26/2025 10:24 PM [facility] MCH 30.2 27.0 - 32.0 pcg LAB HEMETOLOGY METHOD 04/26/2025 10:24 PM [facility] MCHC 32.2 32.0 - 37.0 g/dL LAB HEMETOLOGY METHOD 04/26/2025 10:24 PM [facility] RDW 14.3 11.0 - 15.0 % LAB HEMETOLOGY METHOD 04/26/2025 10:24 PM [facility] Platelets 420(H) 130 - 400 K/mcL LAB HEMETOLOGY METHOD 04/26/2025 10:24 PM [facility] MPV 9.2 7.0 - 11.0 FL LAB HEMETOLOGY METHOD 04/26/2025 10:24 PM [facility] NRBC 0.0 <1.0 % LAB HEMETOLOGY METHOD 04/26/2025 10:24 PM [facility] NRBC Absolute 0.00 <0.10 K/mcL LAB HEMETOLOGY METHOD 04/26/2025 10:24 PM [facility] Neutrophils Relative 52.8 % LAB HEMETOLOGY METHOD 04/26/2025 10:24 PM [facility] Lymphocytes Relative 27.3 % LAB HEMETOLOGY METHOD 04/26/2025 10:24 PM [facility] Monocytes Relative 15.5 % LAB HEMETOLOGY METHOD 04/26/2025 10:24 PM EST [facility] Eosinophils Relative 3.3 % LAB HEMETOLOGY METHOD 04/26/2025 10:24 PM [facility] Basophils Relative 0.8 % LAB HEMETOLOGY METHOD 04/26/2025 10:24 PM [facility] Immature Granulocytes Relative 0.3 % LAB HEMETOLOGY METHOD 04/26/2025 10:24 PM [facility] Neutrophils Absolute 4.88 1.50 - 7.00 K/mcL LAB HEMETOLOGY METHOD 04/26/2025 10:24 PM [facility] Lymphocytes Absolute 2.52 1.00 - 5.00 K/mcL LAB HEMETOLOGY METHOD 04/26/2025 10:24 PM [facility] Monocytes Absolute 1.43(H) 0.20 - 1.00 K/mcL LAB HEMETOLOGY METHOD 04/26/2025 10:24 PM EST [facility] Eosinophils Absolute 0.30 0.00 - 0.50 K/mcL LAB HEMETOLOGY METHOD 04/26/2025 10:24 PM [facility] Basophils Absolute 0.07 0.00 - 0.20 K/mcL LAB HEMETOLOGY METHOD 04/26/2025 10:24 PM [facility] Immature Granulocytes Absolute 0.03 0.00 - 0.03 K/mcL LAB HEMETOLOGY METHOD 04/26/2025 10:24 PM [facility] Blood Venous blood specimen / Unknown Venipuncture / Unknown 04/26/2025 10:04 PM EST 04/26/2025 10:18 PM EST us Rubén ALMARAZ LAB BLOOD ORDERABLES Gabbie mike Result [facility] [address] [place] [address], documented in this encounter Visit Diagnoses Diagnosis Dislodged gastrostomy tube- Primary Dislodged gastrostomy tube documented in this encounter Admitting Diagnoses Diagnosis Dislodged gastrostomy tube documented in this encounter Administered Medications Inactive Administered Medications - up to 3 most recent administrations Medication Order MAR Action Action Date Dose Rate Site fentaNYL (PF) (SUBLIMAZE) injection intravenous, As needed, Starting on 04/28/25 at 1149, Intraprocedure Given 04/28/2025 12:08 PM EST 25 mcg Given 04/28/2025 12:06 PM EST 25 mcg Given 04/28/2025 11:59 AM EST 25 mcg gabapentin (NEURONTIN) capsule 300 mg 300 mg, oral, Once, On 04/26/25 at 2105, For 1 dose Given 04/26/2025 9:11 PM EST 300 mg gabapentin (NEURONTIN) capsule 300 mg 300 mg, oral, 4 times daily, First dose on 04/27/25 at 0900 Given 04/28/2025 12:43 PM EST 300 mg Given 04/28/2025 8:03 AM EST 300 mg Given 04/27/2025 8:35 PM EST 300 mg HYDROmorphone (DILAUDID) injection 0.2 mg 0.2 mg, intramuscular, Once, On 04/26/25 at 1607, For 1 dose Given 04/26/2025 4:15 PM EST 0.2 mg Right Deltoid HYDROmorphone (DILAUDID) injection 0.2 mg 0.2 mg, intramuscular, Once, On 04/26/25 at 1828, For 1 dose Given 04/26/2025 6:44 PM EST 0.2 mg Left Deltoid HYDROmorphone (DILAUDID) injection 0.5 mg 0.5 mg, intravenous, Once, On 04/26/25 at 2041, For 1 dose Given 04/26/2025 9:10 PM EST 0.5 mg HYDROmorphone (DILAUDID) injection 1 mg 1 mg, intravenous, Every 3 hours PRN, severe breakthrough pain, Starting on 04/26/25 at 2300 Given 04/27/2025 4:18 PM EST 1 mg Given 04/27/2025 11:58 AM EST 1 mg iopamidoL (ISOVUE-300) 300 mg iodine /mL (61 %) solution As needed, Starting on 04/28/25 at 1214, Intraprocedure Given 04/28/2025 12:14 PM EST 10 mL lidocaine with sodium bicarbonate 1 % injection As needed, Starting on 04/28/25 at 1213, Intraprocedure Given 04/28/2025 12:13 PM EST 5 mL magnesium sulfate 2 gram/50 mL (4 %) IVPB 2 g 2 g, intravenous, at 25 mL/hr, Administer over 2 Hours, Once, On 04/27/25 at 1145, For 1 dose New Bag 04/27/2025 11:48 AM EST 2 g 25 mL/hr midazolam (VERSED) injection intravenous, As needed, Starting on 04/28/25 at 1149, Intraprocedure Given 04/28/2025 12:06 PM EST 0.5 mg Given 04/28/2025 11:59 AM EST 0.5 mg Given 04/28/2025 11:49 AM EST 1 mg oxyCODONE (OxyCONTIN) 12 hr abuse-deterrent tablet 20 mg 20 mg, oral, Nightly, First dose on 04/26/25 at 2134, Do not crush, chew, or split. Given 04/27/2025 8:35 PM EST 20 mg Given 04/26/2025 10:19 PM EST 20 mg oxyCODONE (ROXICODONE) immediate release tablet 10 mg 10 mg, oral, Every 4 hours PRN, moderate pain, severe pain, Starting on 04/26/25 at 2202 Given 04/28/2025 8:0 4 AM EST 10 mg Given 04/28/2025 3:29 AM EST 10 mg Given 04/27/2025 11:04 PM EST 10 mg pantoprazole (PROTONIX) EC tablet 40 mg 40 mg, oral, Daily, First dose on 04/27/25 at 0900, Do not crush, chew, or split. Given 04/28/2025 8:03 AM EST 40 mg Given 04/27/2025 9:09 AM EST 40 mg sodium chloride 0.9 % bolus 500 mL 500 mL, intravenous, at 1,000 mL/hr, Administer over 30 Minutes, Once, On 04/26/25 at 2024, For 1 dose New Bag 04/26/2025 8:57 PM EST 500 mL 1000 mL/hr sodium chloride 0.9 % infusion 75 mL/hr, intravenous, Continuous, Starting on 04/26/25 at 2315 New Bag 04/27/2025 9:12 AM EST 75 mL/hr 75 mL/hr New Bag 04/26/2025 11:02 PM EST 75 mL/hr 75 mL/hr sodium chloride 0.9 % infusion 500 mL/hr, intravenous, Continuous, Starting on 04/27/25 at 1615, For 1 hour New Bag 04/27/2025 4:11 PM EST 500 mL/hr 50 0 mL/hr sodium chloride 0.9 % infusion intravenous, Continuous PRN, Starting on 04/28/25 at 1202, Intraprocedure New Bag 04/28/2025 12:02 PM EST 20 mL/hr 20 mL/hr tamsulosin (FLOMAX) 24 hr capsule 0.4 mg 0.4 mg, oral, Daily, First dose on 04/27/25 at 0900, For oral administration: capsules should be swallowed whole (Do not crush, chew, or open). For tube administration: open capsule and administer with water (granules should NOT be crushed). Given 04/28/2025 8:03 AM EST 0.4 mg Given 04/27/2025 9:08 AM EST 0.4 mg documented in this encounter Historical Medications * This list may reflect changes made after this encounter. pantoprazole (PROTONIX) 40 mg EC tablet Take 1 tablet (40 mg total) by mouth 1 (one) time each day. added in this encounter Active and Recently Administered Medications Times are shown in EST. Scheduled Medication Order 04/26/2025 04/27/2025 04/28/2025 gabapentin (NEURONTIN) capsule 300 mg (COMPLETED) 300 mg, oral, Once, On 04/26/25 at 210, For 1 dose 2110 (Given - Provider: Petrona Moreira RN) gabapentin (NEURONTIN) capsule 300 mg 300 mg, oral, 4 times daily, First dose on 04/27/25 at 0900 0909 (Given - Provider: Jessica Orantes RN)1334 (Given - Provider: Pao Yañez, REMY)1802 (Given - Provider: Zulema Ruelas, RN)203 (Given - Provider: Zoey Ordoñez, REMY) 0803 (Given - Provider: Claudia Strong, REMY)1243 (Given - Provider: Claudia Strong, REMY)1700 (Canceled Entry - Provider: Automatic Discharge Provider - Comment: Automatically canceled at discontinue of medication order) HYDROmorphone (DILAUDID) injection 0.2 mg (COMPLETED) 0.2 mg, intramuscular, Once, On 04/26/25 at 1607, For 1 dose 1615 (Given - Provider: Noemy Constantino, RN) HYDROmorphone (DILAUDID) injection 0.2 mg (COMPLETED) 0.2 mg, intramuscular, Once, On 04/26/25 at 1828, For 1 dose 1844 (Given - Provider: Noemy Constantino RN) HYDROmorphone (DILAUDID) injection 0.5 mg (COMPLETED) 0.5 mg, intravenous, Once, On 04/26/25 at 2041, For 1 dose 2110 (Given - Provider: Petrona Moreira RN) magnesium sulfate 2 gram/50 mL (4 %) IVPB 2 g (COMPLETED) 2 g, intravenous, at 25 mL/hr, Administer over 2 Hours, Once, On 04/27/25 at 1145, For 1 dose 1148 (New Bag - Provider: Jessica Orantes RN)1331 (Stopped - Provider: Jessica Orantes RN) oxyCODONE (OxyCONTIN) 12 hr abuse-deterrent tablet 20 mg 20 mg, oral, Nightly, First dose on 04/26/25 at 2134, Do not crush, chew, or split. 2219 (Given - Provider: Liana Robledo, REMY) 2034 (Given - Provider: Zoey Ordoñez, REMY) pantoprazole (PROTONIX) EC tablet 40 mg 40 mg, oral, Daily, First dose on 04/27/25 at 0900, Do not crush, chew, or split. 0909 (Given - Provider: Jessica Orantes RN) 0803 (Given - Provider: Claudia Strong RN) sodium chloride 0.9 % bolus 500 mL (COMPLETED) 500 mL, intravenous, at 1,000 mL/hr, Administer over 30 Minutes, Once, On 04/26/25 at 2023, For 1 dose 2056 (New Bag - Provider: Petrona Moreira RN)2155 (Stopped - Provider: Liana Robledo RN) tamsulosin (FLOMAX) 24 hr capsule 0.4 mg 0.4 mg, oral, Daily, First dose on 04/27/25 at 0900, For oral administration: capsules should be swallowed whole (Do not crush, chew, or open). For tube administration: open capsule and administer with water (granules should NOT be crushed). 0908 (Given - Provider: Jessica Orantes RN) 0803 (Given - Provider: Claudia Strong RN) Continuous Medication Order 04/26/2025 04/27/2025 04/28/2025 sodium chloride 0.9 % infusion (CANCELED) 75 mL/hr, intravenous, Continuous, Starting on 04/26/25 at 2315 2302 (New Bag - Provider: Liana Robledo RN) 0912 (New Bag - Provider: Jessica Orantes RN)1612 (Stopped - Provider: Zulema Ruelas RN - Comment: [Order ends at this time. Document the following action when infusion is complete: Stopped]) sodium chloride 0.9 % infusion () 500 mL/hr, intravenous, Continuous, Starting on 04/27/25 at 1615, For 1 hour 1611 (New Bag - Provider: Zulema Ruelas RN)1729 (Stopped - Provider: Zulema Ruelas RN - Comment: [Order ends at this time. Document the following action when infusion is complete: Stopped]) PRN Medication Order 04/26/2025 04/27/2025 04/28/2025 fentaNYL (PF) (SUBLIMAZE) injection (COMPLETED) intravenous, As needed, Starting on 04/28/25 at 1149, Intraprocedure 1149 (Given - Provid er: Stacey Dotson RN)1159 (Given - Provider: Stacey Dotson RN)1206 (Given - Provider: Stacey Dotson RN)1208 (Given - Provider: Stacey Dotson RN) HYDROmorphone (DILAUDID) injection 1 mg 1 mg, intravenous, Every 3 hours PRN, severe breakthrough pain, Starting on 04/26/25 at 2300 1158 (Given - Provider: Jessica Orantes RN)1618 (Given - Provider: Zulema Ruelas RN) iopamidoL (ISOVUE-300) 300 mg iodine /mL (61 %) solution (COMPLETED) As needed, Starting on Mon04/28/25 at 1214, Intraprocedure 1214 (Given - Provid er: Vince Gonzalez MD) lidocaine with sodium bicarbonate 1 % injection (COMPLETED) As needed, Starting on Mon04/28/25 at 1213, Intraprocedure 1213 (Given - Provid er: Vince Gonzalez MD) midazolam (VERSED) injection (COMPLETED) intravenous, As needed, Starting on Mon04/28/25 at 1149, Intraprocedure 1149 (Given - Provid er: Stacey Dotson RN)1159 (Given - Provider: Stacey Dotson RN)1206 (Given - Provider: Stacey Dotson RN) ondansetron ODT (ZOFRAN-ODT) disintegrating tablet 8 mg 8 mg, oral, Every 8 hours PRN, nausea, vomiting, Starting on 04/26/25 at 2208 oxyCODONE (ROXICODONE) immediate release tablet 10 mg 10 mg, oral, Every 4 hours PRN, moderate pain, severe pain, Starting on 04/26/25 at 2202 0909 (Given - Provider: Jessica Orantes RN)2304 (Given - Provider: Zoey Ordoñez, REMY) 0329 (Given - Provider: Zoey Ordoñez, REMY)0804 (Given - Provider: Claudia Strong RN) simethicone (MYLICON) chewable tablet 160 mg 160 mg, oral, 4 times daily PRN, flatulence, indigestion, Starting on 04/26/25 at 2208 sodium chloride 0.9 % infusion (COMPLETED) intravenous, Continuous PRN, Starting on Mon04/28/25 at 1202, Intraprocedure 1202 (New Bag - Provider: Stacey Dotson RN - Comment: throughout case) documented in this encounter Orders Medications Ordered That Bayron ht Not Have Been Administered Count Last Ordered Date First Ordered Date HYDROmorphone (DILAUDID) injection 0.2 mg 1 04/26/2025 HYDROmorphone (DILAUDID) injection 1 mg 2 1 06/27/2024 ondansetron ODT (ZOFRAN-ODT) disintegrating tablet 8 mg 1 04/26/2025 oxyCODONE (ROXICODONE) immed iate release tablet 10 mg 1 04/26/2025 simethicone (MYLICON) chewab le tablet 160 mg 1 04/26/2025 Consult Count Last Ordered Date First Orde red Date IP CONSULT TO INTERVENTIONAL RADIOLOGY 1 IP CONSULT TO NUTRITION SERVICES 1 04/26/20 25 Admission Count Last Ordered Date First Orde red Date INITIATE OBSERVATION STATUS 1 04/26/2025 Transfer Count Last Ordered Date First Orde red Date ED TO FLOOR BED REQUEST 2 04/26/2025 Discharge Count Last Ordered Date First Orde red Date DISCHARGE PATIENT 1 04/28/2025 documented in this encounter Care Teams Flag Signaler Relationship Specialty Start Date End Date Lobo Mills MD 11 [facility] [place] PCP - General 12/14/23 documented as of this encounter
--- OUTSIDE RECORDS SUMMARY | 2025-04-27 23:59 | XMS_ITS | Continuity of Care Document ---
Author Organization [facility] Address [address] [place] [id number]- Care Team Providers Care Business Technology Architect Name Role Phone Gene ROSAS, Lobo Medina Primary Care Physician En[place] [facility] [place](s): 03/28/25 - 04/27/[address] [address]- Encounter Type: Triage Allergies, Adverse Reactions, Alerts Substance Criticality Severity Reaction Reaction Severity Status cefepime 1, 2 Macular rash Act mayra Zosyn Unable to assess criticality Persistent Moderate rigors, rash, spasms Active Contrast Dye Active 1Tolerates piperacillin-tazobactam 2macular rash Immunizations Given and Recorded Vaccine Date Status Refusal Reason SARS-CoV-2(COVID-19)mRNA-LNP vac(nyq180) 03/12/24 Recorded influenza virus vaccine, inactivated 02/05/24 [...] virus vaccine, inactivated 4 02/11/10 Gi gena [id number] 12y+ bivalent booster vax 03/15/22 Given SARS-CoV-2 mRNA ([id number]-[id number]) vax 5 09/23/21 Given zoster vaccine, inactivated [...] 2 Refills, Maintenance, 02/05/24 10:19:00 AMEDT, Tablet, [facility] #[id number], Partial fill upon patient request if the [...] 1 Refills, Maintenance, 03/19/25 2:40:00 PMEST, Tablet, [id number], Partial fill upon patient request if the [...] 9:58:00 PM EST, Route to Pharmacy Electronically, [facility] #[id number], 163, cm, 02/27/25 10:45:00 EDT, Height, 56.6, [...] Refills, Soft Stop, 02/10/25 2:08:00 PM EDT, [facility] #[id number], Partial fill upon patient request if the [...] Refills, Maintenance, 02/13/25 5:48:00 PM EDT, Tablet, [facility] #[id number], Partial fill upon patient request if the [...] PM EST, 04/17/25 6:05:00 PM EST, Tablet, [facility] #[id number], Partial fill upon patient request, 04/17/25, 163, [...] 04/22/25 7:10:00 PM EST, Route to PharmacyElectronically, [facility] #[id number], Partial fill upon patient request if the [...] 04/02/25 3:15:00 PM EST, Route toPharmacy Electronically, [facility] #[id number], 163, cm, 02/27/25 10:45:00 EDT, Height, 56.6,kg, [...] grade, being observed by Dr. Astorga at [facility] 4followed by PM&R Social History [...] Team Personnel Name: Anny Clarke RN Position: [facility] RN Member Role: Primary Care Nurse Name: Jossy Lloyd Position: [facility] Onco RN Member Role: Primary Care Nurse Name: Domingo Peck RN Position: [facility] RN Member Role: Primary Care Nurse Name: Megan Mansfield RN Position: [facility] AMB Nurse Member Role: Primary Care Nurse Name: Lobo Mills MD Position: [facility] Physician - Primary Care Member Role: PCP Address: [address] [place] [address]- Telecom: Name: Nicole Mixon RN Position: [facility] RN Member Role: Primary Care Nurse Name: Stacey Hebert RN Position: [facility] ED RN W/OE and Tasks Member Role: Primary Care Nurse Name: Neetu Alcazar RN Position: [facility] RN Member Role: Primary Care Nurse Name: Nery Lee RN Position: [facility] RN Member Role: Primary Care Nurse Name: Di Lou RN Position: [facility] RN Member Role: Primary Care Nurse Name: Kristina Phelps RN Position: [facility] RN Member Role: Primary Care Nurse Name: Aida Aguila RN Position: [facility] Outreach Member Role: Primary Care Nurse Name: Magali Mattson RN Position: [facility] RN Member Role: Primary Care Nurse Name: Teresita Caldera RN Position: [facility] RN Member Role: Primary Care Nurse Name: Rashmi Saavedra RN Position: [facility] RN Member Role: Primary Care Nurse Name: Obinna London MD Position: [facility] Physician - General Surgery Member Role: Lifetime Consulting Physician Name: Jossy Arias RN Position: [facility] RN Member Role: Primary Care Nurse Name: Aida Villeda RN Position: [facility] SN RN Member Role: Primary Care Nurse Name: Sweta Jacobson NP Position: [facility] Associate Professional Member Role: Primary Care Nurse Name: Florinda Nieto RN Position: [facility] RN Member Role: Primary Care Nurse Name: Marlyn Sahu RN Position: [facility] RN Member Role: Primary Care Nurse Name: Lupe Manzo RN Position: [facility] RN Member Role: Primary Care Nurse Name: Lima Tao LPN Position: [facility] RN Member Role: Primary Care Nurse Name: Yazmin Martell RN Position: [facility] Oncjolie RN Member Role: Primary Care Nurse Name: Jamaal Singh RN Position: [facility] RN Member Role: Primary Care Nurse Name: Briseida Pardo RN Position: [facility] RN Member Role: Primary Care Nurse Name: Domingo Herndon RN Position: [facility] RN Member Role: Primary Care Nurse Name: Florinda José RN Position: [facility] RN Member Role: Primary Care Nurse Name: Jorge A Mojica RN Position: [facility] RN Member Role: Primary Care Nurse Name: Celestine Huber RN Position: [facility] RN Suplori Member Role: Primary Care Nurse Name: Leonie Waite RN Position: [facility] Hospital Senior Cyber Security Analyst Member Role: Primary Care Nurse Name: Loki Giles Jr, RN Position: [facility] RN Member Role: Primary Care Nurse Name: Helga Acevedo RN Position: [facility] RN Member Role: Primary Care Nurse Name: Liat Mcallister RN Position: [facility] RN Member Role: Primary Care Nurse Name: Pema Barry RN Position: [facility] OB RN Member Role: Primary Care Nurse Name: Renan Ham RN Position: [facility] RN Member Role: Primary Care Nurse Name: Raquel Patel RN Position: [facility] RN Member Role: Primary Care Nurse Name: Herve Padron RN Position: [facility] RN Member Role: Primary Care Nurse Name: Kun Jiménez RN Position: [facility] SN RN Member Role: Primary Care Nurse Name: Dilcia Nieves NP Position: [facility] Associate Professional Member Role: Primary Care Nurse Address: [address] [place] [address]- [place] Telecom: Name: Timmy Guallpa RN Position: [facility] RN Member Role: Primary Care Nurse Name: Christopher Bravo RN Position: [facility] ED RN W/OE and Tasks Member Role: Primary Care Nurse Name: Jessi Sneed RN Position: [facility] RN Member Role: Primary Care Nurse Name: Bijal Mcgee RN Position: [facility] RN Member Role: Primary Care Nurse Name: Lobo Mcgee RN Position: [facility] RN Member Role: Primary Care Nurse Name: Shellie Mullins RN Position: [facility] RN Member Role: Primary Care Nurse Name: Helga Georges RN Position: [facility] Onco RN Member Role: Primary Care Nurse Name: Svetlana Arguello RN Position: [facility] RN Member Role: Primary Care Nurse Name: Nel Magallanes RN Position: [facility] Onco RN Member Role: Primary Care Nurse Name: Malorie Adrian RN Position: [facility] RN Member Role: Primary Care Nurse Name: Bimal Singh RN Position: [facility] RN Member Role: Primary Care Nurse Name: Arlene Ramirez RN Position: [facility] RN Member Role: Primary Care Nurse Name: Annalee Wakefield NP Position: [facility] PCO Associate Professional Member Role: Primary Care Nurse Address: [address] [place] [address], [address] [place] [address]- [place] Telecom: Name: Romario Camara RN Position: [facility] RN Member Role: Primary Care Nurse Name: Adela Real RN Position: S RN Member Role: Primary Care Nurse Name: Enrike Stein RN Position: S RN Member Role: Primary Care Nurse Name: Phoebe Hanna NP Position: Reference Physician Member Role: Primary Care Nurse Address: [address] [facility] [address] [place] [address]- Telecom: Name: Alvina Kenney RN Position: [facility] RN Member Role: Primary Care Nurse Name: Emanuel Pereira MD Position: [facility] Outreach Member Role: Lifetime Consulting Physician Address: [address] [facility] [address] [facility] [place] [address]- Telecom: Name: Robert Pendleton MD Position: [facility] Renal MD Member Role: Lifetime Consulting Physician Address: [address] [facility] [address] [facility] [place] [address]- Telecom: Name: Sharon Wilson RN Position: [facility] RN Member Role: Primary Care Nurse Name: Benedict Lockwood RN Position: [facility] Onco RN Member Role: Primary Care Nurse Name: Hailey Elizondo RN Position: [facility] Onco RN Member Role: Primary Care Nurse Name: Pema Banks RN Position: [facility] RN Member Role: Primary Care Nurse Name: Sonal Myles RN Position: [facility] RN Member Role: Primary Care Nurse Name: Magdy Patel RN Position: [facility] SN RN Member Role: Primary Care Nurse Name: Hailey Lima RN Position: [facility] RN Member Role: Primary Care Nurse Name: Denice De La Cruz RN Position: [facility] RN Member Role: Primary Care Nurse Name: Catherine Mcfarlane RN Position: [facility] Onco RN Member Role: Primary Care Nurse Name: Lamont De Leon RN Position: [facility] RN Suplori Member Role: Primary Care Nurse Name: Caitlyn Clarke RN Position: [facility] RN Member Role: Primary Care Nurse Name: Vickie Weldon RN Position: [facility] RN Member Role: Primary Care Nurse Name: Onur Brown RN Position: [facility] RN Member Role: Primary Care Nurse Name: Jocelynn Paniagua RN Position: [facility] RN Member Role: Primary Care Nurse Name: Luanne Pace RN Position: [facility] RN Member Role: Primary Care Nurse Name: Jeffrey Whelan RN Position: [facility] RN Member Role: Primary Care Nurse Name: Alexander Garcia MD Position: [facility] Renal MD Member Role: Lifetime Consulting Physician Address: [address] [facility] [address] [facility] [address] Telecom: Name: Pema Persaud RN Position: [facility] RN Member Role: Primary Care Nurse Name: Aga Story RN Position: [facility] RN Member Role: Primary Care Nurse Name: Vickie Kumari RN Position: [facility] OB RN Member Role: Primary Care Nurse Name: Hansa Alfonso RN Position: [facility] RN Member Role: Primary Care Nurse Name: Naima Brady RN Position: [facility] RN Member Role: Primary Care Nurse Name: Ovidio Barker RN Position: [facility] ED RN W/OE and Tasks Member Role: Primary Care Nurse Name: Denice Garcia RN Position: [facility] RN Member Role: Primary Care Nurse Name: Jeison Avendaño RN Position: [facility] RN Member Role: Primary Care Nurse Name: Antonietta Payne RN Position: [facility] RN Member Role: Primary Care Nurse Name: Liat Corrales LPN Position: [facility] RN Member Role: Primary Care Nurse Name: Cheri Hernandez RN Position: [facility] RN Member Role: Primary Care Nurse Name: Neetu Patel RN Position: [facility] RN Member Role: Primary Care Nurse Name: Gino Constantino RN Position: [facility] RN Member Role: Primary Care Nurse Name: Genoveva Martin RN, I Position: [facility] RN Member Role: Primary Care Nurse Care Team Related Persons Name: CALVIN THACKER Name: ISSA CARRERA Insurance Providers Guarantor name: DAWNA FARIAS Health Plan Information #: 1 Payer: MEDICARE B Payer Identifier: GRIFFIN Member Number: [id number] Group Number: NA Subscriber Identifier: NA Relationship to Subscriber: self Coverage Type: NA Coverage Verification Date: NA Telecom: NA Address: NA [facility] Information #: 2 Payer: [employer] Payer Identifier: GRIFFIN Member Number: [id number] Group Number: NA Subscriber Identifier: NA Relationship to Subscriber: self Coverage Type: MEDICAID Coverage Verification Date: GRIFFIN Telecom: GRIFFIN Address: NA
--- OUTSIDE RECORDS SUMMARY | 2025-04-27 23:59 | XMS_ITS | Continuity of Care Document ---
Author Organization [facility] Address [address] [place] [address]- Care Team Providers Care Air Intelligence Specialist Name Role Phone Gene ROSAS, Lobo Medina Primary Care Physician [place] [facility] [place] - 04/27/[address] [address]- Encounter Type: Triage Allergies, Adverse Reactions, Alerts Substance Criticality Severity Reaction Reaction Severity Status cefepime 1, 2 Macular rash Act mayra Zosyn Unable to assess criticality Persistent Moderate rigors, rash, spasms Active Contrast Dye Active 1Tolerates piperacillin-tazobactam 2macular rash Immunizations Given and Recorded Vaccine Date Status Refusal Reason SARS-CoV-2(COVID-19)mRNA-LNP vac([id number]) 03/12/24 Recorded influenza virus vaccine, inactivated 02/05/24 [...] virus vaccine, inactivated 4 02/11/10 Gi gena [id number] 12y+ bivalent booster vax 03/15/22 Given SARS-CoV-2 mRNA ([id number]) vax 5 09/23/21 Given zoster vaccine, inactivated [...] 2 Refills, Maintenance, 02/05/24 10:19:00 AMEDT, Tablet, [facility] #[id number], Partial fill upon patient request if the [...] 1 Refills, Maintenance, 03/19/25 2:40:00 PMEST, Tablet, [facility] #[id number], Partial fill upon patient request if the [...] 9:58:00 PM EST, Route to Pharmacy Electronically, [facility] #[id number], 163, cm, 02/27/25 10:45:00 EDT, Height, 56.6, [...] Refills, Soft Stop, 02/10/25 2:08:00 PM EDT, [facility] #[id number], Partial fill upon patient request if the [...] Refills, Maintenance, 02/13/25 5:48:00 PM EDT, Tablet, [facility] #[id number], Partial fill upon patient request if the [...] PM EST, 04/17/25 6:05:00 PM EST, Tablet, [facility] #[id number], Partial fill upon patient request, 04/17/25, 163, [...] 04/22/25 7:10:00 PM EST, Route to PharmacyElectronically, [facility] #[id number], Partial fill upon patient request if the [...] 04/02/25 3:15:00 PM EST, Route toPharmacy Electronically, [facility] #[id number], 163, cm, 02/27/25 10:45:00 EDT, Height, 56.6,kg, [...] grade, being observed by Dr. Astorga at [facility] 4followed by PM&R Social [...] Team Personnel Name: Anny Clarke RN Position: [facility] RN Member Role: Primary Care Nurse Name: Jossy Lloyd Position: [facility] Onco RN Member Role: Primary Care Nurse Name: Domingo Peck RN Position: [facility] RN Member Role: Primary Care Nurse Name: Megan Mansfield RN Position: [facility] AMB Nurse Member Role: Primary Care Nurse Name: Lobo Mills MD Position: [facility] Physician - Primary Care Member Role: PCP Address: [address] [place] [address]- Telecom: Name: Nicole Mixon RN Position: [facility] RN Member Role: Primary Care Nurse Name: Stacey Hebert RN Position: [facility] ED RN W/OE and Tasks Member Role: Primary Care Nurse Name: Neetu Alcazar RN Position: [facility] RN Member Role: Primary Care Nurse Name: Nery eLe RN Position: [facility] RN Member Role: Primary Care Nurse Name: Di Lou RN Position: [facility] RN Member Role: Primary Care Nurse Name: Kristina Phelps RN Position: [facility] RN Member Role: Primary Care Nurse Name: Aida Aguila RN Position: [facility] Outreach Member Role: Primary Care Nurse Name: Magali Mattson RN Position: [facility] RN Member Role: Primary Care Nurse Name: Teresita Caldera RN Position: [facility] RN Member Role: Primary Care Nurse Name: Rashmi Saavedra RN Position: [facility] RN Member Role: Primary Care Nurse Name: Obinna London MD Position: [facility] Physician - General Surgery Member Role: Lifetime Consulting Physician Name: Jossy Arias RN Position: [facility] RN Member Role: Primary Care Nurse Name: Aida Villeda RN Position: [facility] SN RN Member Role: Primary Care Nurse Name: Sweta Jacobson NP Position: [facility] Associate Professional Member Role: Primary Care Nurse Name: Florinda Nieto RN Position: [facility] RN Member Role: Primary Care Nurse Name: Marlyn Sahu RN Position: [facility] RN Member Role: Primary Care Nurse Name: Lupe Manzo RN Position: [facility] RN Member Role: Primary Care Nurse Name: Lima Tao LPN Position: [facility] RN Member Role: Primary Care Nurse Name: Yazmin Martell RN Position: [facility] Oncjolie RN Member Role: Primary Care Nurse Name: Jamaal Singh RN Position: [facility] RN Member Role: Primary Care Nurse Name: Briseida Pardo RN Position: [facility] RN Member Role: Primary Care Nurse Name: Domingo Herndon RN Position: [facility] RN Member Role: Primary Care Nurse Name: Florinda José RN Position: [facility] RN Member Role: Primary Care Nurse Name: Jorge A Mojica RN Position: [facility] RN Member Role: Primary Care Nurse Name: Celestine Huber RN Position: [facility] RN Suplori Member Role: Primary Care Nurse Name: Loenie Waite RN Position: [facility] Hospital Aerial Sprayer Member Role: Primary Care Nurse Name: Loki Giles Jr, RN Position: [facility] RN Member Role: Primary Care Nurse Name: Helga Acevedo RN Position: [facility] RN Member Role: Primary Care Nurse Name: Liat Mcallister RN Position: [facility] RN Member Role: Primary Care Nurse Name: Pema Barry RN Position: [facility] OB RN Member Role: Primary Care Nurse Name: Renan Ham RN Position: [facility] RN Member Role: Primary Care Nurse Name: Raquel Patel RN Position: [facility] RN Member Role: Primary Care Nurse Name: Herve Padron RN Position: [facility] RN Member Role: Primary Care Nurse Name: Kun Jiménez RN Position: [facility] SN RN Member Role: Primary Care Nurse Name: Dilcia Nieves NP Position: [facility] Associate Professional Member Role: Primary Care Nurse Address: [address] [place] [address]- [place] Telecom: Name: Timmy Guallpa RN Position: [facility] RN Member Role: Primary Care Nurse Name: Christopher Bravo RN Position: [facility] ED RN W/OE and Tasks Member Role: Primary Care Nurse Name: Jessi Sneed RN Position: [facility] RN Member Role: Primary Care Nurse Name: Bijal Mcgee RN Position: [facility] RN Member Role: Primary Care Nurse Name: Lobo Mcgee RN Position: [facility] RN Member Role: Primary Care Nurse Name: Shellie Mullins RN Position: [facility] RN Member Role: Primary Care Nurse Name: Helga Georges RN Position: [facility] Onco RN Member Role: Primary Care Nurse Name: Svetlana Arguello RN Position: [facility] RN Member Role: Primary Care Nurse Name: Nel Magallanes RN Position: [facility] Onco RN Member Role: Primary Care Nurse Name: Malorie Adrian RN Position: [facility] RN Member Role: Primary Care Nurse Name: Bimal Singh RN Position: [facility] RN Member Role: Primary Care Nurse Name: Arlene Ramirez RN Position: [facility] RN Member Role: Primary Care Nurse Name: Annalee Wakefield NP Position: [facility] PCO Associate Professional Member Role: Primary Care Nurse Address: [address] [place] [address], [address] [place] [address]- [place] Telecom: Name: Romario Camara RN Position: [facility] RN Member Role: Primary Care Nurse Name: Adela Real RN Position: S RN Member Role: Primary Care Nurse Name: Enrike Stein RN Position: S RN Member Role: Primary Care Nurse Name: Phoebe Hanna NP Position: Reference Physician Member Role: Primary Care Nurse Address: [address] [facility] [address] [place] [address]- Telecom: Name: Alvina Kenney RN Position: [facility] RN Member Role: Primary Care Nurse Name: Emanuel Pereira MD Position: [facility] Outreach Member Role: Lifetime Consulting Physician Address: [address] [facility] [address] [facility], [place] [address]- Telecom: Name: Robert Pendleton MD Position: [facility] Renal MD Member Role: Lifetime Consulting Physician Address: [address] [facility] [address] [facility] [place] [address]- Telecom: Name: Sharon Wilson RN Position: [facility] RN Member Role: Primary Care Nurse Name: Benedict Lockwood RN Position: [facility] Onco RN Member Role: Primary Care Nurse Name: Hailey Elizondo RN Position: [facility] Onco RN Member Role: Primary Care Nurse Name: Pema Banks RN Position: [facility] RN Member Role: Primary Care Nurse Name: Sonal Myles RN Position: [facility] RN Member Role: Primary Care Nurse Name: Magdy Patel RN Position: [facility] SN RN Member Role: Primary Care Nurse Name: Hailey Lima RN Position: [facility] RN Member Role: Primary Care Nurse Name: Denice De La Cruz RN Position: [facility] RN Member Role: Primary Care Nurse Name: Catherine Mcfarlane RN Position: [facility] Onco RN Member Role: Primary Care Nurse Name: Lamont De Leon RN Position: [facility] RN Suplori Member Role: Primary Care Nurse Name: Caitlyn Clarke RN Position: [facility] RN Member Role: Primary Care Nurse Name: Vickie Weldon RN Position: [facility] RN Member Role: Primary Care Nurse Name: Onur Brown RN Position: [facility] RN Member Role: Primary Care Nurse Name: Jocelynn Paniagua RN Position: [facility] RN Member Role: Primary Care Nurse Name: Luanne Pace RN Position: [facility] RN Member Role: Primary Care Nurse Name: Jeffrey Whelan RN Position: [facility] RN Member Role: Primary Care Nurse Name: Alexander Garcia MD Position: [facility] Renal MD Member Role: Lifetime Consulting Physician Address: [address] [facility] [address] [facility] [address] Telecom: Name: Pema Persaud RN Position: [facility] RN Member Role: Primary Care Nurse Name: Aga Story RN Position: [facility] RN Member Role: Primary Care Nurse Name: Vickie Kumari RN Position: [facility] OB RN Member Role: Primary Care Nurse Name: Hansa Alfonso RN Position: [facility] RN Member Role: Primary Care Nurse Name: Naima Brady RN Position: [facility] RN Member Role: Primary Care Nurse Name: Ovidio Barker RN Position: [facility] ED RN W/OE and Tasks Member Role: Primary Care Nurse Name: Denice Garcia RN Position: [facility] RN Member Role: Primary Care Nurse Name: Jeison Avendaño RN Position: [facility] RN Member Role: Primary Care Nurse Name: Antonietta Payne RN Position: [facility] RN Member Role: Primary Care Nurse Name: Liat Corrales LPN Position: [facility] RN Member Role: Primary Care Nurse Name: Cheri Hernandez RN Position: [facility] RN Member Role: Primary Care Nurse Name: Neetu Patel RN Position: [facility] RN Member Role: Primary Care Nurse Name: Gino Constantino RN Position: [facility] RN Member Role: Primary Care Nurse Name: Genoveva Martin RN, I Position: [facility] RN Member Role: Primary Care Nurse Care Team Related Persons Name: CALVIN THACKER Name: ISSA CARRERA Insurance Providers Guarantor name: DAWNA FARIAS Health Plan Information #: 1 Payer: MEDICARE B Payer Identifier: GRIFFIN Member Number: [id number] Group Number: NA Subscriber Identifier: NA Relationship to Subscriber: self Coverage Type: NA Coverage Verification Date: NA Telecom: NA Address: NA Health [facility] Information #: 2 Payer: [employer] Payer Identifier: GRIFFIN Member Number: [id number] Group Number: NA Subscriber Identifier: NA Relationship to Subscriber: self Coverage Type: MEDICAID Coverage Verification Date: GRIFFIN Telecom: GRIFFIN Address: NA
--- OUTSIDE RECORDS SUMMARY | 2025-04-30 18:33 | XMS_ITS ---
Author Organization [facility] Address [address] [place] [address] Phone Care Team Providers Care Assistant Men'S Soccer Coach Name Role Phone Lobo Mills MD Primary Care Provider [phone] Active Problems Problem Noted Date Diagnosed Date Dislodged gastrostomy tube 04/26/2025 Primary chronic pseudo-obstruction of small inte lisette [...] Automatic Entry Manual Entr y Fluoro Time 2.9 minutes 1.2 minutes 1.7 minutes Air Kerma 21 mGy 8 mGy 13 mGy
--- OUTSIDE RECORDS SUMMARY | 2025-04-30 18:33 | XMS_ITS | Patient Health Record ---
Author Organization [facility] Address [address] [place] [address] Care Team Providers Care Parts Room Clerk Name Role Phone Lobo Mills MD Primary Care Provider Latiaa Sriram Garcia Unavailable [phone] Allergies Allergen (clinical drug ingredient) Drug/Non Drug [...] Once a day; Duration: 30 day(s) Active Ondansetron 4 MG Tablet Disintegrating 1 tablet on the tongue and allow to dissolve Orally every 8 hours as needed; Duration: 30 day(s) Active Pantoprazole Sodium 20 MG Tablet Delayed Release 1 tablet Orally Once a day; Duration: 30 day(s) Active oxyCODONE HCl 10 MG Tablet 1 tablet as needed Orally every 6 hrs Active Aspir-Low 81 MG Tablet Delayed Release 1 tablet Orally Once a day; Duration: 30 day(s) Not-Taking Loperamide HCl 2 MG Capsule 1 capsule as needed Orally Four times a day Active Diphenoxylate-Atropine 2.5-0.025 MG Tablet 1 tablet as needed Orally Four times a day Active Gabapentin 600 MG Tablet 2 tablet Orally three times a day; Duration: 30 day(s) Active fentaNYL 37.5 MCG/HR Patch 72 Hour 1 patch to skin Transdermal Active Mucinex 600 MG Tablet Extended Release 12 Hour 2 tablets as needed Orally once daily For rectal mucus Not-Taking Simethicone 80 MG Tablet 1 tablet after meals and at bedtime Orally Four times a day; Duration: 30 day(s) Not-Taking Acetaminophen 500 MG Capsule 1 capsule as needed Orally every 6 hrs Active Sodium Chloride 0.9 % Solution as directed Intravenous Not-Taking Colestipol HCl Activ e Multivitamin - Tablet 1 tablet Orally Once a day; Duration: 30 day(s) Not-Taking Social [...] Risk Notes Problem Malignant neoplasm of prostate (177669338) Malignant neoplasm of prostate (C61) Active confirmed Problem Malignant neoplasm of abdomen (886103504) 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) Active confirmed Problem 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 Problem Alcohol abuse (74003475) Alcohol abuse, uncomplicated (F10.10) Active confirmed Problem Chronic obstructive pulmonary disease (36806135) Chronic obstructive pulmonary disease, unspecified (J44.9) Active confirmed Problem Urinary tract obstruction (8598642) Obstructive and reflux uropathy, unspecified (N13.9) Active confirmed Problem Attention to ileostomy (960972768) Encounter for attention to ileostomy (Z43.2) Active confirmed Problem History of malignant neoplasm of colon (215780534) Personal history of other malignant neoplasm of large intestine (Z85.038) Active confirmed Problem History of malignant neoplasm of prostate (667638185) Personal history of malignant neoplasm of prostate (Z85.46) Active confirmed Problem History of malignant neoplasm (623091983) Personal history of malignant neoplasm of other organs and systems (Z85.89) Active confirmed Problem 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) 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 Problem Ileostomy present (633182348) Ileostomy status (Z93.2) Active confirmed Problem Chronic kidney disease stage 3 (disorder) (380790638) CKD (chronic kidney disease), stage III (N18.30) Active confirmed Problem Gastrostomy present (343589844) Gastrostomy tube in place (Z93.1) Active confirmed [...] 04/18/2025 Encounters Encounter Location Date Provider Diagnosis [facility] [address] [place] [address] 11/19/2024 Sriram Shirley Malignant neoplasm o f [...] neoplasm of other organs and systems Z85.89 [facility] [address] [place] [address] 12/17/2024 Sriram Александрien Malignant neoplasm o f [...] neoplasm of other organs and systems Z85.89 [facility] [address] [place] [address] 03/21/2025 Sriram Waien Malignant neoplasm o f [...] neoplasm of other organs and systems Z85.89 [facility] [address] [place] [address] 04/18/2025 Sriram Waien Malignant neoplasm o f abdomen [...] moldable barrier ring, 1 piece Coloplast Sensura [place] convex appliance, and C shaped elastic barrier [...] in 1-month for granuloma management at the [place] location. Fern Davis was available for any questions or concerns that I may have had, Nery LEN OMS and Briseida Marino LPN OMS. Silver [...] in 1-month for granuloma management at the [place] location. All of Jose's questions and concerns were addressed. He was instructed to call with any further questions or concerns and follow up in 1-month for granuloma management at the [place] location. Fern Davis was available for any [...] and subsequently discussed and supervised by me. 04/18/2025 Other Jose presented to the office follow up ostomy visit for hyper-granulation management. He has a permanent Ileostomy, due to personal history of appendix and peritoneal carcinomatosis. He reports G-Tube to remain place for supplemental nutritional intake, upcoming g-tube change scheduled for 05/30/2025. He is currently followed by Palliative care services. He denies any new concerns related to managing his ileostomy. He is currently using adhesive remover, stoma powder followed by skin barrier spray (crusting), Barrier ring, Sensuria Tyrell 1 piece convex appliance with 4 hook belt tabs, 2 C Elastic barrier strips, 2 hook appliance belt (patient preference). Reports changes appliance every 3 days, denies appliance leaking. Stoma appears beefy red, moist, budding (apx 10mm). Scattered hyper-granulation present with 3 distinct larger areas on stoma (center, 1, & 3 o'clock). Stoma appears round with a measurement of 22 mm (7/8 inch), OS centrally located. Peristomal plane flabby/soft, Peristomal skin slightly macerated along the mucocutaneous edge 4-8 o'clock. Stoma and peristomal evaluation completed. Silver nitrate applied to 3 distinct areas of hyper-granulation. Recommendations to continue with the current appliance, application procedure, and plan of care. Verbal and demonstration education provided regarding appliance removal, cleansing, and appliance application. He verbalized understanding of the education provided. All of Jose's questions and concerns were addressed. He was instructed to call with any further questions or concerns and follow up in 1-month for hyper-granulation management. Silver Nitrate was applied to 3 distinct areas of hyper-granulation tissue. Jose tolerated the procedure well. Dr. Shirley was available for any questions or concerns that I may have had during the visit, Briseida CARRERO. I, Sriram Shirley MD confirm that Briseida CARRERO, adheres to the guidelines of the established clinical protocols in the office. I confirm the above care provided was rendered under my general supervision as initially planned and subsequently discussed and supervised by me. Plan Of Treatment Next Appt Details Provider Name:Sriram Shirley, 06/06/2025 11:00:00 AM, [address] [place], [address], Insurance Providers Payer Name Payer Address Payer Phone Subscriber Number Group Number Insured Name Patient Relationship to Insured Coverage Start Date Coverage End Date Medicare [address] [facility] [place] [id number] Vivain Hirschn Self - patient is the insured [employer] (Medicaid) [address] [place], [place] [id number] Vivian Hirschn Self - patient is the insured Medical [...]
--- OUTSIDE RECORDS SUMMARY | 2025-04-30 18:33 | XMS_ITS | Clinical Summary ---
Author Organization [address] [facility] Address [address] [place] [address] Phone Care Team Providers Care Strategic Client Executive Name Role Phone Lobo Mills MD Primary Care Provider [phone] Allergies Active Allergy Reactions Criticality Noted Date [...] mouth 1 (one) time each day. Active Active Problems Problem Noted Date Diagnosed [...] Encounters Date Type Department Care Team Description 04/26/2025 3:27 PM EST - 04/28/2025 4:17 PM EST Hospital Encounter [facility] Urology [address] [place] [phone] Darren Guan MD Bashir, Talha, MD Mohani, Priya, MD Bell, Alistair A, MD Kela, Kashyap Devendrabhai, MD Dislodged gastrostomy tube (Primary Dx) Discharge Disposition: Home-Health Care [facility] [place] 03/06/2025 10:00 AM EST Consult Orthopedic Surgery - [place] [facility] [address] [place] [id number] Lori Walters PA [facility] arthritis (Primary Dx) 02/27/2025 12:00 PM EDT - 02/27/2025 4:36 PM EDT Emergency [facility] Emergency [address] [place] [phone] Alexander Collins MD Edema leg (Primary Dx); Anemia, unspecified type; Hypoalbuminemia Discharge Disposition: Home or Self Care 02/07/2025 6:12 AM EDT - 02/07/2025 10:14 AM EDT Emergency [facility] Emergency [address] [place] [phone] Arthralgia of left hand (Primary Dx); Lead-induced acute gout of left hand, initial encounter Discharge Disposition: Home or Self Care 01/26/2025 9:17 PM EDT - 01/30/2025 5:00 PM EDT Hospital Encounter [facility] Urology [address] [place] [phone] Shmuel Garber MD Jones, Christopher, MD Alam, Aroosa, MD Generalized abdominal pain (Primary Dx); Small bowel obstruction (CMS/HCC V24, CMS/HCC V28); Pseudomyxoma peritonei (CMS/HCC V24, CMS/HCC V28) Discharge Disposition: Home-Health Care Svc from Last 3 Months Immunizations Immunization Administration Dates Next Due Influenza trivalent, 0.5mL, preservative free (Fluarix; FluLaval; Fluzone) ages 6mo and older (Afluria) 3 years and older 04/28/2025 Surgical History Surgery Date Site/Laterality Comments APPENDECTOMY [...] for your loved ones. For example, child care education coordinator or elderly care for an older adult? [...] Mass Index 21.59 04/26/2025 10:29 PM EST Plan of Treatment Health Maintenance Due Date [...] 05/01/2024 COVID-19 Vaccine ( season) 2024 03/12/2024, 09/23/2021, 03/22/2021, Additional history exists Pneumococcal Vaccine: 50+ Years (4 of 4 - PCV20 or PCV21) 02/12/2025 02/13/2020, 01/28/2014, 01/11/2013, Additional history exists DTaP,Tdap,and Td Vaccines (3 - Td or Tdap) 01/18/2026 01/19/2016, 05/23/2007 Social Influencers of Health Screening 04/26/2026 04/26/2025 Falls Risk Assessment 04/28/2026 04/28/2025 Hypertension/CHF/CAD Annual BMP Blood Test 04/28/2026 04/28/2025, 04/27/2025, 04/26/2025, Additional history exists HIB Vaccines Completed 05/30/2007 Influenza Vaccine Completed 04/28/2025, , 02/17/2023, Additional history exists HPV Vaccines Aged Out [...] METABOLIC PANEL STAT 04/27/2025 9:09 AM EST LT BLUE - NA CITRATE Routine 04/26/2025 10:04 PM EST EXTRA TUBES Routine 04/26/2025 10:04 PM EST COMPREHENSIVE METABOLIC PANEL Routine 04/26/2025 10:04 PM EST CBC WITH AUTO DIFFERENTIAL Routine 04/26/2025 10:04 PM EST CBC AND DIFFERENTIAL Routine 04/26/2025 10:04 PM EST TYPE AND SCREEN STAT 02/27/2025 1:57 PM [...] METABOLIC PANEL Timed 01/28/2025 5:57 AM EDT LIPID PANEL Routine 02/11/2002 from Last 3 Months or Most Recently Relevant to Health Maintenance Results * IR Replace G-Tube Perc w [...] Signed Date: 04/28/2025 15:24 ET Workstation ID: [id number] Transcribed By: Self Edit Transcribed Date: 04/28/2025 [...] prepped and draped sterilely. Timeout performed. 5 Liberian dilator advanced into the ostomy site and water-soluble contrast injected with intraluminal opacification of gastric folds. Dilator removed over short Amplatz wire. Tract dilated up to 16 Liberian. A 16 Liberian gastric tube advanced over the wire into [...] was prepped and draped sterilely.Timeout performed. 5 Liberian dilator advanced into the ostomy site and water-soluble contrastinjected with intraluminal opacification of gastric folds. Dilator removedover short Amplatz wire. Tract dilated up to 16 Liberian. A 16 Frenchgastric tube advanced over the [...] Signed Date: 04/28/2025 15:24 ET Workstation ID: [id number] Transcribed By: Self Edit Transcribed Date: 04/28/2025 15:20 ET us Yazmin ALMARAZ IMG IR PROCEDURES Final Re sult * Magnesium (04/28/2025 5:56 AM EST) Only the most recent of5 resultswithin the time period is included. [facility] Magnesium 2.1 1.9 - 2.6 mg/dL 04/28/2025 6:54 AM EST [facility] Blood Venous blood specimen / Unknown Venipuncture / Unknown 04/28/2025 5:56 AM EST 04/28/2025 6:22 AM EST us Yazmin ALMARAZ LAB BLOOD ORDERABLES Final Result [facility] [address] [place] [address], [place] [phone] * (ABNORMAL) Basic metabolic panel (04/28/2025 5:56 AM EST) Only the most recent of2 resultswithin the time period is included. [facility] Sodium 140 133 - 145 mmol/L 04/28/2025 6:54 AM EST [facility] Potassium 4.8 3.5 - 5.5 mmol/L 04/28/2025 6:54 AM EST [facility] Chloride 107 96 - 110 mmol/L 04/28/2025 6:54 AM [facility] CO2 26 21 - 32 mmol/L 04/28/2025 6:54 AM [facility] Anion Gap 7 3 - 11 04/28/2025 6:54 AM [facility] Glucose 90 70 - 100 mg/dL 04/28/2025 6:54 AM [facility] BUN 22 5 - 25 mg/dL 04/28/2025 6:54 AM [facility] Creatinine 1.55(H) 0.70 - 1.30 mg/dL 04/28/2025 6:54 AM [facility] eGFR 48(L) >=60 mL/min/1. 73m2 04/28/2025 6:54 AM [facility] Comment:Calculation based on the Chronic Kidney Disease Epidemiology Collaboration (CKD-EPI) equation refit without adjustment for race. BUN/Creatinine Ratio 14.2 04/28/2025 6:54 AM [facility] Calcium 8.6 8.5 - 10.5 mg/dL 04/28/2025 6:54 AM [facility] Blood Venous blood specimen / Unknown Venipuncture / Unknown 04/28/2025 5:56 AM EST 04/28/2025 6:22 AM EST Yazmin ALMARAZ LAB BLOOD ORDERABLES Final Result [facility] [address] [place] [address], * (ABNORMAL) CBC auto differential (04/28/2025 5:55 AM EST) Only the most recent of7 resultswithin the time period is included. WBC 8.4 4.8 - 10.8 K/mcL LAB HEMETOLOGY METHOD 04/28/2025 6:32 AM [facility] RBC 2.70(L) 4.50 - 5.50 M/mcL LAB HEMETOLOGY METHOD 04/28/2025 6:32 AM [facility] Hemoglobin 8.5(L) 13.5 - 17.5 g/dL LAB HEMETOLOGY METHOD 04/28/2025 6:32 AM [facility] Hematocrit 25.5(L) 42.0 - 54.0 % LAB HEMETOLOGY METHOD 04/28/2025 6:32 AM [facility] MCV 93.8 79.0 - 98.0 FL LAB HEMETOLOGY METHOD 04/28/2025 6:32 AM [facility] MCH 31.3 27.0 - 32.0 pcg LAB HEMETOLOGY METHOD 04/28/2025 6:32 AM [facility] MCHC 33.3 32.0 - 37.0 g/dL LAB HEMETOLOGY METHOD 04/28/2025 6:32 AM [facility] RDW 14.3 11.0 - 15.0 % LAB HEMETOLOGY METHOD 04/28/2025 6:32 AM [facility] Platelets 414(H) 130 - 400 K/mcL LAB HEMETOLOGY METHOD 04/28/2025 6:32 AM [facility] MPV 9.5 7.0 - 11.0 FL LAB HEMETOLOGY METHOD 04/28/2025 6:32 AM [facility] NRBC 0.0 <1.0 % LAB HEMETOLOGY METHOD 04/28/2025 6:32 AM [facility] NRBC Absolute 0.00 <0.10 K/mcL LAB HEMETOLOGY METHOD 04/28/2025 6:32 AM [facility] Neutrophils Relative 45.8 % LAB HEMETOLOGY METHOD 04/28/2025 6:32 AM [facility] Lymphocytes Relative 33.5 % LAB HEMETOLOGY METHOD 04/28/2025 6:32 AM [facility] Monocytes Relative 15.2 % LAB HEMETOLOGY METHOD 04/28/2025 6:32 AM [facility] Eosinophils Relative 4.3 % LAB HEMETOLOGY METHOD 04/28/2025 6:32 AM [facility] Basophils Relative 1.0 % LAB HEMETOLOGY METHOD 04/28/2025 6:32 AM [facility] Immature Granulocytes Relative 0.2 % LAB HEMETOLOGY METHOD 04/28/2025 6:32 AM [facility] Neutrophils Absolute 3.84 1.50 - 7.00 K/mcL LAB HEMETOLOGY METHOD 04/28/2025 6:32 AM [facility] Lymphocytes Absolute 2.81 1.00 - 5.00 K/mcL LAB HEMETOLOGY METHOD 04/28/2025 6:32 AM [facility] Monocytes Absolute 1.27(H) 0.20 - 1.00 K/mcL LAB HEMETOLOGY METHOD 04/28/2025 6:32 AM [facility] Eosinophils Absolute 0.36 0.00 - 0.50 K/mcL LAB HEMETOLOGY METHOD 04/28/2025 6:32 AM [facility] Basophils Absolute 0.08 0.00 - 0.20 K/mcL LAB HEMETOLOGY METHOD 04/28/2025 6:32 AM [facility] Immature Granulocytes Absolute 0.02 0.00 - 0.03 K/mcL LAB HEMETOLOGY METHOD 04/28/2025 6:32 AM [facility] Blood Venous blood specimen / Unknown Venipuncture / Unknown 04/28/2025 5:55 AM EST 04/28/2025 6:24 AM EST Yazmin ALMARAZ LAB BLOOD ORDERABLES Final Result Performing Organization Address [facility]/ZIP Co de Phone Number [facility] [address] [place] [address], [place] [phone] * Light blue tube (04/26/2025 10:04 PM EST) Pathologist [facility] Extra Tube Hold for add-ons. 04/27/2025 12:01 AM EST [facility] Comment:Auto resulted. Blood Venous blood specimen / Unknown 04/26/2025 10:04 PM EST 04/26/2025 10:18 PM EST Bill Dumont MD LAB BLOOD ORDERABLES Final Resul t Performing Organization Address [facility]/ZIP Co de Phone Number [facility] [address] [place] [address], [place] [phone] * (ABNORMAL) Comprehensive metabolic panel (04/26/2025 10:04 PM EST) Only the most recent of5 resultswithin the time period is included. [facility] Sodium 138 133 - 145 mmol/L 04/26/2025 10:49 PM [facility] Potassium 4.5 3.5 - 5.5 mmol/L 04/26/2025 10:49 PM [facility] Chloride 105 96 - 110 mmol/L 04/26/2025 10:49 PM [facility] CO2 25 21 - 32 mmol/L 04/26/2025 10:49 PM [facility] Anion Gap 8 3 - 11 04/26/2025 10:49 PM [facility] Glucose 89 70 - 100 mg/dL 04/26/2025 10:49 PM [facility] BUN 23 5 - 25 mg/dL 04/26/2025 10:49 PM [facility] Creatinine 1.58(H) 0.70 - 1.30 mg/dL 04/26/2025 10:49 PM [facility] eGFR 47(L) >=60 mL/min/1. 73m2 04/26/2025 10:49 PM [facility] Comment:Calculation based on the Chronic Kidney Disease Epidemiology Collaboration (CKD-EPI) equation refit without adjustment for race. BUN/Creatinine Ratio 14.6 04/26/2025 10:49 PM [facility] Calcium 8.3(L) 8.5 - 10.5 mg/dL 04/26/2025 10:49 PM [facility] AST (SGOT) 10 10 - 42 unit/L 04/26/2025 10:49 PM [facility] ALT (SGPT) <7(L) 10 - 60 unit/L 04/26/2025 10:49 PM [facility] Alkaline Phosphatase 80 42 - 121 unit/L 04/26/2025 10:49 PM [facility] Total Protein 5.9(L) 6.0 - 8.0 g/dL 04/26/2025 10:49 PM [facility] Albumin 3.7 3.2 - 5.0 g/dL 04/26/2025 10:49 PM [facility] Total Bilirubin 0.2 0.0 - 1.4 mg/dL 04/26/2025 10:49 PM [facility] Blood Venous blood specimen / Unknown Venipuncture / Unknown 04/26/2025 10:04 PM EST 04/26/2025 10:18 PM EST us Rubén ALMARAZ LAB BLOOD ORDERABLES Gabbie mike Result [facility] [address] [place] [address], * Type and screen (02/27/2025 1:57 PM EDT) ABO Group O 02/27/2025 3:07 PM EDT [facility] Rh Type Negative 02/27/2025 3:07 PM EDT [facility] Antibody Screen Negative 02/27/2025 3:07 PM EDT [facility] Blood Venous blood specimen / Unknown Venipuncture / Unknown 02/27/2025 1:57 PM EDT 02/27/2025 2:12 PM EDT us Alexander Collins MD LAB BLOOD BANK TEST ORDERAB LES Final Result Performing Organization Address [facility]/ZIP Co de Phone Number [facility] [address] [place] [address], [place] [phone] * (ABNORMAL) B-type natriuretic peptide (02/27/2025 1:57 PM EDT) BNP 315(H) <=100 pcg/mL LAB CHEMISTRY METHOD 02/27/2025 2:51 PM EDT [facility] Blood Venous blood specimen / Unknown Venipuncture / Unknown 02/27/2025 1:57 PM EDT 02/27/2025 2:12 PM EDT us Alexander Collins MD LAB BLOOD ORDERABLES Final Result [facility] [address] [place] [address], [place] [phone] * XR Chest 2 Views (02/27/2025 12:54 [...] Signed Date: 02/27/2025 13:22 ET Workstation ID: [id number] Transcribed By: Self Edit Transcribed Date: 02/27/2025 [...] Signed Date: 02/27/2025 13:22 ET Workstation ID: [id number] Transcribed By: Self Edit Transcribed Date: 02/27/2025 [...] Signed Date: 02/27/2025 12:44 ET Workstation ID: [id number] Transcribed By: Self Edit Transcribed Date: 02/27/2025 [...] Signed Date: 02/27/2025 12:44 ET Workstation ID: [id number] Transcribed By: Self Edit Transcribed Date: 02/27/2025 [...] Signed Date: 02/07/2025 09:29 ET Workstation ID: [id number] Transcribed By: Self Edit Transcribed Date: 02/07/2025 [...] Signed Date: 02/07/2025 09:29 ET Workstation ID: [id number] Transcribed By: Self Edit Transcribed Date: 02/07/2025 09:28 ET Briseida ALMARAZ IMG XR PROCEDURES Final Result * Phosphorus (01/30/2025 5:43 AM EDT) Only the most recent of3 resultswithin the time period is included. Phosphorus 2.9 2.5 - 4.5 mg/dL LAB CHEMISTRY METHOD 01/30/2025 7:03 AM EDT [facility] Blood Venous blood specimen / Unknown Venipuncture / Unknown 01/30/2025 5:43 AM EDT 01/30/2025 6:19 AM EDT us Yazmin ALMARAZ LAB BLOOD ORDERABLES Final Result [facility] [address] [place] [address], [place] [phone] * IR Insert Gastro Tube Perc w [...] as the tube itself. Specimen: None Tube: 16-Liberian gastrostomy Estimated blood loss: Minimal Consultations: None [...] over the wire through which we placed [id number] gastrostomy tube. The peel-away sheath was removed. [...] Signed Date: 01/28/2025 17:19 ET Workstation ID: [id number] Transcribed By: Self Edit Transcribed Date: 01/28/2025 [...] as the tube itself. Specimen: None Tube: 16-Liberian gastrostomy Estimated blood loss: Minimal Consultations: None [...] advanced over the wire through which weplaced [id number] gastrostomy tube. The peel-away sheath was removed.5 [...] Signed Date: 01/28/2025 17:19 ET Workstation ID: [id number] Transcribed By: Self Edit Transcribed Date: 01/28/2025 17:16 ET us Patricia ALMARAZ IMG IR PROCEDURES Final Result * (ABNORMAL) Lipid panel (02/11/2002) LDL/HDL Ratio 4 1 - 5 Triglycerides 353(A) 10 - 160 mg/dL Cholesterol 163 10 - 240 mg/dL HDL 38 32 - 96 mg/dL LDL Cholesterol 54(A) 62 - 185 mg/dL Blood Venous blood specimen / Unknown us Historical Provider LAB BLOOD ORDERABLES Gabbie mckeon Result from Last 3 Months or Most Recently Relevant to Health Maintenance Insurance MEDICARE [place]ICA[place] - [place] Advance Directives Documents on File Type Date Recorded Patient Installer Inspector Final Expl anation Advance Directives and Living Will 01/29/2025 10:45 AM AYAN Advance Directives and Living Will 01/28/2025 3:23 PM Nelida Moreira Health Care Proxy Advance Directives and Living Will 01/28/2025 2:57 PM Health Care Proxy * No CPR/Do Not Intubate (Latest Code Status on File) Date Activated Date Inactivated Comments 04/26/2025 9:23 PM 04/28/2025 6:29 PM This code status was ascertained in the following way: Code status discussion: discussion with patient To update the patient's code status, place a code status order. Do not modify or discontinue any currently active code status orders. * No CPR/Do Not Intubate Date Activated Date Inactivated Comments 01/27/2025 12:38 [...] Agents on File Name Relationship Healthcare Agent [facility] Communication [facility] Health Care Agent Nelida Minor [facility] Health Care Agent Care Teams Strategic Client Executive Relationship Specialty Start Date End Date Lobo Mills MD [address] [place] [address] [place] PCP - General 12/14/23
--- OUTSIDE RECORDS SUMMARY | 2025-04-30 18:33 | XMS_ITS | Encounter Summary ---
Author Organization [facility] Address [address] [place] [address] Care Team Providers Care Data Analysis Intern Name Role Phone Lobo Mills MD Primary Care Provider [phone] Encounter Details Date Type Department Care Team (Late st Contact Info) Description 10/24/2024 Lab Requisition [facility] Main Lab [address] [facility] [place] [address] Rich Cintron PA [address] [phone] Calculus of kidney Social History [...] count (10/24/2024 11:48 AM EDT) [facility] WBC 9.1 4.8 - 10.8 K/mcL LAB HEMETOLOGY METHOD 10/24/2024 3:24 PM EDT [facility] RBC 3.30(L) 4.50 - 5.50 M/mcL LAB HEMETOLOGY METHOD 10/24/2024 3:24 PM EDT [facility] Hemoglobin 10.3(L) 13.5 - 17.5 g/dL LAB HEMETOLOGY METHOD 10/24/2024 3:24 PM [facility] Hematocrit 31.2(L) 42.0 - 54.0 % LAB HEMETOLOGY [facility] MCV 96.0 79.0 - 98.0 FL LAB HEMETOLOGY METHOD [facility] MCH 31.7 27.0 - 32.0 pcg LAB HEMETOLOGY METHOD 10/24/2024 3:24 PM [facility] MCHC 33.0 32.0 - 37.0 g/dL LAB HEMETOLOGY METHOD 10/24/2024 3:24 PM [facility] RDW 15.8(H) 11.0 - 15.0 % LAB HEMETOLOGY METHOD 10/24/2024 3:24 PM EDT [facility] Platelets 464(H) 130 - 400 K/mcL LAB HEMETOLOGY METHOD [facility] MPV 10.6 7.0 - 11.0 FL LAB HEMETOLOGY METHOD 10/24/2024 3:24 PM [facility] NRBC 0.0 <1.0 % LAB HEMETOLOGY METHOD [facility] NRBC Absolute 0.00 <0.10 K/mcL LAB HEMETOLOGY METHOD 10/24/2024 3:24 PM EDT [facility] Blood Venous blood specimen / Unknown 10/24/2024 11:48 AM EDT 10/24/2024 2:28 PM EDT us Rich ALMARAZ LAB BLOOD ORDERABLES Final Resul t [facility] [address] [place] [address], documented in this encounter Visit Diagnoses Diagnosis Calculus of kidney documented in this encounter Care Teams Data Analysis Intern Relationship Specialty Start Date End Date Lobo Mills MD [address] [place], [place] PCP - General 12/14/23 documented as of this encounter
--- OUTSIDE RECORDS SUMMARY | 2025-04-30 18:33 | XMS_ITS | Clinical Summary ---
Author Organization [facility] Address [address] 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 Health Care Proxy 06/07/2019 9:42 PM Conver jigar - External Healthcare Proxy ([facility]) DNR (Do Not Resuscitate)/DNI (Do Not Intubate) 06/07/2019 9:41 PM Conversion - DNR Ord er ([facility]) Health Care Proxy 05/27/2019 11:56 AM Conv ersion - External Healthcare Proxy ([facility]) * Full Code (Latest Code Status on File) Date Activated Date Inactivated Comments 08/10/2021 3:59 PM 08/12/2021 8:27 PM Care Teams Radiology Technologist Relationship Specialty Start Date End Date Lobo Mills MD [address] [place] [address] PCP - General 06/04/21
--- OUTSIDE RECORDS SUMMARY | 2025-04-30 18:33 | XMS_ITS | Data Portability ---
Author Organization [place] [facility] Address [address] [place] [address] Care Team Providers Care Pure Culture Operator Name Role Phone ARIES ROJAS Primary Care Provider [facility] [phone] Assessment Encounter Date Assessment Date Assessment LastModified [...] care were discussed with the Virtual Physician supervisor inspection for [facility], Dr. Horn. After discussion with [...] which he has since ordered from his quality control inspector heading and it is currently coming in the [...] and he has some coming in from quality control inspector heading but we are in the middle of [...] and he has some coming in from quality control inspector heading but we are in the middle of [...] calcium, serum or plasma 2018 019 baldo [facility], [address] [place] [address], [address], 9 15:07:42 Referral None recorded. Procedures None [...] By Organization Details Last Modified Time 07/30/2018 11662 Acute Nausea and Vomiting/Diarrhea BASIC INFORMATION Acute [...] disease, do not use Tylenol. Ask your AGRIBUSINESS PROFESSOR how to address fever if you are concerned about Tylenol use. 3) Anti-diarrheal medicines: These are available [id number], but in some cases are not recommended and can even worsen some cases of intestinal problems. Ask your AGRIBUSINESS PROFESSOR if you should use them. In children [...] with one of the PCP suggestions from [facility]. SEEK CARE IMMEDIATELY IF: 1) You are [...] in your condition between 8am-10pm, please call [facility] at [phone] to help navigate your care. Thank you for your visit with [facility] today. You were seen today for abdominal [...] condition between 8am-10pm, please call [facility] at [phone] to help navigate your care. baldo Not available 07/30/2018 14:04:47 Reason for Referral None Reported. Results Created Date Observation Date Name Description Value Unit Range Abnormal Flag Note LastModifiedBy Organization Detail LastModifiedTime 07/31/19 19 07/30/2018 BMP + ioniz ed calci um, serum or plasm a Na 139 mmol/ L 136-14 5 Not Available [facility] - [address] [place], [address], 07/30/2018 14:04:49 07/31/19 19 07/30/2018 BMP + ioniz ed calci um, serum or plasm a K 4.3 mmol/ L 3.5-5. 1 Not Available [facility] - [facility] [address] [place], [address], 07/30/2018 14:04:49 07/31/1907/30/2018 BMP + ioniz ed calci um, serum or plasm a cL 109 mmol/ L 96-111 Not Available [facility] [address] [place], [address], 07/30/2018 14:04:49 07/31/1907/30/2018 BMP + ioniz ed calci um, serum or plasm a ica 1.20 mmol/ L 1.1-1. 4 Not Available [facility] - Home [address] [place], [address], 07/30/2018 14:04:49 07/31/19 19 07/30/2018 BMP + ioniz ed calci um, serum or plasm a TCO2 19 mmol/ L 20-30 Not Available [facility] - [facility] [address] [place], [address], 07/30/2018 14:04:49 07/31/19 07/30/2018 BMP + ioniz ed calci um, serum or plasm a glu 144 mg/dL 70-115 Not Available [facility] [address] [place], [address], 07/30/2018 14:04:49 07/31/19 19 07/30/2018 BMP + ioniz ed calci um, serum or plasm a BUN 46 mg/dL 6-24 Not Available [facility] [address] [place], [address], 07/30/2018 14:04:49 07/31/19 19 07/30/2018 BMP + ioniz ed calci um, serum or plasm a crea 1.3 mg/dL .65-1. 36 Not Available [facility] [address] [place], [address], 07/30/2018 14:04:49 07/31/1907/30/2018 BMP + ioniz ed calci um, serum or plasm a HCT 43 %_pcv 40.6-5 0.3 Not Available [facility] [address] [place], [address], 07/30/2018 14:04:49 07/31/1907/30/2018 BMP + ioniz ed calci um, serum or plasm a Hb 14.6 g/dL 13.9-1 7.4 Not Available [facility] [address] [place], [address], 07/30/2018 14:04:49 07/31/1907/30/2018 BMP + ioniz ed calci um, serum or plasm a angap 16 mmol/ L 6-18 Not Available [facility] [address] [place], [address], 07/30/2018 14:04:49 Result Notes None recorded. 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 Procedures Surgical History Date Name Laterality Status Provider Name and Address Organization Details Recorded Time 9 IV Start Procedure - DH completed DEBBI THOMSON NP [address], [place], [address], [place] [facility] 07/30/2018 15:49:59 Imaging Results None recorded. Procedure Notes None recorded. Medical Equipment None Reported. Allergies Allergen ID Allergen Name Allergen Category Reaction Reaction Severity Criticality Documentation Date Start Date Code Code System Note Provider Name and Address Organization Details Recorded Time 851462 cefepime medicatio n Not available Not available Not available 09/25/2021 75256 RxNorm RUFINA Duffy [address], [facility] [place], [address], [place] [facility] 2 12:56:11 934854 Iodinated contrast media (substanc e) medicatio n Not available Not available Not available 09/25/2021 68097 2004 SNOMED RUFINA Duffy [address], [facility], [address], [place] [facility] 2 12:56:18 51973 acetamino phen / oxycodone medicatio n Not available Not available Not available 07/30/2018 50204 3 RxNorm DEBBI THOMSON NP [address], [facility], [address], [place] [facility] [...] DEBBI THOMSON, LUIS ALBERTO [address], [place], [address], [place] [facility] 07/30/2018 14:02:24 Do You [...] 14:02:17 Medical History Condition Response Cancer Y Hypertension Y COPD Y Past Encounters Encounter ID Performer Location Encounter Start Date Encounter Closed Date Diagnosis/Indication Diagnosis SNOMED-CT Code Diagnosis ICD10 Code Diagnosis IMO Codes Diagnosis Note [id number] DEBBI THOMSON NP [facility] [address] [facility] [place] [address] 07/30/2018 13:54:27 08/01/2018 15:30:31 Diarrhea 60558830 R19.7 [id number] RUFINA Walter [facility] [address] [place] [address] 09/25/2021 11:33:30 09/30/2021 09:40:37 Cellulitis 595314807 L03.90 Health Concerns Section Related Observation LastModified by Organization Detai ls LastModified Time None Recorded Concern Status LastModified by Organization Details LastModified Time None Recorded Advance Directives Directive Y: Payers Insurance Date Sequence Insurance Name Policy Number Policy Snyder Covered Member ID Snyder Member ID Guarantor Name 10/01/2021 2 [place] [facility] Jose Hirsch [id number] Jose Hirsch 07/30/2018 1 *SELF PAY* Josestephanie Hirsch [id number] Jose Joycelyn 07/30/2018 1 [place] [employer] Josestephanie Hirsch [id number] Jose Hirsch 09/25/2021 1 [place] [employer] Josestephanie Hirsch [id number] Jose Hirsch Notes Date Note Type Note [...] ulcer. DEBBI THOMSON NP [address], [place], [address], [place] [facility] 07/30/2018 17:56:13 09/25/2021 text/html [...] which he has since ordered from his quality control inspector heading and it is currently coming in the [...] sxs today. RUFINA Graham [address], [place], [address], [place] [facility] 09/25/2021 13:40:14
--- OUTSIDE RECORDS SUMMARY | 2025-04-30 18:33 | XMS_ITS | Data Portability ---
Author Organization RUFINA Hamilton [facility] [address] Address [address] [place] [address] Assessment No assessment recorded. Plan of Treatment Reminders Order Date Submit Date Provider Last Modified By Organization Details Last Modified Time Details Appointments None recorded. Lab None recorded. Referral None recorded. Procedures None recorded. Surgeries None recorded. Imaging None recorded. Medication Orders cephalexin 500 mg capsule 2022 023 [id number], [address] [place], [place], [id number], 12:02:04 Patient TargetsNo targets recorded. Patient Instructions Encounter Date Encounter Id Patient Instructions Last Modified By Organization Details Last Modified Time 11/21/2022 [id number] Cellulitis is a skin infection caused by [...] your doctor if you can take an [id number]-keqlpux medicine. Not available 11/21/2022 12:00:53 Reason for Referral None Reported. 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 Procedures Surgical History Date Name Laterality Status Provider Name and Address Organization Details Recorded Time 3 Wound Dressing completed Neal Trejo [facility] [address] [facility] [place], [address], [place] - [facility] 11/21/2022 12:01:52 3 Wound Care UC completed Neal Trejo NP [address] [place], [address], [place] - [facility] 11/21/2022 12:01:24 Appendectomy completed GENEVA JESUS PA - [facility] 11/21/2022 11:28:37 Imaging Results None recorded. Procedure Notes None recorded. Medical Equipment None Reported. Allergies Allergen ID Allergen Name Allergen Category Reaction Reaction Severity Criticality Documentation Date Start Date Code Code System Note Provider Name and Address Organization Details Recorded Time 259723 Iodinated contrast media (substanc e) medicatio n other Not available Not available 11/21/2022 12382 2003 SNOMED feel s like I'm on [...] Last Updated DateTime 162.56 cm 27.3 kg/m2 44697.1 9 g 5 17 /min 98 % 96 /min 98.5 [degF] 129/94 mm[Hg] GENEVA JESUS [facility] 11:29:31 Social History Question Answer Notes LastModified by CC video Details LastModified Time Tobacco Smoking Status Never Smoker GENEVA schmitz [facility] 11/21/2022 11:27:59 Have You Recently Traveled Abroad? No [email or web address] Information not available 11/21/2022 Sex: Unknown Functional Status Question Answer Note LastModified by CC video Details LastModified Time Do you use any illicit or recreational drugs? No [email or web address] Information not available 11/21/2022 Do you or have you ever used any other forms of tobacco or nicotine? No [email or web address] Information not available 11/21/2022 What is your level of alcohol consumption? Occasional [email or web address] Information not available 11/21/2022 Mental Status None recorded. Family History Relationship Description Onset Age of this Age Resolved Age Notes LastModified by Organization Details LastModified Time Father No current problems or disability [email or web address] Not available 11/21 11:27:52 Mother No current problems or disability [email or web address] Not available 11/21 11:27:52 Medical History No medical history recorded. Past Encounters Encounter ID Performer Location Encounter Start Date Encounter Closed Date Diagnosis/Indication Diagnosis SNOMED-CT Code Diagnosis ICD10 Code Diagnosis IMO Codes Diagnosis Note [id number] [address] [place] [address] 06/18/2017 13:20:47 06/18/2017 14:49:02 [id number] Neal Trejo NP [address] [place] [address] 11/21/2022 11:08:48 11/21/2022 12:06:21 Cellulitis of toe of left foot 1644633149 1963787 L03.032 Health Concerns Section Related Observation LastModified by Organization Detai ls LastModified Time None Recorded Concern Status LastModified by Organization Details LastModified Time None Recorded Advance Directives Directive None Recorded Payers Insurance Date Sequence Insurance Name Policy Number Policy Snyder Covered Member ID Snyder Member ID Guarantor Name 11/21/2022 1 [place] [employer] Jose Garcia Teal [id number] Josestephanie Jaegerl 06/07/2023 2 [place] [facility] Jose Teal [id number] Jose Heidel 11/21/2022 [facility] - SPECIALITY CLAIMS ([facility]) Jose C Teal [id number] Jose Hirsch Notes Date Note Type [...] Neal Trejo NP [address] [place], [address], [place] - [facility] 11/21/2022 12:02:23
[2025-04-30 18:34] LABS: MANUAL DIFF FLAG NO
[2025-04-30 18:51] LABS: Anion Gap 13 (12-20); Blood Urea Nitrogen 30 mg/dL (9-16); Carbon Dioxide 20 mmol/L (22-29); Chloride 114 mmol/L (96-108); Estimated Glomerular Filt Rate 37; Hematocrit 27.4 % (42.0-52.0); Hemoglobin 8.7 g/dl (14.0-18.0); Imm Gran Abs Auto 0.06 X10*3/uL (0.00-0.03); Imm Gran Pct Auto 0.7 % (0.0-0.4); Lymphocytes Absolute Auto 1.8 X10*3/uL (1.2-4.9); Mean Corpuscular HGB Conc 31.8 g/dl (31.0-36.0); Mean Corpuscular Hemoglobin 30.2 pg (27.0-33.0); Mean Corpuscular Volume 95.1 fL (80.0-98.0); NRBC Abs Auto 0.000 X10*3/uL (0.0-0.012); NRBC Pct Auto 0.0 /100WBC (0.0-0.2); Platelet Count 454 X10*3/uL (160-400); Potassium 5.1 mmol/L (3.3-5.1); Red Blood Count 2.88 X10*6/uL (4.60-5.80); Sodium 142 mmol/L (135-145); White Blood Count 9.0 X10*3/uL (4.8-10.8)
== END 2025-04-30 18:29 | disposition home or self-care (01) ==
LOC: HO.HVNA 18:28
PROVIDERS: Visit Provider Internal Medicine Medical Oncology
DX: N17.9 Acute kidney failure, unspecified (principal); Z90.410 Acquired total absence of pancreas
CPT/HCPCS: 36415; 80051; 82565; 84520; 85025